=== PATIENT | male | born 1950 | race Caucasian/White ===

== ENCOUNTER → 2020-01-02 14:36 | Outpatient (BNVA) | payer MEDICARE, BC, SELFPAY | PROVIDERS: Family Provider Family Medicine; PCP Nurse Practitioner Family; Visit Provider Family Medicine | DX: J02.9 Acute pharyngitis, unspecified (principal); R11.14 Bilious vomiting; J44.9 Chronic obstructive pulmonary disease, unspecified | CPT/HCPCS: 71046; 85025; 87071; 87400; 87880 ==

== ENCOUNTER → 2020-04-22 11:02 | Outpatient (BNVA) | payer MEDICARE, SELFPAY | PROVIDERS: Family Provider Family Medicine; PCP Nurse Practitioner Family; Referring Provider Nurse Practitioner Family; Visit Provider Dermatology | DX: R21 Rash and other nonspecific skin eruption (principal); F17.210 Nicotine dependence, cigarettes, uncomplicated | CPT/HCPCS: 99203 ==

== ENCOUNTER → 2020-06-03 07:35 | Outpatient (BNVA) | payer MEDICARE, SELFPAY | PROVIDERS: Family Provider Family Medicine; PCP Nurse Practitioner Family; Visit Provider Nurse Practitioner Family | DX: E78.5 Hyperlipidemia, unspecified (principal) | CPT/HCPCS: 80053; 80061; 84439; 84443 ==

== ENCOUNTER 2020-08-25 09:42 | Inpatient (IN) | payer MEDICARE, SELFPAY ==
[2020-08-25] VITALS (24 sets, daily range): BP systolic 122–165; BP diastolic 76–110; PULSE 100–118; RESP 18–24; O2SAT 87–100; BMI 18.8
--- NOTE | 2020-08-25 09:58 | XR_ITS ---
WS: [id number] Exam: XR chest 1V portable [id number] Date/Time of Exam: 08/25/2020 9:58 AM Reason For Exam: Shortness of breath Comparison 01/02/2020. Interstitial infiltrates noted throughout both lungs more prevalent on the right than the left. There are superimposed chronic interstitial changes. The lungs are hyperinflated. No pneumothorax. Enlarge d right pulmonary hilum noted. Small right basal pleural effusion with fluid level seen. There may be trace left pleural effusion. The mediastinum is not widened. Heart size is within normal limits. Bon y structures are intact. XR/XR chest 1V portable [id number] IMPRESSION: 1. Interstitial infiltrates throughout both lungs more prevalent on the right t orourke the left. This would suggest pneumonia. 2. Pulmonary hyperinflation with chronic interstitial changes and probable COPD . 3. Prominent right pulmonary hilum. Lymphadenopathy or a mass not excluded. Rad iographic follow-up recommended to confirm complete resolution. 4. Small right pleural effusion noted. Global trace left pleural effusion.
--- NOTE | 2020-08-25 10:01 | ED_ITS ---
HPI - SOB/Dyspnea General: Chief Complaint: Shortness of Breath/Dyspnea Stated Complaint: sob Time Seen by Provider: 08/25/20 09:45 History of Present Illness: HPI Narrative: 70-year-old male presents emergency room complaining of shortness of breath. He is evidently brought over from the cardiac care clinic. He usually is on 3 L by nasal cannula and when he arrived here he was satting in the low 80 percentile on that amount. He was recently hospitalized at [facility] sounds like he eventually just left AMA approximately a week ago. Since then he has been on oxygen at home is been progressively worsening with increasing shortness of breath and productive cough. He is not had any vomiting or diarrhea. He denies any history of known coronary artery disease he does have known peripheral vascular disease with a previous aortofemoral bypass MD elicited complaint: shortness of breath and cough Pertinent past history: COPD Context: recent illness Timing: constant Severity: severe Exacerbating factors: exertion and coughing Relieving factors: oxygen and rest Known history of: COPD Associated symptoms: Reports chest congestion and sense of impending doom; Deny abdominal pain, chest pain, cough, diaphoresis, dizziness, extremity pain, fever(s), hemoptysis, lightheadedness, myalgias, nausea, orthopnea, palpitations, paresthesias, polydipsia, polyuria, rash, syncope or vomiting Treatment prior to arrival: oxygen Review of Systems Const: Denies: fever(s) or diaphoresis Card: Denies: chest pain, palpitations, lightheadedness, syncope or orthopnea Resp: Reports: chest congestion; Denies: hemoptysis GI: Denies: abdominal pain, nausea or vomiting Musc: Denies: extremity pain Neuro: Denies: dizziness Endo: Denies: polyuria or polydipsia PENDING SALE TO [facility] ED PFSH: Medical History (Updated 08/25/20 @ 21:13 by Cat Austin MD) Acute on chronic respiratory failure with hypoxemia COPD, moderate GERD (gastroesophageal reflux disease) Moderate episode of recurrent major depressive disorder Surgical History History of coronary angioplasty COMMON ILIAC AND EXTERNAL ILIAC LEFT History of endarterectomy Social History Smoking and tobacco status: former smoker Quit status (tobacco): has quit using tobacco Year quit tobacco: 06/2020 [id number] Second hand smoke exposure: Yes Smoking risk assessment/counseling performed?: Yes Alcohol intake: former Caregiver/support person: Yes Lives independently: Yes Household members: spouse Housing: House Marital status: service: Yes branch: [employer] Current occupational status: retired Pets and animals: Yes History of recent travel: No Current gender identity: Male Physical Exam Const: COMMON NORMALS: no acute distress GENERAL APPEARANCE: cooperative and comfortable ORIENTATION/CONSCIOUSNESS: Yes awake, Yes oriented to person, Yes oriented to place and Yes oriented to time HENMT: COMMON NORMALS: normocephalic, atraumatic and hearing grossly normal bilaterally HEAD & SCALP: normocephalic and atraumatic Neck/C-Spine: COMMON NORMALS: no JVD Resp: EFFORT & INSPECTION: Yes tachypneic, Yes labored and Yes uses accessory muscles AUSCULTATION: rhonchi and wheezes Cardio: COMMON NORMALS: no JVD, regular rate, regular rhythm and No murmurs present (Cardio) RATE: regular rate RHYTHM: regular rhythm GI: COMMON NORMALS: Soft to palpation and No hepatosplenomegaly present AUSCULTATION: Yes normoactive bowel sounds PALPATION: Yes Soft to palpation, No Tenderness to palpation present (GI), No Guarding due to palpation present (GI) and Yes No hepatosplenomegaly present Extremity: COMMON NORMALS: normal to inspection, capillary refill normal, no clubbing, cyanosis or edema, no calf tenderness and no pedal edema Neuro: SENSORIUM/ORIENTATION: Yes oriented to person, Yes oriented to place and Yes oriented to time Skin: COMMON NORMALS: no rashes or lesions noted GENERAL SKIN EXAM: no rashes or lesions noted Course Vital Signs: Vital signs: Vital Signs Pulse Rate 106 H 08/26/20 10:00 Respiratory Rate 28 H 08/26/20 10:00 Blood Pressure 162/94 08/26/20 10:00 Pulse Oximetry 92 08/26/20 10:00 MDM - SOB/Dyspnea MDM Narrative: Medical decision making narrative: Patient appears to have postobstructive pneumonia. We will go ahead and admit started on IV antibiotics consult pulmonology have discussed with hospitalist as well as Dr. Jameson Ledbetter. Lab Data: Labs: Lab Results 1208/25/20 08/25/20 Range/Units 10:48 10:58 10:58 WBC 12.2 H (4.0-10.0) 10^3/ uL RBC 5.02 (4.1-5.3) 10^6/u L Hgb 10.5 L (11.7-16.6) g/dL Hct 34.9 L (42.0-52.0) % MCV 69.5 L (80-94) fL MCH 20.9 L (28.0-34.0) pg MCHC 30.1 (30.0-36.0) g/dL RDW 18.6 H (12.1-15.1) % Plt Count 401 H (130-400) 10^3/c mm MPV 10.2 (7.4-10.4) fL Neut % (Auto) 80.5 % Lymph % (Auto) 13.3 % [place] % (Auto) 4.9 % Eos % (Auto) 0.2 % Baso % (Auto) 0.4 % Neut # (Auto) 9.79 H (1.8-7.7) 10^3/u L Lymph # (Auto) 1.6 (0.8-4.8) 10^3/u L [place] # (Auto) 0.6 (0.2-0.9) 10^3/u L Eos # (Auto) 0.0 (0.0-0.8) 10^3/u L Baso # (Auto) 0.1 (0.0-0.1) 10^3/u L Nucleated RBC % (a uto) 0 % Nucleated RBCs # 0.0 /100WBC D-Dimer 3.83 H (0-0.59) ug/mIFE U Specimen Type Sample Site ABG pH (7.35-7.45) ABG pCO2 (35-45) mmHg ABG pO2 (80.0-100.0) mmH g ABG HCO3 (22-26) mmol/L ABG O2 Saturation ABG Base Excess (-2.0-2.0) mmol/ L Mohamud Test A-a O2 Gradient (5-10) mmHg Hematocrit (42-52) % Hgb O2 Saturation (95-100) % Carboxyhemoglobin (0.4-20.1) %THgb Methemoglobin (0.4-1.5) % Total Hemoglobin (14-18) g/dL Ionized Calcium (1.1-1.4) mmol/L O2 Delivery Device O2 Liters/Min % FiO2 % School Vocational Educator ID Sodium (136-145) mmol/L Potassium (3.5-5.1) mmol/L Chloride (98-107) mmol/L Carbon Dioxide (22-29) mmol/L Anion Gap (5-19) BUN (8-23) mg/dL Creatinine (0.7-1.2) mg/dL GFR Calculation Glucose (65-115) mg/dL Calculated Osmolal ity (285-295) mOsm/k g Lactic Acid (0.5-2.2) mmol/L Calcium (8.5-10.5) mg/dL Total Bilirubin (0.15-1.2) mg/dL AST (0-40) U/L ALT (0-41) U/L Alkaline Phosphata se (40-130) IU/L Creatine Kinase (39-308) U/L Troponin T Baselin e (0-15) ng/L Troponin T 120 Min native (0-15) ng/L Delta Troponin T (0-10) ABS# C-Reactive Protein (0.0-4.9) mg/L Total Protein (6.6-8.7) g/dL Albumin (3.5-5.2) g/dL Globulin (1.3-4.6) g/dL SARS-CoV-2 Ag (Rap id) Negative (Negative) 08/25/20 08/25/20 08/25/20 Range/Units 10:58 10:58 10:58 WBC (4.0-10.0) 10^3/ uL RBC (4.1-5.3) 10^6/u L Hgb (11.7-16.6) g/dL Hct (42.0-52.0) % MCV (80-94) fL MCH (28.0-34.0) pg MCHC (30.0-36.0) g/dL RDW (12.1-15.1) % Plt Count (130-400) 10^3/c mm MPV (7.4-10.4) fL Neut % (Auto) % Lymph % (Auto) % [place] % (Auto) % Eos % (Auto) % Baso % (Auto) % Neut # (Auto) (1.8-7.7) 10^3/u L Lymph # (Auto) (0.8-4.8) 10^3/u L [place] # (Auto) (0.2-0.9) 10^3/u L Eos # (Auto) (0.0-0.8) 10^3/u L Baso # (Auto) (0.0-0.1) 10^3/u L Nucleated RBC % (a uto) % Nucleated RBCs # /100WBC D-Dimer (0-0.59) ug/mIFE U Specimen Type Sample Site ABG pH (7.35-7.45) ABG pCO2 (35-45) mmHg ABG pO2 (80.0-100.0) mmH g ABG HCO3 (22-26) mmol/L ABG O2 Saturation ABG Base Excess (-2.0-2.0) mmol/ L Mohamud Test A-a O2 Gradient (5-10) mmHg Hematocrit (42-52) % Hgb O2 Saturation (95-100) % Carboxyhemoglobin (0.4-20.1) %THgb Methemoglobin (0.4-1.5) % Total Hemoglobin (14-18) g/dL Ionized Calcium (1.1-1.4) mmol/L O2 Delivery Device O2 Liters/Min % FiO2 % School Vocational Educator ID Sodium 137 (136-145) mmol/L Potassium 3.8 (3.5-5.1) mmol/L Chloride 101 (98-107) mmol/L Carbon Dioxide 20 L (22-29) mmol/L Anion Gap 19.8 H (5-19) BUN 19 (8-23) mg/dL Creatinine 0.8 (0.7-1.2) mg/dL GFR Calculation Not Reportable Glucose 109 (65-115) mg/dL Calculated Osmolal ity 287 (285-295) mOsm/k g Lactic Acid 2.7 H (0.5-2.2) mmol/L Calcium 8.9 (8.5-10.5) mg/dL Total Bilirubin 0.2 (0.15-1.2) mg/dL AST 29 (0-40) U/L ALT 30 (0-41) U/L Alkaline Phosphata se 104 (40-130) IU/L Creatine Kinase 53 (39-308) U/L Troponin T Baselin e 32 H (0-15) ng/L Troponin T 120 Min native (0-15) ng/L Delta Troponin T (0-10) ABS# C-Reactive Protein 34.8 H (0.0-4.9) mg/L Total Protein 7.2 (6.6-8.7) g/dL Albumin 3.2 L (3.5-5.2) g/dL Globulin 4.0 (1.3-4.6) g/dL SARS-CoV-2 Ag (Rap id) (Negative) 08/25/20 08/25/20 Range/Units 12:58 13:19 WBC (4.0-10.0) 10^3/ uL RBC (4.1-5.3) 10^6/u L Hgb (11.7-16.6) g/dL Hct (42.0-52.0) % MCV (80-94) fL MCH (28.0-34.0) pg MCHC (30.0-36.0) g/dL RDW (12.1-15.1) % Plt Count (130-400) 10^3/c mm MPV (7.4-10.4) fL Neut % (Auto) % Lymph % (Auto) % [place] % (Auto) % Eos % (Auto) % Baso % (Auto) % Neut # (Auto) (1.8-7.7) 10^3/u L Lymph # (Auto) (0.8-4.8) 10^3/u L [place] # (Auto) (0.2-0.9) 10^3/u L Eos # (Auto) (0.0-0.8) 10^3/u L Baso # (Auto) (0.0-0.1) 10^3/u L Nucleated RBC % (a uto) % Nucleated RBCs # /100WBC D-Dimer (0-0.59) ug/mIFE U Specimen Type Arterial Sample Site Radial, right ABG pH 7.42 (7.35-7.45) ABG pCO2 35.2 (35-45) mmHg ABG pO2 77.5 L (80.0-100.0) mmH g ABG HCO3 22.5 (22-26) mmol/L ABG O2 Saturation 96.5 ABG Base Excess -1.7 (-2.0-2.0) mmol/ L Mohamud Test Pos A-a O2 Gradient 77.8 H (5-10) mmHg Hematocrit 31.8 L (42-52) % Hgb O2 Saturation 94.4 L (95-100) % Carboxyhemoglobin 1.5 (0.4-20.1) %THgb Methemoglobin 0.7 (0.4-1.5) % Total Hemoglobin 10.4 L (14-18) g/dL Ionized Calcium 1.2 (1.1-1.4) mmol/L O2 Delivery Device Nrb O2 Liters/Min 15.0 % FiO2 100.0 % School Vocational Educator ID jmn Sodium 136.0 (136-145) mmol/L Potassium 3.7 (3.5-5.1) mmol/L Chloride (98-107) mmol/L Carbon Dioxide (22-29) mmol/L Anion Gap (5-19) BUN (8-23) mg/dL Creatinine (0.7-1.2) mg/dL GFR Calculation Glucose 120.0 H (65-115) mg/dL Calculated Osmolal ity (285-295) mOsm/k g Lactic Acid (0.5-2.2) mmol/L Calcium (8.5-10.5) mg/dL Total Bilirubin (0.15-1.2) mg/dL AST (0-40) U/L ALT (0-41) U/L Alkaline Phosphata se (40-130) IU/L Creatine Kinase (39-308) U/L Troponin T Baselin e (0-15) ng/L Troponin T 120 Min native 31.32 H (0-15) ng/L Delta Troponin T -0.68 L (0-10) ABS# C-Reactive Protein (0.0-4.9) mg/L Total Protein (6.6-8.7) g/dL Albumin (3.5-5.2) g/dL Globulin (1.3-4.6) g/dL SARS-CoV-2 Ag (Rap id) (Negative) Discharge Plan Discharge Patient Disposition: Admitted As Inpatient Admit Provider: Cat Austin Clinical Impression: Pneumonia, Lesion of lung, COPD, moderate Condition: Stable Coding Level of Care Code ED Readiness Paraprofessional for Eric Donohue
--- NOTE | 2020-08-25 11:01 | PC.NURSE ---
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
[2020-08-25 11:23] LABS: Basophils # 0.1 10^3/uL (0.0-0.1); Basophils % 0.4 %; Eosinophils % 0.2 %; Hematocrit 34.9 % (42.0-52.0); Hemoglobin 10.5 g/dL (11.7-16.6); Lymphocytes # 1.6 10^3/uL (0.8-4.8); Lymphocytes % 13.3 %; Mean Corpuscular HGB Conc 30.1 g/dL (30.0-36.0); Mean Corpuscular Hemoglobin 20.9 pg (28.0-34.0); Mean Corpuscular Volume 69.5 fL (80-94); Mean Platelet Volume 10.2 fL (7.4-10.4); Monocytes # 0.6 10^3/uL (0.2-0.9); Monocytes % 4.9 %; Neutrophils # 9.79 10^3/uL (1.8-7.7); Neutrophils % 80.5 %; Nucleated Red Blood Cells % 0 %; Platelet Count 401 10^3/cmm (130-400); Red Blood Count 5.02 10^6/uL (4.1-5.3); Red Cell Distribution Width 18.6 % (12.1-15.1); White Blood Count 12.2 10^3/uL (4.0-10.0)
[2020-08-25 11:29] LABS: SARS Covid-2 Antigen Negative (Negative)
[2020-08-25 11:40] LABS: D Dimer 3.83 ug/mIFEU (0-0.59)
[2020-08-25 11:42] LABS: Alanine Aminotransferase 30 U/L (0-41); Albumin Level 3.2 g/dL (3.5-5.2); Alkaline Phosphatase 104 IU/L (40-130); Anion Gap 19.8 (5-19); Aspartate Amino Transferase 29 U/L (0-40); Blood Urea Nitrogen 19 mg/dL (8-23); C Reactive Protein 34.8 mg/L (0.0-4.9); Calcium 8.9 mg/dL (8.5-10.5); Carbon Dioxide 20 mmol/L (22-29); Chloride 101 mmol/L (98-107); Creatine Phosphokinase 53 U/L (39-308); Glucose 109 mg/dL (65-115); Osmolality Calculated 287 mOsm/kg (285-295); Potassium 3.8 mmol/L (3.5-5.1); Sodium 137 mmol/L (136-145); Total Bilirubin 0.2 mg/dL (0.15-1.2); Total Protein 7.2 g/dL (6.6-8.7); Troponin(5th) Baseline 32 ng/L (0-15)
[2020-08-25] MEDS: dexamethasone 4 mg/mL INJ 6 MG IVP (11:43)
[2020-08-25] MEDS: levofloxacin-dextrose 5 % 750 MG/150 ML PREMIX 100 MG IV (11:43)
--- NOTE | 2020-08-25 11:59 | ECG_ITS ---
[facility] Test Date: 2020-08-25 Pat Name: Alexei Day Department: Room: Gender: Male Pediatric Oncology Nurse: : 1950 Requested By: Cameron Perez Order Number: [id number] Miri MD: Gab Castellanos M.D. Measurements Intervals [place] Rate: 106 P: 51 SD: 148 QRS: 80 QRSD: 113 T: 24 QT: 352 QTc: 469 Interpretive Statements SINUS TACHYCARDIA WITH VENTRICULAR PREMATURE COMPLEXES Compared to ECG 02/20/2018 05:55:48 NO SIGNIFICANT CHANGES ARE NOTED Electronically Signed On 08-25-2020 16:59:54 ASSISTANT HOUSEKEEPING MANAGER by Gab Castellanos M.D. [id number] f
--- NOTE | 2020-08-25 12:12 | CT_ITS ---
WS: [id number] CT CHEST ANGIOGRAPHY WITH REFORMATS HISTORY: dyspnea TECHNIQUE: Contiguous axial images are obtained through the chest during arterial injection of intrav enous contrast. Images are reconstructed to evaluate the pulmonary arteries. MIP imaging also reviewe d. All CT scans at [facility] use at least one of these dose optimization techniques: aut omated exposure control; mA and/or kV adjustment per patient size (includes targeted exams where dose is matched to clinical indication); or iterative reconstruction. CONTRAST: Omnipaque 350; 95 mL IV. DLP: 498.81 mGy.cm COMPARISON: 02/20/2018 Excellent opacification of the pulmonary arteries. No pulmonary embolism is identified. Pulmonary art jessica size is equal to the aorta. Atherosclerotic changes within the aorta with no aneurysm. Cardiac ch ambers are slightly enlarged. Small amount of pericardial effusion versus pericardial thickening. Severe changes of pulmonary emphysema. Area of dense consolidation in the posterior medial RIGHT uppe r lobe. There is mild tethering and slight spiculation involving a solid component in the RIGHT upper lobe. There is additional dense consolidation with changes of atelectasis and collapsed and hilar ad enopathy centered over the RIGHT hilum extending into the RIGHT lower lobe. Spiculated nodule measuri ng 1.5 x 1.8 cm along the fissure of the LEFT upper lobe. Additional areas of interstitial thickening with consolidation and areas of atelectasis and nodularity at the lung bases. Bronchiectasis in the lower lung srivastava. Small RIGHT pleural effusion. There is extensive mediastinal and hilar adenopathy. Mediastinal and hilar lymph nodes measuring up t o 2.0 cm. There is extensive consolidation at the RIGHT hilum and to a lesser extent LEFT hilum most significant adenopathy. Bronchial thickening and adenopathy extends along the bronchovascular bundles of the RIGHT lower lobe and to a lesser extent LEFT lower lobe. Tricuspid regurgitation into hepatic veins. Very minimal thickening of the LEFT adrenal gland. Osteopenia. L1 compression fracture by 30% is new since 02/20/2018. Additional mild T6 anterior compre ssion fracture. Age indeterminate but not healed fracture involving what is probably the RIGHT latera l fourth rib. CT/CT angio chest PE protcl [id number] IMPRESSION: 1. No pulmonary embolism. 2. Severe emphysema with marked pulmonary fibrosis, bronchiectasis and interst itial thickening. 3. Additional areas of increasing consolidation greatest in the RIGHT upper lo be and LEFT upper lobe suspicious for neoplastic involvement. 4. Subcarinal and bilateral hilar lymphadenopathy with the largest lymph nodes measuring 2.0 cm. Neoplastic until proven otherwise. 5. Small RIGHT pleural effusion. 6. Age-indeterminate but nonhealed RIGHT fourth lateral rib fracture. 7. Age indeterminate but new since 02/20/2018 L1 30% compression fracture. Unch anged T6 compression fracture.
[2020-08-25 12:23] LABS: Lactic Sepsis W/Reflex 2.7 mmol/L (0.5-2.2)
[2020-08-25] MEDS: vancomycin 1,000 MG in sodium chloride 0.9% 250 ML 250 MG IV (13:00)
[2020-08-25 13:08] LABS: Reflex Lactate Order REFLEX LACTIC ORDERD
[2020-08-25] MEDS: iohexol 350 mg/mL 100 mL Btl IV (13:26)
[2020-08-25 13:29] LABS: ABG PCO2 35.2 mmHg (35-45); ABG PH Result 7.42 (7.35-7.45); Arterial Blood Gas Hematocrit 31.8 % (42-52); Base Excess ABG -1.7 mmol/L (-2.0-2.0); Blood Gas Allen Test Pos; Blood Gas Sample Type Arterial; Carboxyhemoglobin 1.5 %THgb (0.4-20.1); HCO3 ABG 22.5 mmol/L (22-26); HGB O2 Sat 94.4 % (95-100); Ionized Calcium Level - ABG 1.2 mmol/L (1.1-1.4); Methemoglobin 0.7 % (0.4-1.5); Oxygen Saturation ABG 96.5; PO2 ABG 77.5 mmHg (80.0-100.0); Potassium Level - ABG 3.7 mmol/L (3.5-5.0); Total Hemoglobin 10.4 g/dL (14-18)
[2020-08-25 13:30] LABS: Alveolar-Arterial Oxygen Gradi 77.8 mmHg (5-10); Blood Gas Sample Site Radial, right; Oxygen Device NRB
[2020-08-25] MEDS: piperacillin-tazobactam 3.375 GM in sodium chloride 0.9% (plus) 50 ML IV (13:30)
[2020-08-25 13:38] LABS: Troponin 5 2HR 31.32 ng/L (0-15)
[2020-08-25 13:40] LABS: Troponin 5 2HR Delta -0.68 ABS# (0-10)
[2020-08-25 14:58] LABS: Lactic Acid level (Lactate) 1.4 mmol/L (0.5-2.2)
--- NOTE | 2020-08-25 15:59 | ECG_ITS ---
[facility] Test Date: 2020-08-25 Pat Name: Alexei Day Department: Room: Gender: Male Body Sander: : 1950 Requested By: Cameron Perez Order Number: [id number] Miri MD: Gab Castellanos M.D. Measurements Intervals [place] Rate: 111 P: 58 WI: 144 QRS: 68 QRSD: 114 T: -2 QT: 351 QTc: 478 Interpretive Statements SINUS TACHYCARDIA WITH OCCASIONAL VENTRICULAR PREMATURE COMPLEXES MODERATE INTRAVENTRICULAR CONDUCTION DELAY [110+ ms QRS DURATION] MODERATE ST DEPRESSION [0.05+ mV ST DEPRESSION] ABNORMAL QRS-T ANGLE [QRS-T AXIS DIFFERENCE > 60] Compared to ECG 08/25/2020 12:16:21 Ventricular premature complex(es) now present Intraventricular conduction delay now present ST (T wave) deviation now present Ventricular-paced complex(es) or rhythm no longer present Electronically Signed On 08-25-2020 16:56:34 REVIEW NURSE by Gab Castellanos M.D. [id number] f
[2020-08-25 18:17] LABS: Troponin 5 6HR 26.62 ng/L (0-15)
[2020-08-25 18:24] LABS: Troponin 5 6HR Delta -5.38 ng/L (0-12)
[2020-08-25] MEDS: heparin 5,000 unit/mL INJ 1 mL 5000 UNIT SUBCUT (20:30)
[2020-08-25] MEDS: sodium chloride 0.9% 1,000 ML 75 ML IV (20:30)
--- NOTE | 2020-08-25 20:55 | PM.HP ---
Providers/Chief Complaint Admitting Physician: Cat Austin Primary Care Provider: Rome Murillo DO Chief Complaint: sob History of Present Illness 70-year-old male with past medical history significant for anxiety, depression, peripheral arterial disease, gastroesophageal reflux disease, longstanding tobacco abuse, O2 dependent chronic obstructive pulmonary disease on 2 L by nasal cannula who presented to hospital from pulmonary clinic for evaluvation of progressivly worsening dyspnea. Patient was recently admitted multiple times to [facility] initially on 06/2020 where he was noted to a new EMELY speculated mass measuring 1.5 cm in addition to dense mass like consolidation in right lung as well. Pated underwent bronchoscopy shortly after discharge on 08/01 with biopsy the results of which he is not aware of other than cultures which appearantly had grown MRSA. He was treated with vancomycin and discharged. Today was noted to have profound hypoxia on 6l via [facility] after which he was sent to ER for work up. initial laboratory workup today showed a WBC of 12.2, hemoglobin of 10.5, hematocrit 34.9 and platelet count of 401. Sodium 137, potassium 3.8, chloride 101, bicarb 20, BUN 19 and creatinine is 0.8. Chest x-ray was performed which showed interstitial infiltrates throughout both lungs more prevalent on the right than left and prominent right pulmonary hilum. A CT chest PE protocol was done performed which showed severe emphysema with marked pulmonary fibrosis, bronchiectasis and interstitial thickening and additional areas of increasing consolidation greatest in the RIGHT upper lobe and LEFT upper lobe suspicious for neoplastic involvement. patient was started on 0250 and non-rebreather at 10 L. emergency room he was given vancomycin, Zosyn and Levaquin. Review of Systems General: Reports: 10 or more systems reviewed and unremarkable except in HPI and below Medications/Allergies Home Medications Medication Instructions Recorded Confirmed Last Taken Type fluticasone 250 mcg-salmeterol 50 See Rx Instructions .ROUTE 06/03/20 08/25/20 08/24/20 Rx mcg/dose blistr powdr for .COMPLEX #60 unspecified inhalation albuterol sulfate 2.5 mg INHALATION QID PRN #180 ml 06/17/20 08/25/20 08/25/20 Rx albuterol sulfate 90 mcg/actuation See Rx Instructions .ROUTE 08/05/20 08/25/20 Unknown Rx aerosol inhaler .COMPLEX #18 g metoprolol tartrate 25 mg tablet 25 mg PO BID@0900,2100 08/12/20 08/25/20 08/24/20 History Flonase Allergy Relief 1 spray INTRANASAL DAILY@0900 08/25/20 08/25/20 08/24/20 History Zyrtec 10 mg PO DAILY PRN 08/25/20 08/25/20 Unknown History aspirin [Aspir-81] 81 mg PO DAILY@0900 08/25/20 08/25/20 08/24/20 History atorvastatin 20 mg PO DAILY@0900 08/25/20 08/25/20 08/24/20 History omeprazole 40 mg PO DAILY@0900 08/25/20 08/25/20 08/24/20 History sertraline 100 mg PO BID@0900,209908/25/20 08/25/20 08/24/20 History Allergies Allergy/AdvReac Type Severity Reaction Status Date / Time No Known Allergies Allergy Verified 08/25/20 09:51 PFSH Acute PFSH: Medical History (Updated 08/25/20 @ 21:13 by Cat Austin MD) Acute on chronic respiratory failure with hypoxemia COPD, moderate GERD (gastroesophageal reflux disease) Moderate episode of recurrent major depressive disorder Surgical History History of coronary angioplasty COMMON ILIAC AND EXTERNAL ILIAC LEFT History of endarterectomy Social History Smoking and tobacco status: former smoker Quit status (tobacco): has quit using tobacco Year quit tobacco: 06/2020 [id number] Second hand smoke exposure: Yes Smoking risk assessment/counseling performed?: Yes Alcohol intake: former Caregiver/support person: Yes Lives independently: Yes Household members: spouse Housing: House Marital status: service: Yes branch: [employer] Current occupational status: retired Pets and animals: Yes History of recent travel: No Current gender identity: Male Vitals/I&O/Wt Last Vital Signs Pulse 111 H 08/25/20 19:36 Resp 20 H 08/25/20 19:36 BP 145/88 08/25/20 19:36 Pulse Ox 97 08/25/20 19:36 08/25/20 08/25/20 08/25/20 06:59 14:59 22:59 Intake Total 450 / 450 Balance 450 / 450 Weight last 48 hrs Weight 53.07 kg Physical Exam Narrative: EXAM NARRATIVE: General- alert awake and oriented in mild respiratory distress HEENT-grossly unremarkable Chest- decreased breath sounds bilaterally Abdomen-soft nondistended extremities-no edema Data : 08/25/20 10:58 08/25/20 10:58 Micro: Microbiology 08/25/20 10:58 Blood Culture - Preliminary Blood SPECIMEN COLLECTED 08/25/20 10:58 Blood Culture - Preliminary Blood SPECIMEN COLLECTED A&P Assessment and plan (1) Acute on chronic respiratory failure with hypoxemia: Status: Inactive (2) COPD exacerbation: Status: Acute (3) HCAP (healthcare-associated pneumonia): Status: Acute Patient will be admitted to the hospital and continued on broad-spectrum antibiotics to include MRSA and Pseudomonas. Vancomycin pharmacy to dose in addition to cefepime 1 g IV Q 12 hour. Blood cultures and sputum cultures were obtained in emergency room. Continue DuoNeb treatment q.6 hours scheduled and Q 4 p.r.n.. Supplemental oxygen as needed to maintain O2 sats above 92%. Repeat chest x-ray in a.m.Will consider adding steroids however given recent MRSA bacteremia will hold off for now. Pulmonary medicine was consulted. Resume remainder of home medications. Clear liquid diet well in respiratory distress however can advance as tolerated showed respiratory status improved. Repeat CBC and BMP in a.m.. Attestations Medical Necessity Statement*: Anticipate over 2 midnights stay in hospital for evaluation and treatment of healthcare associated pneumonia with acute on chronic hypoxemic respiratory failure requiring IV antibiotics and pulmonary consult Time Spent in Patient Care: Greater than 35 minutes (>than 50% of time spent in counselling and/or direct pt care on unit). Coding Level of Care Code Acute National Expansion Recruiter for Eric Donohue Diagnoses Acute on chronic respiratory failure with hypoxemia J96.21 COPD exacerbation J44.1 HCAP (healthcare-associated pneumonia) J18.9
--- NOTE | 2020-08-25 21:19 | PC.NURSE ---
arrived from ED via stretcher, transferred self to bed, 15L NRB, sat 98-100 %, placed on 8L Oxy mask per RT sat 95% currently, AO x4,follows commands answers questions appropriately
[2020-08-25] MEDS: sertraline 100 mg Tablet PO (21:58)
[2020-08-25] MEDS: metoprolol tartrate 25 mg Tablet PO (21:58)
[2020-08-25] MEDS: cefepime 1,000 MG in sodium chloride 0.9% (plus) 50 ML 100 MG IV (21:58)
--- NOTE | 2020-08-25 23:20 | PC.PHAR ---
Pharmacokinetic dosing service Date: 08/25/20 Time: 2199 Objective: Patient: Alexei Day Floor: ICU-2 Age: 70 yo Serum creatinine: 0.8 mg/dL Height: 66.0 Inches Weight (kg): 53.07 Diagnosis: Relevant medical/social history: Cultures and sensitivities: Other labs: Assessment: IBW (kg): 63.80 Dosing wt(kg): 53.07 Estimated Creatinine clearance (ml/min): 63.6 CRCL method: Cockcroft and Gault using ibw(default). Drug selected: Vancomycin Loading dose (mg): 0 Vd (liters): 47.8 (factor used: 0.9 L/kg) Brnet (hr-1): 0.057 Half life (hrs): 12.16 Recommended dose: 1000 mg Interval: 18 hrs Infusion time (hrs): 1.5 Predicted peak (mcg/mL): 31.3 Predicted trough (mcg/mL): 12.22 Total body weight is being used for vancomycin dosing. Renal function is stable [ ] /unstable [ ] Recommendations: Give Vancomycin 1000 mg q 18 hrs with an expected Cpeak of 31.3 mcg/ml and an expected Ctrough of 12.22 mcg/ml Renal dosing of other antibiotics (review renal dosing of other medications and list guidelines here): Thank you for the consult, will continue to follow. Signature: Ana Galindo [facility]
[2020-08-26] VITALS (37 sets, daily range): BP systolic 140–184; BP diastolic 90–130; PULSE 97–140; RESP 17–36; TEMP 36.4–36.7; O2SAT 89–100
[2020-08-26] MEDS: ipratropium-albuterol 3 mL Neb INHALATION ×2 (02:37→19:46)
[2020-08-26] MEDS: heparin 5,000 unit/mL INJ 1 mL 5000 UNIT SUBCUT ×3 (03:35→20:06)
[2020-08-26 04:50] LABS: ABG PCO2 35.6 mmHg (35-45); ABG PH Result 7.43 (7.35-7.45); Arterial Blood Gas Hematocrit 30.6 % (42-52); Base Excess ABG -0.4 mmol/L (-2.0-2.0); Blood Gas Sample Site Brachial, right; Blood Gas Sample Type Arterial; HCO3 ABG 23.6 mmol/L (22-26); Oxygen Device OXY MASK; PO2 ABG 68.4 mmHg (80.0-100.0)
[2020-08-26 05:55] LABS: Basophils % 0.3 %; Eosinophils # 0.1 10^3/uL (0.0-0.8); Eosinophils % 0.7 %; Hematocrit 31.1 % (42.0-52.0); Hemoglobin 9.8 g/dL (11.7-16.6); Lymphocytes # 2.3 10^3/uL (0.8-4.8); Lymphocytes % 19.3 %; Mean Corpuscular HGB Conc 31.5 g/dL (30.0-36.0); Mean Corpuscular Hemoglobin 21.2 pg (28.0-34.0); Mean Corpuscular Volume 67.2 fL (80-94); Mean Platelet Volume 10.2 fL (7.4-10.4); Monocytes # 1.1 10^3/uL (0.2-0.9); Monocytes % 9.5 %; Neutrophils # 8.39 10^3/uL (1.8-7.7); Neutrophils % 69.9 %; Nucleated Red Blood Cells % 0 %; Platelet Count 353 10^3/cmm (130-400); Red Blood Count 4.63 10^6/uL (4.1-5.3); Red Cell Distribution Width 17.7 % (12.1-15.1)
[2020-08-26] MEDS: vancomycin 1,000 MG in sodium chloride 0.9% 250 ML 250 MG IV (06:01)
[2020-08-26 06:19] LABS: Anion Gap 14.6 (5-19); Blood Urea Nitrogen 17 mg/dL (8-23); Calcium 8.8 mg/dL (8.5-10.5); Carbon Dioxide 22 mmol/L (22-29); Chloride 106 mmol/L (98-107); Glucose 114 mg/dL (65-115); Osmolality Calculated 290 mOsm/kg (285-295); Potassium 3.6 mmol/L (3.5-5.1); Sodium 139 mmol/L (136-145)
[2020-08-26] MEDS: sodium chloride 0.9% 1,000 ML 100 ML IV (07:36)
[2020-08-26] MEDS: cefepime 1,000 MG in sodium chloride 0.9% (plus) 50 ML 100 MG IV ×2 (10:03→21:14)
[2020-08-26] MEDS: atorvastatin 40 mg Tablet 20 MG PO (10:04)
[2020-08-26] MEDS: sertraline 100 mg Tablet PO ×2 (10:04→20:07)
[2020-08-26] MEDS: metoprolol tartrate 25 mg Tablet PO ×2 (10:04→20:06)
[2020-08-26] MEDS: pantoprazole DR 40 mg Tablet PO (10:04)
[2020-08-26] MEDS: albuterol 8 gm MDI 2 PUFF INHALATION ×2 (11:44→16:09)
--- NOTE | 2020-08-26 13:38 | PM.PN ---
Subjective Subjective: Interval history: 70-year-old male with past medical history significant for anxiety, depression, peripheral arterial disease, gastroesophageal reflux disease, longstanding tobacco abuse, O2 dependent chronic obstructive pulmonary disease on 2 L by nasal cannula who presented to hospital from pulmonary clinic for evaluvation of progressivly worsening dyspnea. Patient was recently admitted multiple times to [facility] initially on 06/2020 where he was noted to a new EMELY speculated mass measuring 1.5 cm in addition to dense mass like consolidation in right lung as well. Terri underwent bronchoscopy shortly after discharge on 08/01 with biopsy the results of which he is not aware of other than cultures which appearantly had grown MRSA. He was treated with vancomycin and discharged. Today was noted to have profound hypoxia on 6l [facility] after which he was sent to ER for work up. initial laboratory workup today showed a WBC of 12.2, hemoglobin of 10.5, hematocrit 34.9 and platelet count of 401. Sodium 137, potassium 3.8, chloride 101, bicarb 20, BUN 19 and creatinine is 0.8. Chest x-ray was performed which showed interstitial infiltrates throughout both lungs more prevalent on the right than left and prominent right pulmonary hilum. A CT chest PE protocol was done performed which showed severe emphysema with marked pulmonary fibrosis, bronchiectasis and interstitial thickening and additional areas of increasing consolidation greatest in the RIGHT upper lobe and LEFT upper lobe suspicious for neoplastic involvement. patient was started on 0250 and non-rebreather at 10 L. emergency room he was given vancomycin, Zosyn and Levaquin. 08/26/2020 Patient's O2 requirements increased up to 15 L on non-rebreather. Patient was then transitioned to high-flow nasal cannula. continue have shortness of breath with exertion. Otherwise did not have any fever, chills, nausea vomiting. Medications: Reviewed: Yes Vitals/I&O/Wt Last Vital Signs Pulse 105 H 08/26/20 12:02 Resp 25 H 08/26/20 13:00 BP 158/109 08/26/20 13:00 Pulse Ox 93 08/26/20 13:00 08/25/20 08/26/20 08/26/20 22:59 06:59 14:59 Intake Total 50 / 500 240 / 240 Output Total 0 / 0 300 / 300 200 / 200 Balance 50 / 500 -300 / 200 40 / 40 Weight last 48 hrs Weight 53.07 kg Physical Exam Narrative: EXAM NARRATIVE: General- alert awake and oriented in mild respiratory distress HEENT-grossly unremarkable Chest- decreased breath sounds bilaterally Abdomen-soft nondistended extremities-no edema Data : 08/26/20 04:26 08/26/20 04:26 Micro: Microbiology 08/25/20 10:58 Blood Culture - Preliminary Blood NEGATIVE TO DATE 08/25/20 10:58 Blood Culture - Preliminary Blood NEGATIVE TO DATE A&P Assessment and plan (1) Acute on chronic respiratory failure with hypoxemia: Status: Inactive (2) COPD exacerbation: Status: Acute (3) HCAP (healthcare-associated pneumonia): Status: Acute Follow up on AM ABGs Transitioned this am to HFNC Continue broad spectrum abx Blood culture x 2 - NGTD Rapid ag COVID-19 negative Follow up on CoV19 PCR send out Bronchdilators to continue Advair 1 puff BID May consider adding IV steroids Pulmonary medicine on consult Repeat Chest x-ray in AM Repeat ABG in am .. Attestations Medical Necessity Statement*: Continue hospitalization for management of acute on chronic hypoxemic respiratory failure requiring supplemental oxygen via high-flow in addition to suspected postobstructive healthcare associated pneumonia requiring IV antibiotics. Coding Level of Care Code Acute Education Intern for [facility] Fwd Diagnoses Acute on chronic respiratory failure with hypoxemia J96.21 COPD exacerbation J44.1 HCAP (healthcare-associated pneumonia) J18.9
[2020-08-26 14:14] LABS: Alanine Aminotransferase 32 U/L (0-41); Albumin Level 2.8 g/dL (3.5-5.2); Alkaline Phosphatase 97 IU/L (40-130); Anion Gap 17.6 (5-19); Aspartate Amino Transferase 39 U/L (0-40); Blood Urea Nitrogen 18 mg/dL (8-23); Calcium 8.9 mg/dL (8.5-10.5); Carbon Dioxide 21 mmol/L (22-29); Chloride 106 mmol/L (98-107); Globulin 3.8 g/dL (1.3-4.6); Glucose 118 mg/dL (65-115); Osmolality Calculated 295 mOsm/kg (285-295); Potassium 3.6 mmol/L (3.5-5.1); Sodium 141 mmol/L (136-145); Total Bilirubin 0.2 mg/dL (0.15-1.2); Total Protein 6.6 g/dL (6.6-8.7)
--- NOTE | 2020-08-26 16:55 | PC.PT ---
Pt chart reviewed and after consulting with RN, pt had difficulty maintaining SpO2 with movement and required 1x NC (15L) & 1x OxyMask (15L) to return to baseline. RN advised PT to defer Eval to tomorrow (08/27).
[2020-08-26] MEDS: hyDRALAzine 10 mg Tablet PO (16:56)
--- NOTE | 2020-08-26 17:12 | PC.NURSE ---
Oxygen requirements increasing. Attempted 15l HFNC but patient did not tolerate well. Placed back on 15l oxymask. Patient desat into 70s with any exertion. Declined bath and PT today. Physician and capital project engineer aware of requirements.
[2020-08-26 17:53] LABS: Coronavirus Test Green County Not Detected
--- NOTE | 2020-08-26 20:27 | PC.NURSE ---
Labored respirations with RR 26 noted, reported from previous shift, 15L Oxy mask O2 sat 93, reported SOB but feeling okay other than that, AO x4 follows commands answers questions appropriately, supine 45 degrees call light within reach
--- NOTE | 2020-08-26 21:43 | PM.CONSULT ---
Providers/Reason For Consult Consulting Physican/Specialty*: Greg Durant MD/ Pulmonary Reason for Consult*: Acute hypoxic respiratory failure likely secondary to pneumonia/lung cancer Requesting Physcian: Dr. Fisher Attending Physician: Cat Austin Primary Care Provider: Rome Murillo, History of Present Illness History of Present Illness Mr. Alexei Day, 70-year-old gentleman with past medical history of COPD, peripheral arterial disease, hernia, ? Bilateral aortofemoral bypass, 75-year pack history quit #2019, seen in my pulmonary clinic on 08/25/2020 for follow-up after hospital discharge from [facility] on 08/03/2020. in clinic 08/25/2020: Patient was brought in wheelchair with his , saturating low 80s on 6 L nasal cannula. He reported not feeling well since his discharge and stated that his saturations drop more often on 5 L and she has to increase his oxygen. Also reported cough with sputum. Patient reported smoking 1.5 PPD for 50 years and quit June 2020. Patient is using Advair and albuterol as needed for his COPD. Patient was requiring up to 8 L oxygen in clinic and barely saturating 89% and so was referred to emergency room for further evaluation. In the ED, A CT chest PE protocol was done performed which showed severe emphysema with marked pulmonary fibrosis, bronchiectasis and interstitial thickening and additional areas of increasing consolidation greatest in the RIGHT upper lobe and LEFT upper lobe suspicious for neoplastic involvement. patient was started on 0250 and non-rebreather at 10 L. emergency room he was given vancomycin, Zosyn and Levaquin and admitted to ICU for close monitoring. Pulmonary consult called to follow-up on the patient. Patient seen at bedside today. He is in contact and airborne isolation for COVID-19 pneumonia rapid antigen negative but Covid PCR still pending. Saturating 97% on 15 L oxygen. Still in mild respiratory distress but says his breathing is slightly better than it was in the clinic. Attempted to keep him on high flow nasal cannula but he did not tolerate. As per the paperwork obtained from [facility]: Patient was admitted to [facility] on 07/22/2020 for increasing shortness of breath, fever, weakness of her 2 weeks. Associated with intermittent fever and chills for 1 week. In ER patient had a fever 104 on presentation and intermittent right-sided chest pain with increasing productive cough of purulent sputum and diarrhea. Usually wears 2 L of oxygen at home but in the ED was requiring 5 L to maintain saturation 93%. CT chest showed masslike consolidation in the right upper lobe and left upper lobe, elevated CRP and elevated procalcitonin, and patient was admitted for treatment of bacterial pneumonia. Sputum cultures grew MRSA and patient was treated with vancomycin for MRSA pneumonia. 1 out of 3 blood cultures also showed gram-positive cocci. CT 07/23/2020: Impression Left upper lobe mass with spiculation measures up to 1.5 cm worrisome in appearance. Dense masslike consolidation in the right upper lobe and right lower lobe with some nodular dense fullness in the right pulmonary hilum. Adjacent to these areas there is some areas of additional peripheral consolidation which may reflect some postobstructive pneumonia. Fracture of L1 vertebral bodies of indeterminate age but it could be acute. Fracture of T6 superior endplate appears like old. CT 07/30/2020: Heart abnormalities of right lung that have improved very minimally. There is soft tissue fullness involving the right hilar region and surrounding the vessels with compression of bronchi. There is very pronounced inflammatory process throughout the interstitial disease in the right lung base and there is a right basilar effusion. Left lung reveals honeycombing and a spiculated irregular mass measuring 1.9 cm in diameter that is very worrisome for tumor involvement. 08/01/2020: underwent bronchoscopy. Procedure note described that the inspection of entire tracheobronchial tree revealed copious amount of thick tenacious yellow secretions suctioned from the right lower lobe. BAL from right middle lobe was performed followed by transbronchial lung forceps biopsies and brushing of right lower lobe under fluoroscopic guidance. Also collection of bronchial washing was obtained. 08/04/2020: Pathology reported BAL from bronchoscopy showed some atypical cells suspicious for non-small cell lung cancer. Transbronchial biopsy revealed bronchial epithelial cells with lung inflammation. Review of Systems General: Reports: 10 or more systems reviewed and unremarkable except in HPI and below Meds/Allergies Home Medications and Allergies Home Medications Medication Instructions Recorded Confirmed Last Taken Type fluticasone 250 mcg-salmeterol 50 See Rx Instructions .ROUTE 06/03/20 08/25/20 08/24/20 Rx mcg/dose blistr powdr for .COMPLEX #60 unspecified inhalation albuterol sulfate 2.5 mg INHALATION QID PRN #180 ml 06/17/20 08/25/20 08/25/20 Rx albuterol sulfate 90 mcg/actuation See Rx Instructions .ROUTE 08/05/20 08/25/20 Unknown Rx aerosol inhaler .COMPLEX #18 g metoprolol tartrate 25 mg tablet 25 mg PO BID@0900,2100 08/12/20 08/25/20 08/24/20 History Flonase Allergy Relief 1 spray INTRANASAL DAILY@0900 08/25/20 08/25/20 08/24/20 History Zyrtec 10 mg PO DAILY PRN 08/25/20 08/25/20 Unknown History aspirin [Aspir-81] 81 mg PO DAILY@0900 08/25/20 08/25/20 08/24/20 History atorvastatin 20 mg PO DAILY@0900 08/25/20 08/25/20 08/24/20 History omeprazole 40 mg PO DAILY@0900 08/25/20 08/25/20 08/24/20 History sertraline 100 mg PO BID@0900,2100 08/25/20 08/25/20 08/24/20 History Allergies Allergy/AdvReac Type Severity Reaction Status Date / Time No Known Allergies Allergy Verified 08/25/20 09:51 Current Medications Current Medications Generic Name Dose Route Start Last Admin Trade Name Freq PRN Reason Stop Dose Admin Albuterol Sulfate 2.5 mg 08/25/20 22:09 08/25/20 22:21 Albuterol 2.5 Mg/0.5 Ml Neb INHALATION 2.5 mg QID PRN Administration shortness of breath or wheezing Albuterol Sulfate 2 puff 08/26/20 12:00 08/26/20 16:09 Albuterol 8 Gm Mdi INHALATION 2 puff Q4H.RESPIRATORY KEZIA Administration Albuterol/Ipratropium 3 ml 08/26/20 09:40 08/26/20 19:46 Ipratropium-Albuterol 3 Ml Neb INHALATION 3 ml Q6H.RESPIRATORY PRN Administration SHORTNESS OF BREATH Atorvastatin Calcium 20 mg 08/26/20 09:00 08/26/20 10:04 Atorvastatin 40 Mg Tablet PO 20 mg DAILY@0900 KEZIA Administration Heparin Sodium (Beef Lung) 5,000 unit 08/25/20 19:45 12/29/20 20:06 Heparin 5,000 Unit/Ml Inj 1 Ml SUBCUT 5,000 unit Q8H KEZIA Administration Sodium Chloride 1,000 mls @ 75 mls/hr 08/25/20 19:45 08/26/20 09:59 Sodium Chloride 0.9% IV Not Given .[id number] KEZIA Cefepime HCl 1,000 mg/ Sodium 50 mls @ 100 mls/hr 08/25/20 21:30 08/26/20 21:14 Chloride IV 100 mls/hr Q12H KEZIA Administration Protocol Vancomycin HCl 1,000 mg/ 250 mls @ 250 mls/hr 08/26/20 07:00 08/26/20 15:45 Sodium Chloride IV Infused Q18H KEZIA Infusion Metoprolol Tartrate 25 mg 08/25/20 21:16 08/26/20 20:06 Metoprolol Tartrate 25 Mg Tablet PO 25 mg BID@0900,2100 KEZIA Administration Pantoprazole Sodium 40 mg 08/26/20 09:00 08/26/20 10:[address] 40 Mg Tablet PO 40 mg DAILY KEZIA Administration Fluticasone/Salmeterol 1 puff 08/25/20 21:16 08/26/20 08:53 Fluticasone-Salmeterol 250-50 Diskus INHALATION 1 puff .COMPLEX KEZIA Administration Sertraline HCl 100 mg 08/25/20 21:16 08/26/20 20:07 Sertraline 100 Mg Tablet PO 100 mg BID@0900,2100 KEZIA Administration PFSH Acute PFSH: Medical History Acute on chronic respiratory failure with hypoxemia COPD, moderate GERD (gastroesophageal reflux disease) Moderate episode of recurrent major depressive disorder Surgical History History of coronary angioplasty COMMON ILIAC AND EXTERNAL ILIAC LEFT History of endarterectomy Social History Smoking and tobacco status: former smoker Quit status (tobacco): has quit using tobacco Year quit tobacco: 06/2020 [id number] Second hand smoke exposure: Yes Smoking risk assessment/counseling performed?: Yes Alcohol intake: former Caregiver/support person: Yes Lives independently: Yes Household members: spouse Housing: House Marital status: service: Yes branch: [employer] Current occupational status: retired Pets and animals: Yes History of recent travel: No Current gender identity: Male Vitals/I&O/Wt Last Vital Signs Temp 97.6 F 08/26/20 19:00 Pulse 112 H 08/26/20 20:00 Resp 25 H 08/26/20 20:00 BP 147/95 08/26/20 20:00 Pulse Ox 94 08/26/20 20:00 08/26/20 08/26/20 08/26/20 06:59 14:59 22:59 Intake Total 480 / 480 300 / 780 Output Total 300 / 300 400 / 400 Balance -300 / 200 80 / 80 300 / 380 Weight last 48 hrs Weight 117 lb Physical Exam Narrative: EXAM NARRATIVE: General: alert, appears cachectic, sitting in bed in mild respiratory distress HEENT: conj clear, EOMI, PERRL, mmm, Neck: supple, no meningismus Heme: no cervical LAP Pulmonary: Bilateral air entry with diffuse expiratory rhonchi Cardiovascular: rrr, nl s1s2, no mrg Abdomen: soft, nt, nd, no r/g, bs+ Extremities: pulses +, no edema, no c/c : no CVA tenderness Skin: intact, no rash MSK: no back or neck pain Neurologic: grossly intact Data Micro: Micro: Microbiology 08/26/20 11:56 Gram Stain - Final Sputum - Expector ated Sputum 08/25/20 10:58 Blood Culture - Pr eliminary Blood NEGATIVE TO LAUREN E 08/25/20 10:58 Blood Culture - Pr eliminary Blood NEGATIVE TO LAUREN E Other Data: Other data: CTA 08/25/2020: 1. No pulmonary embolism. 2. Severe emphysema with marked pulmonary fibrosis, bronchiectasis and interstitial thickening. 3. Additional areas of increasing consolidation greatest in the RIGHT upper lobe and LEFT upper lobe suspicious for neoplastic involvement. 4. Subcarinal and bilateral hilar lymphadenopathy with the largest lymph nodes measuring 2.0 cm. Neoplastic until proven otherwise. 5. Small RIGHT pleural effusion. 6. Age-indeterminate but nonhealed RIGHT fourth lateral rib fracture. 7. Age indeterminate but new since 02/20/2018 L1 30% compression fracture. Unchanged T6 compression fracture. As per records from [facility]: 08/01/2020: underwent bronchoscopy. Procedure note described that the inspection of entire tracheobronchial tree revealed copious amount of thick tenacious yellow secretions suctioned from the right lower lobe. BAL from right middle lobe was performed followed by transbronchial lung forceps biopsies and brushing of right lower lobe under fluoroscopic guidance. Also collection of bronchial washing was obtained. CT 07/23/2020: Impression Left upper lobe mass with spiculation measures up to 1.5 cm worrisome in appearance. Dense masslike consolidation in the right upper lobe and right lower lobe with some nodular dense fullness in the right pulmonary hilum. Adjacent to these areas there is some areas of additional peripheral consolidation which may reflect some postobstructive pneumonia. Fracture of L1 vertebral bodies of indeterminate age but it could be acute. Fracture of T6 superior endplate appears like old. CT 07/30/2020: Heart abnormalities of right lung that have improved very minimally. There is soft tissue fullness involving the right hilar region and surrounding the vessels with compression of bronchi. There is very pronounced inflammatory process throughout the interstitial disease in the right lung base and there is a right basilar effusion. Left lung reveals honeycombing and a spiculated irregular mass measuring 1.9 cm in diameter that is very worrisome for tumor involvement. A&P Assessment and plan (1) HCAP (healthcare-associated pneumonia): Status: Acute (2) COPD exacerbation: Status: Acute (3) Ex-smoker for less than 1 year: Status: Acute (4) COPD, moderate: Status: Acute (5) MRSA (methicillin resistant staphylococcus aureus) pneumonia: Status: Acute Qualifiers: Laterality: right Lung location: lower lobe of lung Qualified Code(s): J15.212 - Pneumonia due to Methicillin resistant Staphylococcus aureus (6) Acute and chronic respiratory failure with hypoxia: Status: Acute #Acute hypoxic respiratory failure requiring high flow oxygen in patient with healthcare associated pneumonia #Recent hospital discharge follow-up in 07/22/2020- 08/03/2020 at [facility] for MRSA pneumonia discharged home with 5 L nasal cannula # Left upper lobe spiculated 1.[address] mass on CT chest 07/23/2020 suspicious for malignancy in chronic smoker # RUL and RLL dense masslike consolidation with fullness in the right pulmonary hilum on CT 07/23/2020 #COPD exacerbation #Chronic smoker -Smokes 1.5 PPD X 50 = 75 pack history; -Quit June 2020 since his last admission at [place] #BAL cytology 08/01/2020 from [facility] showed atypical cells suspicious for non-small cell lung cancer -Currently requiring 15 L nasal cannula -is not tolerating high flow nasal cannula -CTA on admission no evidence of PE; areas of increasing consolidation greatest in the RIGHT upper lobe and LEFT upper lobe suspicious for neoplastic involvement. -Airborne and contact isolation COVID-19 antigen negative and PCR pending; on Advair inhaler & Albuterol inhaler -Once Covid ruled out please start on DuoNeb nebulization every 6 hours scheduled -Afebrile and WBC 12 K; cultures negative so far -final blood cultures pending -Please send procalcitonin and MRSA nares -Currently covered with vancomycin and cefepime -Counseled to maintain abstinence -On Advair and albuterol as needed for COPD -PFTs not available -we will schedule for PFTs/6-minute walk test once clinically improved and discharged CT 07/23/2020: Impression Left upper lobe mass with spiculation measures up to 1.5 cm worrisome in appearance. Dense masslike consolidation in the right upper lobe and right lower lobe with some nodular dense fullness in the right pulmonary hilum. Adjacent to these areas there is some areas of additional peripheral consolidation which may reflect some postobstructive pneumonia. Fracture of L1 vertebral bodies of indeterminate age but it could be acute. Fracture of T6 superior endplate appears like old. CT 07/30/2020: Heart abnormalities of right lung that have improved very minimally. There is soft tissue fullness involving the right hilar region and surrounding the vessels with compression of bronchi. There is very pronounced inflammatory process throughout the interstitial disease in the right lung base and there is a right basilar effusion. Left lung reveals honeycombing and a spiculated irregular mass measuring 1.9 cm in diameter that is very worrisome for tumor involvement. 08/01/2020: underwent bronchoscopy with transbronchial biopsy at [facility]. Procedure note described that the inspection of entire tracheobronchial tree revealed copious amount of thick tenacious yellow secretions suctioned from the right lower lobe. BAL from right middle lobe was performed followed by transbronchial lung forceps biopsies and brushing of right lower lobe under fluoroscopic guidance. Also collection of bronchial washing was obtained. -We will obtain results of BAL, bronchial wash, TBB, brushing BAL cytology revealed atypical cells suspicious for non-small cell lung cancer. We will call [facility] for IHC staining and tumor marker results if they are sent. If not sent then I will treat recent episode of pneumonia and schedule patient for EBUS guided FNA C of mediastinal and hilar lymph nodes to obtain tissue for IHC and tumor markers. I will perform bedside ultrasound tomorrow and if fluid positive will do thoracentesis and send for cytology. Medical condition, labs, investigations, medications, counseling regarding medication compliance, side effects, importance of follow-up appointments, smoking-its adverse effects and importance of cessation and maintaining abstinence and plan of care-everything explained in detail to the patient. Patient verbalized understanding and agreed with the plan of care. Recommendations conveyed to the hospitalist taking care of the patient Consult Attestations Medical Necessity Statement: Acute hypoxic respiratory failure secondary to pneumonia in patient with suspected underlying lung cancer and advanced COPD requiring 15 L of oxygen Time Spent in Patient Care: Greater than 35 minutes (>than 50% of time spent in counselling and/or direct pt care on unit). Critical Care Time: Critical Care Time (min): 45 Coding Level of Care Code New Pt Acute Showroom Manager for [facility] Fwd Patient Type New History Comprehensive Exam Comprehensive Medical Decision Making High Complexity Diagnoses HCAP (healthcare-associated pneumonia) J18.9 COPD exacerbation J44.1 Ex-smoker for less than 1 year Z78.9 COPD, moderate J44.9 MRSA (methicillin resistant staphylococcus aureus) pneumonia J15.212 Laterality: right Lung location: lower lobe of lung Acute and chronic respiratory failure with hypoxia J96.21 Time Spent (min) 45
[2020-08-26 23:09] LABS: Glucose Point of Care 150 mg/dL (70-110)
--- NOTE | 2020-08-26 23:14 | PC.NURSE ---
O2 sat 85% 10L Oxy mask, diaphoretic, labored breathing, placed on 15L NRB, O2 89-90, placed on Bipap 80% Fio2 per RT, supine 45 degrees, RR improved, not diaphoretic at this time
[2020-08-27] VITALS (29 sets, daily range): BP systolic 122–173; BP diastolic 81–108; PULSE 98–116; RESP 15–44; TEMP 36.1; O2SAT 86–100
[2020-08-27] MEDS: ipratropium-albuterol 3 mL Neb INHALATION ×3 (00:13→23:46)
[2020-08-27 00:49] LABS: Vancomycin Trough 7.8 ug/mL (10-15)
--- NOTE | 2020-08-27 00:58 | PC.NURSE ---
Vanc trough 7.8 reported to pharmacy, this nurse advised to hang current dose
[2020-08-27] MEDS: vancomycin 1,000 MG in sodium chloride 0.9% 250 ML 250 MG IV ×2 (01:40→18:26)
[2020-08-27] MEDS: heparin 5,000 unit/mL INJ 1 mL 5000 UNIT SUBCUT ×3 (02:50→20:53)
[2020-08-27 04:17] LABS: Basophils % 0.3 %; Eosinophils % 0.2 %; Hematocrit 33.9 % (42.0-52.0); Hemoglobin 10.3 g/dL (11.7-16.6); Lymphocytes # 1.6 10^3/uL (0.8-4.8); Lymphocytes % 13.5 %; Mean Corpuscular HGB Conc 30.4 g/dL (30.0-36.0); Mean Corpuscular Hemoglobin 21.1 pg (28.0-34.0); Mean Corpuscular Volume 69.3 fL (80-94); Mean Platelet Volume 10.5 fL (7.4-10.4); Monocytes # 0.2 10^3/uL (0.2-0.9); Monocytes % 1.7 %; Neutrophils # 9.75 10^3/uL (1.8-7.7); Neutrophils % 83.4 %; Nucleated Red Blood Cells % 0 %; Platelet Count 377 10^3/cmm (130-400); Red Blood Count 4.89 10^6/uL (4.1-5.3); Red Cell Distribution Width 18.2 % (12.1-15.1); White Blood Count 11.7 10^3/uL (4.0-10.0)
[2020-08-27 04:34] LABS: ABG PCO2 37.2 mmHg (35-45); ABG PH Result 7.38 (7.35-7.45); Arterial Blood Gas Hematocrit 30.1 % (42-52); Base Excess ABG -2.7 mmol/L (-2.0-2.0); Blood Gas Allen Test Pos; Blood Gas Operator Identificat JB; Blood Gas Sample Site Radial, right; Blood Gas Sample Type Arterial; HCO3 ABG 22.1 mmol/L (22-26); Oxygen Device BIPAP
[2020-08-27 04:47] LABS: Alanine Aminotransferase 69 U/L (0-41); Albumin Level 2.9 g/dL (3.5-5.2); Alkaline Phosphatase 123 IU/L (40-130); Anion Gap 17.2 (5-19); Aspartate Amino Transferase 60 U/L (0-40); Blood Urea Nitrogen 23 mg/dL (8-23); Carbon Dioxide 20 mmol/L (22-29); Chloride 107 mmol/L (98-107); Globulin 4.4 g/dL (1.3-4.6); Glucose 139 mg/dL (65-115); Osmolality Calculated 296 mOsm/kg (285-295); Potassium 4.2 mmol/L (3.5-5.1); Sodium 140 mmol/L (136-145); Total Bilirubin 0.2 mg/dL (0.15-1.2); Total Protein 7.3 g/dL (6.6-8.7)
[2020-08-27 05:01] LABS: Procalcitonin 0.08 ng/mL (0-0.5)
[2020-08-27] MEDS: sodium chloride 0.9% 1,000 ML 75 ML IV ×2 (07:01→23:53)
--- NOTE | 2020-08-27 07:14 | PC.NURSE ---
Tolerating Bipap 65% Fio2, AOx4, follows commands, denies SOB, supine 45 degrees call light within reach
[2020-08-27] MEDS: albuterol 8 gm MDI 2 PUFF INHALATION ×2 (08:34→19:38)
[2020-08-27 09:46] LABS: Basophils % 0.3 %; Hematocrit 37.1 % (42.0-52.0); Hemoglobin 10.5 g/dL (11.7-16.6); Lymphocytes # 1.3 10^3/uL (0.8-4.8); Lymphocytes % 14.6 %; Mean Corpuscular HGB Conc 28.3 g/dL (30.0-36.0); Mean Corpuscular Hemoglobin 21.2 pg (28.0-34.0); Mean Corpuscular Volume 74.8 fL (80-94); Mean Platelet Volume 10.7 fL (7.4-10.4); Monocytes # 0.1 10^3/uL (0.2-0.9); Monocytes % 1.5 %; Neutrophils # 7.42 10^3/uL (1.8-7.7); Neutrophils % 83.2 %; Nucleated Red Blood Cells % 0 %; Platelet Count 383 10^3/cmm (130-400); Red Blood Count 4.96 10^6/uL (4.1-5.3); Red Cell Distribution Width 20.1 % (12.1-15.1); White Blood Count 8.9 10^3/uL (4.0-10.0)
[2020-08-27] MEDS: atorvastatin 40 mg Tablet 20 MG PO (11:20)
[2020-08-27] MEDS: metoprolol tartrate 25 mg Tablet PO ×2 (11:22→20:53)
[2020-08-27] MEDS: sertraline 100 mg Tablet PO ×2 (11:23→20:53)
[2020-08-27] MEDS: cefepime 1,000 MG in sodium chloride 0.9% (plus) 50 ML 100 MG IV ×2 (11:23→20:54)
[2020-08-27] MEDS: pantoprazole DR 40 mg Tablet PO (11:23)
[2020-08-27] MEDS: HYDROcodone-acetaminophen 5-325 mg Tablet 1 TAB PO (11:26)
--- NOTE | 2020-08-27 15:47 | PC.RESP ---
Patient tolerated bipap most of the day, however is now refusing bipap or even nasal cannula to be placed on. Refusing all efforts. Patient in moderate distress, keeps stating in a loud voice Leave me Alone. Go away .
--- NOTE | 2020-08-27 15:54 | PM.PN ---
Subjective Subjective: Interval history: Patient seen today morning at bedside on BiPAP 08/03 FiO2 40% respiratory rate 20 tolerating well and saturating 97%. Looked in mild respiratory distress. Yesterday obtained bronchoscope via and related procedure results from [facility] and BAL cytology showed atypical cells suspicious for non-small cell lung cancer. I called Dr. Anthony desizing machine operator at [facility] and he said that they do not have enough tissue for further subspeciation with IHC and tumor markers as transbronchial biopsies were negative. Requested to come and visit the patient and gave the news of BAL cytology being positive for cancer cells to the patient and his at bedside. Also reported the need for further tissue collection for advanced staining and tumor marker identification and PET scan as outpatient. reported that they lost their daughter last year after 3-year kaur with cancer. Checked with ultrasound and noted large right pleural effusion. Initially patient agreed for thoracentesis but later he changed his mind and started refusing further treatments citing to leave him alone. I tried to career technical counselor the patient and offered to answer if he has any concerns or questions but he requested to leave him alone. Recommended cardiology consultation and if patient agrees CT-guided biopsy for more tissue and IR guided thoracentesis as I will be unavailable over the next few days. 08/27 Overnight required bipap however this was weaned. Feeling anxious. No fever, or chills. No nausea or vomiting. Medications: Reviewed: Yes Vitals/I&O/Wt Last Vital Signs Temp 97.0 F L 08/27/20 19:00 Pulse 107 H 08/27/20 20:00 Resp 27 H 08/27/20 20:00 BP 138/96 08/27/20 20:00 Pulse Ox 96 08/27/20 20:00 08/27/20 08/27/20 08/27/20 06:59 14:59 22:59 Intake Total 250 / 2080 290 / 290 300 / 590 Output Total 500 / 500 125 / 625 Balance 250 / 1680 -210 / -210 175 / -35 Weight last 48 hrs Weight 53.751 kg Physical Exam Narrative: EXAM NARRATIVE: General- alert awake and oriented in mild respiratory distress HEENT-grossly unremarkable Chest- decreased breath sounds bilaterally Abdomen-soft nondistended extremities-no edema Data : 08/27/20 09:37 08/27/20 03:26 Micro: Microbiology 08/26/20 11:56 Gram Stain - Final Sputum - Expectorated Sputum Sputum Culture - Preliminary A&P Assessment and plan (1) Acute on chronic respiratory failure with hypoxemia: Status: Inactive (2) COPD exacerbation: Status: Acute (3) HCAP (healthcare-associated pneumonia): Status: Acute Recent Bronchoscopy report - > rare atypical cells suspected non-small cell carcinoma Oncology consulted Intermittent use of bipap Continue o2 via NRB Started on on solu-medrol IV Chest x-ray in am High risk for intubation Continue broad spectrum abx Blood culture x 2 - NGTD Rapid ag COVID-19 negative COVID-19 negative Bronchdilators to continue Advair 1 puff BID Refused thoracentesis Possible CT guided biopsy AM labs PT/OT consult .. Attestations Medical Necessity Statement*: Continue hospitalization for management of respiratory failure requiring supplemental oxygen. Time Spent in Patient Care: Greater than 35 minutes (>than 50% of time spent in counselling and/or direct pt care on unit). Coding Level of Care Code Acute Equipment Processer Storage for Eric Donohue Diagnoses Acute on chronic respiratory failure with hypoxemia J96.21 COPD exacerbation J44.1 HCAP (healthcare-associated pneumonia) J18.9
--- NOTE | 2020-08-27 15:57 | PC.RESP ---
Pulmonary Rehab information sent to patient.
--- NOTE | 2020-08-27 18:15 | P.PN_ITS ---
Subjective Subjective: Interval history: Patient seen today morning at bedside on BiPAP 08/03 FiO2 40% respiratory rate 20 tolerating well and saturating 97%. Looked in mild respiratory distress. Yesterday obtained bronchoscope via and related procedure results from [facility] and BAL cytology showed atypical cells suspicious for non-small cell lung cancer. I called Dr. Anthony pulandres nologist at [facility] and he said that they do not have enough tissue for further subspeciation with IHC and tumor markers as transbronchial biopsies were negative. Requested to come and visit the patient and gave the news of BAL cytology being positive for cancer cells to the patient and his at bedside. Also reported the need for further tissue collection for advanced staining and tumor marker identification and PET scan as outpatient. reported that they lost their daughter last year after 3-year kaur with cancer. Checked with ultrasound and noted large right pleural effusion. Initially patient agreed for thoracentesis but later he changed his mind and started refusing further treatments citing to leave him alone. I tried to senior genetic counselor the patient and offere d to answer if he has any concerns or questions but he requested to leave him alone. Recommended cardiology consultation and if patient agrees CT-guided biopsy for more tissue and IR guided thoracentesis as I will be unavailable over the next few days. Medications: Reviewed: Yes Vitals/I&O/Wt Last Vital Signs Temp 97.6 F 08/26/20 19:00 Pulse 102 H 08/27/20 10:49 Resp 24 H 08/27/20 08:25 BP 152/96 08/27/20 06:00 Pulse Ox 96 08/27/20 10:49 08/27/20 08/27/20 08/27/20 06:59 14:59 22:59 Intake Total 50 / 50 Balance 50 / 50 Weight last 48 hrs Weight 118 lb 8 oz Physical Exam Narrative: EXAM NARRATIVE: General: alert, appears cachectic, sitting in bed in mild respiratory distress HEENT: conj clear, EOMI, PERRL, mmm, Neck: supple, no meningismus Heme: no cervical LAP Pulmonary: Bilateral air entry with diffuse expiratory rhonchi and reduced breath sounds on right lower lung Cardiovascular: rrr, nl s1s2, no mrg Abdomen: soft, nt, nd, no r/g, bs+ Extremities: pulses +, no edema, no c/c : no CVA tenderness Skin: intact, no rash MSK: no back or neck pain Neurologic: grossly intact Data : 08/27/20 09:37 08/27/20 03:26 Micro: Microbiology 08/26/20 11:56 Gram Stain - Final Sputum - Expectorated Sputum Sputum Culture - Preliminary Other data: Reviewed labs, investigations, imaging A&P Assessment and plan (1) HCAP (healthcare-associated pneumonia): Status: Acute (2) COPD exacerbation: Status: Acute (3) Ex-smoker for less than 1 year: Status: Acute (4) COPD, moderate: Status: Acute (5) MRSA (methicillin resistant staphylococcus aureus) pneumonia: Status: Acute Qualifiers: Laterality: right Lung location: lower lobe of lung Qualified Code(s): J15.212 - Pneumonia due to Methicillin resistant Staphylococcus aureus (6) Acute and chronic respiratory failure with hypoxia: Status: Acute (7) Pleural effusion on right: Status: Acute #Acute hypoxic respiratory failure requiring high flow oxygen in patient with recently diagnosed NSCLC and moderate to large right pleural effusion #Recent hospital discharge follow-up in 07/22/2020- 08/03/2020 at [facility] for MRSA pneumonia discharged home with 5 L nasal cannula # Left upper lobe spiculated 1.[address] chest 07/23/2020 shafer spicious for malignancy in chronic smoker # RUL and RLL dense masslike consolidation with fullness in the right pulmonary hilum on CT 07/23/2020 #COPD exacerbation #Chronic smoker -Smokes 1.5 PPD X 50 = 75 pack history; -Quit June 2020 since his last admission at [place] [facility] #BAL cytology 08/01/2020 from [facility] showed atypical cells suspicious for non-small cell lung cancer -Currently requiring 15 L nasal cannula -alternating with BiPAP 08/03 and 40% FiO2 saturating 97% -CTA on admission no evidence of PE; areas of increasing consolidation greatest in the RIGHT upper lobe and LEFT upper lobe suspicious for neoplastic involvement. -DC Airborne and contact isolation COVID-19 antigen and PCR negative and PCR pending; -please start on DuoNeb nebulization every 6 hours scheduled -Afebrile and WBC 12 K > 8.9K; cultures negative so far -final blood cultures pending -Procalcitonin 0.08; can discontinue antibiotics -Counseled to maintain abstinence from smoking -PFTs not available -we will schedule for PFTs/6-minute walk test once clinically improved and discharged CT 07/23/2020: Impression Left upper lobe mass with spiculation measures up to 1.5 cm worrisome in appearance. Dense masslike consolidation in the right upper lobe and right lower lobe with some nodular dense fullness in the right pulmonary hilum. Ad jacent to these areas there is some areas of additional peripheral consolidation which may reflect some postobstructive pneumonia. Fracture of L1 vertebral bodies of indeterminate age but it could be acute. Fracture of T6 superior endplate appears like old. CT 07/30/2020: Heart abnormalities of right lung that have improved very minimally. There is soft tissue fullness involving the right hilar region and surrounding the vessels with compression of bronchi. There is very pronounced inflammatory process throughout the interstitial disease in the right lung base and there is a right basilar effusion. Left lung reveals honeycombing and a spiculated irregular mass measuring 1.9 cm in diameter that is very worrisome for tumor involvement. 08/01/2020: underwent bronchoscopy with transbronchial biopsy at [facility]. Procedure note described that the inspection of entire tracheobronchial tree revealed copious amount of thick tenacious yellow secretions suctioned from the right lower lobe. BAL from right middle lobe was performed followed by transbronchial lung forceps biopsies and brushing of right lower lobe under fluoroscopic guidance. Also collection of bronchial washing was obtained. Procedure results from [facility] and BAL cytology showed atypical cells suspicious for non-small cell lung cancer. I called Dr. Anthony equipment worker at [facility] and he said that they do not have enough tissue for further subspeciation with IHC and tumor markers as transbronchial biopsies were negative. Requested to come and visit the patient and gave the news of BAL cytology being positive for cancer cells to the patient and his at bedside. Also reported the need for further tissue collection for advanced staining and tumor marker identification and PET scan as outpatient. reported that they lost their daughter last year after 3-year kaur with cancer. Checked with ultrasound and noted large right pleural effusion. Initially patient stated he wants full code and agreed for thoracentesis but later he changed his mind and started refusing further treatments citing to leave him alone. I tried to cou nsel the patient and offered to answer if he has any concerns or questions but he requested to leave him alone. Recommended oncology consultation and if patient agrees, KEVIN consult for CT-guided biopsy for more tissue and IR guided thoracentesis as I will be unavailable over the next few days. Medical condition, labs, investigations, medications, counseling regarding medi cation compliance, side effects, importance of follow-up appointments, smoking- its adverse effects and importance of cessation and maintaining abstinence and plan of care-everything explained in detail to the patient. Patient verbalized understanding. Recommendations conveyed to the taking care of the patient Attestations Medical Necessity Statement*: Acute hypoxic respiratory failure secondary to COPD exacerbation, non-small cell lung cancer and right pleural effusion. Requiring 15 L O2 Coding Level of Care Code Established Pt Acute Academic Dean for Chg Fwd Patient Type Established History Comprehensive Exam Comprehensive Medical Decision Making High Complexity Diagnoses HCAP (healthcare-associated pneumonia) J18.9 COPD exacerbation J44.1 Ex-smoker for less than 1 year Z78.9 COPD, moderate J44.9 MRSA (methicillin resistant staphylococcus aureus) pneumonia J15.212 Laterality: right Lung location: lower lobe of lung Acute and chronic respiratory failure with hypoxia J96.21 Pleural effusion on right J90 Time Spent (min) 45 Comment Including discussion about preliminary cancer diagnosis and further management with a
--- NOTE | 2020-08-27 19:10 | PM.MISC ---
Miscellaneous Note Purpose of Documentation: Performed bedside ultrasound and patient initially agreed for right-sided thoracentesis. Later changed his mind and refused thoracentesis.
[2020-08-27] MEDS: hyDROXYzine 25 mg Capsule PO (20:53)
[2020-08-27] MEDS: haloperidol inj 5 mg/mL INJ 1 mL IM (22:23)
[2020-08-27] MEDS: dexmedetomidine 400 MCG in sodium chloride 0.9% (100 ml) 100 ML IV (23:45)
[2020-08-28] VITALS (40 sets, daily range): BP systolic 107–179; BP diastolic 65–125; PULSE 79–103; RESP 17–34; TEMP 36.1–36.9; O2SAT 87–100
[2020-08-28] MEDS: vancomycin 1,000 MG in sodium chloride 0.9% 250 ML 250 MG IV (00:16)
--- NOTE | 2020-08-28 00:49 | PC.NURSE ---
ASSUMING CARE Patient on nonrebreather at 15L. Patient alert and oriented to self, situation, and time, but did think he was in [place] where he lives he stated. Oxygen in the mid 90s and patient denies any pain. Patient appears restless and is consistently messing with EKG electrodes and taking nonrebreather off face. With oxygen off face, patient desats to high 70s to low 80s.
--- NOTE | 2020-08-28 01:02 | PC.NURSE ---
RESTLESS Patient continued to take EKG leads, nonrebreather and SpO2 sensor off. Patients oxygen was in the low 80s and patient visibly short of breath with abdominal muscle use. Nonrebreather put back on patient and patients oxygen increased back to low 90s. Dr. Perkins notified and gave one time order for 5 mg IM Haldol.
--- NOTE | 2020-08-28 01:30 | PC.NURSE ---
BIPAP Patient was found attempting to get out of bed and patients nonrebreather was off his face. Patients was yelling stating that he had to pee. Patient was instructed to sit back down so nurse could place oxygen back on face and assist him in using the urinal. Patient continued to yell, but sat back down. Patient reconnected to monitor and oxygen was in the low 70s. Patient was visibly diaphoretic with ashen skin color and lethargic. Patient put on BIPAP and currently remains on BIPAP at 60% and oxygen saturation at 97%. Patient has had BIPAP on since approximately 2329. Dr. Perkins notified and gave order to start precedex drip. Precedex drip started at 0.1 mcg/kg/min and patient has calmed down and resting quietly in bed with BIPAP on.
[2020-08-28 05:27] LABS: Anion Gap 16.4 (5-19); Blood Urea Nitrogen 35 mg/dL (8-23); Calcium 8.6 mg/dL (8.5-10.5); Carbon Dioxide 20 mmol/L (22-29); Chloride 109 mmol/L (98-107); Glucose 151 mg/dL (65-115); Osmolality Calculated 303 mOsm/kg (285-295); Potassium 4.4 mmol/L (3.5-5.1); Sodium 141 mmol/L (136-145)
[2020-08-28] MEDS: heparin 5,000 unit/mL INJ 1 mL 5000 UNIT SUBCUT ×2 (05:32→12:16)
--- NOTE | 2020-08-28 06:29 | PC.NURSE ---
SHIFT SUMMARY Patient has been on BIPAP since 2329 at 60% FiO2. Precedex drip currently at 0.3 mcg/kg/min. NS at 75 mL/hour. Patient has left BIPAP on since precedex gtt initiated but continues to get out of bed without using call light and pulling at lines, so 1:1 sitter also initiated. Patient has had 300 mL measured urine output and 1 moderate incontinent void in the floor. Patient has been afebrile, and is intermittently alert and oriented.
[2020-08-28 06:36] LABS: Basophils % 0.2 %; Hemoglobin 9.4 g/dL (11.7-16.6); Lymphocytes # 1.1 10^3/uL (0.8-4.8); Lymphocytes % 9.8 %; Mean Corpuscular HGB Conc 31.3 g/dL (30.0-36.0); Mean Corpuscular Hemoglobin 21.3 pg (28.0-34.0); Mean Corpuscular Volume 67.9 fL (80-94); Mean Platelet Volume 10.6 fL (7.4-10.4); Monocytes # 0.4 10^3/uL (0.2-0.9); Neutrophils # 10.05 10^3/uL (1.8-7.7); Neutrophils % 86.1 %; Nucleated Red Blood Cells % 0 %; Platelet Count 331 10^3/cmm (130-400); Red Blood Count 4.42 10^6/uL (4.1-5.3); Red Cell Distribution Width 18.3 % (12.1-15.1); White Blood Count 11.7 10^3/uL (4.0-10.0)
[2020-08-28] MEDS: ipratropium-albuterol 3 mL Neb INHALATION ×3 (08:35→20:51)
[2020-08-28] MEDS: cefepime 1,000 MG in sodium chloride 0.9% (plus) 50 ML 100 MG IV (09:34)
[2020-08-28] MEDS: metoprolol tartrate 25 mg Tablet PO (09:38)
[2020-08-28] MEDS: pantoprazole DR 40 mg Tablet PO (09:38)
[2020-08-28] MEDS: atorvastatin 40 mg Tablet 20 MG PO (09:38)
[2020-08-28] MEDS: sertraline 100 mg Tablet PO (09:46)
--- NOTE | 2020-08-28 10:26 | PC.SOCIAL ---
IMM Update Pg. 2 of IMM updated with patient's over the phone, who verbalized understanding. Informed her that a copy was left at bedside as well.
--- NOTE | 2020-08-28 10:58 | PC.OT ---
OT TREATMENT ATTEMPTED. PATIENT CURRENTLY ON BIPAP AND WILL BE SWITCHED VERY SOON TO HIGH FLOW HEATED O2. PATIENT IS VERY TIRED AND REQUESTS TO HOLD TREATMENT TODAY.
--- NOTE | 2020-08-28 13:38 | US_ITS ---
WS: [id number] ULTRASOUND-GUIDED THORACENTESIS CLINICAL INFORMATION: right side pleural effusion COMPARISON: None. PROCEDURE: Informed consent: The risks, benefits, and alternatives of the procedure were discussed with the josue ent. Verbal and written consent was obtained. Timeout: A timeout was performed to confirm the correct patient, procedure, and site. Site: Right chest Preparation: A suitable skin site was identified. The patient was prepped and draped in usual sterile fashion. Lidocaine 1% was used for local anesthesia. Catheter: 4 [place] One-Step catheter. Fluid Volume: 1100 mls Color: blood tinged 50 cc sent to the laboratory for further analysis Complications: None. / thoracentesis [id number] IMPRESSION: 1. Uncomplicated ultrasound-guided thoracentesis with removal of 1100 cc blood -tinged clear fluid. 2. Postthoracentesis radiograph demonstrates no evidence of pneumothorax. Impr roni pleural effusion.
--- NOTE | 2020-08-28 13:43 | PM.PN ---
Subjective Subjective: Interval history: 70-year-old male with past medical history significant for anxiety, depression, peripheral arterial disease, gastroesophageal reflux disease, longstanding tobacco abuse, O2 dependent chronic obstructive pulmonary disease on 2 L by nasal cannula who presented to hospital from pulmonary clinic for evaluvation of progressivly worsening dyspnea. Patient was recently admitted multiple times to [facility] initially on 06/2020 where he was noted to a new EMELY speculated mass measuring 1.5 cm in addition to dense mass like consolidation in right lung as well. Terri underwent bronchoscopy shortly after discharge on 08/01 with biopsy the results of which he is not aware of other than cultures which appearantly had grown MRSA. He was treated with vancomycin and discharged. Today was noted to have profound [facility] on 6l [facility] after which he was sent to ER for work up. initial laboratory workup today showed a WBC of 12.2, hemoglobin of 10.5, hematocrit 34.9 and platelet count of 401. Sodium 137, potassium 3.8, chloride 101, bicarb 20, BUN 19 and creatinine is 0.8. Chest x-ray was performed which showed interstitial infiltrates throughout both lungs more prevalent on the right than left and prominent right pulmonary hilum. A CT chest PE protocol was done performed which showed severe emphysema with marked pulmonary fibrosis, bronchiectasis and interstitial thickening and additional areas of increasing consolidation greatest in the RIGHT upper lobe and LEFT upper lobe suspicious for neoplastic involvement. patient was started on 0250 and non-rebreather at 10 L. emergency room he was given vancomycin, Zosyn and Levaquin. Upon admission patient was continued on broadspecturm antibiotics until 08/28. Procalcitonin was negative. Did not have any fevers and thus low suspecion of superimposed bacterial pneumonia contributing to patients respiratory distress. He was seen by pulmonary medicine. Started on solu-medrol, duoneb treatements and intermittently required bipap/HFNC. Was noted to have right sided pleural effusion on beside US by pulmonary medicine. On 08/28 successful US guided thoracentesis was performed during which time over 1L of fluid was drained. This was sent for analysis including cytology. In addition case was discussed with oncology due to patients prior pathology showed aytpical cells suspecious for non-small cell lung cancer. Oncology recommended repeat biopsy for addtional tissue sampling to confirm diagnosis. This was ordered and pending for 08/29/2019. 08/27 Overnight required bipap however this was weaned. Feeling anxious. No fever, or chills. No nausea or vomiting. 08/28 Placed on bipap overnight. awaiting thoracentesis in am, no fever or chills overnight. Medications: Reviewed: Yes Vitals/I&O/Wt Last Vital Signs Temp 98.5 F 08/28/20 07:00 Pulse 97 08/28/20 13:14 Resp 20 H 08/28/20 13:14 BP 132/88 08/28/20 10:00 Pulse Ox 95 08/28/20 13:14 08/27/20 08/28/20 08/28/20 22:59 06:59 14:59 Intake Total 1600 / 1890 254.924 / 2144.924 89.883 / 89.883 Output Total 125 / 625 200 / 825 300 / 300 Balance 1475 / 1265 54.924 / 1319.924 -210.117 / -210.117 Weight last 48 hrs Weight 52.798 kg Weight 53.751 kg Physical Exam Narrative: EXAM NARRATIVE: General- alert awake and oriented in mild respiratory distress on bipap HEENT-grossly unremarkable Chest- decreased breath sounds bilaterally Abdomen-soft nondistended extremities-no edema Data : 08/28/20 03:54 08/28/20 03:54 Micro: Microbiology 08/26/20 11:56 Gram Stain - Final Sputum - Expectorated Sputum Sputum Culture - Final A&P Assessment and plan (1) Acute on chronic respiratory failure with hypoxemia: Status: Inactive (2) COPD exacerbation: Status: Acute (3) HCAP (healthcare-associated pneumonia): Status: Acute Acute on chronic hypoxemic respiratory failure - Due to lung mass with copd exacerbation vs right sided pleural effusion - Continue duoneb q6hr scheduled - Solu-medrol as ordered - Bipap changed to HFNC - Supplemental o2 as needed - Repeat chest xray in am Large right sided pleural effusion - S/p thoracentesis today - Fluid analysis pending - Cytology sent - Repeat chest x-ray in am Lung mass suspected non-small cell carcinoma - Insufficient tissue sampling at [place] - Repeat CT guided lung biopsy ordered for am - D/w Oncology - will consult once tissue diagnosis obtained - NPO at midnight - Hold heparin as per radiology request - Plan for CT guided biopsy in am Additional medical problems Peripheral arterial disease Gastroesophageal reflux disease Anxiety Depression hx of Tobacco abuse DVT ppx - holding heparin for biopsy in am .. Attestations Medical Necessity Statement*: Continue hospitalization for mangement of respiratory failure Time Spent in Patient Care: Greater than 35 minutes (>than 50% of time spent in counselling and/or direct pt care on unit). Coding Level of Care Code Acute Spinning Bath Person for Eric Donohue Diagnoses Acute on chronic respiratory failure with hypoxemia J96.21 COPD exacerbation J44.1 HCAP (healthcare-associated pneumonia) J18.9
[2020-08-28 13:51] LABS: Vancomycin Trough 17.2 ug/mL (10-15)
[2020-08-28] MEDS: dexmedetomidine 400 MCG in sodium chloride 0.9% (100 ml) 100 ML 8.4 MCG IV (15:50)
--- NOTE | 2020-08-28 16:06 | XR_ITS ---
WS: [id number] Exam: XR chest 1V [id number] Date/Time of Exam: 08/28/2020 4:06 PM Reason For Exam: Post thoracentesis Comparison 08/25/2020. Bilateral infiltrates demonstrate improvement since the last exam. The lungs are fully expanded. No p leural effusions. Heart size is within normal limits. Mediastinal contours are normal. Regional bony elements are intact. Apical pleural thickening and scarring. Monitoring leads superimpose the chest. XR/XR chest 1V [id number] IMPRESSION: 1. Improved bilateral pulmonary infiltrates since previous exam.
[2020-08-28 16:59] LABS: Body Fluid Polynuclear #Cells 0.035; Body Fluid WBC 1220 /uL; Monocytes # Body Fluid 1.185
[2020-08-28 17:14] LABS: Albumin Body Fluid 1.2 g/dL; Apprearance, Body Fluid CLOUDY; Color, Body Fluid SLIGHT PINK; Creatinine Body Fluid 0.81 (0.7-1.2); LDH Pleural Fluid 129 U/L; Total Protein Pleural Fluid 2.6 g/dL; Triglycerides, Pleural Fluid 16 mg/dL
[2020-08-28 17:35] LABS: Hematocrit 0.1 % (42.0-52.0)
[2020-08-28] MEDS: morphine 4 mg/mL SDV 1 mL 2 MG IVP (20:00)
[2020-08-29] VITALS (39 sets, daily range): BP systolic 122–160; BP diastolic 69–97; PULSE 79–100; RESP 14–28; TEMP 36.9; O2SAT 89–100
[2020-08-29] MEDS: morphine 4 mg/mL SDV 1 mL 2 MG IVP ×3 (00:19→10:30)
[2020-08-29] MEDS: ipratropium-albuterol 3 mL Neb INHALATION ×4 (02:35→20:14)
[2020-08-29 03:38] LABS: Basophils % 0.1 %; Hematocrit 30.5 % (42.0-52.0); Hemoglobin 9.5 g/dL (11.7-16.6); Lymphocytes # 1.2 10^3/uL (0.8-4.8); Lymphocytes % 9.5 %; Mean Corpuscular HGB Conc 31.1 g/dL (30.0-36.0); Mean Corpuscular Volume 67.5 fL (80-94); Mean Platelet Volume 11.2 fL (7.4-10.4); Monocytes # 0.5 10^3/uL (0.2-0.9); Monocytes % 4.3 %; Neutrophils # 10.39 10^3/uL (1.8-7.7); Neutrophils % 85.4 %; Nucleated Red Blood Cells % 0 %; Platelet Count 347 10^3/cmm (130-400); Red Blood Count 4.52 10^6/uL (4.1-5.3); Red Cell Distribution Width 18.5 % (12.1-15.1); White Blood Count 12.2 10^3/uL (4.0-10.0)
[2020-08-29 04:15] LABS: Alanine Aminotransferase 125 U/L (0-41); Albumin Level 2.7 g/dL (3.5-5.2); Alkaline Phosphatase 118 IU/L (40-130); Anion Gap 15.3 (5-19); Aspartate Amino Transferase 59 U/L (0-40); Blood Urea Nitrogen 39 mg/dL (8-23); Calcium 8.6 mg/dL (8.5-10.5); Carbon Dioxide 20 mmol/L (22-29); Chloride 112 mmol/L (98-107); Globulin 3.5 g/dL (1.3-4.6); Glucose 138 mg/dL (65-115); Osmolality Calculated 308 mOsm/kg (285-295); Potassium 4.3 mmol/L (3.5-5.1); Sodium 143 mmol/L (136-145); Total Bilirubin 0.2 mg/dL (0.15-1.2); Total Protein 6.2 g/dL (6.6-8.7)
[2020-08-29 04:18] LABS: ABG PCO2 34.1 mmHg (35-45); ABG PH Result 7.39 (7.35-7.45); Arterial Blood Gas Hematocrit 31.4 % (42-52); Base Excess ABG -3.8 mmol/L (-2.0-2.0); Blood Gas Operator Identificat HARKR; Blood Gas Sample Site Brachial, left; Blood Gas Sample Type Arterial; HCO3 ABG 20.6 mmol/L (22-26); Oxygen Device BIPAP; PO2 ABG 61.3 mmHg (80.0-100.0)
[2020-08-29] MEDS: dexmedetomidine 400 MCG in sodium chloride 0.9% (100 ml) 100 ML 7 MCG IV ×2 (05:49→21:41)
--- NOTE | 2020-08-29 07:00 | XR_ITS ---
WS: [id number] Exam: XR chest 1V portable [id number] Date/Time of Exam: 08/29/2020 7:00 AM Reason For Exam: respiratory failure Comparison 08/28/2020. Bilateral pulmonary infiltrates are noted. Infiltrates on the right have increased slightly. Cardiome diastinal structures are unremarkable. Trace right pleural effusion. The lungs are fully inflated. Mo nitoring leads superimpose the chest. XR/XR chest 1V portable [id number] IMPRESSION: 1. Bilateral pulmonary infiltrates. Infiltrates on the right have increased sli ghtly since the prior study. No other change.
--- NOTE | 2020-08-29 09:21 | PC.CHAP ---
Pastoral Care Encounter/Spiritual Assessment Type of Contact [] Declined health informatics advisor visit [] Patient/Family/Request visit [] Outpatient visit [] Follow-up visit [] Physician referral [] Code/Alert [] Routine visit [] Staff referral [] Actively dying [] Patient sleeping [] Family support [] [] Out of room [] Palliative care [] [] Receiving care in room [] Pre-surgical visit [] Trauma [] Long length of stay [x] ICU visit [] Other: Relational/Emotional Strength [] Patient feels connected with others/family/visitors/staff [] Distress [] Loneliness/isolation [] Abandonment Spirituality of Patient [] Person of [place] [] Attends Church of their [place] [] Believes in Prayer [] Reads Bible or Christianity materials [] There are Spiritual issues to be addressed Marriage And Family Teacher Interventions [x] Prayer [] Active listening [] Non-anxious presence [] Spiritual/emotional support [] Crisis/trauma care [] Spiritual counseling [] Bereavement support [] Provided bereavement packet [] Provided Bible/devotional materials [] Provided toy/stuffed animal, coloring book to patient or family member [] Provided Communion [] Anointing/[place] [] Salvation [x] Completed spiritual assessment [] Other: Impact on Illness or Injury [] Angry [] Fearful [] Anxious [] Often cries [] Exhaustion [] Unable to work [] Unable to attend roman catholic [] Unable to walk/stand [] Unable to read [] Unable to drive [] Unable to eat/drink [] Unable to sleep [] Unable to be with family [] Patient intubated [] Other: Summary Time spent with patient
[2020-08-29] MEDS: lanolin oint 7 gm 1 APPLIC TOPICAL (10:08)
--- NOTE | 2020-08-29 10:40 | PC.NURSE ---
Pt sitting on saturated turn sheet. Bathed him. Tolerated poorly. HR increased to 160's. O2 sats decreased to 80's on bipap. Morphine administered per order for air hunger. Pt recovered well and quicker than expected. Asked if pt was opposed to sanchez. Pt agreed. Dr Austin notified of events. Sridevi order received. Morning meds held until pt recovers.
--- NOTE | 2020-08-29 12:00 | PC.NURSE ---
Gave pt small sip of water to swallow morning meds, pt began coughing and did not tolerate well. Pt O2 sats dropped to 80's. Physician notified.
[2020-08-29 13:09] LABS: Add Urine Culture? No; Bacteria Urine TRACE /hpf; Bilirubin Urine Neg (Negative); Blood Urine Neg (Negative); Glucose Urine UA Norm (Normal); Ketones Urine 1+ (Negative); Leukocyte Esterase Urine Negative (Negative); Mucus Urine 1+ /hpf; Nitrate Urine Negative (Negative); Protein Urine Neg (Negative); RBC Urine 0-4 /hpf (0-2); Squamous Epithelial Cell Urine 0-4 /hpf (0-5); Urine Appearance Clear (CLEAR); Urine Color Yellow (Yellow); Urobilinogen Urine Norm (Negative)
--- NOTE | 2020-08-29 14:33 | PC.OT ---
treatment held per nursing
[2020-08-29] MEDS: sodium chloride 0.9% 1,000 ML 75 ML IV (16:47)
[2020-08-29] MEDS: sertraline 100 mg Tablet PO (20:16)
[2020-08-29] MEDS: hyDROXYzine 25 mg Capsule PO (20:16)
[2020-08-29] MEDS: metoprolol tartrate 25 mg Tablet PO (20:16)
--- NOTE | 2020-08-29 20:27 | PC.NURSE ---
Received report from off going nurse. Pt's plan of care reviewed. Pt resting in bed. Respirations are even and unlabored. Pt is currently on bi-pap at 35% sating 100%. No s/sx of distress noted. Pt is alert and oriented and able to follow directions. Pt was able to take a sip of water with meds without any complications. Pt is compliant with care. Pt denies any pain at this time. Pt currently has a 1:1 sitter. Bed in lowest and locked position, call light and water within reach, x's 2 rails up. Bed alarm on. Will continue to monitor pt.
--- NOTE | 2020-08-29 21:45 | PC.NURSE ---
Pt was taken off bi-pap and placed on high-flow NC at 40% FI02. Pt is sating 98%. No distress/complications noted.
--- NOTE | 2020-08-29 22:29 | PM.PN ---
Subjective Subjective: Interval history: 70-year-old male with past medical history significant for anxiety, depression, peripheral arterial disease, gastroesophageal reflux disease, longstanding tobacco abuse, O2 dependent chronic obstructive pulmonary disease on 2 L by nasal cannula who presented to hospital from pulmonary clinic for evaluvation of progressivly worsening dyspnea. Patient was recently admitted multiple times to [facility] initially on 06/2020 where he was noted to a new EMELY speculated mass measuring 1.5 cm in addition to dense mass like consolidation in right lung as well. Terri underwent bronchoscopy shortly after discharge on 08/01 with biopsy the results of which he is not aware of other than cultures which appearantly had grown MRSA. He was treated with vancomycin and discharged. Today was noted to have [facility] after which he was sent to ER for work up. initial laboratory workup today showed a WBC of 12.2, hemoglobin of 10.5, hematocrit 34.9 and platelet count of 401. Sodium 137, potassium 3.8, chloride 101, bicarb 20, BUN 19 and creatinine is 0.8. Chest x-ray was performed which showed interstitial infiltrates throughout both lungs more prevalent on the right than left and prominent right pulmonary hilum. A CT chest PE protocol was done performed which showed severe emphysema with marked pulmonary fibrosis, bronchiectasis and interstitial thickening and additional areas of increasing consolidation greatest in the RIGHT upper lobe and LEFT upper lobe suspicious for neoplastic involvement. patient was started on 0250 and non-rebreather at 10 L. emergency room he was given vancomycin, Zosyn and Levaquin. Upon admission patient was continued on broadspecturm antibiotics until 08/28. Procalcitonin was negative. Did not have any fevers and thus low suspecion of superimposed bacterial pneumonia contributing to patients respiratory distress. He was seen by pulmonary medicine. Started on solu-medrol, duoneb treatements and intermittently required bipap/HFNC. Was noted to have right sided pleural effusion on beside US by pulmonary medicine. On 08/28 successful US guided thoracentesis was performed during which time over 1L of fluid was drained. This was sent for analysis including cytology. In addition case was discussed with oncology due to patients prior pathology showed aytpical cells suspecious for non-small cell lung cancer. Oncology recommended repeat biopsy for addtional tissue sampling to confirm diagnosis. This was ordered and pending for 08/29/2019. 08/27 Overnight required bipap however this was weaned. Feeling anxious. No fever, or chills. No nausea or vomiting. 08/28 Placed on bipap overnight. awaiting thoracentesis in am, no fever or chills overnight. 08/29 Patient remained on bipap overnight. no fever, nausea, vomiting overnight. Laureano was placed. Medications: Reviewed: Yes Vitals/I&O/Wt Last Vital Signs Temp 98.4 F 08/29/20 20:00 Pulse 83 08/29/20 22:17 Resp 18 08/29/20 22:06 BP 143/85 08/29/20 22:00 Pulse Ox 99 08/29/20 22:06 08/29/20 08/29/20 08/29/20 06:59 14:59 22:59 Intake Total 94.383 / 2332.866 8.283 / 8.283 95.717 / 104.000 Output Total 450 / 750 575 / 575 Balance -355.617 / 1582.866 8.283 / 8.283 -479.283 / -471.000 Weight last 48 hrs Weight 52.798 kg Physical Exam Narrative: EXAM NARRATIVE: General- alert awake and oriented in mild respiratory distress on bipap HEENT-grossly unremarkable Chest- decreased breath sounds bilaterally Abdomen-soft nondistended extremities-no edema Urinary Catheter Management^: Laureano: Cath Placed During This Visit: yes Urinary Catheter Date of Insertion: 08/29/20 Urinary Catheter Time of Insertion: 12:30 Data : 08/29/20 02:43 08/29/20 02:43 Micro: Microbiology 08/28/20 Unknown Gram Stain - Final Pleural Fluid A&P Assessment and plan (1) Acute on chronic respiratory failure with hypoxemia: Status: Inactive (2) COPD exacerbation: Status: Acute (3) HCAP (healthcare-associated pneumonia): Status: Acute Acute on chronic hypoxemic respiratory failure - Due to lung mass with copd exacerbation vs right sided pleural effusion - Continue duoneb q6hr scheduled - Solu-medrol as ordered - Bipap PRN - Pending biopsy - Repeat chest xray in am Large right sided pleural effusion - S/p thoracentesis today - Fluid analysis pending - Cytology sent - Pending - Repeat chest x-ray in am Lung mass suspected non-small cell carcinoma - Insufficient tissue sampling at [place] - Repeat CT guided lung biopsy ordered for am - D/w Oncology - will consult once tissue diagnosis obtained - NPO at midnight - Hold heparin as per radiology request - Plan for CT guided biopsy in am Additional medical problems Peripheral arterial disease Gastroesophageal reflux disease Anxiety Depression hx of Tobacco abuse DVT ppx - holding heparin for biopsy in am .. Attestations Medical Necessity Statement*: Will require further hospitalization for management of respiratory failure Time Spent in Patient Care: Greater than 35 minutes (>than 50% of time spent in counselling and/or direct pt care on unit). Coding Level of Care Code Acute Actuary Clerk for Eric Fwd Diagnoses Acute on chronic respiratory failure with hypoxemia J96.21 COPD exacerbation J44.1 HCAP (healthcare-associated pneumonia) J18.9
[2020-08-30] VITALS (39 sets, daily range): BP systolic 97–161; BP diastolic 57–92; PULSE 71–113; RESP 10–30; TEMP 36.4–36.9; O2SAT 88–100; BMI 18.5
[2020-08-30] MEDS: ipratropium-albuterol 3 mL Neb INHALATION ×4 (02:53→20:06)
[2020-08-30] MEDS: sodium chloride 0.9% 1,000 ML 75 ML IV ×2 (05:58→20:13)
[2020-08-30] MEDS: sertraline 100 mg Tablet PO ×2 (09:32→20:13)
[2020-08-30] MEDS: metoprolol tartrate 25 mg Tablet PO ×2 (09:33→20:13)
[2020-08-30] MEDS: pantoprazole DR 40 mg Tablet PO (09:33)
[2020-08-30] MEDS: atorvastatin 40 mg Tablet 20 MG PO (09:33)
--- NOTE | 2020-08-30 11:12 | PC.SOCIAL ---
IMM Updated Updated pt on Pg 2 IMM. No questions voiced. Provided pt a copy. Signed, dated, & timed copy in chart.
[2020-08-30] MEDS: hyDROXYzine 25 mg Capsule PO (20:13)
--- NOTE | 2020-08-30 21:41 | P.PN_ITS ---
Subjective Subjective: Interval history: 70-year-old male with past medical history significant for anxiety, depression, peripheral arterial disease, gastroesophageal reflux disease, longstanding tobacco abuse, O2 dependent chronic obstructive pulmonary disease on 2 L by nasal cannula who presented to hospital from pulmonary clinic for evaluvation of progressivly worsening dyspnea. Patient was recently admitted multiple times to [facility] initially on 06/2020 where he was noted to a new EMELY speculated mass measuring 1.5 cm in addition to dense mass like consolidation in right lung as well. Terri underwent bronchoscopy shortly after discharge on 08/01 with biopsy the results of which he is not aware of other than cultures which appearantly had grown MRSA. He was treated with vancomycin and discharged. Today [facility] to [facility] was [facility] to ER for work up. initial laboratory workup today showed a WBC of 12.2, hemoglobin of 10.5, hematocrit 34.9 and platelet count of 401. Sodium 137, potassium 3.8, chloride 101, bicarb 20, BUN 19 and creatinine is 0.8. Chest x-ray was performed which showed interstitial infiltrates throughout both lungs more prevalent on the right than left and prominent right pulmonary hilum. A CT chest PE protocol was done performed which showed severe emphysema with marked pulmonary fibrosis, bronchiectasis and interstitial thickening and additional areas of increasing consolidation greatest in the RIGHT upper lobe and LEFT upper lobe suspicious for neoplastic involvement. patient was started on 0250 and non-rebreather at 10 L. emergency room he was given vancomycin, Zosyn and L evaquin. Upon admission patient was continued on broadspecturm antibiotics until 08/28. Procalcitonin was negative. Did not have any fevers and thus low suspecion of superimposed bacterial pneumonia contributing to patients respiratory distress. He was seen by pulmonary medicine. Started on solu-medrol, duoneb treatements and intermittently required bipap/HFNC. Was noted to have right sided pleural effusion on beside US by pulmonary medicine. On 08/28 successful US guided thoracentesis was performed during which time over 1L of fluid was drained. This was sent for analysis including cytology. In addition case was discussed with oncology due to patients prior pathology showed aytpical cells suspecious for non-small cell lung cancer. Oncology recommended repeat biopsy for addtional tissue sampling to confirm diagnosis. This was ordered and pending for 08/29/2019. 08/27 Overnight required bipap however this was weaned. Feeling anxious. No fever, or chills. No nausea or vomiting. 08/28 Placed on bipap overnight. awaiting thoracentesis in am, no fever or chills overnight. 08/29 Patient remained on bipap overnight. no fever, nausea, vomiting overnight. Laureano was placed. 08/30 No new clinical events overnight. No fevers overnight. On bipap. Medications: Reviewed: Yes Vitals/I&O/Wt Last Vital Signs Temp 97.7 F 08/30/20 20:00 Pulse 105 H 08/30/20 20:07 Resp 18 08/30/20 20:07 BP 124/62 08/30/20 20:00 Pulse Ox 92 08/30/20 20:07 08/30/20 08/30/20 08/30/20 06:59 14:59 22:59 Intake Total 1468.75 / 6974.939 4240 / 1000 1454 / 2454 Output Total 750 / 1325 Balance 718.75 / 586.718 8406 / 1000 1454 / 2454 Weight last 48 hrs Weight 53.609 kg Physical Exam Narrative: EXAM NARRATIVE: General- alert awake and oriented in mild respiratory distress on bipap HEENT-grossly unremarkable Chest- decreased breath sounds bilaterally Abdomen-soft nondistended extremities-no edema Urinary Catheter Management^: Laureano: Cath Placed During This Visit: yes Reason for Continuing Indwelling Catheter: Accurate Measurement of Urinary Output in Critically Ill Patients Urinary Catheter Date of Insertion: 08/29/20 Urinary Catheter Time of Insertion: 12:30 Data : 08/29/20 02:43 08/29/20 02:43 Micro: Microbiology 08/25/20 10:58 Blood Culture - Final Blood NO GROWTH AFTER 5 DAYS 08/25/20 10:58 Blood Culture - Final Blood NO GROWTH AFTER 5 DAYS 08/28/20 Unknown Gram Stain - Final Pleural Fluid Body Fluid Culture - Preliminary A&P Assessment and plan (1) Acute on chronic respiratory failure with hypoxemia: Status: Inactive (2) COPD exacerbation: Status: Acute (3) HCAP (healthcare-associated pneumonia): Status: Acute Acute on chronic hypoxemic respiratory failure - Due to lung mass with copd exacerbation vs right sided pleural effusion - Continue duoneb q6hr scheduled - Solu-medrol as ordered - Bipap PRN - Pending biopsy - IR service not available - Repeat chest xray in am Large right sided pleural effusion - S/p thoracentesis today - Fluid analysis pending - Cytology sent - Pending - Repeat chest x-ray in am Lung mass suspected non-small cell carcinoma - Insufficient tissue sampling at [place] - Repeat CT guided lung biopsy ordered - pending - D/w Oncology - will consult once tissue diagnosis obtained - Resume diet - Heparin resumed. Additional medical problems Peripheral arterial disease Gastroesophageal reflux disease Anxiety Depression hx of Tobacco abuse DVT ppx - holding heparin for biopsy in am .. Attestations Medical Necessity Statement*: Continue hospitalization for management of respiratory failure Time Spent in Patient Care: Greater than 35 minutes (>than 50% of time spent in counselling and/or direct pt care on unit) . Coding Level of Care Code Acute Photograph Retoucher for Chg Fwd Diagnoses Acute on chronic respiratory failure with hypoxemia J96.21 COPD exacerbation J44.1 HCAP (healthcare-associated pneumonia) J18.9
[2020-08-31] VITALS (32 sets, daily range): BP systolic 106–162; BP diastolic 53–114; PULSE 78–106; RESP 16–34; TEMP 36.4–36.7; O2SAT 40–100; BMI 19.1
[2020-08-31] MEDS: ipratropium-albuterol 3 mL Neb INHALATION ×3 (02:54→14:54)
[2020-08-31 03:33] LABS: ABG PCO2 35.4 mmHg (35-45); ABG PH Result 7.45 (7.35-7.45); Arterial Blood Gas Hematocrit 33.1 % (42-52); Base Excess ABG 0.7 mmol/L (-2.0-2.0); Blood Gas Allen Test Pos; Blood Gas Sample Site Radial, right; Blood Gas Sample Type Arterial; HCO3 ABG 24.5 mmol/L (22-26); PO2 ABG 66.7 mmHg (80.0-100.0)
[2020-08-31 05:07] LABS: Basophils % 0.1 %; Eosinophils % 0.1 %; Hematocrit 30.6 % (42.0-52.0); Hemoglobin 9.4 g/dL (11.7-16.6); Lymphocytes # 1.8 10^3/uL (0.8-4.8); Mean Corpuscular HGB Conc 30.7 g/dL (30.0-36.0); Mean Corpuscular Hemoglobin 21.1 pg (28.0-34.0); Mean Corpuscular Volume 68.8 fL (80-94); Monocytes # 0.9 10^3/uL (0.2-0.9); Monocytes % 7.4 %; Neutrophils # 8.59 10^3/uL (1.8-7.7); Neutrophils % 75.3 %; Nucleated Red Blood Cells % 0.2 %; Platelet Count 302 10^3/cmm (130-400); Red Blood Count 4.45 10^6/uL (4.1-5.3); Red Cell Distribution Width 18.9 % (12.1-15.1); White Blood Count 11.4 10^3/uL (4.0-10.0)
[2020-08-31 05:32] LABS: Lactate (Lactic Acid level) 1.9 mmol/L (0.5-2.2)
[2020-08-31 05:40] LABS: Alanine Aminotransferase 111 U/L (0-41); Albumin Level 2.9 g/dL (3.5-5.2); Alkaline Phosphatase 105 IU/L (40-130); Anion Gap 13.8 (5-19); Aspartate Amino Transferase 39 U/L (0-40); Blood Urea Nitrogen 23 mg/dL (8-23); Calcium 8.4 mg/dL (8.5-10.5); Carbon Dioxide 23 mmol/L (22-29); Chloride 103 mmol/L (98-107); Globulin 3.2 g/dL (1.3-4.6); Glucose 133 mg/dL (65-115); Osmolality Calculated 288 mOsm/kg (285-295); Potassium 3.8 mmol/L (3.5-5.1); Sodium 136 mmol/L (136-145); Total Bilirubin 0.3 mg/dL (0.15-1.2); Total Protein 6.1 g/dL (6.6-8.7)
--- NOTE | 2020-08-31 07:00 | XRR_ITS ---
PROCEDURE INFORMATION: Exam: XR Chest, 1 View Exam date and time: 08/31/2020 5:20 AM Age: 71 years old Clinical indication: Dyspnea; Additional info: Respiratory failure TECHNIQUE: Imaging protocol: XR of the chest Views: 1 view. COMPARISON: CR XR chest 1V portable [id number] 08/29/2020 5:31 AM FINDINGS: Lungs: Extensive bilateral interstitial pulmonary infiltrates are present which are similar to previous examination. There is however worsening atelectasis and consolidation with pleural effusion in the right base. Pleural space: . No pneumothorax. Heart/Mediastinum: Unremarkable. No cardiomegaly. Bones/joints: Unremarkable. XR/XR chest 1V portable [id number] IMPRESSION: When compared to the previous study there is worsening atelectasis consolidation and pleural effusion in the right base.
[2020-08-31] MEDS: sertraline 100 mg Tablet PO ×2 (09:08→20:38)
[2020-08-31] MEDS: metoprolol tartrate 25 mg Tablet PO ×2 (09:08→20:38)
[2020-08-31] MEDS: atorvastatin 40 mg Tablet 20 MG PO (09:08)
[2020-08-31] MEDS: pantoprazole DR 40 mg Tablet PO (09:08)
--- NOTE | 2020-08-31 09:09 | P.PN_ITS ---
Subjective Subjective: Interval history: 70-year-old male with past medical history significant for anxiety, depression, peripheral arterial disease, gastroesophageal reflux disease, longstanding tobacco abuse, O2 dependent chronic obstructive pulmonary disease on 2 L by nasal cannula who presented to hospital from pulmonary clinic for evaluvation of progressivly worsening dyspnea. Patient was recently admitted multiple times to [facility] initially on 06/2020 where he was noted to a new EMELY speculated mass measuring 1.5 cm in addition to dense mass like consolidation in right lung as well. Terri underwent bronchoscopy shortly after discharge on 08/01 with biopsy the results of which he is not aware of other than cultures which appearantly had grown MRSA. He was treated with vancomycin and discharged. Today was [facility] to [facility] which he was sent to ER for work up. initial laboratory workup today showed a WBC of 12.2, hemoglobin of 10.5, hematocrit 34.9 and platelet count of 401. Sodium 137, potassium 3.8, chloride 101, bicarb 20, BUN 19 and creatinine is 0.8. Chest x-ray was performed which showed interstitial infiltrates throughout both lungs more prevalent on the right than left and prominent right pulmonary hilum. A CT chest PE protocol was done performed which showed severe emphysema with marked pulmonary fibrosis, bronchiectasis and interstitial thickening and additional areas of increasing consolidation greatest in the RIGHT upper lobe and LEFT upper lobe suspicious for neoplastic involvement. patient was started on 0250 and non-rebreather at 10 L. emergency room he was given vancomycin, Zosyn and L evaquin. Upon admission patient was continued on broadspecturm antibiotics until 08/28. Procalcitonin was negative. Did not have any fevers and thus low suspecion of superimposed bacterial pneumonia contributing to patients respiratory distress. He was seen by pulmonary medicine. Started on solu-medrol, duoneb treatements and intermittently required bipap/HFNC. Was noted to have right sided pleural effusion on beside US by pulmonary medicine. On 08/28 successful US guided thoracentesis was performed during which time over 1L of fluid was drained. This was sent for analysis including cytology. In addition case was discussed with oncology due to patients prior pathology showed aytpical cells suspecious for non-small cell lung cancer. Oncology recommended repeat biopsy for addtional tissue sampling to confirm diagnosis. This was ordered and pending for 08/29/2019. 08/27 Overnight required bipap however this was weaned. Feeling anxious. No fever, or chills. No nausea or vomiting. 08/28 Placed on bipap overnight. awaiting thoracentesis in am, no fever or chills overnight. 08/29 Patient remained on bipap overnight. no fever, nausea, vomiting overnight. Laureano was placed. 08/30 No new clinical events overnight. No fevers overnight. On bipap. 08/31 Awaiting biopsy in am Medications: Reviewed: Yes Vitals/I&O/Wt Last Vital Signs Temp 98.2 F 09/01/20 08:00 Pulse 92 09/01/20 08:00 Resp 20 H 09/01/20 08:00 BP 158/109 09/01/20 08:00 Pulse Ox 98 09/01/20 08:00 08/31/20 09/01/20 09/01/20 22:59 06:59 14:59 Intake Total 360 / 1840 Output Total 1999 / 1999 250 / 2250 400 / 400 Balance -1640 / -160 -250 / -410 -400 / -400 Weight last 48 hrs Weight 55.338 kg Weight 55.338 kg Physical Exam Narrative: EXAM NARRATIVE: General- alert awake and oriented in mild respiratory distress on bipap HEENT-grossly unremarkable Chest- decreased breath sounds bilaterally Abdomen-soft nondistended extremities-no edema Urinary Catheter Management^: Laureano: Cath Placed During This Visit: yes, but has since been removed by the nurse Reason for Continuing Indwelling Catheter: Accurate Measurement of Urinary Output in Critically Ill Patients Urinary Catheter Date of Insertion: 08/29/20 Urinary Catheter Time of Insertion: 12:30 Date Urinary Catheter Removed: 09/01/20 Data : 08/31/20 04:44 08/31/20 04:44 Micro: Microbiology 08/28/20 Unknown Mycobacterial Smear - Preliminary Body Fluids - Pleura 08/28/20 Unknown Gram Stain - Final Pleural Fluid Body Fluid Culture - Preliminary A&P Assessment and plan (1) Acute on chronic respiratory failure with hypoxemia: Status: Inactive (2) COPD exacerbation: Status: Acute (3) HCAP (healthcare-associated pneumonia): Status: Acute Acute on chronic hypoxemic respiratory failure - Due to lung mass with copd exacerbation vs right sided pleural effusion - Continue duoneb q6hr scheduled - Solu-medrol as ordered - Bipap PRN - Non-compliant with oxygen Large right sided pleural effusion - S/p thoracentesis today - Fluid analysis pending - Cytology sent - Pending - Repeat chest x-ray in am Lung mass suspected non-small cell carcinoma - Insufficient tissue sampling at [place] - Repeat CT guided lung biopsy ordered - pending - D/w Oncology - will consult once tissue diagnosis obtained - Hold heparin in pm - [place]ll[place] for biopsy in am Additional medical problems Peripheral arterial disease Gastroesophageal reflux disease Anxiety Depression hx of Tobacco abuse DVT ppx - holding heparin for biopsy in am .. Attestations Medical Necessity Statement*: continue managment for respiratory failure Coding Level of Care Code Acute Machine Cloth Trimmer for Chg Fwd Diagnoses Acute on chronic respiratory failure with hypoxemia J96.21 COPD exacerbation J44.1 HCAP (healthcare-associated pneumonia) J18.9
[2020-08-31 09:47] LABS: Oxygen Device HHF
[2020-09-01] VITALS (31 sets, daily range): BP systolic 107–166; BP diastolic 68–119; PULSE 87–104; RESP 15–28; TEMP 36.1–37; O2SAT 91–99; BMI 19.1
--- NOTE | 2020-09-01 00:22 | PC.NURSE ---
pt removed his sanchez catheter. Notified hospitalist. Will bladder scan in 4 hours to determine if a catheter is needed.
[2020-09-01] MEDS: ipratropium-albuterol 3 mL Neb INHALATION ×4 (02:01→20:29)
--- NOTE | 2020-09-01 04:32 | PC.NURSE ---
bladder scan read 128 ml pre void post void 35ml. pt is not having trouble urinating.
[2020-09-01 05:41] LABS: Glucose Point of Care 145 mg/dL (70-110)
[2020-09-01] MEDS: sertraline 100 mg Tablet PO ×2 (08:26→21:21)
[2020-09-01] MEDS: sodium chloride 0.9% 1,000 ML 75 ML IV (08:26)
[2020-09-01] MEDS: pantoprazole DR 40 mg Tablet PO (08:26)
[2020-09-01] MEDS: metoprolol tartrate 25 mg Tablet PO ×2 (08:26→21:22)
[2020-09-01] MEDS: atorvastatin 40 mg Tablet 20 MG PO (08:26)
--- NOTE | 2020-09-01 09:24 | PC.CHAP ---
Pastoral Care Encounter/Spiritual Assessment Type of Contact [] Declined napkin machine operator visit [] Patient/Family/Request visit [] Outpatient visit [] Follow-up visit [] Physician referral [] Code/Alert [] Routine visit [] Staff referral [] Actively dying [] Patient sleeping [] Family support [] [] Out of room [] Palliative care [] [] Receiving care in room [] Pre-surgical visit [] Trauma [] Long length of stay [x] ICU visit [] Other: Relational/Emotional Strength [] Patient feels connected with others/family/visitors/staff [] Distress [] Loneliness/isolation [] Abandonment Spirituality of Patient [] Person of [place]ivid[place] [] Attends Jewish of their [place] [] Believes in Prayer [] Reads Bible or Adventism materials [] There are Spiritual issues to be addressed Thermit Welding Machine Operator Interventions [x] Prayer [] Active listening [] Non-anxious presence [] Spiritual/emotional support [] Crisis/trauma care [] Spiritual counseling [] Bereavement support [] Provided bereavement packet [] Provided Bible/devotional materials [] Provided toy/stuffed animal, coloring book to patient or family member [] Provided Communion [] Anointing/[place] [] Salvation [x] Completed spiritual assessment [] Other: Impact on Illness or Injury [] Angry [] Fearful [] Anxious [] Often cries [] Exhaustion [] Unable to work [] Unable to attend methodist [] Unable to walk/stand [] Unable to read [] Unable to drive [] Unable to eat/drink [] Unable to sleep [] Unable to be with family [] Patient intubated [] Other: Summary Time spent with patient
--- NOTE | 2020-09-01 11:17 | XRR_ITS ---
PROCEDURE INFORMATION: Exam: XR Chest, 1 View Exam date and time: 09/01/2020 11:18 AM Age: 71 years old Clinical indication: Shortness of breath; Additional info: Increased oxygen demand TECHNIQUE: Imaging protocol: XR of the chest Views: 1 view. COMPARISON: CR (CHEST, ) 08/31/2020 5:08 AM FINDINGS: Lungs: Severe emphysema. Coarse interstitial pattern much of which is likely fibrotic. Moderate subpulmonic effusion on the right with adjacent atelectasis. Mild apical pleural thickening Pleural space: See Lungs finding. Heart/Mediastinum: Unremarkable. No cardiomegaly. Bones/joints: Unremarkable. XR/XR chest 1V portable [id number] IMPRESSION: Severe emphysema. Coarse interstitial pattern much of which is likely fibrotic. Moderate subpulmonic effusion on the right with adjacent atelectasis. Minimal change overall
[2020-09-01] MEDS: hyDROXYzine 25 mg Capsule PO (11:59)
--- NOTE | 2020-09-01 13:19 | PC.SOCIAL ---
IMM Update Pg. 2 of IMM updated with patient's at bedside. Copy provided.
--- NOTE | 2020-09-01 21:00 | PM.PN ---
Subjective Subjective: Interval history: 70-year-old male with past medical history significant for anxiety, depression, peripheral arterial disease, gastroesophageal reflux disease, longstanding tobacco abuse, O2 dependent chronic obstructive pulmonary disease on 2 L by nasal cannula who presented to hospital from pulmonary clinic for evaluvation of progressivly worsening dyspnea. Patient was recently admitted multiple times to [facility] initially on 06/2020 where he was noted to a new EMELY speculated mass measuring 1.5 cm in addition to dense mass like consolidation in right lung as well. Terri underwent bronchoscopy shortly after discharge on 08/01 with biopsy the results of which he is not aware of other than cultures which appearantly had grown MRSA. He was treated with vancomycin and discharged. Today was noted to have profound hypoxia on 6l via [facility] after which he was sent to ER for work up. initial laboratory workup today showed a WBC of 12.2, hemoglobin of 10.5, hematocrit 34.9 and platelet count of 401. Sodium 137, potassium 3.8, chloride 101, bicarb 20, BUN 19 and creatinine is 0.8. Chest x-ray was performed which showed interstitial infiltrates throughout both lungs more prevalent on the right than left and prominent right pulmonary hilum. A CT chest PE protocol was done performed which showed severe emphysema with marked pulmonary fibrosis, bronchiectasis and interstitial thickening and additional areas of increasing consolidation greatest in the RIGHT upper lobe and LEFT upper lobe suspicious for neoplastic involvement. patient was started on 0250 and non-rebreather at 10 L. emergency room he was given vancomycin, Zosyn and Levaquin. Upon admission patient was continued on broadspecturm antibiotics until 08/28. Procalcitonin was negative. Did not have any fevers and thus low suspecion of superimposed bacterial pneumonia contributing to patients respiratory distress. He was seen by pulmonary medicine. Started on solu-medrol, duoneb treatements and intermittently required bipap/HFNC. Was noted to have right sided pleural effusion on beside US by pulmonary medicine. On 08/28 successful US guided thoracentesis was performed during which time over 1L of fluid was drained. This was sent for analysis including cytology. In addition case was discussed with oncology due to patients prior pathology showed aytpical cells suspecious for non-small cell lung cancer. Oncology recommended repeat biopsy for addtional tissue sampling to confirm diagnosis. This was ordered and pending for 08/29/2019. 08/27 Overnight required bipap however this was weaned. Feeling anxious. No fever, or chills. No nausea or vomiting. 08/28 Placed on bipap overnight. awaiting thoracentesis in am, no fever or chills overnight. 08/29 Patient remained on bipap overnight. no fever, nausea, vomiting overnight. Laureano was placed. 08/30 No new clinical events overnight. No fevers overnight. On bipap. 08/31 Awaiting biopsy in am 09/01 Biopsy on hold. Medications: Reviewed: Yes Vitals/I&O/Wt Last Vital Signs Temp 98.3 F 09/02/20 12:00 Pulse 94 09/02/20 20:16 Resp 20 H 09/02/20 20:16 BP 134/75 09/02/20 20:00 Pulse Ox 100 09/02/20 20:16 09/02/20 09/02/20 09/02/20 06:59 14:59 22:59 Intake Total 15 / 15 3.92 / 18.92 Output Total 250 / 1650 275 / 275 300 / 575 Balance -250 / 50 -260 / -260 -296.08 / -556.08 Weight last 48 hrs Weight 55.338 kg Weight 55.338 kg Physical Exam Narrative: EXAM NARRATIVE: General- alert awake and oriented in mild respiratory distress on HFNC HEENT-grossly unremarkable Chest- decreased breath sounds bilaterally Abdomen-soft nondistended extremities-no edema Urinary Catheter Management^: Laureano: Cath Placed During This Visit: yes, but has since been removed by the nurse Reason for Continuing Indwelling Catheter: Accurate Measurement of Urinary Output in Critically Ill Patients Urinary Catheter Date of Insertion: 08/29/20 Urinary Catheter Time of Insertion: 12:30 Date Urinary Catheter Removed: 09/01/20 Data : 08/31/20 04:44 08/31/20 04:44 Micro: Microbiology 09/02/20 13:39 Gram Stain - Final Pleural Fluid A&P Assessment and plan (1) Acute on chronic respiratory failure with hypoxemia: Status: Inactive (2) COPD exacerbation: Status: Acute (3) HCAP (healthcare-associated pneumonia): Status: Acute Acute on chronic hypoxemic respiratory failure - Due to lung mass with copd exacerbation vs right sided pleural effusion - Continue duoneb q6hr scheduled - Solu-medrol as ordered - Bipap PRN - Non-compliant with oxygen - Chest x-ray in am - Awaiting further plan from pulmonary Large right sided pleural effusion - S/p thoracentesis - Fluid analysis - transudative - Cytology sent -negative for malignancy - Repeat chest x-ray in am Lung mass suspected non-small cell carcinoma - Insufficient tissue sampling at [place] - Repeat CT guided lung biopsy ordered - pending - D/w Oncology - will consult once tissue diagnosis obtained - Hold heparin in pm - Pllan for biopsy in am Additional medical problems Peripheral arterial disease Gastroesophageal reflux disease Anxiety Depression hx of Tobacco abuse DVT ppx - Will resume heparin .. Attestations Medical Necessity Statement*: Continue current hospitalization for management of respiratory failure Time Spent in Patient Care: Greater than 35 minutes (>than 50% of time spent in counselling and/or direct pt care on unit). Coding Level of Care Code Acute Bereavement Program Coordinator for Eric Villard Diagnoses Acute on chronic respiratory failure with hypoxemia J96.21 COPD exacerbation J44.1 HCAP (healthcare-associated pneumonia) J18.9
--- NOTE | 2020-09-01 22:34 | PM.PN ---
Subjective Subjective: Interval history: no acute events overnight on 7l Nc repeat bedside usg showed recurrent right pleural effusion recent thoracentesis 08/28 - was transudative and cytology negative for malignancy Medications: Reviewed: Yes Vitals/I&O/Wt Last Vital Signs Temp 97.7 F 09/01/20 20:00 Pulse 91 09/01/20 20:30 Resp 17 09/01/20 20:30 BP 146/102 09/01/20 20:00 Pulse Ox 98 09/01/20 20:30 09/01/20 09/01/20 09/01/20 06:59 14:59 22:59 Intake Total 300 / 300 200 / 500 Output Total 250 / 2250 600 / 600 500 / 1100 Balance -250 / -410 -300 / -300 -300 / -600 Weight last 48 hrs Weight 122 lb Weight 122 lb Physical Exam Narrative: EXAM NARRATIVE: General: alert, appears cachectic, sitting in bed in mild respiratory distress HEENT: conj clear, EOMI, PERRL, mmm, Neck: supple, no meningismus Heme: no cervical LAP Pulmonary: Bilateral air entry with mild diffuse expiratory rhonchi and reduced breath sounds on right lower lung Cardiovascular: rrr, nl s1s2, no mrg Abdomen: soft, nt, nd, no r/g, bs+ Extremities: pulses +, no edema, no c/c : no CVA tenderness Skin: intact, no rash MSK: no back or neck pain Neurologic: grossly intact Urinary Catheter Management^: Laureano: Cath Placed During This Visit: yes, but has since been removed by the nurse Reason for Continuing Indwelling Catheter: Accurate Measurement of Urinary Output in Critically Ill Patients Urinary Catheter Date of Insertion: 08/29/20 Urinary Catheter Time of Insertion: 12:30 Date Urinary Catheter Removed: 09/01/20 Data : 08/31/20 04:44 08/31/20 04:44 Micro: Microbiology 08/28/20 Unknown Gram Stain - Final Pleural Fluid Body Fluid Culture - Final A&P Assessment and plan (1) HCAP (healthcare-associated pneumonia): Status: Acute (2) COPD exacerbation: Status: Acute (3) Ex-smoker for less than 1 year: Status: Acute (4) COPD, moderate: Status: Acute (5) MRSA (methicillin resistant staphylococcus aureus) pneumonia: Status: Acute Qualifiers: Laterality: right Lung location: lower lobe of lung Qualified Code(s): J15.212 - Pneumonia due to Methicillin resistant Staphylococcus aureus (6) Acute and chronic respiratory failure with hypoxia: Status: Acute (7) Pleural effusion on right: Status: Acute #Acute hypoxic respiratory failure requiring high flow oxygen in patient with recently diagnosed NSCLC and moderate to large right pleural effusion #Recent hospital discharge follow-up in 07/22/2020- 08/03/2020 at [facility] for MRSA pneumonia discharged home with 5 L nasal cannula # Left upper lobe spiculated 1.[address] chest 07/23/2020 suspicious for malignancy in chronic smoker # RUL and RLL dense masslike consolidation with fullness in the right pulmonary hilum on CT 07/23/2020 #COPD exacerbation #Chronic smoker -Smokes 1.5 PPD X 50 = 75 pack history; -Quit June 2020 since his last admission at [facility] #BAL cytology 08/01/2020 from [facility] showed atypical cells suspicious for non-small cell lung cancer -Currently requiring 7 L nasal cannula -alternating with BiPAP 08/03 and 40% FiO2 saturating 97% -CTA on admission no evidence of PE; areas of increasing consolidation greatest in the RIGHT upper lobe and LEFT upper lobe suspicious for neoplastic involvement. -DC Airborne and contact isolation COVID-19 antigen and PCR negative -DuoNeb nebulization every 6 hours scheduled -Afebrile and WBC 12 K > 8.9K; cultures negative so far -final blood cultures pending -Procalcitonin 0.08; Dced antibiotics -Counseled to maintain abstinence from smoking -PFTs not available -we will schedule for PFTs/6-minute walk test once clinically improved and discharged CT 07/23/2020: Impression Left upper lobe mass with spiculation measures up to 1.5 cm worrisome in appearance. Dense masslike consolidation in the right upper lobe and right lower lobe with some nodular dense fullness in the right pulmonary hilum. Adjacent to these areas there is some areas of additional peripheral consolidation which may reflect some postobstructive pneumonia. Fracture of L1 vertebral bodies of indeterminate age but it could be acute. Fracture of T6 superior endplate appears like old. CT 07/30/2020: Heart abnormalities of right lung that have improved very minimally. There is soft tissue fullness involving the right hilar region and surrounding the vessels with compression of bronchi. There is very pronounced inflammatory process throughout the interstitial disease in the right lung base and there is a right basilar effusion. Left lung reveals honeycombing and a spiculated irregular mass measuring 1.9 cm in diameter that is very worrisome for tumor involvement. 08/01/2020: underwent bronchoscopy with transbronchial biopsy at [facility]. Procedure note described that the inspection of entire tracheobronchial tree revealed copious amount of thick tenacious yellow secretions suctioned from the right lower lobe. BAL from right middle lobe was performed followed by transbronchial lung forceps biopsies and brushing of right lower lobe under fluoroscopic guidance. Also collection of bronchial washing was obtained. Procedure results from [facility] and BAL cytology showed atypical cells suspicious for non-small cell lung cancer. I called Dr. Anthony clinical exercise physiologist at [facility] and he said that they do not have enough tissue for further subspeciation with IHC and tumor markers as transbronchial biopsies were negative. Requested to come and visit the patient and gave the news of BAL cytology being positive for cancer cells to the patient and his at bedside. Also reported the need for further tissue collection for advanced staining and tumor marker identification and PET scan as outpatient. reported that they lost their daughter last year after 3-year kaur with cancer. s/p thoracentesis for right pleural effusion 1100cc hemorrahgic fluid drained 08/28 - transudative and cytology negative for malignancy. - recommended to do ECHO to rule out CHF 09/01/2019: today again large right pleural effusion seen on bedside ultrasound - I will drain this effusion and repeat cytology; Will repeat CT and if lesions and lympadenopahty still persist then we will plan ebus and susan bronch to confirm diagnosis and obtain tissue for Next generation sequencing. Medical condition, labs, investigations, medications, counseling regarding medication compliance, side effects, importance of follow-up appointments, smoking-its adverse effects and importance of cessation and maintaining abstinence and plan of care-everything explained in detail to the patient. Patient verbalized understanding. Recommendations conveyed to the taking care of the patient Attestations Medical Necessity Statement*: Hypoxic respiratory failure due to underlying pneumonia /effusion and possible cancer. Time Spent in Patient Care: Greater than 35 minutes (>than 50% of time spent in counselling and/or direct pt care on unit). Coding Level of Care Code Acute Economic Forecaster for Chg Fwd Diagnoses HCAP (healthcare-associated pneumonia) J18.9 COPD exacerbation J44.1 Ex-smoker for less than 1 year Z78.9 COPD, moderate J44.9 MRSA (methicillin resistant staphylococcus aureus) pneumonia J15.212 Laterality: right Lung location: lower lobe of lung Acute and chronic respiratory failure with hypoxia J96.21 Pleural effusion on right J90
[2020-09-02] VITALS (35 sets, daily range): BP systolic 107–169; BP diastolic 57–109; PULSE 85–108; RESP 16–41; TEMP 35.5–36.8; O2SAT 77–100; BMI 19.1
[2020-09-02] MEDS: ipratropium-albuterol 3 mL Neb INHALATION ×4 (02:55→20:14)
[2020-09-02] MEDS: pantoprazole DR 40 mg Tablet PO (08:43)
[2020-09-02] MEDS: hyDROXYzine 25 mg Capsule PO (08:43)
[2020-09-02] MEDS: atorvastatin 40 mg Tablet 20 MG PO (08:43)
[2020-09-02] MEDS: sertraline 100 mg Tablet PO ×2 (08:43→21:35)
[2020-09-02] MEDS: metoprolol tartrate 25 mg Tablet PO ×2 (08:43→21:34)
--- NOTE | 2020-09-02 09:19 | PC.CHAP ---
Pastoral Care Encounter/Spiritual Assessment Type of Contact [] Declined store stock associate visit [] Patient/Family/Request visit [] Outpatient visit [] Follow-up visit [] Physician referral [] Code/Alert [] Routine visit [] Staff referral [] Actively dying [] Patient sleeping [] Family support [] [] Out of room [] Palliative care [] [] Receiving care in room [] Pre-surgical visit [] Trauma [] Long length of stay [x] ICU visit [] Other: Relational/Emotional Strength [] Patient feels connected with others/family/visitors/staff [] Distress [] Loneliness/isolation [] Abandonment Spirituality of Patient [] Person of [place] [] Attends Muslim of their [place] [] Believes in Prayer [] Reads Bible or Taoist materials [] There are Spiritual issues to be addressed Knife Setter Grinder Machine Interventions [x] Prayer [] Active listening [] Non-anxious presence [] Spiritual/emotional support [] Crisis/trauma care [] Spiritual counseling [] Bereavement support [] Provided bereavement packet [] Provided Bible/devotional materials [] Provided toy/stuffed animal, coloring book to patient or family member [] Provided Communion [] Anointing/[place] [] Salvation [x] Completed spiritual assessment [] Other: Impact on Illness or Injury [] Angry [] Fearful [] Anxious [] Often cries [] Exhaustion [] Unable to work [] Unable to attend judaism [] Unable to walk/stand [] Unable to read [] Unable to drive [] Unable to eat/drink [] Unable to sleep [] Unable to be with family [] Patient intubated [] Other: Summary Time spent with patient
--- NOTE | 2020-09-02 10:23 | PC.NURSE ---
rounding Patient is intermittenly confused. Stating that his should be here. Take me to my room patient will also be alert stating that recently been at [facility]. i need my biposy. why am i not getting better? patient very agitated, attempting to climb out of bed, pulling oxygen off, pulling leads/pulse ox off. nurse has reapplied pulse ox X2. patient desating on any exertion to exit bed. nurse informed patient of needing to stay in bed, bed alarm turned on. aware of patient mental status.
--- NOTE | 2020-09-02 13:53 | XR_ITS ---
WS: [id number] PORTABLE CHEST HISTORY: post thoracentesis COMPARISON: 09/01/2020 Severe chronic emphysema. Coarsened interstitial pattern over both lungs. Small RIGHT pleural effusio n. No pneumothorax. Cardiac size: Normal. Mediastinum/Aorta: Mild atherosclerosis aorta. No osseous abnormality seen. XR/XR chest 1V portable [id number] IMPRESSION: 1. Severe emphysema. 2. Small RIGHT pleural effusion. 3. No pneumothorax.
--- NOTE | 2020-09-02 13:58 | P.PCN_ITS ---
Procedure/Consent Procedure Narrative: Pulmonary & Critical Care Medicine Procedure - Thoracentesis Procedure: Thoracentesis Indication: Right pleural effusion Dining Room Host/Hostess(s): Greg Durant MD Consent: Signed and placed in chart Anesthesia: 10 cc 1% lidocaine without epinephrine Description: Right pleural effusion was localized using ultrasound guidance and the site was marked accordingly. After chlorhexidine skin prep, area was draped in a sterile manner. 1% lidocaine was used for local anesthesia. Thoracentesis catheter was then inserted into the pleural space with aspiration of 900 cc of pleural fluid. Appearance was straw-colored. Ultrasound guidance used: Yes. Image saved to ultrasound machine EBL: 5 cc Complications:No
--- NOTE | 2020-09-02 14:00 | P.PN_ITS ---
Subjective Subjective: Interval history: no acute events overnight on 7l Nc repeat bedside usg showed recurrent right pleural effusion recent thoracentesis 08/28 - was transudative and cytology negative for malignancy We will repeat right thoracentesis and see if patient improves symptomatically Medications: Reviewed: Yes Vitals/I&O/Wt Last Vital Signs Temp 98.3 F 09/02/20 12:00 Pulse 92 09/02/20 12:00 Resp 20 H 09/02/20 12:00 BP 156/91 09/02/20 12:00 Pulse Ox 89 L 09/02/20 12:00 09/01/20 09/02/20 09/02/20 22:59 06:59 14:59 Intake Total 400 / 700 Output Total 800 / 1400 250 / 1650 275 / 275 Balance -400 / -700 -250 / -950 -260 / -260 Weight last 48 hrs Weight 122 lb Weight 122 lb Physical Exam Narrative: EXAM NARRATIVE: General: alert, appears cachectic, sitting in bed in mild respiratory distress HEENT: conj clear, EOMI, PERRL, mmm, Neck: supple, no meningismus Heme: no cervical LAP Pulmonary: Bilateral air entry with mild diffuse expiratory rhonchi and reduced breath sounds on right lower lung Cardiovascular: rrr, nl s1s2, no mrg Abdomen: soft, nt, nd, no r/g, bs+ Extremities: pulses +, no edema, no c/c : no CVA tenderness Skin: intact, no rash MSK: no back or neck pain Neurologic: grossly intact Urinary Catheter Management^: Laureano: Cath Placed During This Visit: yes, but has since been removed by the nurse Reason for Continuing Indwelling Catheter: Accurate Measurement of Urinary Output in Critically Ill Patients Urinary Catheter Date of Insertion: 08/29/20 Urinary Catheter Time of Insertion: 12:30 Date Urinary Catheter Removed: 09/01/20 Data : 08/31/20 04:44 08/31/20 04:44 Micro: Microbiology 08/28/20 Unknown Gram Stain - Final Pleural Fluid Body Fluid Culture - Final A&P Assessment and plan (1) HCAP (healthcare-associated pneumonia): Status: Acute (2) COPD exacerbation: Status: Acute (3) Ex-smoker for less than 1 year: Status: Acute (4) COPD, moderate: Status: Acute (5) MRSA (methicillin resistant staphylococcus aureus) pneumonia: Status: Acute Qualifiers: Laterality: right Lung location: lower lobe of lung Qualified Code(s): J15.212 - Pneumonia due to Methicillin resistant Staphylococcus aureus (6) Acute and chronic respiratory failure with hypoxia: Status: Acute (7) Pleural effusion on right: Status: Acute #Acute hypoxic respiratory failure requiring high flow oxygen in patient with recently diagnosed NSCLC and moderate to large right pleural effusion #Recent hospital discharge follow-up in 07/22/2020- 08/03/2020 at [facility] for MRSA pneumonia discharged home with 5 L nasal cannula # Left upper lobe spiculated 1.[address] chest 07/23/2020 suspicious for malignancy in chronic smoker # RUL and RLL dense masslike consolidation with fullness in the right pulmonary hilum on CT 07/23/2020 #COPD exacerbation #Chronic smoker -Smokes 1.5 PPD X 50 = 75 pack history; -Quit June 2020 since his last admission at [facility] #BAL cytology 08/01/2020 from [facility] showed atypical cells suspicious for non-small cell lung cancer -Currently requiring 7 L nasal cannula -alternating with BiPAP 08/03 and 40% FiO2 saturating 97% -CTA on admission no evidence of PE; areas of increasing consolidation greatest in the RIGHT upper lobe and LEFT upper lobe suspicious for neoplastic involvement. -off Airborne and contact isolation COVID-19 antigen and PCR negative -DuoNeb nebulization every 6 hours scheduled -Taper steroids based on clinical response -Afebrile and WBC 12 K > 8.9K; cultures negative so far -final blood cultures pending -Procalcitonin 0.08; Dced antibiotics -Counseled to maintain abstinence from smoking -PFTs not available -we will schedule for PFTs/6-minute walk test once clinically improved and discharged CT 07/23/2020: Impression Left upper lobe mass with spiculation measures up to 1.5 cm worrisome in appearance. Dense masslike consolidation in the right upper lobe and right lower lobe with some nodular dense fullness in the right pulmonary hilum. Adjacent to these areas there is some areas of additional peripheral consolidation which may reflect some postobstructive pneumonia. Fracture of L1 vertebral bodies of indeterminate age but it could be acute. Fracture of T6 superior endplate appears like old. CT 07/30/2020: Heart abnormalities of right lung that have improved very minimally. There is soft tissue fullness involving the right hilar region and surrounding the vessels with compression of bronchi. There is very pronounced inflammatory process throughout the interstitial disease in the right lung base and there is a right basilar effusion. Left lung reveals honeycombing and a spiculated irregular mass measuring 1.9 cm in diameter that is very worrisome for tumor involvement. 08/01/2020: underwent bronchoscopy with transbronchial biopsy at [facility]. Procedure note described that the inspection of entire tracheobronchial tree revealed copious amount of thick tenacious yellow secretions suctioned from the right lower lobe. BAL from right middle lobe was performed followed by t ransbronchial lung forceps biopsies and brushing of right lower lobe under fluoroscopic guidance. Also collection of bronchial washing was obtained. Procedure results from [facility] and BAL cytology showed atypical cells suspicious for non-small cell lung cancer. I called Dr. Anthony software applications architect at [facility] and he said that they do not have enough tissue for IHC and tumor markers as transbronchial biopsies were negative. Requested to come and visit the patient and gave the news of BAL cytology being positive for cancer cells to the patient and his at bedside. Also reported the need for further tissue collection for advanced staining and tumor marker identification and PET scan as outpatient. reported that they lost their daughter last year after 3-year kaur with cancer. s/p thoracentesis for right pleural effusion 1100cc hemorrahgic fluid drained 08/28 - transudative and cytology negative for malignancy. - recommended to do ECHO to rule out CHF 09/01/2019: again large right pleural effusion seen on bedside ultrasound - I will drain this effusion and repeat cytology; Will repeat CT and if lesions and lympadenopahty still persist then we will plan ebus and susan bronch to confirm diagnosis and obtain tissue for Next generation sequencing. Medical condition, labs, investigations, medications, counseling regarding medication compliance, side effects, importance of follow-up appointments, smoking-its adverse effects and importance of cessation and maintaining abstinence and plan of care-everything explained in detail to the patient. Patient verbalized understanding. Recommendations conveyed to the taking care of the patient Attestations Medical Necessity Statement*: Acute hypoxic respiratory failure secondary to right pleural effusion in patient with severe COPD and? Underlying malignancy. Coding Level of Care Code Established Pt Acute Extrusion Utility Worker for Chg Fwd Patient Type Established History Comprehensive Exam Comprehensive Medical Decision Making High Complexity Diagnoses HCAP (healthcare-associated pneumonia) J18.9 COPD exacerbation J44.1 Ex-smoker for less than 1 year Z78.9 COPD, moderate J44.9 MRSA (methicillin resistant staphylococcus aureus) pneumonia J15.212 Laterality: right Lung location: lower lobe of lung Acute and chronic respiratory failure with hypoxia J96.21 Pleural effusion on right J90 Time Spent (min) 45
[2020-09-02 14:29] LABS: Appearance, Pleural Fluid CLOUDY (CLEAR); Color, Pleural Fluid Pale Yellow (Pale Yellow)
[2020-09-02 14:31] LABS: Mononuclear %, Pleural Fluid 92 %; Mononuclear, Pleural Fluid # 1.248 10^3/uL; Polynuclear Cells, Pleural # 0.107 10^3/uL; Polynuclear Cells, Pleural % 8 %
--- NOTE | 2020-09-02 14:53 | PC.NURSE ---
Thoracentesis Time out preformed by nurse. ultrasound guided thoracentesis done by . vital signs remained WNL during procedure. patient tolerated well. 900ml of straw colored fluid removed from right side. specimens for lab collected. post procedure patient oxygen saturation dropping to mid 80s patient high flow NC increased to 10L and then to 15L by RT.
--- NOTE | 2020-09-02 14:57 | PC.NURSE ---
Agitation Patient oxygen saturation continuing to decrease into the low 80s. nurse called RT and informed of oxygen saturation. RT at bedside attempting to place Bipap on patient. patient refusing bipap at this time. RT attempted to place HHF on instead, patient pulled HFNC off and stated I don't need to be here. my oxygen has been 80 before and I haven't . Don't force me to fucking do anything. Patient oxygen saturation dropped into the 70s. Nurse and RT redirected patient and patient accepted to place HHF on. Patient pulled HHF off and dropped back into the 80s. nurse informed patient of keeping oxygen on. patient pleasantly put on HHF. call to to inform of patient.
[2020-09-02 15:06] LABS: Fluid Alkaline Phos. 17 IU/L; Pleural Fluid Albumin 0.9 g/dL; Uric Acid Body Fluid 4 mg/dL
[2020-09-02 15:07] LABS: LDH Pleural Fluid 177 U/L; Pleural Fluid Cholesterol 20 mg/dL; Pleural Fluid Triglycerides 19 mg/dL; Right Pleural Fluid Right Lung; Total Protein Pleural Fluid 1.6 g/dL
[2020-09-02] MEDS: sodium chloride 0.9% 1,000 ML 75 ML IV (15:20)
--- NOTE | 2020-09-02 15:30 | PC.OT ---
OT tx attempted at 1330. Pt had returned from having thoracentesis performed and just now starting his lunch. He is sitting up in bed feeding himself. Therapist returned at 1530 and pt is sitting up in bed with at bedside. Pt is on heated high flow O2 and is agitated,wanting to remove it. Without O2 pt desats rapidly. Therapist spoke with pt's nurse and it was decided to hold OT services at this time. Will try to resume OT services again tomorrow.
--- NOTE | 2020-09-02 15:45 | ECG_ITS ---
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: : 1949-05-02 Requested By: Greg Katz Order Number: [id number] Reading MD: ANDREAS GUSMAN Measurements Intervals [place] Rate: 96 P: 50 OH: 147 QRS: 67 QRSD: 116 T: -16 QT: 358 QTc: 455 Interpretive Statements SINUS RHYTHM POSSIBLE LEFT ATRIAL ENLARGEMENT [-0.1mV P WAVE IN V1/V2] MODERATE INTRAVENTRICULAR CONDUCTION DELAY [110+ ms QRS DURATION] NONSPECIFIC ST & T-WAVE ABNORMALITY Compared to ECG 08/25/2020 15:44:33 T-wave abnormality now present Sinus tachycardia no longer present Ventricular premature complex(es) no longer present ST (T wave) deviation no longer present Electronically Signed On 09-02-2020 19:56:54 PRECISION LENS CENTERER AND EDGER by ANDREAS GUSMAN [id number]
[2020-09-02 15:49] LABS: ABG PH Result 7.48 (7.35-7.45); Alveolar-Arterial Oxygen Gradi 39.8 mmHg (5-10); Arterial Blood Gas Hematocrit 33.9 % (42-52); Base Excess ABG 2.2 mmol/L (-2.0-2.0); Blood Gas Operator Identificat GD; Blood Gas Sample Site Brachial, right; Blood Gas Sample Type Arterial; Carboxyhemoglobin 1.7 %THgb (0.4-20.1); HCO3 ABG 25.5 mmol/L (22-26); HGB O2 Sat 94.3 % (95-100); Ionized Calcium Level - ABG 1.1 mmol/L (1.1-1.4); Methemoglobin 0.9 % (0.4-1.5); Oxygen Saturation ABG 96.8; PO2 ABG 79.5 mmHg (80.0-100.0); Total Hemoglobin 11.1 g/dL (14-18)
[2020-09-02] MEDS: dexmedetomidine 400 MCG in sodium chloride 0.9% (100 ml) 100 ML IV (16:12)
[2020-09-02 17:14] LABS: Troponin T (5th) Once 59 ng/L (0-15)
--- NOTE | 2020-09-02 21:03 | P.PN_ITS ---
Subjective Subjective: Interval history: 70-year-old male with past medical history significant for anxiety, depression, peripheral arterial disease, gastroesophageal reflux disease, longstanding tobacco abuse, O2 dependent chronic obstructive pulmonary disease on 2 L by nasal cannula who presented to hospital from pulmonary clinic for evaluvation of progressivly worsening dyspnea. Patient was recently admitted multiple times to [facility] initially on 06/2020 where he was noted to a new EMELY speculated mass measuring 1.5 cm in addition to dense mass like consolidation in right lung as well. Terri underwent bronchoscopy shortly after discharge on 08/01 with biopsy the results of which he is not aware of other than cultures which appearantly had grown MRSA. He was treated with vancomycin and discharged. Today was noted to have profound hypoxia on 6l via [facility] after which he was sent to ER for work up. initial laboratory workup today showed a WBC of 12.2, hemoglobin of 10.5, hematocrit 34.9 and platelet count of 401. Sodium 137, potassium 3.8, chloride 101, bicarb 20, BUN 19 and creatinine is 0.8. Chest x-ray was performed which showed interstitial infiltrates throughout both lungs more prevalent on the right than left and prominent right pulmonary hilum. A CT chest PE protocol was done performed which showed severe emphysema with marked pulmonary fibrosis, bronchiectasis and interstitial thickening and additional areas of increasing consolidation greatest in the RIGHT upper lobe and LEFT upper lobe suspicious for neoplastic involvement. patient was started on 0250 and non-rebreather at 10 L. emergency room he was given vancomycin, Zosyn and L evaquin. Upon admission patient was continued on broadspecturm antibiotics until 08/28. Procalcitonin was negative. Did not have any fevers and thus low suspecion of superimposed bacterial pneumonia contributing to patients respiratory distress. He was seen by pulmonary medicine. Started on solu-medrol, duoneb treatements and intermittently required bipap/HFNC. Was noted to have right sided pleural effusion on beside US by pulmonary medicine. On 08/28 successful US guided thoracentesis was performed during which time over 1L of fluid was drained. This was sent for analysis including cytology. In addition case was discussed with oncology due to patients prior pathology showed aytpical cells suspecious for non-small cell lung cancer. Oncology recommended repeat biopsy for addtional tissue sampling to confirm diagnosis. This was ordered and pending for 08/29/2019. 08/27 Overnight required bipap however this was weaned. Feeling anxious. No fever, or chills. No nausea or vomiting. 08/28 Placed on bipap overnight. awaiting thoracentesis in am, no fever or chills overnight. 08/29 Patient remained on bipap overnight. no fever, nausea, vomiting overnight. Laureano was placed. 08/30 No new clinical events overnight. No fevers overnight. On bipap. 08/31 Awaiting biopsy in am 09/01 Biopsy on hold. 09/02 Patient was noted to be confused, Repeat thoracentesis performed today. no fever, or chills, no nausea or vomiting. Medications: Reviewed: Yes Vitals/I&O/Wt Last Vital Signs Temp 98.3 F 09/02/20 12:00 Pulse 94 09/02/20 20:16 Resp 20 H 09/02/20 20:16 BP 134/75 09/02/20 20:00 Pulse Ox 100 09/02/20 20:16 09/02/20 09/02/20 09/02/20 06:59 14:59 22:59 Intake Total 15 / 15 3.92 / 18.92 Output Total 250 / 1650 275 / 275 300 / 575 Balance -250 / 50 -260 / -260 -296.08 / -556.08 Weight last 48 hrs Weight 55.338 kg Weight 55.338 kg Physical Exam Narrative: EXAM NARRATIVE: General- alert awake and oriented in mild respiratory distress on HFNC HEENT-grossly unremarkable Chest- decreased breath sounds bilaterally Abdomen-soft nondistended extremities-no edema Urinary Catheter Management^: Lauraeno: Cath Placed During This Visit: yes, but has since been removed by the nurse Reason for Continuing Indwelling Catheter: Accurate Measurement of Urinary Outp ut in Critically Ill Patients Urinary Catheter Date of Insertion: 08/29/20 Urinary Catheter Time of Insertion: 12:30 Date Urinary Catheter Removed: 09/01/20 Data : 08/31/20 04:44 08/31/20 04:44 Micro: Microbiology 09/02/20 13:39 Gram Stain - Final Pleural Fluid A&P Assessment and plan (1) Acute on chronic respiratory failure with hypoxemia: Status: Inactive (2) COPD exacerbation: Status: Acute (3) HCAP (healthcare-associated pneumonia): Status: Acute Acute on chronic hypoxemic respiratory failure - Due to lung mass with copd exacerbation vs newly dx systolic heart failure exacerbation - Continue duoneb q6hr scheduled - Solu-medrol as ordered - Bipap PRN - Non-compliant with oxygen - Chest x-ray in am - Awaiting further plan from pulmonary Large right sided pleural effusion - S/p thoracentesis x 2 - again performed today - Fluid analysis - transudative - Cytology sent -negative for malignancy - Repeat chest x-ray in am Newly diagnosed systolic heart failure exacerbation - On diuretics - Possibly need of ischemic work up - Consult with cardiology - Monitor daily weight - Strict input and output recording Lung mass suspected non-small cell carcinoma - Insufficient tissue sampling at [place] - Repeat CT guided lung biopsy ordered - pending - D/w Oncology - will consult once tissue diagnosis obtained - outpatient work up Additional medical problems Peripheral arterial disease Gastroesophageal reflux disease Anxiety Depression hx of Tobacco abuse DVT ppx - heparin .. Attestations Medical Necessity Statement*: Will need further hospitalization for management of acute respiratory failure Time Spent in Patient Care: Greater than 35 minutes (>than 50% of time spent in counselling and/or direct pt care on unit) . Coding Level of Care Code Acute Component Inspector for Arlethg Fwd Diagnoses Acute on chronic respiratory failure with hypoxemia J96.21 COPD exacerbation J44.1 HCAP (healthcare-associated pneumonia) J18.9
[2020-09-02] MEDS: FUROsemide 10 mg/mL SDV 2mL 20 MG IVP (21:35)
[2020-09-02] MEDS: heparin 5,000 unit/mL INJ 1 mL 5000 UNIT SUBCUT (21:38)
--- NOTE | 2020-09-02 22:54 | USCV_ITS ---
Alexei Day Age: 71 Gender: M : 05/02/1949 Exam Date: 09/02/2020 06:04 Ordering Phys: Greg Durant MD Technologist: Lucio Painter Exam Location: [facility] [place] Indication: BP: 144 / 94 HR: 94 Rhythm: Sinus Technical Quality: Good MEASUREMENTS (Male / Female) Normal Values 2D ECHO LV Diastolic Diameter PLAX 4.2 cm 4.2 - 5.9 / 3.9 - 5.3 cm LV Systolic Diameter PLAX 3.8 cm LV Chamber Size 3.4 cm IVS Diastolic Thickness 1.4 cm 0.6 - 1.0 / 0.6 - 0.9 cm IVS Systolic Thickness 1.7 cm LVPW Diastolic Thickness 1.4 cm 0.6 - 1.0 / 0.6 - 0.9 cm LVPW Systolic Thickness 1.4 cm RV Chamber Size 2.8 cm LVOT Diameter 2.0 cm LV Ejection Fraction 2D Teich 19.2 % LV Ejection Fraction MOD 2C 11.7 % LV Ejection Fraction 2C AL 18.0 % LA Diameter 3.9 cm LA Width 3.7 cm LA Height 5.5 cm RA Width 3.8 cm RA Height 4.5 cm Aorta at Sinotubular Diameter 2.9 cm M-MODE LV Diastolic Diameter MM 5.7 cm 4.2 - 5.9 / 3.9 - 5.3 cm LV Systolic Diameter MM 4.5 cm LV Ejection Fraction MM Teich 40.9 % IVS Diastolic Thickness MM 1.5 cm 0.6 - 1.0 / 0.6 - 0.9 cm IVS Systolic Thickness MM 1.6 cm LVPW Diastolic Thickness MM 1.2 cm 0.6 - 1.0 / 0.6 - 0.9 cm LVPW Systolic Thickness MM 2.0 cm Aortic Annulus Diameter 3.7 cm LA Ao Ratio MM 1.1 MV E Point Septal Separation 1.3 cm DOPPLER AV Peak Velocity 137.0 cm/s LVOT Peak Velocity 72.0 cm/s AV Area Cont Eq vti 1.6 cm squared AV Area Cont Eq pk 1.7 cm squared MV Area PHT 5.0 cm squared Mitral E to A Ratio 1.6 MV E' Velocity 81.5 cm/s Mitral E to MV E' Ratio 19.5 Mitral E to LV E' Lateral Ratio 17.1 Mitral E to LV E' Septal Ratio 22.6 TR Peak Velocity 280.5 cm/s TR Peak Gradient 31.5 mmHg FINDINGS Left Ventricle Diffuse hypokinesis of the left ventricle with ejection fraction of around 25 to 30%. Normal LV size Right Ventricle Normal RV size with slightly diminished ejection fraction Right Atrium Mildly increased right atrial size. Left Atrium Mildly increased left atrial size. Mitral Valve Thickened mitral valve. Moderately severe eccentric mitral valve regurgitation. Aortic Valve Thickened aortic valve. Peau-mn-rwmucjda aortic valve regurgitation. Tricuspid Valve Wcfr-oz-yowbegmv tricuspid valve regurgitation. Pulmonic Valve Mild pulmonary valve regurgitation. Pericardium Trivial pericardial effusion. Aorta Normal aortic annulus size. CONCLUSIONS Diffuse hypokinesis of the left ventricle with ejection fraction of around 25 to 30%. Normal LV size. Mild biatrial enlargement Moderately severe eccentric mitral valve regurgitation. Vpgo-bx-nqxdnjgl aortic and tricuspid valve regurgitation. Thickened aortic and mitral valves. Trivial pericardial effusion. There are no intracardiac masses. Compared to the study from 02/20/2018, there is significant drop in the LV ejection fraction. No previous Doppler studies are available for comparison Dr Yomaira Gale MD [facility] (Electronically Signed) Final Date: 02 September 2020 14:09 S
[2020-09-03] VITALS (35 sets, daily range): BP systolic 86–139; BP diastolic 37–76; PULSE 68–93; RESP 16–25; TEMP 36.7–36.9; O2SAT 85–100
[2020-09-03] MEDS: ipratropium-albuterol 3 mL Neb INHALATION ×4 (02:16→20:10)
--- NOTE | 2020-09-03 02:47 | PC.NURSE ---
ASSUMING CARE Patient resting in bed on heated high flow nasal cannula at 40L and 60%. Patients bed alarm set. Patient states that he is at [facility] and the year is 2020. Patient knows his name and birthday, but appears to easily forget over a short period of time where he is. Patients oxygen in the mid 90s and follows commands well.
--- NOTE | 2020-09-03 03:14 | PC.NURSE ---
OXYGEN Patient began to exhibit increased shortness of breath and patient was found with heated high flow out of nose. Patient was instructed on importance of keeping oxygen in nose and returned back into 90s from low 80s after approximately 3 minutes.
--- NOTE | 2020-09-03 03:27 | PC.NURSE ---
DESAT Patient began to desat at rest, oxygen tubing assessed to ensure no kinks and that it was in patients nose correctly. Respiratory notified and increased patients FiO2 to 75%.
[2020-09-03 04:03] LABS: Arterial Blood Gas Hematocrit 32.5 % (42-52); Base Excess ABG 4.6 mmol/L (-2.0-2.0); Blood Gas Allen Test Pos; Blood Gas Operator Identificat JB; Blood Gas Sample Site Radial, right; Blood Gas Sample Type Arterial; HCO3 ABG 27.9 mmol/L (22-26); PO2 ABG 76.5 mmHg (80.0-100.0)
[2020-09-03 04:04] LABS: Oxygen Device HAG
[2020-09-03 04:28] LABS: Basophils % 0.1 %; Hematocrit 33.4 % (42.0-52.0); Hemoglobin 10.2 g/dL (11.7-16.6); Lymphocytes # 1.3 10^3/uL (0.8-4.8); Mean Corpuscular HGB Conc 30.5 g/dL (30.0-36.0); Mean Corpuscular Hemoglobin 21.2 pg (28.0-34.0); Mean Corpuscular Volume 69.4 fL (80-94); Mean Platelet Volume 10.6 fL (7.4-10.4); Monocytes # 0.6 10^3/uL (0.2-0.9); Neutrophils # 14.14 10^3/uL (1.8-7.7); Neutrophils % 87.6 %; Nucleated Red Blood Cells % 0.1 %; Platelet Count 264 10^3/cmm (130-400); Red Blood Count 4.81 10^6/uL (4.1-5.3); Red Cell Distribution Width 19.1 % (12.1-15.1); White Blood Count 16.1 10^3/uL (4.0-10.0)
[2020-09-03 04:59] LABS: Alanine Aminotransferase 87 U/L (0-41); Albumin Level 3.1 g/dL (3.5-5.2); Alkaline Phosphatase 118 IU/L (40-130); Anion Gap 14.7 (5-19); Aspartate Amino Transferase 29 U/L (0-40); Blood Urea Nitrogen 25 mg/dL (8-23); Calcium 8.5 mg/dL (8.5-10.5); Carbon Dioxide 26 mmol/L (22-29); Chloride 96 mmol/L (98-107); Glucose 132 mg/dL (65-115); Osmolality Calculated 282 mOsm/kg (285-295); Potassium 3.7 mmol/L (3.5-5.1); Sodium 133 mmol/L (136-145); Total Bilirubin 0.6 mg/dL (0.15-1.2); Total Protein 6.1 g/dL (6.6-8.7)
[2020-09-03] MEDS: heparin 5,000 unit/mL INJ 1 mL 5000 UNIT SUBCUT ×3 (05:35→20:54)
[2020-09-03] MEDS: dexmedetomidine 400 MCG in sodium chloride 0.9% (100 ml) 100 ML 7 MCG IV (05:38)
[2020-09-03 05:48] LABS: Procalcitonin 0.12 ng/mL (0-0.5)
--- NOTE | 2020-09-03 06:38 | PC.NURSE ---
FI02 Resiratory notified of nurse of decrease in FiO2 back to 60%. Patients current oxygen saturation 100% and resting in bed quietly. Precedex gtt at 0.4 mcg/kg/hour. Patient has been pleasant this shift and follows commands well, and uses call light also.
--- NOTE | 2020-09-03 09:56 | PC.SOCIAL ---
IMM Update Pg.2 of IMM updated. Initialed, dated, and timed. Copy provided to patient.
--- NOTE | 2020-09-03 10:03 | PC.OT ---
OT note: Pt requested hold at this time as he did not feel well. Will attempt again later as able.
[2020-09-03] MEDS: sertraline 100 mg Tablet PO ×2 (10:47→20:54)
[2020-09-03] MEDS: atorvastatin 40 mg Tablet 20 MG PO (10:47)
[2020-09-03] MEDS: FUROsemide 10 mg/mL SDV 2mL 20 MG IVP (10:47)
[2020-09-03] MEDS: pantoprazole DR 40 mg Tablet PO (10:48)
[2020-09-03] MEDS: metoprolol tartrate 25 mg Tablet PO ×2 (10:50→20:54)
--- NOTE | 2020-09-03 12:21 | PM.CONSULT ---
Providers/Reason For Consult Consulting Physican/Specialty*: Dr. Blanco, cardiology Reason for Consult*: Congestive heart failure newly diagnosed Attending Physician: Cat Austin Primary Care Provider: Rome Murillo DO History of Present Illness History of Present Illness Alexei Day is a 71 year old male with past medical history of peripheral arterial disease s/p postaorto left SFA bypass in September, utilizing a 10 mm dacron graft, COPD, significant history of tobacco abuse [id number] and quit about 1 to 2 months back. ?He also has had prior interventions including left common and external iliac artery stent in August 2012 as well as left femoral endarterectomy and core matrix patch reconstruction embolectomy performed during the same admission. He used to follow up with Dr. Cristina but has not been seen since 2016. He was admitted at [facility] on 22 July for worsening shortness of breath fever weakness for 1-[address]. [address] chest and was found to have left upper lobe spiculated mass measuring 1.5 cm on 23 July and underwent bronchoscopy on 01 August 2020 that revealed atypical cells suspicious for non-small cell lung cancer. He was admitted on 25 August with worsening shortness of breath and increased oxygen requirement. He was started on broad-spectrum antibiotics and admitted to ICU. He underwent right thoracentesis on 28 August with drainage of transudative 1 L of fluid followed by on 02 September with drainage of 900 cc of straw-colored pleural fluid. Patient has been intermittently on BiPAP and high flow nasal cannula. It also seems that patient has had intermittent episodes of confusion but at the time of evaluation he was answering question appropriately. Patient's was available at bedside. Review of Systems General: Reports: 10 or more systems reviewed and unremarkable except in HPI and below Const: Denies: fever(s) or chills Card: Reports: dyspnea on exertion and leg pain with exertion; Denies: chest pain, palpitations or acrocyanosis Resp: Reports: dyspnea GI: Denies: hematochezia : Denies: hematuria Skin/Breast: Denies: rash Psych: Denies: anxiety or depression Endo: Denies: tired all the time Maxx/Lymph: Denies: petechiae or purpura Meds/Allergies Home Medications and Allergies Home Medications Medication Instructions Recorded Confirmed Last Taken Type fluticasone 250 mcg-salmeterol 50 See Rx Instructions .ROUTE 06/03/20 08/25/20 08/24/20 Rx mcg/dose blistr powdr for .COMPLEX #60 unspecified inhalation albuterol sulfate 2.5 mg INHALATION QID PRN #180 ml 06/17/20 08/25/20 08/25/20 Rx albuterol sulfate 90 mcg/actuation See Rx Instructions .ROUTE 08/05/20 08/25/20 Unknown Rx aerosol inhaler .COMPLEX #18 g metoprolol tartrate 25 mg tablet 25 mg PO BID@0900,2100 08/12/20 08/25/20 08/24/20 History Flonase Allergy Relief 1 spray INTRANASAL DAILY@0900 08/25/20 08/25/20 08/24/20 History Zyrtec 10 mg PO DAILY PRN 08/25/20 08/25/20 Unknown History aspirin [Aspir-81] 81 mg PO DAILY@0900 08/25/20 08/25/20 08/24/20 History atorvastatin 20 mg PO DAILY@0900 08/25/20 08/25/20 08/24/20 History omeprazole 40 mg PO DAILY@0900 08/25/20 08/25/20 08/24/20 History sertraline 100 mg PO BID@0900,2100 08/25/20 08/25/20 08/24/20 History Allergies Allergy/AdvReac Type Severity Reaction Status Date / Time No Known Allergies Allergy Verified 08/25/20 09:51 Current Medications Current Medications Generic Name Dose Route Start Last Admin Trade Name Freq PRN Reason Stop Dose Admin Albuterol Sulfate 2.5 mg 08/25/20 22:09 08/25/20 22:21 Albuterol 2.5 Mg/0.5 Ml Neb INHALATION 2.5 mg QID PRN Administration shortness of breath or wheezing Albuterol/Ipratropium 3 ml 08/28/20 15:00 09/03/20 08:05 Ipratropium-Albuterol 3 Ml Neb INHALATION 3 ml Q6H.RESPIRATORY KEZIA Administration Atorvastatin Calcium 20 mg 08/26/20 09:00 09/03/20 10:47 Atorvastatin 40 Mg Tablet PO 20 mg DAILY@0900 KEZIA Administration Furosemide 20 mg 09/03/20 09:00 09/03/20 10:47 Furosemide 10 Mg/Ml Sdv 2ml IVP 20 mg Q24H KEZIA Administration Heparin Sodium (Beef Lung) 5,000 unit 09/02/20 21:15 09/03/20 05:35 Heparin 5,000 Unit/Ml Inj 1 Ml SUBCUT 5,000 unit Q8H KEZIA Administration Hydroxyzine Pamoate 25 mg 08/27/20 19:35 09/02/20 08:43 Hydroxyzine 25 Mg Capsule PO 25 mg Q8H PRN Administration ANXIETY Dexmedetomidine HCl 400 mcg/ 104 mls @ 0 mls/hr 08/27/20 23:30 09/03/20 05:38 Sodium Chloride IV 0.5 mcg/kg/hr .Q0M KEZIA 7 mls/hr Administration Protocol Per Protocol Lanolin 1 applic 08/29/20 09:54 08/29/20 10:08 Lanolin Oint 7 Gm TOPICAL 1 applic PRN PRN Administration DRYNESS Methylprednisolone Sodium Succinate 40 mg 09/02/20 21:00 09/03/20 10:47 Methylprednisolone Sod Succ 40 Mg/Ml Inj IVP 40 mg Q12H KEZIA Administration Metoprolol Tartrate 25 mg 08/25/20 21:16 09/03/20 10:50 Metoprolol Tartrate 25 Mg Tablet PO 25 mg BID@0900,2100 KEZIA Administration Pantoprazole Sodium 40 mg 08/26/20 09:00 09/03/20 10:[address] 40 Mg Tablet PO 40 mg DAILY KEZIA Administration Fluticasone/Salmeterol 1 puff 09/02/20 20:00 09/03/20 02:15 Fluticasone-Salmeterol 250-50 Diskus INHALATION Not Given BID.RESPIRATORY KEZIA Sertraline HCl 100 mg 08/25/20 21:16 09/03/20 10:47 Sertraline 100 Mg Tablet PO 100 mg BID@0900,2100 KEZIA Administration PFSH Acute PFSH: Medical History Acute on chronic respiratory failure with hypoxemia COPD, moderate GERD (gastroesophageal reflux disease) Moderate episode of recurrent major depressive disorder Surgical History History of coronary angioplasty COMMON ILIAC AND EXTERNAL ILIAC LEFT History of endarterectomy Social History Smoking and tobacco status: former smoker Quit status (tobacco): has quit using tobacco Year quit tobacco: 06/2020 [id number] Second hand smoke exposure: Yes Smoking risk assessment/counseling performed?: Yes Alcohol intake: former Caregiver/support person: Yes Lives independently: Yes Household members: spouse Housing: House Marital status: service: Yes branch: [employer] Current occupational status: retired Pets and animals: Yes History of recent travel: No Current gender identity: Male Vitals/I&O/Wt Last Vital Signs Temp 98.3 F 09/03/20 05:44 Pulse 83 09/03/20 10:00 Resp 16 09/03/20 10:00 BP 125/69 09/03/20 10:00 Pulse Ox 94 09/03/20 10:00 09/02/20 09/03/20 09/03/20 22:59 06:59 14:59 Intake Total 22.75 / 37.75 56.35 / 94.10 120 / 120 Output Total 1675 / 1950 350 / 2300 200 / 200 Balance -1652.25 / -1912.25 -293.65 / -2205.90 -80 / -80 Weight last 48 hrs Weight 112 lb 9.6 oz Weight 122 lb Physical Exam Narrative: EXAM NARRATIVE: GENERAL: Frail-appearing man sitting in bed. He is currently on high flow nasal cannula and saturating more than 95%. HEENT: Pupils equal round reactive to light. +pallor and no icterus. NECK: central trachea, [] JVD, [] abdominojugular reflex. No carotid bruit. CARDIOVASCULAR SYSTEM: S1-S2 regular. No S3 or S4 present. [No murmur rubs or gallops.] RESPIRATORY SYSTEM: Chest clear to auscultation. No wheezes rhonchi or rubs heard. [] No use of accessory muscles. ABDOMEN: Soft, nontender and nondistended. Normal bowel sounds present. No hepatosplenomegaly appreciated. [] EXTREMITIES: No cyanosis or clubbing. [No edema]. No signs of chronic venous insufficiency. B AND B GANG WORKER: Patient is alert oriented ?3. No focal neurological deficits. Cranial nerves intact. [] SKIN: Normal turgor and temperature. No breakdown, rash or nail changes noted. [] PSYCH: Normal insight and judgment. No suicidal or homicidal ideations. Urinary Catheter Management^: Laureano: Cath Placed During This Visit: yes, but has since been removed by the nurse Reason for Continuing Indwelling Catheter: Accurate Measurement of Urinary Output in Critically Ill Patients Urinary Catheter Date of Insertion: 08/29/20 Urinary Catheter Time of Insertion: 12:30 Date Urinary Catheter Removed: 09/01/20 Data Labs: Other Labs: ABG this morning pH 7.5, PCO2, 36, PO2 77 and FiO2Of 60%. ALT of 87. Micro: Micro: Microbiology 09/02/20 13:39 Gram Stain - Final Pleural Fluid Body Fluid Culture - Preliminary Imaging^: Echo: I personally reviewed and interpreted this imaging study as follows: My impression: CONCLUSIONS Diffuse hypokinesis of the left ventricle with ejection fraction of around 25 to 30%. Normal LV size. Mild biatrial enlargement Moderately severe eccentric mitral valve regurgitation. [id number] aortic and tricuspid valve regurgitation. Thickened aortic and mitral valves. Trivial pericardial effusion. There are no intracardiac masses. Compared to the study from 02/20/2018, there is significant drop in the LV ejection fraction. No previous Doppler studies are available for comparison CXR: I personally reviewed and interpreted this imaging study as follows: My impression: IMPRESSION: 1. Severe emphysema. 2. Small RIGHT pleural effusion. 3. No pneumothorax. EKG^: EKG 2: I personally reviewed and interpreted this EKG as follows: My Interpretation: EKG with sinus rhythm, normal axis. Possible left atrial enlargement. Interventricular conduction delay and nonspecific T wave inversion in lead III, aVF and V2. Nonspecific ST depression. Other Data: Other data: CTA 08/25/2020: 1. No pulmonary embolism. 2. Severe emphysema with marked pulmonary fibrosis, bronchiectasis and interstitial thickening. 3. Additional areas of increasing consolidation greatest in the RIGHT upper lobe and LEFT upper lobe suspicious for neoplastic involvement. 4. Subcarinal and bilateral hilar lymphadenopathy with the largest lymph nodes measuring 2.0 cm. Neoplastic until proven otherwise. 5. Small RIGHT pleural effusion. 6. Age-indeterminate but nonhealed RIGHT fourth lateral rib fracture. 7. Age indeterminate but new since 02/20/2018 L1 30% compression fracture. Unchanged T6 compression fracture. As per records from [facility]: 08/01/2020: underwent bronchoscopy. Procedure note described that the inspection of entire tracheobronchial tree revealed copious amount of thick tenacious yellow secretions suctioned from the right lower lobe. BAL from right middle lobe was performed followed by transbronchial lung forceps biopsies and brushing of right lower lobe under fluoroscopic guidance. Also collection of bronchial washing was obtained. CT 07/23/2020: Impression Left upper lobe mass with spiculation measures up to 1.5 cm worrisome in appearance. Dense masslike consolidation in the right upper lobe and right lower lobe with some nodular dense fullness in the right pulmonary hilum. Adjacent to these areas there is some areas of additional peripheral consolidation which may reflect some postobstructive pneumonia. Fracture of L1 vertebral bodies of indeterminate age but it could be acute. Fracture of T6 superior endplate appears like old. CT 07/30/2020: Heart abnormalities of right lung that have improved very minimally. There is soft tissue fullness involving the right hilar region and surrounding the vessels with compression of bronchi. There is very pronounced inflammatory process throughout the interstitial disease in the right lung base and there is a right basilar effusion. Left lung reveals honeycombing and a spiculated irregular mass measuring 1.9 cm in diameter that is very worrisome for tumor involvement. Peripheral angiogram 27 September 2016 Conclusions Patient presents with recurrent claudication. He has had a previous stent of his left iliac vessels via the right brachial artery and a subsequent endarterectomy and patch angioplasty of the left common femoral artery. He is Fentress grade I, category 3; Anoop stage II. The procedure was done from the right common femoral artery. Procedure Summary Lower abdominal aorta reveals mild diffuse disease. There is some minimal aneurysmal dilatation distally. The left common iliac is occluded at its origin. The occlusion extends all the way down to the origin of the superficial femoral artery on the left. Collateral flow from the distal aorta reconstitutes the superficial femoral artery at its origin. This vessel contains mild diffuse disease but is modestly calcified. On the right there is mild diffuse disease from the iliacs down to the trifurcation below the knee. This vessel is also calcified. The anterior tibial artery is occluded. The other 2 vessels are patent with mild diffuse disease. There is a 70% stenosis at the ostium of the right posterior tibial artery. Recommendations Consideration of aorto left femoral bypass Angiographic Findings Peripheral angiogram from 09/27/2016 show a totally occluded left common iliac artery at its origin which extends all the way down to the origin of the SFA on the left with collateral flow from the distal aorta which reconstitutes the SFA at its origin. On the right there is mild diffuse disease from the iliacs down to the trifurcation below the knee the anterior tibial artery is occluded there is a 70% stenosis at the ostium of the right PHARMACY AFFAIRS ASSISTANT A&P Assessment and plan (1) Acute and chronic respiratory failure with hypoxia: Status: Acute (2) CHF (NYHA class III, ACC/AHA stage C): Newly diagnosed cardiomyopathy with drop in congestive heart failure as compared to prior echo in 2018. -Patient would eventually need ischemic work-up. However presently with pending diagnosis of lung cancer and respiratory failure with high oxygen requirement, I will continue to manage medically. -Currently on Lasix 20 mg IV daily and low-dose metoprolol tartrate. Urine output 1900 mL with -1.5 L. -Blood pressure has been soft. Possibly transition to metoprolol succinate once patient is more stable. Status: Acute (3) Pleural effusion on right: S/p right thoracentesis x2 Status: Acute Additional A&P Information Moderately severe eccentric persistently directed mitral valve regurgitation Mild to moderate aortic and tricuspid valve regurgitation lung mass suspicious of non-small cell cancer ; repeat CT-guided lung biopsy pending COPD Peripheral arterial disease microcytic anemia Leukocytosis Hyponatremia Elevated ALT History esophageal reflux disease Anxiety/depression Thank you for allowing me to participate in patient's care. Please feel free to call with questions or concerns. Consult Attestations Medical Necessity Statement: As per primary team Time Spent in Patient Care: Greater than 35 minutes (>than 50% of time spent in counselling and/or direct pt care on unit). Coding Level of Care Code New Pt Acute Materials Development Engineer for Eric Donohue Patient Type New History Comprehensive Exam Comprehensive Medical Decision Making High Complexity Diagnoses Acute and chronic respiratory failure with hypoxia J96.21 CHF (NYHA class III, ACC/AHA stage C) I50.9 Pleural effusion on right J90 Time Spent (min) 40
--- NOTE | 2020-09-03 19:19 | P.PN_ITS ---
Subjective Subjective: Interval history: 70-year-old male with past medical history significant for anxiety, depression, peripheral arterial disease, gastroesophageal reflux disease, longstanding tobacco abuse, O2 dependent chronic obstructive pulmonary disease on 2 L by nasal cannula who presented to hospital from pulmonary clinic for evaluvation of progressivly worsening dyspnea. Patient was recently admitted multiple times to [facility] initially on 06/2020 where he was noted to a new EMELY speculated mass measuring 1.5 cm in addition to dense mass like consolidation in right lung as well. Terri underwent bronchoscopy shortly after discharge on 08/01 with biopsy the results of which he is not aware of other than cultures which appearantly had grown MRSA. He was treated with vancomycin and discharged. Today was [facility] to [facility] after which he was sent to ER for work up. initial laboratory workup today showed a WBC of 12.2, hemoglobin of 10.5, hematocrit 34.9 and platelet count of 401. Sodium 137, potassium 3.8, chloride 101, bicarb 20, BUN 19 and creatinine is 0.8. Chest x-ray was performed which showed interstitial infiltrates throughout both lungs more prevalent on the right than left and prominent right pulmonary hilum. A CT chest PE protocol was done performed which showed severe emphysema with marked pulmonary fibrosis, bronchiectasis and interstitial thickening and additional areas of increasing consolidation greatest in the RIGHT upper lobe and LEFT upper lobe suspicious for neoplastic involvement. patient was started on 0250 and non-rebreather at 10 L. emergency room he was given vancomycin, Zosyn and L evaquin. Upon admission patient was continued on broadspecturm antibiotics until 08/28. Procalcitonin was negative. Did not have any fevers and thus low suspecion of superimposed bacterial pneumonia contributing to patients respiratory distress. He was seen by pulmonary medicine. Started on solu-medrol, duoneb treatements and intermittently required bipap/HFNC. Was noted to have right sided pleural effusion on beside US by pulmonary medicine. On 08/28 successful US guided thoracentesis was performed during which time over 1L of fluid was drained. This was sent for analysis including cytology. In addition case was discussed with oncology due to patients prior pathology showed aytpical cells suspecious for non-small cell lung cancer. Oncology recommended repeat biopsy for addtional tissue sampling to confirm diagnosis. This was ordered and pending for 08/29/2019. 08/27 Overnight required bipap however this was weaned. Feeling anxious. No fever, or chills. No nausea or vomiting. 08/28 Placed on bipap overnight. awaiting thoracentesis in am, no fever or chills overnight. 08/29 Patient remained on bipap overnight. no fever, nausea, vomiting overnight. Laureano was placed. 08/30 No new clinical events overnight. No fevers overnight. On bipap. 08/31 Awaiting biopsy in am 09/01 Biopsy on hold. 09/02 Patient was noted to be confused, Repeat thoracentesis performed today. no fever, or chills, no nausea or vomiting. 09/03 Patient on HFNC, No new clinical events overnight. Started on lasix. no fever or chills. Medications: Reviewed: Yes Vitals/I&O/Wt Last Vital Signs Temp 98.5 F 09/03/20 15:00 Pulse 86 09/03/20 19:00 Resp 21 H 09/03/20 19:00 BP 112/64 09/03/20 19:00 Pulse Ox 87 L 09/03/20 19:00 09/03/20 09/03/20 09/03/20 06:59 14:59 22:59 Intake Total 56.35 / 94.10 340 / 340 320 / 660 Output Total 350 / 2300 200 / 200 600 / 800 Balance -293.65 / -2205.90 140 / 140 -280 / -140 Weight last 48 hrs Weight 51.075 kg Weight 55.338 kg Physical Exam Narrative: EXAM NARRATIVE: General- alert awake and oriented in mild respiratory distress on HFNC HEENT-grossly unremarkable Chest- decreased breath sounds bilaterally Abdomen-soft nondistended extremities-no edema Urinary Catheter Management^: Laureano: Cath Placed During This Visit: yes, but has since been removed by the nurse Reason for Continuing Indwelling Catheter: Accurate Measurement of Urinary Output in Critically Ill Patients Urinary Catheter Date of Insertion: 08/29/20 Urinary Catheter Time of Insertion: 12:30 Date Urinary Catheter Removed: 09/01/20 Data : 09/03/20 03:38 09/03/20 03:38 Micro: Microbiology 09/02/20 13:39 Gram Stain - Final Pleural Fluid Anaerobic Culture - Preliminary Body Fluid Culture - Preliminary A&P Assessment and plan (1) Acute on chronic respiratory failure with hypoxemia: Status: Inactive (2) COPD exacerbation: Status: Acute (3) HCAP (healthcare-associated pneumonia): Status: Acute Acute on chronic hypoxemic respiratory failure - Due to lung mass with copd exacerbation vs newly dx systolic heart failure exacerbation - Continue duoneb q6hr scheduled - Solu-medrol as ordered - Bipap PRN - Non-compliant with oxygen - Chest x-ray in am - Awaiting further plan from pulmonary Large right sided pleural effusion - S/p thoracentesis x 2 - again performed today - Fluid analysis - transudative - Cytology sent -negative for malignancy - Repeat chest x-ray in am Newly diagnosed systolic heart failure exacerbation - On diuretics - Lasix 40 mg IV BID - Possibly need of ischemic work up - Consult with cardiology - Monitor daily weight - Strict input and output recording Lung mass suspected non-small cell carcinoma - Insufficient tissue sampling at [place] - Repeat CT guided lung biopsy ordered - pending - D/w Oncology - will consult once tissue diagnosis obtained - outpatient work up Additional medical problems Peripheral arterial disease Gastroesophageal reflux disease Anxiety Depression hx of Tobacco abuse DVT ppx - heparin Attestations Medical Necessity Statement*: Patient will require further hospitalization for management of respiratory failiure Time Spent in Patient Care: Greater than 35 minutes (>than 50% of time spent in counselling and/or direct pt care on unit) . Coding Level of Care Code Acute Middle School Sports Coach for Eric Donohue Diagnoses Acute on chronic respiratory failure with hypoxemia J96.21 COPD exacerbation J44.1 HCAP (healthcare-associated pneumonia) J18.9
--- NOTE | 2020-09-03 23:36 | PC.NURSE ---
ASSUMING CARE Patient resting in bed on heated high flow nasal cannula at 30L and 40%. Patient alert and oriented, states he is at [facility] and asks if facility recently changed its name. Patient states it is 2020 and that he got to see his . Patient states that he is comfortable in bed and not in pain. NS at 30mL/hour and precedex gtt at 0.3 mcg/kg/hour.
[2020-09-04] VITALS (32 sets, daily range): BP systolic 106–146; BP diastolic 50–91; PULSE 78–102; RESP 17–24; TEMP 36.7–37.2; O2SAT 77–100
[2020-09-04] MEDS: ipratropium-albuterol 3 mL Neb INHALATION ×3 (03:32→20:20)
[2020-09-04 05:07] LABS: Anion Gap 13.5 (5-19); Blood Urea Nitrogen 24 mg/dL (8-23); Calcium 8.2 mg/dL (8.5-10.5); Carbon Dioxide 25 mmol/L (22-29); Chloride 99 mmol/L (98-107); Glucose 173 mg/dL (65-115); Osmolality Calculated 286 mOsm/kg (285-295); Potassium 3.5 mmol/L (3.5-5.1); Sodium 134 mmol/L (136-145)
[2020-09-04] MEDS: heparin 5,000 unit/mL INJ 1 mL 5000 UNIT SUBCUT ×3 (06:09→21:52)
--- NOTE | 2020-09-04 06:15 | PC.NURSE ---
FIO2 Patient had a sustained run of oxygen saturation in the high 80s. Respiratory notified and patient increased to 40L and 50% on HHFNC.
--- NOTE | 2020-09-04 06:37 | PC.NURSE ---
SHIFT SUMMARY Patient on HHFNC at 40L and 50%. Patient has been pleasant this shift and had one episode of oxygen desaturation. Patient in bed watching tv, urine output of 600 mL in the urinal.
[2020-09-04] MEDS: atorvastatin 40 mg Tablet 20 MG PO (09:47)
[2020-09-04] MEDS: sertraline 100 mg Tablet PO ×2 (09:47→21:53)
[2020-09-04] MEDS: FUROsemide 10 mg/mL SDV 2mL 20 MG IVP ×2 (09:48→17:34)
[2020-09-04] MEDS: pantoprazole DR 40 mg Tablet PO (09:48)
[2020-09-04] MEDS: metoprolol tartrate 25 mg Tablet PO ×2 (09:49→21:53)
--- NOTE | 2020-09-04 14:19 | P.PN_ITS ---
Subjective Subjective: Interval history: Oxygen requirement had increased last night. UO 1400 ml and -680 ml. 1000 ml since morning Medications: Reviewed: Yes Medication Review Details: Current Medications Acetaminophen (Acetaminophen 325 Mg Tablet) 650 mg PO Q6H PRN PRN Reason: MILD PAIN Albuterol Sulfate (Albuterol 2.5 Mg/0.5 Ml Neb) 2.5 mg INHALATION QID PRN PRN Reason: shortness of breath or wheezing Last Admin: 08/25/20 22:21 Dose: 2.5 mg Documented by: Albuterol/Ipratropium (Ipratropium-Albuterol 3 Ml Neb) 3 ml INHALATION Q6H.RESPIRATORY [facility] Last Admin: 09/04/20 08:01 Dose: 3 ml Documented by: Atorvastatin Calcium (Atorvastatin 40 Mg Tablet) 20 mg PO DAILY@0900 [facility] Last Admin: 09/04/20 09:47 Dose: 20 mg Documented by: Furosemide (Furosemide 10 Mg/Ml Sdv 2ml) 20 mg IVP Q24H [facility] Last Admin: 09/04/20 09:48 Dose: 20 mg Documented by: Heparin Sodium (Beef Lung) (Heparin 5,000 Unit/Ml Inj 1 Ml) 5,000 unit SUBCUT Q8H [facility] Last Admin: 09/04/20 06:09 Dose: 5,000 unit Documented by: Hydroxyzine Pamoate (Hydroxyzine 25 Mg Capsule) 25 mg PO Q8H PRN PRN Reason: ANXIETY Last Admin: 09/02/20 08:43 Dose: 25 mg Documented by: Dexmedetomidine HCl 400 mcg/ (Sodium Chloride) 104 mls @ 0 mls/hr IV .Q0M [facility]; Protocol Last Admin: 09/03/20 05:38 Dose: 0.5 mcg/kg/hr, 7 mls/hr Documented by: Lanolin (Lanolin Oint 7 Gm) 1 applic TOPICAL PRN PRN PRN Reason: DRYNESS Last Admin: 08/29/20 10:08 Dose: 1 applic Documented by: Methylprednisolone Sodium Succinate (Methylprednisolone Sod Succ 40 Mg/Ml Inj) 40 mg IVP Q12H [facility] Last Admin: 09/04/20 09:48 Dose: 40 mg Documented by: Metoprolol Tartrate (Metoprolol Tartrate 25 Mg Tablet) 25 mg PO BID@0900,2100 [facility] Last Admin: 09/04/20 09:49 Dose: 25 mg Documented by: Ondansetron HCl (Ondansetron 2 Mg/Ml Sdv 2 Ml) 4 mg IVP Q6H PRN PRN Reason: NAUSEA AND VOMITING Ondansetron HCl (Ondansetron 2 Mg/Ml Sdv 2 Ml) 4 mg IVP Q6H PRN PRN Reason: NAUSEA AND VOMITING Pantoprazole Sodium (Pantoprazole Dr 40 Mg Tablet) 40 mg PO DAILY [facility] Last Admin: 09/04/20 09:48 Dose: 40 mg Documented by: Fluticasone/Salmeterol (Fluticasone-Salmeterol 250-50 Diskus) 1 puff INHALATION BID.RESPIRATORY [facility] Last Admin: 09/04/20 08:01 Dose: 1 puff Documented by: Sertraline HCl (Sertraline 100 Mg Tablet) 100 mg PO BID@0900,2100 [facility] Last Admin: 09/04/20 09:47 Dose: 100 mg Documented by: Sodium Chloride (Saline Nasal [place] 44ml Btl) 1 spray NASAL PRN PRN PRN Reason: DRYNESS Vitals/I&O/Wt Last Vital Signs Temp 98.9 F 09/04/20 06:00 Pulse 84 09/04/20 14:00 Resp 22 H 09/04/20 14:00 BP 130/75 09/04/20 14:00 Pulse Ox 94 09/04/20 14:00 09/03/20 09/04/20 09/04/20 22:59 06:59 14:59 Intake Total 380 / 720 540 / 540 Output Total 600 / 800 600 / 1400 1060 / 1060 Balance -220 / -80 -600 / -680 -520 / -520 Weight last 48 hrs Weight 108 lb 3.2 oz Weight 112 lb 9.6 oz Physical Exam Narrative: EXAM NARRATIVE: GENERAL: Frail-appearing man sitting in bed. He is currently on high flow nasal cannula and saturating more than 95%. HEENT: Pupils equal round reactive to light. +pallor and no icterus. NECK: JVD, No carotid bruit. CARDIOVASCULAR SYSTEM: S1-S2 regular. No S3 or S4 present. No murmur rubs or gallops appreciated RESPIRATORY SYSTEM: coarse breath sounds with diffuse rhonchi, No wheezing heard. ABDOMEN: Soft, nontender and nondistended. Normal bowel sounds present. EXTREMITIES: No cyanosis or clubbing. No edema. warm to touch [employer] SHARPENER: Patient is alert oriented ?3. No focal neurological deficits. SKIN: Normal turgor and temperature. No breakdown, rash or nail changes PSYCH: Normal insight and judgment. Urinary Catheter Management^: Laureano: Cath Placed During This Visit: yes, but has since been removed by the nurse Reason for Continuing Indwelling Catheter: Accurate Measurement of Urinary Output in Critically Ill Patients Urinary Catheter Date of Insertion: 08/29/20 Urinary Catheter Time of Insertion: 12:30 Date Urinary Catheter Removed: 09/01/20 Data : 09/03/20 03:38 09/04/20 03:40 Micro: Microbiology 09/02/20 13:39 Gram Stain - Final Pleural Fluid Anaerobic Culture - Preliminary Body Fluid Culture - Preliminary A&P Assessment and plan (1) Acute and chronic respiratory failure with hypoxia: On BiPaP and HFNC. Status: Acute (2) CHF (NYHA class III, ACC/AHA stage C): Newly diagnosed cardiomyopathy with drop in congestive heart failure as compared to prior echo in 2018. -Patient would eventually need ischemic work-up. However presently with pending diagnosis of lung cancer and respiratory failure with high oxygen requirement, I will continue to manage medically. -Currently on Lasix 20 mg IV daily, increase to lasix 20 mg IV BID and continue low-dose metoprolol tartrate. Urine output 1400 mL with -700 ml -Blood pressure has been soft. Possibly transition to metoprolol succinate tomorrow. Status: Acute (3) Pleural effusion on right: S/p right thoracentesis x2 Status: Acute Additional A&P Information Moderately severe eccentric persistently directed mitral valve regurgitation Mild to moderate aortic and tricuspid valve regurgitation lung mass suspicious of non-small cell cancer ; repeat CT-guided lung biopsy pending COPD Peripheral arterial disease microcytic anemia Leukocytosis Hyponatremia Elevated ALT History esophageal reflux disease Anxiety/depression Thank you for allowing me to participate in patient's care. Please feel free to call with questions or concerns. Attestations Medical Necessity Statement*: Needs hospital stay for respiratory failure and CHF Time Spent in Patient Care: 16 - 35 minutes (>than 50% of time spent in c ounselling and/or direct pt care on unit) . Coding Level of Care Code Established Pt Acute Tug Hand for Eric Donohue Patient Type Established History Detailed Exam Detailed Medical Decision Making Moderate Complexity Diagnoses Acute and chronic respiratory failure with hypoxia J96.21 CHF (NYHA class III, ACC/AHA stage C) I50.9 Pleural effusion on right J90
--- NOTE | 2020-09-04 14:35 | PM.PN ---
Subjective Subjective: Interval history: Currently still on high flow 30 L and 40% and had to increase to 50% today morning. Patient desaturates easily even on slight ambulation. No fever spikes; good urine output -680 mL last 24 hours. Medications: Reviewed: Yes Medication Review Details: Current Medications Acetaminophen (Acetaminophen 325 Mg Tablet) 650 mg PO Q6H PRN PRN Reason: MILD PAIN Albuterol Sulfate (Albuterol 2.5 Mg/0.5 Ml Neb) 2.5 mg INHALATION QID PRN PRN Reason: shortness of breath or wheezing Last Admin: 08/25/20 22:21 Dose: 2.5 mg Documented by: Albuterol/Ipratropium (Ipratropium-Albuterol 3 Ml Neb) 3 ml INHALATION Q6H.RESPIRATORY [facility] Last Admin: 09/04/20 08:01 Dose: 3 ml Documented by: Atorvastatin Calcium (Atorvastatin 40 Mg Tablet) 20 mg PO DAILY@0900 [facility] Last Admin: 09/04/20 09:47 Dose: 20 mg Documented by: Furosemide (Furosemide 10 Mg/Ml Sdv 2ml) 20 mg IVP Q24H [facility] Last Admin: 09/04/20 09:48 Dose: 20 mg Documented by: Heparin Sodium (Beef Lung) (Heparin 5,000 Unit/Ml Inj 1 Ml) 5,000 unit SUBCUT Q8H [facility] Last Admin: 09/04/20 06:09 Dose: 5,000 unit Documented by: Hydroxyzine Pamoate (Hydroxyzine 25 Mg Capsule) 25 mg PO Q8H PRN PRN Reason: ANXIETY Last Admin: 09/02/20 08:43 Dose: 25 mg Documented by: Dexmedetomidine HCl 400 mcg/ (Sodium Chloride) 104 mls @ 0 mls/hr IV .Q0M [facility]; Protocol Last Admin: 09/03/20 05:38 Dose: 0.5 mcg/kg/hr, 7 mls/hr Documented by: Lanolin (Lanolin Oint 7 Gm) 1 applic TOPICAL PRN PRN PRN Reason: DRYNESS Last Admin: 08/29/20 10:08 Dose: 1 applic Documented by: Methylprednisolone Sodium Succinate (Methylprednisolone Sod Succ 40 Mg/Ml Inj) 40 mg IVP Q12H [facility] Last Admin: 09/04/20 09:48 Dose: 40 mg Documented by: Metoprolol Tartrate (Metoprolol Tartrate 25 Mg Tablet) 25 mg PO BID@0900,2100 [facility] Last Admin: 09/04/20 09:49 Dose: 25 mg Documented by: Ondansetron HCl (Ondansetron 2 Mg/Ml Sdv 2 Ml) 4 mg IVP Q6H PRN PRN Reason: NAUSEA AND VOMITING Ondansetron HCl (Ondansetron 2 Mg/Ml Sdv 2 Ml) 4 mg IVP Q6H PRN PRN Reason: NAUSEA AND VOMITING Pantoprazole Sodium (Pantoprazole Dr 40 Mg Tablet) 40 mg PO DAILY [facility] Last Admin: 09/04/20 09:48 Dose: 40 mg Documented by: Fluticasone/Salmeterol (Fluticasone-Salmeterol 250-50 Diskus) 1 puff INHALATION BID.RESPIRATORY [facility] Last Admin: 09/04/20 08:01 Dose: 1 puff Documented by: Sertraline HCl (Sertraline 100 Mg Tablet) 100 mg PO BID@0900,2100 [facility] Last Admin: 09/04/20 09:47 Dose: 100 mg Documented by: Sodium Chloride (Saline Nasal [place] 44ml Btl) 1 spray NASAL PRN PRN PRN Reason: DRYNESS Vitals/I&O/Wt Last Vital Signs Temp 98.9 F 09/04/20 06:00 Pulse 84 09/04/20 14:00 Resp 22 H 09/04/20 14:00 BP 130/75 09/04/20 14:00 Pulse Ox 94 09/04/20 14:00 09/03/20 09/04/20 09/04/20 22:59 06:59 14:59 Intake Total 380 / 720 540 / 540 Output Total 600 / 800 600 / 1400 1060 / 1060 Balance -220 / -80 -600 / -680 -520 / -520 Weight last 48 hrs Weight 108 lb 3.2 oz Weight 112 lb 9.6 oz Physical Exam Narrative: EXAM NARRATIVE: General: alert, appears cachectic, sitting in bed in mild respiratory distress HEENT: conj clear, EOMI, PERRL, mmm, Neck: supple, no meningismus Heme: no cervical LAP Pulmonary: Bilateral air entry with diffuse rhonchi and crackles Cardiovascular: rrr, nl s1s2, no mrg Abdomen: soft, nt, nd, no r/g, bs+ Extremities: pulses +, no edema, no c/c : no CVA tenderness Skin: intact, no rash MSK: no back or neck pain Neurologic: grossly intact Urinary Catheter Management^: Laureano: Cath Placed During This Visit: yes, but has since been removed by the nurse Reason for Continuing Indwelling Catheter: Accurate Measurement of Urinary Output in Critically Ill Patients Urinary Catheter Date of Insertion: 08/29/20 Urinary Catheter Time of Insertion: 12:30 Date Urinary Catheter Removed: 09/01/20 Data : 09/03/20 03:38 09/04/20 03:40 Micro: Microbiology 09/02/20 13:39 Gram Stain - Final Pleural Fluid Anaerobic Culture - Preliminary Body Fluid Culture - Preliminary A&P Assessment and plan (1) Acute and chronic respiratory failure with hypoxia: Status: Acute (2) CHF (NYHA class III, ACC/AHA stage C): Status: Acute (3) COPD exacerbation: Status: Acute (4) Ex-smoker for less than 1 year: Status: Acute (5) Pleural effusion on right: Status: Acute #Acute hypoxic respiratory failure requiring high flow oxygen in patient with newly diagnosed systolic heart failure and recently diagnosed NSCLC with moderate to large right pleural effusion #Recent hospital discharge follow-up in 07/22/2020- 08/03/2020 at [facility] for MRSA pneumonia discharged home with 5 L nasal cannula # Left upper lobe spiculated 1.[address] chest 07/23/2020 suspicious for malignancy in chronic smoker # RUL and RLL dense masslike consolidation with fullness in the right pulmonary hilum on CT 07/23/2020 #COPD exacerbation #Chronic smoker -Smokes 1.5 PPD X 50 = 75 pack history; -Quit June 2020 since his last admission at [place] #BAL cytology 08/01/2020 from [facility] showed atypical cells suspicious for non-small cell lung cancer -Currently requiring high flow 30 L and 50% -CTA on admission no evidence of PE; areas of increasing consolidation greatest in the RIGHT upper lobe and LEFT upper lobe suspicious for neoplastic involvement. -off Airborne and contact isolation COVID-19 antigen and PCR negative -DuoNeb nebulization every 6 hours scheduled -Methylprednisone 40 mg IV daily -can DC after 2 days -Afebrile and WBC 16K; cultures negative so far -final blood cultures pending -Procalcitonin 0.08; Dced antibiotics -Counseled to maintain abstinence from smoking -PFTs not available -we will schedule for PFTs/6-minute walk test once clinically improved and discharged CT 07/23/2020: Impression Left upper lobe mass with spiculation measures up to 1.5 cm worrisome in appearance. Dense masslike consolidation in the right upper lobe and right lower lobe with some nodular dense fullness in the right pulmonary hilum. Adjacent to these areas there is some areas of additional peripheral consolidation which may reflect some postobstructive pneumonia. Fracture of L1 vertebral bodies of indeterminate age but it could be acute. Fracture of T6 superior endplate appears like old. CT 07/30/2020: Heart abnormalities of right lung that have improved very minimally. There is soft tissue fullness involving the right hilar region and surrounding the vessels with compression of bronchi. There is very pronounced inflammatory process throughout the interstitial disease in the right lung base and there is a right basilar effusion. Left lung reveals honeycombing and a spiculated irregular mass measuring 1.9 cm in diameter that is very worrisome for tumor involvement. 08/01/2020: underwent bronchoscopy with transbronchial biopsy at [facility]. Procedure note described that the inspection of entire tracheobronchial tree revealed copious amount of thick tenacious yellow secretions suctioned from the right lower lobe. BAL from right middle lobe was performed followed by transbronchial lung forceps biopsies and brushing of right lower lobe under fluoroscopic guidance. Also collection of bronchial washing was obtained. Procedure results from [facility] and BAL cytology showed atypical cells suspicious for non-small cell lung cancer but transbronchial biopsies were negative. I called Dr. Anthony equity manager at [facility] and he said that they do not have enough tissue for IHC and tumor markers as transbronchial biopsies were negative. Requested to come and visit the patient and gave the news of BAL cytology being positive for cancer cells to the patient and his at bedside. Also reported the need for further tissue collection for advanced staining and tumor marker identification and PET scan as outpatient. reported that they lost their daughter last year after 3-year kaur with cancer. -Once patient is stabilized respiratory shah while treating underlying CHF-I would like to repeat and if lesions and lympadenopahty still persist then we will plan ebus and susan bronch to confirm diagnosis and obtain tissue for Next generation sequencing. #Transudative recurrent right pleural effusion-secondary to systolic heart failure - s/p thoracentesis for right pleural effusion 1100cc hemorrahgic fluid drained on 08/28 -and again drained 900 cc pleural fluid on 09/01/2019. Cytology during both fluid analysis is negative for malignancy. - Echo during that time showed new onset heart failure 20 to 25% ejection fraction -Patient currently on metoprolol 25 mg p.o. twice daily, aspirin 81 mg p.o. daily, statin 20 mg p.o. daily and Lasix 20 mg IV daily -Cardiology on the case to optimize CHF management and possible cardiac cath to rule out ischemic causes Medical condition, labs, investigations, medications, counseling regarding medication compliance, side effects, importance of follow-up appointments, smoking-its adverse effects and importance of cessation and maintaining abstinence and plan of care-everything explained in detail to the patient. Patient verbalized understanding. Recommendations conveyed to the taking care of the patient Attestations Medical Necessity Statement*: Acute respiratory failure secondary to CHF exacerbation requiring high flow oxygen Time Spent in Patient Care: Greater than 35 minutes (>than 50% of time spent in counselling and/or direct pt care on unit). Critical Care Time: Critical Care Time (min): 45 Coding Level of Care Code Established Pt Acute Recreational Programs Director for Chg Fwd Patient Type Established History Comprehensive Medical Decision Making Moderate Complexity Diagnoses Acute and chronic respiratory failure with hypoxia J96.21 CHF (NYHA class III, ACC/AHA stage C) I50.9 COPD exacerbation J44.1 Ex-smoker for less than 1 year Z78.9 Pleural effusion on right J90 Time Spent (min) 45
--- NOTE | 2020-09-04 17:08 | P.PN_ITS ---
Subjective Subjective: Interval history: 70-year-old male with past medical history significant for anxiety, depression, peripheral arterial disease, gastroesophageal reflux disease, longstanding tobacco abuse, O2 dependent chronic obstructive pulmonary disease on 2 L by nasal cannula who presented to hospital from pulmonary clinic for evaluvation of progressivly worsening dyspnea. Patient was recently admitted multiple times to [facility] initially on 06/2020 where he was noted to a new EMELY speculated mass measuring 1.5 cm in addition to dense mass like consolidation in right lung as well. Terri underwent bronchoscopy shortly after discharge on 08/01 with biopsy the results of which he is not aware of other than cultures which appearantly had grown MRSA. He was treated with vancomycin and discharged. Today was noted to have profound [facility] 6l [facility] after which he was sent to ER for work up. initial laboratory workup today showed a WBC of 12.2, hemoglobin of 10.5, hematocrit 34.9 and platelet count of 401. Sodium 137, potassium 3.8, chloride 101, bicarb 20, BUN 19 and creatinine is 0.8. Chest x-ray was performed which showed interstitial infiltrates throughout both lungs more prevalent on the right than left and prominent right pulmonary hilum. A CT chest PE protocol was done performed which showed severe emphysema with marked pulmonary fibrosis, bronchiectasis and interstitial thickening and additional areas of increasing consolidation greatest in the RIGHT upper lobe and LEFT upper lobe suspicious for neoplastic involvement. patient was started on 0250 and non-rebreather at 10 L. emergency room he was given vancomycin, Zosyn and L evaquin. Upon admission patient was continued on broadspecturm antibiotics until 08/28. Procalcitonin was negative. Did not have any fevers and thus low suspecion of superimposed bacterial pneumonia contributing to patients respiratory distress. He was seen by pulmonary medicine. Started on solu-medrol, duoneb treatements and intermittently required bipap/HFNC. Was noted to have right sided pleural effusion on beside US by pulmonary medicine. On 08/28 successful US guided thoracentesis was performed during which time over 1L of fluid was drained. This was sent for analysis including cytology. In addition case was discussed with oncology due to patients prior pathology showed aytpical cells suspecious for non-small cell lung cancer. Oncology recommended repeat biopsy for addtional tissue sampling to confirm diagnosis. This was ordered and pending for 08/29/2019. 08/27 Overnight required bipap however this was weaned. Feeling anxious. No fever, or chills. No nausea or vomiting. 08/28 Placed on bipap overnight. awaiting thoracentesis in am, no fever or chills overnight. 08/29 Patient remained on bipap overnight. no fever, nausea, vomiting overnight. Laureano was placed. 08/30 No new clinical events overnight. No fevers overnight. On bipap. 08/31 Awaiting biopsy in am 09/01 Biopsy on hold. 09/02 Patient was noted to be confused, Repeat thoracentesis performed today. no fever, or chills, no nausea or vomiting. 09/03 Patient on HFNC, No new clinical events overnight. Started on lasix. no fever or chills. 09/04 Patient was more calm today. Was on O2 via nasal cannula. Respiration to did not seem is labored. No fever or chills. No nausea vomiting. Medications: Reviewed: Yes Vitals/I&O/Wt Last Vital Signs Temp 98.9 F 09/04/20 06:00 Pulse 90 09/04/20 18:00 Resp 20 H 09/04/20 18:00 BP 146/76 09/04/20 18:00 Pulse Ox 97 09/04/20 18:00 09/04/20 09/04/20 09/04/20 06:59 14:59 22:59 Intake Total 540 / 540 420.433 / 960.433 Output Total 600 / 1400 1060 / 1060 450 / 1510 Balance -600 / -656.433 -520 / -520 -29.567 / -549.567 Weight last 48 hrs Weight 49.079 kg Weight 51.075 kg Physical Exam Narrative: EXAM NARRATIVE: General- alert awake and oriented in mild respiratory distress on 6 l HEENT-grossly unremarkable Chest- decreased breath sounds bilaterally Abdomen-soft nondistended extremities-no edema Urinary Catheter Management^: Laureano: Cath Placed During This Visit: yes, but has since been removed by the nurse Reason for Continuing Indwelling Catheter: Accurate Measurement of Urinary Output in Critically Ill Patients Urinary Catheter Date of Insertion: 08/29/20 Urinary Catheter Time of Insertion: 12:30 Date Urinary Catheter Removed: 09/01/20 Data : 09/03/20 03:38 09/04/20 03:40 Micro: Microbiology 09/02/20 13:39 Gram Stain - Final Pleural Fluid Anaerobic Culture - Preliminary Body Fluid Culture - Preliminary A&P Assessment and plan (1) COPD exacerbation: Status: Acute (2) HCAP (healthcare-associated pneumonia): Status: Acute Acute on chronic hypoxemic respiratory failure - Due to lung mass with copd exacerbation vs newly dx systolic heart failure exacerbation - Continue duoneb q6hr scheduled - Solu-medrol as ordered - Bipap PRN - Non-compliant with oxygen - Chest x-ray in am - Awaiting further plan from pulmonary Large right sided pleural effusion - S/p thoracentesis x 2 - again performed today - Fluid analysis - transudative - Cytology sent -negative for malignancy - Repeat chest x-ray in am Newly diagnosed systolic heart failure exacerbation - On diuretics - Lasix 40 mg IV BID - Possibly need of ischemic work up - Consult with cardiology - Monitor daily weight - Strict input and output recording Lung mass suspected non-small cell carcinoma - Insufficient tissue sampling at [place] - Repeat CT guided lung biopsy ordered - pending - D/w Oncology - will consult once tissue diagnosis obtained - outpatient work up Additional medical problems Peripheral arterial disease Gastroesophageal reflux disease Anxiety Depression hx of Tobacco abuse DVT ppx - heparin Attestations Medical Necessity Statement*: Will require additional hospitalization over > 2 midnight Time Spent in Patient Care: Greater than 35 minutes (>than 50% of time spent in counselling and/or direct pt care on unit) . Coding Level of Care Code Acute Cook [employer] Style Food for Arlethg Fwd Diagnoses COPD exacerbation J44.1 HCAP (healthcare-associated pneumonia) J18.9
--- NOTE | 2020-09-04 22:36 | PC.NURSE ---
TRANSFER Report called to CSU. Patient transported by RN on 8L HFNC and transport monitor. Patient assisted to bed with receiving RNAlex, in room and patient connected to monitor. No needs at this time.
[2020-09-05] VITALS (16 sets, daily range): BP systolic 119–138; BP diastolic 59–96; PULSE 82–102; RESP 14–25; TEMP 36.7–36.8; O2SAT 87–97
[2020-09-05 03:40] LABS: Anion Gap 13.9 (5-19); Blood Urea Nitrogen 20 mg/dL (8-23); Calcium 8.4 mg/dL (8.5-10.5); Carbon Dioxide 27 mmol/L (22-29); Chloride 98 mmol/L (98-107); Glucose 109 mg/dL (65-115); Osmolality Calculated 285 mOsm/kg (285-295); Sodium 136 mmol/L (136-145)
[2020-09-05 03:57] LABS: Potassium 2.9 mmol/L (3.5-5.1)
[2020-09-05] MEDS: ipratropium-albuterol 3 mL Neb INHALATION ×3 (04:00→21:21)
[2020-09-05] MEDS: heparin 5,000 unit/mL INJ 1 mL 5000 UNIT SUBCUT ×3 (04:54→21:17)
--- NOTE | 2020-09-05 06:18 | PM.PN ---
Subjective Subjective: Interval history: He was moved to [facility], UO 3L, -2.2L; remains LOC net +ve. He is currently on 5 to 6 L of oxygen via nasal cannula. No events on telemetry Medications: Reviewed: Yes Medication Review Details: Current Medications Acetaminophen (Acetaminophen 325 Mg Tablet) 650 mg PO Q6H PRN PRN Reason: MILD PAIN Albuterol Sulfate (Albuterol 2.5 Mg/0.5 Ml Neb) 2.5 mg INHALATION QID PRN PRN Reason: shortness of breath or wheezing Last Admin: 08/25/20 22:21 Dose: 2.5 mg Documented by: Albuterol/Ipratropium (Ipratropium-Albuterol 3 Ml Neb) 3 ml INHALATION Q6H.RESPIRATORY [facility] Last Admin: 09/05/20 04:00 Dose: 3 ml Documented by: Atorvastatin Calcium (Atorvastatin 40 Mg Tablet) 20 mg PO DAILY@0900 [facility] Last Admin: 09/04/20 09:47 Dose: 20 mg Documented by: Furosemide (Furosemide 10 Mg/Ml Sdv 2ml) 20 mg IVP BID [facility] Last Admin: 09/04/20 17:34 Dose: 20 mg Documented by: Heparin Sodium (Beef Lung) (Heparin 5,000 Unit/Ml Inj 1 Ml) 5,000 unit SUBCUT Q8H [facility] Last Admin: 09/05/20 04:54 Dose: 5,000 unit Documented by: Hydroxyzine Pamoate (Hydroxyzine 25 Mg Capsule) 25 mg PO Q8H PRN PRN Reason: ANXIETY Last Admin: 09/02/20 08:43 Dose: 25 mg Documented by: Dexmedetomidine HCl 400 mcg/ (Sodium Chloride) 104 mls @ 0 mls/hr IV .Q0M [facility]; Protocol Last Titration: 09/04/20 18:20 Dose: Infused Documented by: Lanolin (Lanolin Oint 7 Gm) 1 applic TOPICAL PRN PRN PRN Reason: DRYNESS Last Admin: 08/29/20 10:08 Dose: 1 applic Documented by: Methylprednisolone Sodium Succinate (Methylprednisolone Sod Succ 40 Mg/Ml Inj) 40 mg IVP DAILY [facility] Metoprolol Tartrate (Metoprolol Tartrate 25 Mg Tablet) 25 mg PO BID@0900,2100 [facility] Last Admin: 09/04/20 21:53 Dose: 25 mg Documented by: Ondansetron HCl (Ondansetron 2 Mg/Ml Sdv 2 Ml) 4 mg IVP Q6H PRN PRN Reason: NAUSEA AND VOMITING Ondansetron HCl (Ondansetron 2 Mg/Ml Sdv 2 Ml) 4 mg IVP Q6H PRN PRN Reason: NAUSEA AND VOMITING Pantoprazole Sodium (Pantoprazole Dr 40 Mg Tablet) 40 mg PO DAILY [facility] Last Admin: 09/04/20 09:48 Dose: 40 mg Documented by: Fluticasone/Salmeterol (Fluticasone-Salmeterol 250-50 Diskus) 1 puff INHALATION BID.RESPIRATORY [facility] Last Admin: 09/04/20 20:20 Dose: 1 puff Documented by: Sertraline HCl (Sertraline 100 Mg Tablet) 100 mg PO BID@0900,2100 [facility] Last Admin: 09/04/20 21:53 Dose: 100 mg Documented by: Sodium Chloride (Saline Nasal [place] 44ml Btl) 1 spray NASAL PRN PRN PRN Reason: DRYNESS Vitals/I&O/Wt Last Vital Signs Temp 98.0 F 09/05/20 04:00 Pulse 84 09/05/20 04:10 Resp 17 09/05/20 04:00 BP 129/59 09/05/20 04:00 Pulse Ox 97 09/05/20 04:00 09/04/20 09/04/20 09/05/20 14:59 22:59 06:59 Intake Total 540 / 540 540.433 / 1080.433 Output Total 1060 / 1060 1525 / 2585 500 / 3085 Balance -520 / -520 -984.567 / -1504.567 -500 / -2004.567 Weight last 48 hrs Weight 107 lb 8 oz Weight 108 lb 3.2 oz Physical Exam Narrative: EXAM NARRATIVE: GENERAL: Frail-appearing man sitting in bed. He is currently on O2 by nasal cannula HEENT: Pupils equal round reactive to light. +pallor and no icterus. NECK: JVD, No carotid bruit. CARDIOVASCULAR SYSTEM: S1-S2 regular. No S3 or S4 present. No murmur rubs or gallops appreciated RESPIRATORY SYSTEM: coarse breath sounds with diffuse rhonchi, No wheezing heard. ABDOMEN: Soft, nontender and nondistended. Normal bowel sounds present. EXTREMITIES: No cyanosis or clubbing. No edema. warm to touch VICE PRESIDENT TALENT MANAGEMENT: Patient is alert oriented ?3. No focal neurological deficits. SKIN: Normal turgor and temperature. No breakdown, rash or nail changes PSYCH: Normal insight and judgment. Urinary Catheter Management^: Laureano: Cath Placed During This Visit: yes, but has since been removed by the nurse Reason for Continuing Indwelling Catheter: Accurate Measurement of Urinary Output in Critically Ill Patients Urinary Catheter Date of Insertion: 08/29/20 Urinary Catheter Time of Insertion: 12:30 Date Urinary Catheter Removed: 09/01/20 Data : 09/03/20 03:38 09/05/20 02:48 Micro: Microbiology 09/02/20 13:39 Gram Stain - Final Pleural Fluid Anaerobic Culture - Preliminary Body Fluid Culture - Preliminary A&P Assessment and plan (1) Acute and chronic respiratory failure with hypoxia: Status: Acute (2) CHF (NYHA class III, ACC/AHA stage C): Newly diagnosed cardiomyopathy with drop in congestive heart failure as compared to prior echo in 2018. -Patient would eventually need ischemic work-up. However presently with pending diagnosis of lung cancer and respiratory failure with high oxygen requirement, I will continue to manage medically for now. Decision for further testing based on clinical progression. -Currently on lasix 20 mg IV BID and start on aldactone, add lisinopril tomorrow. -add ARB tomorrow. continue metoprolol succinate. Status: Acute (3) Pleural effusion on right: S/p right thoracentesis x2 Status: Acute Additional A&P Information Moderately severe eccentric persistently directed mitral valve regurgitation Mild to moderate aortic and tricuspid valve regurgitation lung mass suspicious of non-small cell cancer ; repeat CT-guided lung biopsy pending COPD Peripheral arterial disease microcytic anemia Leukocytosis Hyponatremia: Resolved Hypokalemia: Replaced Elevated ALT History esophageal reflux disease Anxiety/depression Thank you for allowing me to participate in patient's care. Please feel free to call with questions or concerns. Attestations Medical Necessity Statement*: Needs hospital stay for respiratory failure and CHF Time Spent in Patient Care: 16 - 35 minutes (>than 50% of time spent in counselling and/or direct pt care on unit). Coding Level of Care Code Acute X Ray Tech for Eric Donohue Diagnoses Acute and chronic respiratory failure with hypoxia J96.21 CHF (NYHA class III, ACC/AHA stage C) I50.9 Pleural effusion on right J90
[2020-09-05] MEDS: lidocaine 1% 5 ML in potassium chloride premix 100 ML 25 ML IV (07:36)
[2020-09-05] MEDS: sertraline 100 mg Tablet PO ×2 (09:22→21:17)
[2020-09-05] MEDS: potassium chloride ER 20 mEq Tablet 40 MEQ PO (09:22)
[2020-09-05] MEDS: metoprolol succinate ER (24 HR) 25 mg Tablet PO ×2 (09:22→21:17)
[2020-09-05] MEDS: atorvastatin 40 mg Tablet 20 MG PO (09:23)
[2020-09-05] MEDS: pantoprazole DR 40 mg Tablet PO (09:23)
[2020-09-05] MEDS: FUROsemide 10 mg/mL SDV 2mL 20 MG IVP ×2 (09:26→17:05)
--- NOTE | 2020-09-05 09:28 | DCPLANNER ---
IMM completed 09/05/20 @ 0908. Copy of rights given to pt
[2020-09-05] MEDS: spironolactone 25 mg Tablet 12.5 MG PO (10:42)
--- NOTE | 2020-09-05 15:10 | PM.PN ---
Subjective Subjective: Interval history: Patient was doing well today. O2 requirements decreased. At the time of my evaluation is on 6 L via nasal cannula. Medications: Reviewed: Yes Medication Review Details: Current Medications Acetaminophen (Acetaminophen 325 Mg Tablet) 650 mg PO Q6H PRN PRN Reason: MILD PAIN Albuterol Sulfate (Albuterol 2.5 Mg/0.5 Ml Neb) 2.5 mg INHALATION QID PRN PRN Reason: shortness of breath or wheezing Last Admin: 08/25/20 22:21 Dose: 2.5 mg Documented by: Albuterol/Ipratropium (Ipratropium-Albuterol 3 Ml Neb) 3 ml INHALATION Q6H.RESPIRATORY [facility] Last Admin: 09/05/20 04:00 Dose: 3 ml Documented by: Atorvastatin Calcium (Atorvastatin 40 Mg Tablet) 20 mg PO DAILY@0900 [facility] Last Admin: 09/04/20 09:47 Dose: 20 mg Documented by: Furosemide (Furosemide 10 Mg/Ml Sdv 2ml) 20 mg IVP BID [facility] Last Admin: 09/04/20 17:34 Dose: 20 mg Documented by: Heparin Sodium (Beef Lung) (Heparin 5,000 Unit/Ml Inj 1 Ml) 5,000 unit SUBCUT Q8H [facility] Last Admin: 09/05/20 04:54 Dose: 5,000 unit Documented by: Hydroxyzine Pamoate (Hydroxyzine 25 Mg Capsule) 25 mg PO Q8H PRN PRN Reason: ANXIETY Last Admin: 09/02/20 08:43 Dose: 25 mg Documented by: Dexmedetomidine HCl 400 mcg/ (Sodium Chloride) 104 mls @ 0 mls/hr IV .Q0M [facility]; Protocol Last Titration: 09/04/20 18:20 Dose: Infused Documented by: Lanolin (Lanolin Oint 7 Gm) 1 applic TOPICAL PRN PRN PRN Reason: DRYNESS Last Admin: 08/29/20 10:08 Dose: 1 applic Documented by: Methylprednisolone Sodium Succinate (Methylprednisolone Sod Succ 40 Mg/Ml Inj) 40 mg IVP DAILY [facility] Metoprolol Tartrate (Metoprolol Tartrate 25 Mg Tablet) 25 mg PO BID@0900,2100 [facility] Last Admin: 09/04/20 21:53 Dose: 25 mg Documented by: Ondansetron HCl (Ondansetron 2 Mg/Ml Sdv 2 Ml) 4 mg IVP Q6H PRN PRN Reason: NAUSEA AND VOMITING Ondansetron HCl (Ondansetron 2 Mg/Ml Sdv 2 Ml) 4 mg IVP Q6H PRN PRN Reason: NAUSEA AND VOMITING Pantoprazole Sodium (Pantoprazole Dr 40 Mg Tablet) 40 mg PO DAILY [facility] Last Admin: 09/04/20 09:48 Dose: 40 mg Documented by: Fluticasone/Salmeterol (Fluticasone-Salmeterol 250-50 Diskus) 1 puff INHALATION BID.RESPIRATORY [facility] Last Admin: 09/04/20 20:20 Dose: 1 puff Documented by: Sertraline HCl (Sertraline 100 Mg Tablet) 100 mg PO BID@0900,2100 [facility] Last Admin: 09/04/20 21:53 Dose: 100 mg Documented by: Sodium Chloride (Saline Nasal [place] 44ml Btl) 1 spray NASAL PRN PRN PRN Reason: DRYNESS Vitals/I&O/Wt Last Vital Signs Temp 98.2 F 09/05/20 12:00 Pulse 90 09/05/20 12:00 Resp 14 09/05/20 12:00 BP 136/70 09/05/20 12:00 Pulse Ox 96 09/05/20 12:00 09/05/20 09/05/20 09/05/20 06:59 14:59 22:59 Intake Total 645 / 645 Output Total 500 / 3085 1400 / 1400 Balance -500 / -2004.567 -755 / -755 Weight last 48 hrs Weight 48.761 kg Weight 49.079 kg Physical Exam Narrative: EXAM NARRATIVE: General- alert awake and oriented in mild respiratory distress on 6 l HEENT-grossly unremarkable Chest- decreased breath sounds bilaterally Abdomen-soft nondistended extremities-no edema Urinary Catheter Management^: Laureano: Cath Placed During This Visit: yes, but has since been removed by the nurse Reason for Continuing Indwelling Catheter: Accurate Measurement of Urinary Output in Critically Ill Patients Urinary Catheter Date of Insertion: 08/29/20 Urinary Catheter Time of Insertion: 12:30 Date Urinary Catheter Removed: 09/01/20 Data : 09/03/20 03:38 09/05/20 02:48 Micro: Microbiology 09/02/20 13:39 Gram Stain - Final Pleural Fluid Anaerobic Culture - Preliminary Body Fluid Culture - Final A&P Assessment and plan (1) COPD exacerbation: Status: Acute (2) HCAP (healthcare-associated pneumonia): Status: Acute Acute on chronic hypoxemic respiratory failure - Due to lung mass with copd exacerbation vs newly dx systolic heart failure exacerbation - Continue duoneb q6hr scheduled - Solu-medrol - transition to Prednisone - Wean o2 as tolearted - Home o2 eval at discharge. - Will need outpatient follow up with pulmonary Large right sided pleural effusion - S/p thoracentesis x 2 - Fluid analysis - transudative - Cytology sent -negative for malignancy Newly diagnosed systolic heart failure exacerbation - On diuretics - Lasix 20 mg IV BID - Aldactone /Metoprolol xl added - Potassium replaced - Possibly need of ischemic work up outpatient - Cardiology on board - Monitor daily weight - Strict input and output recording Lung mass suspected non-small cell carcinoma - Insufficient tissue sampling at [place] - Repeat CT guided lung biopsy ordered - pending - D/w Oncology - will consult once tissue diagnosis obtained - outpatient work up Additional medical problems Peripheral arterial disease Gastroesophageal reflux disease Anxiety Depression hx of Tobacco abuse DVT ppx - heparin Attestations Medical Necessity Statement*: Will require further hospitalization for management of respiratory failure. Discussed with case management working on possible placement versus home with home care. Time Spent in Patient Care: Greater than 35 minutes (>than 50% of time spent in counselling and/or direct pt care on unit). Coding Level of Care Code Acute Fundraising Director for Eric Donohue Diagnoses COPD exacerbation J44.1 HCAP (healthcare-associated pneumonia) J18.9
[2020-09-05] MEDS: polyethylene glycol 3350 Pkt 17 gm PO (18:11)
--- NOTE | 2020-09-05 22:57 | PM.PN ---
Subjective Subjective: Interval history: Patient continues to improve after diuresis and currently down to 5 L nasal cannula Medications: Reviewed: Yes Medication Review Details: Current Medications Acetaminophen (Acetaminophen 325 Mg Tablet) 650 mg PO Q6H PRN PRN Reason: MILD PAIN Albuterol Sulfate (Albuterol 2.5 Mg/0.5 Ml Neb) 2.5 mg INHALATION QID PRN PRN Reason: shortness of breath or wheezing Last Admin: 08/25/20 22:21 Dose: 2.5 mg Documented by: Albuterol/Ipratropium (Ipratropium-Albuterol 3 Ml Neb) 3 ml INHALATION Q6H.RESPIRATORY [facility] Last Admin: 09/05/20 04:00 Dose: 3 ml Documented by: Atorvastatin Calcium (Atorvastatin 40 Mg Tablet) 20 mg PO DAILY@0900 [facility] Last Admin: 09/04/20 09:47 Dose: 20 mg Documented by: Furosemide (Furosemide 10 Mg/Ml Sdv 2ml) 20 mg IVP BID [facility] Last Admin: 09/04/20 17:34 Dose: 20 mg Documented by: Heparin Sodium (Beef Lung) (Heparin 5,000 Unit/Ml Inj 1 Ml) 5,000 unit SUBCUT Q8H [facility] Last Admin: 09/05/20 04:54 Dose: 5,000 unit Documented by: Hydroxyzine Pamoate (Hydroxyzine 25 Mg Capsule) 25 mg PO Q8H PRN PRN Reason: ANXIETY Last Admin: 09/02/20 08:43 Dose: 25 mg Documented by: Dexmedetomidine HCl 400 mcg/ (Sodium Chloride) 104 mls @ 0 mls/hr IV .Q0M [facility]; Protocol Last Titration: 09/04/20 18:20 Dose: Infused Documented by: Lanolin (Lanolin Oint 7 Gm) 1 applic TOPICAL PRN PRN PRN Reason: DRYNESS Last Admin: 08/29/20 10:08 Dose: 1 applic Documented by: Methylprednisolone Sodium Succinate (Methylprednisolone Sod Succ 40 Mg/Ml Inj) 40 mg IVP DAILY [facility] Metoprolol Tartrate (Metoprolol Tartrate 25 Mg Tablet) 25 mg PO BID@0900,2100 [facility] Last Admin: 09/04/20 21:53 Dose: 25 mg Documented by: Ondansetron HCl (Ondansetron 2 Mg/Ml Sdv 2 Ml) 4 mg IVP Q6H PRN PRN Reason: NAUSEA AND VOMITING Ondansetron HCl (Ondansetron 2 Mg/Ml Sdv 2 Ml) 4 mg IVP Q6H PRN PRN Reason: NAUSEA AND VOMITING Pantoprazole Sodium (Pantoprazole Dr 40 Mg Tablet) 40 mg PO DAILY [facility] Last Admin: 09/04/20 09:48 Dose: 40 mg Documented by: Fluticasone/Salmeterol (Fluticasone-Salmeterol 250-50 Diskus) 1 puff INHALATION BID.RESPIRATORY [facility] Last Admin: 09/04/20 20:20 Dose: 1 puff Documented by: Sertraline HCl (Sertraline 100 Mg Tablet) 100 mg PO BID@0900,2100 [facility] Last Admin: 09/04/20 21:53 Dose: 100 mg Documented by: Sodium Chloride (Saline Nasal [place] 44ml Btl) 1 spray NASAL PRN PRN PRN Reason: DRYNESS Vitals/I&O/Wt Last Vital Signs Temp 98.1 F 09/05/20 15:44 Pulse 93 09/05/20 21:28 Resp 17 09/05/20 21:21 BP 138/80 09/05/20 15:44 Pulse Ox 88 L 09/05/20 21:21 09/05/20 09/05/20 09/05/20 06:59 14:59 22:59 Intake Total 645 / 645 240 / 885 Output Total 500 / 3085 1400 / 1400 Balance -500 / -2004.567 -755 / -755 240 / -515 Weight last 48 hrs Weight 107 lb 8 oz Weight 108 lb 3.2 oz Physical Exam Narrative: EXAM NARRATIVE: General: alert, appears cachectic, sitting in bed in place respiratory distress HEENT: conj clear, EOMI, PERRL, mmm, Neck: supple, no meningismus Heme: no cervical LAP Pulmonary: Reduced bilateral air entry with diffuse rhonchi and crackles Cardiovascular: rrr, nl s1s2, no mrg Abdomen: soft, nt, nd, no r/g, bs+ Extremities: pulses +, no edema, no c/c : no CVA tenderness Skin: intact, no rash MSK: no back or neck pain Neurologic: grossly intact Urinary Catheter Management^: Laureano: Cath Placed During This Visit: yes, but has since been removed by the nurse Reason for Continuing Indwelling Catheter: Accurate Measurement of Urinary Output in Critically Ill Patients Urinary Catheter Date of Insertion: 08/29/20 Urinary Catheter Time of Insertion: 12:30 Date Urinary Catheter Removed: 09/01/20 Data : 09/03/20 03:38 09/05/20 02:48 Micro: Microbiology 09/02/20 13:39 Gram Stain - Final Pleural Fluid Anaerobic Culture - Preliminary Body Fluid Culture - Final A&P Assessment and plan (1) Acute and chronic respiratory failure with hypoxia: Status: Acute (2) CHF (NYHA class III, ACC/AHA stage C): Status: Acute (3) COPD exacerbation: Status: Acute (4) Ex-smoker for less than 1 year: Status: Acute (5) Pleural effusion on right: Status: Acute #Acute hypoxic respiratory failure requiring high flow oxygen in patient with newly diagnosed systolic heart failure and recently diagnosed NSCLC with moderate to large right pleural effusion #Recent hospital discharge follow-up in 07/22/2020- 08/03/2020 at [facility] for MRSA pneumonia discharged home with 5 L nasal cannula #COPD exacerbation -Currently down to 6 L nasal cannula -On Lasix 20 twice daily -Cardiology added Aldactone and patient is also on metoprolol -CTA on admission no evidence of PE; areas of increasing consolidation greatest in the RIGHT upper lobe and LEFT upper lobe suspicious for neoplastic involvement. -off Airborne and contact isolation COVID-19 antigen and PCR negative -DuoNeb nebulization every 6 hours as needed -Methylprednisone 40 mg IV daily -can DC after 2 days -Afebrile and WBC 16K; cultures negative so far -Procalcitonin 0.08; Dced antibiotics -Counseled to maintain abstinence from smoking -Discharge with Anoro 1 puff daily -PFTs not available -we will schedule for PFTs/6-minute walk test once clinically improved and discharged # Left upper lobe spiculated 1.[address] chest 07/23/2020 suspicious for malignancy in chronic smoker # RUL and RLL dense masslike consolidation with fullness in the right pulmonary hilum on CT 07/23/2020 #Chronic smoker -Smokes 1.5 PPD X 50 = 75 pack history; -Quit June 2020 since his last admission at [place] #BAL cytology 08/01/2020 from [facility] showed atypical cells suspicious for non-small cell lung cancer CT 07/23/2020: Impression Left upper lobe mass with spiculation measures up to 1.5 cm worrisome in appearance. Dense masslike consolidation in the right upper lobe and right lower lobe with some nodular dense fullness in the right pulmonary hilum. Adjacent to these areas there is some areas of additional peripheral consolidation which may reflect some postobstructive pneumonia. Fracture of L1 vertebral bodies of indeterminate age but it could be acute. Fracture of T6 superior endplate appears like old. CT 07/30/2020: Heart abnormalities of right lung that have improved very minimally. There is soft tissue fullness involving the right hilar region and surrounding the vessels with compression of bronchi. There is very pronounced inflammatory process throughout the interstitial disease in the right lung base and there is a right basilar effusion. Left lung reveals honeycombing and a spiculated irregular mass measuring 1.9 cm in diameter that is very worrisome for tumor involvement. 08/01/2020: underwent bronchoscopy with transbronchial biopsy at [facility]. Procedure note described that the inspection of entire tracheobronchial tree revealed copious amount of thick tenacious yellow secretions suctioned from the right lower lobe. BAL from right middle lobe was performed followed by transbronchial lung forceps biopsies and brushing of right lower lobe under fluoroscopic guidance. Also collection of bronchial washing was obtained. Procedure results from [facility] and BAL cytology showed atypical cells suspicious for non-small cell lung cancer but transbronchial biopsies were negative. I called Dr. Anthony escort vehicle driver at [facility] and he said that they do not have enough tissue for IHC and tumor markers as transbronchial biopsies were negative. Requested to come and visit the patient and gave the news of BAL cytology being positive for cancer cells to the patient and his at bedside. Also reported the need for further tissue collection for advanced staining and tumor marker identification and PET scan as outpatient. reported that they lost their daughter last year after 3-year kaur with cancer. -Once patient is stabilized respiratory shah while treating underlying CHF-I would like to repeat and if lesions and lympadenopahty still persist then we will plan ebus and susan bronch to confirm diagnosis and obtain tissue for Next generation sequencing. #Transudative recurrent right pleural effusion-secondary to systolic heart failure - s/p thoracentesis for right pleural effusion 1100cc hemorrahgic fluid drained on 08/28 -and again drained 900 cc pleural fluid on 09/01/2019. Cytology during both fluid analysis is negative for malignancy. - Echo during that time showed new onset heart failure 20 to 25% ejection fraction -Patient currently on metoprolol 25 mg p.o. twice daily, aspirin 81 mg p.o. daily, statin 20 mg p.o. daily and Lasix 20 mg IV daily -Cardiology on the case to optimize CHF management and possible cardiac cath to rule out ischemic causes Medical condition, labs, investigations, medications, counseling regarding medication compliance, side effects, importance of follow-up appointments, smoking-its adverse effects and importance of cessation and maintaining abstinence and plan of care-everything explained in detail to the patient. Patient verbalized understanding. Recommendations conveyed to the taking care of the patient I will sign of the case as patient is improving clinically and will see as outpatient in pulmonary clinic for further evaluation of right lung mass /Cancer Attestations Medical Necessity Statement*: Acute hypoxic/hypercapnic respiratory failure secondary to CHF exacerbation in a patient with suspected underlying lung cancer Time Spent in Patient Care: Greater than 35 minutes (>than 50% of time spent in counselling and/or direct pt care on unit). Critical Care Time: Critical Care Time (min): 45 Coding Level of Care Code Acute Temperature Inspector for Arlethg Fwd Diagnoses Acute and chronic respiratory failure with hypoxia J96.21 CHF (NYHA class III, ACC/AHA stage C) I50.9 COPD exacerbation J44.1 Ex-smoker for less than 1 year Z78.9 Pleural effusion on right J90
[2020-09-06] VITALS (16 sets, daily range): BP systolic 130–149; BP diastolic 67–90; PULSE 80–101; RESP 16–101; TEMP 36.4–37.1; O2SAT 91–98; BMI 16.6
[2020-09-06] MEDS: ipratropium-albuterol 3 mL Neb INHALATION ×4 (03:19→21:04)
[2020-09-06] MEDS: heparin 5,000 unit/mL INJ 1 mL 5000 UNIT SUBCUT ×3 (05:04→21:44)
[2020-09-06 05:58] LABS: Basophils % 0.1 %; Eosinophils # 0.3 10^3/uL (0.0-0.8); Eosinophils % 2.1 %; Hematocrit 39.9 % (42.0-52.0); Hemoglobin 12.3 g/dL (11.7-16.6); Lymphocytes # 2.6 10^3/uL (0.8-4.8); Lymphocytes % 16.6 %; Mean Corpuscular HGB Conc 30.8 g/dL (30.0-36.0); Mean Corpuscular Hemoglobin 21.1 pg (28.0-34.0); Mean Corpuscular Volume 68.6 fL (80-94); Mean Platelet Volume 10.3 fL (7.4-10.4); Monocytes % 6.3 %; Neutrophils # 11.46 10^3/uL (1.8-7.7); Neutrophils % 74.3 %; Nucleated Red Blood Cells % 0 %; Platelet Count 328 10^3/cmm (130-400); Red Blood Count 5.82 10^6/uL (4.1-5.3); White Blood Count 15.5 10^3/uL (4.0-10.0)
[2020-09-06 07:23] LABS: Alanine Aminotransferase 67 U/L (0-41); Albumin Level 3.3 g/dL (3.5-5.2); Alkaline Phosphatase 118 IU/L (40-130); Anion Gap 16.6 (5-19); Aspartate Amino Transferase 22 U/L (0-40); Blood Urea Nitrogen 28 mg/dL (8-23); Calcium 8.8 mg/dL (8.5-10.5); Carbon Dioxide 26 mmol/L (22-29); Chloride 98 mmol/L (98-107); Globulin 3.5 g/dL (1.3-4.6); Glucose 94 mg/dL (65-115); Osmolality Calculated 289 mOsm/kg (285-295); Potassium 3.6 mmol/L (3.5-5.1); Sodium 137 mmol/L (136-145); Total Bilirubin 0.5 mg/dL (0.15-1.2); Total Protein 6.8 g/dL (6.6-8.7)
[2020-09-06] MEDS: sertraline 100 mg Tablet PO ×2 (08:24→21:44)
[2020-09-06] MEDS: pantoprazole DR 40 mg Tablet PO (08:25)
[2020-09-06] MEDS: metoprolol succinate ER (24 HR) 25 mg Tablet PO ×2 (08:25→21:44)
[2020-09-06] MEDS: FUROsemide 10 mg/mL SDV 2mL 20 MG IVP ×2 (08:25→17:52)
[2020-09-06] MEDS: atorvastatin 40 mg Tablet 20 MG PO (08:25)
[2020-09-06] MEDS: potassium chloride ER 20 mEq Tablet 40 MEQ PO (08:25)
[2020-09-06] MEDS: spironolactone 25 mg Tablet 12.5 MG PO ×2 (08:25→15:57)
--- NOTE | 2020-09-06 09:13 | PM.PN ---
Subjective Subjective: Interval history: Urine output 1750 mL yesterday with negative 865. Urine output charting questionable; remains length of stay +1.7 L. No events on telemetry. Intermittent PVCs noted. Medications: Reviewed: Yes Medication Review Details: Current Medications Acetaminophen (Acetaminophen 325 Mg Tablet) 650 mg PO Q6H PRN PRN Reason: MILD PAIN Albuterol Sulfate (Albuterol 2.5 Mg/0.5 Ml Neb) 2.5 mg INHALATION QID PRN PRN Reason: shortness of breath or wheezing Last Admin: 08/25/20 22:21 Dose: 2.5 mg Documented by: Albuterol/Ipratropium (Ipratropium-Albuterol 3 Ml Neb) 3 ml INHALATION Q6H.RESPIRATORY [facility] Last Admin: 09/06/20 03:19 Dose: 3 ml Documented by: Atorvastatin Calcium (Atorvastatin 40 Mg Tablet) 20 mg PO DAILY@0900 [facility] Last Admin: 09/06/20 08:25 Dose: 20 mg Documented by: Furosemide (Furosemide 10 Mg/Ml Sdv 2ml) 20 mg IVP BID [facility] Last Admin: 09/06/20 08:25 Dose: 20 mg Documented by: Heparin Sodium (Beef Lung) (Heparin 5,000 Unit/Ml Inj 1 Ml) 5,000 unit SUBCUT Q8H [facility] Last Admin: 09/06/20 05:04 Dose: 5,000 unit Documented by: Hydroxyzine Pamoate (Hydroxyzine 25 Mg Capsule) 25 mg PO Q8H PRN PRN Reason: ANXIETY Last Admin: 09/02/20 08:43 Dose: 25 mg Documented by: Dexmedetomidine HCl 400 mcg/ (Sodium Chloride) 104 mls @ 0 mls/hr IV .Q0M [facility]; Protocol Last Titration: 09/04/20 18:20 Dose: Infused Documented by: Lanolin (Lanolin Oint 7 Gm) 1 applic TOPICAL PRN PRN PRN Reason: DRYNESS Last Admin: 08/29/20 10:08 Dose: 1 applic Documented by: Methylprednisolone Sodium Succinate (Methylprednisolone Sod Succ 40 Mg/Ml Inj) 40 mg IVP DAILY [facility] Last Admin: 09/06/20 08:25 Dose: 40 mg Documented by: Metoprolol Succinate (Metoprolol Succinate Er (24 Hr) 25 Mg Tablet) 25 mg PO Q12H [facility] Last Admin: 09/06/20 08:25 Dose: 25 mg Documented by: Ondansetron HCl (Ondansetron 2 Mg/Ml Sdv 2 Ml) 4 mg IVP Q6H PRN PRN Reason: NAUSEA AND VOMITING Ondansetron HCl (Ondansetron 2 Mg/Ml Sdv 2 Ml) 4 mg IVP Q6H PRN PRN Reason: NAUSEA AND VOMITING Pantoprazole Sodium (Pantoprazole Dr 40 Mg Tablet) 40 mg PO DAILY [facility] Last Admin: 09/06/20 08:25 Dose: 40 mg Documented by: Potassium Chloride (Potassium Chloride Er 20 Meq Tablet) 40 meq PO DAILY [facility] Last Admin: 09/06/20 08:25 Dose: 40 meq Documented by: Fluticasone/Salmeterol (Fluticasone-Salmeterol 250-50 Diskus) 1 puff INHALATION BID.RESPIRATORY [facility] Last Admin: 09/05/20 21:20 Dose: 1 puff Documented by: Sertraline HCl (Sertraline 100 Mg Tablet) 100 mg PO BID@0900,2100 [facility] Last Admin: 09/06/20 08:24 Dose: 100 mg Documented by: Sodium Chloride (Saline Nasal [place] 44ml Btl) 1 spray NASAL PRN PRN PRN Reason: DRYNESS Spironolactone (Spironolactone 25 Mg Tablet) 12.5 mg PO DAILY [facility] Last Admin: 09/06/20 08:25 Dose: 12.5 mg Documented by: Vitals/I&O/Wt Last Vital Signs Temp 98.7 F 09/06/20 07:14 Pulse 82 09/06/20 07:14 Resp 22 H 09/06/20 07:14 BP 148/82 09/06/20 07:14 Pulse Ox 98 09/06/20 07:14 09/05/20 09/06/20 09/06/20 22:59 06:59 14:59 Intake Total 240 / 885 360 / 360 Output Total 125 / 1525 225 / 1750 Balance 115 / -640 -225 / -865 360 / 360 Weight last 48 hrs Weight 106 lb 2 oz Weight 107 lb 8 oz Physical Exam Narrative: EXAM NARRATIVE: GENERAL: Frail-almost cachectic appearing man sitting in bed. He is currently on O2 by nasal cannula HEENT: Pupils equal round reactive to light. No pallor and no icterus. NECK: JVD, No carotid bruit. CARDIOVASCULAR SYSTEM: S1-S2 regular. No S3 or S4 present. Grade 3/6 systolic murmur left lower sternal border and apex. No Rubs or gallops appreciated RESPIRATORY SYSTEM: coarse breath sounds with diffuse rhonchi, No wheezing heard. ABDOMEN: Soft, nontender and nondistended. Normal bowel sounds present. EXTREMITIES: No cyanosis or clubbing. No edema. warm to touch COSMETIC SALES CONSULTANT: Patient is alert oriented ?3. No focal neurological deficits. SKIN: Normal turgor and temperature. No breakdown, rash or nail changes PSYCH: Normal insight and judgment. Urinary Catheter Management^: Laureano: Cath Placed During This Visit: yes, but has since been removed by the nurse Reason for Continuing Indwelling Catheter: Accurate Measurement of Urinary Output in Critically Ill Patients Urinary Catheter Date of Insertion: 08/29/20 Urinary Catheter Time of Insertion: 12:30 Date Urinary Catheter Removed: 09/01/20 Data : 09/06/20 04:39 09/06/20 04:39 Micro: Microbiology 09/02/20 13:39 Gram Stain - Final Pleural Fluid Anaerobic Culture - Preliminary Body Fluid Culture - Final A&P Assessment and plan (1) Acute and chronic respiratory failure with hypoxia: Status: Acute (2) CHF (NYHA class III, ACC/AHA stage C): Newly diagnosed cardiomyopathy with drop in congestive heart failure as compared to prior echo in 2018. -Patient would eventually need ischemic work-up. However presently with pending diagnosis of lung cancer and respiratory failure with high oxygen requirement, I will continue to manage medically for now. Decision for further testing based on clinical progression. -Patient also has pending CT-guided biopsy versus EBUS and biopsy; I do not think doing a coronary angiogram at this point is prudent. -I think best way to go at this point would be doing a stress test and proceed for coronary angiogram only if there is significant ischemia. -I had a long discussion with the patient regarding timing of the stress test and he would like to defer it as an outpatient. He remains chest pain-free. -Currently on lasix 20 mg IV BID and increase Aldactone to 25 mg daily, add losartan tomorrow. -continue metoprolol succinate. -I also had a long discussion with the patient regarding LifeVest the pros and cons as well as need for compliance if he agrees to it. Patient seems to be positively inclined towards it but will probably make the decision tomorrow. Status: Acute (3) Pleural effusion on right: S/p right thoracentesis x2 Status: Acute Additional A&P Information Moderately severe eccentric persistently directed mitral valve regurgitation Mild to moderate aortic and tricuspid valve regurgitation lung mass suspicious of non-small cell cancer ; repeat CT-guided lung biopsy pending COPD Peripheral arterial disease microcytic anemia Leukocytosis Hyponatremia: Resolved Hypokalemia: Replaced Elevated ALT History esophageal reflux disease Anxiety/depression Thank you for allowing me to participate in patient's care. Please feel free to call with questions or concerns. Attestations Medical Necessity Statement*: Needs hospital stay for respiratory failure and CHF Time Spent in Patient Care: 16 - 35 minutes (>than 50% of time spent in counselling and/or direct pt care on unit). Coding Level of Care Code Acute Drafting Teacher for Eric Donohue Diagnoses Acute and chronic respiratory failure with hypoxia J96.21 CHF (NYHA class III, ACC/AHA stage C) I50.9 Pleural effusion on right J90
--- NOTE | 2020-09-06 10:52 | PC.CHAP ---
Pastoral Care Encounter/Spiritual Assessment Type of Contact [] Declined careers counsellor visit [] Patient/Family/Request visit [] Outpatient visit [XX] Follow-up visit [] Physician referral [] Code/Alert [] Routine visit [] Staff referral [] Actively dying [] Patient sleeping [] Family support [] [] Out of room [] Palliative care [] [] Receiving care in room [] Pre-surgical visit [] Trauma [XX] Long length of stay [] ICU visit [] Other: Relational/Emotional Strength [XX] Patient feels connected with others/family/visitors/staff [] Distress [] Loneliness/isolation [] Abandonment Spirituality of Patient [] Person of Natividad [] Attends Latter Day of their Nativid[place] [] Believes in Prayer [] Reads Bible or Judaism materials [] There are Spiritual issues to be addressed Transcribing Machine Mechanic Interventions [] Prayer [XX] Active listening [XX] Non-anxious presence [] Spiritual/emotional support [] Crisis/trauma care [] Spiritual counseling [] Bereavement support [] Provided bereavement packet [] Provided Bible/devotional materials [] Provided toy/stuffed animal, coloring book to patient or family member [] Provided Communion [] Anointing/[place] [] Salvation [XX] Completed spiritual assessment [] Other: Impact on Illness or Injury [] Angry [] Fearful [] Anxious [] Often cries [] Exhaustion [] Unable to work [] Unable to attend adventist [] Unable to walk/stand [] Unable to read [] Unable to drive [] Unable to eat/drink [] Unable to sleep [] Unable to be with family [] Patient intubated [] Other: Summary: Pt in good spirits. He has been hospitalized with various respiratory issues for three weeks (per pt). He is grateful to be better and there is talk of discharge soon (not necessarily today). He has rec'd visits from his . Pt reports no additional emotional or spiritual needs, including prayer. Time spent with patient: 5-7 mins
--- NOTE | 2020-09-06 16:10 | P.PN_ITS ---
Subjective Subjective: Interval history: Patient was examined this morning, he tells me he wants to go home to his , he does not want to go to custodial, tells me that his breathing has improved, no fevers, chills, nausea, vomiting Medications: Reviewed: Yes Medication Review Details: Current Medications Acetaminophen (Acetaminophen 325 Mg Tablet) 650 mg PO Q6H PRN PRN Reason: MILD PAIN Albuterol Sulfate (Albuterol 2.5 Mg/0.5 Ml Neb) 2.5 mg INHALATION QID PRN PRN Reason: shortness of breath or wheezing Last Admin: 08/25/20 22:21 Dose: 2.5 mg Documented by: Albuterol/Ipratropium (Ipratropium-Albuterol 3 Ml Neb) 3 ml INHALATION Q6H.RESPIRATORY [facility] Last Admin: 09/06/20 03:19 Dose: 3 ml Documented by: Atorvastatin Calcium (Atorvastatin 40 Mg Tablet) 20 mg PO DAILY@0900 [facility] Last Admin: 09/06/20 08:25 Dose: 20 mg Documented by: Furosemide (Furosemide 10 Mg/Ml Sdv 2ml) 20 mg IVP BID [facility] Last Admin: 09/06/20 08:25 Dose: 20 mg Documented by: Heparin Sodium (Beef Lung) (Heparin 5,000 Unit/Ml Inj 1 Ml) 5,000 unit SUBCUT Q8H [facility] Last Admin: 09/06/20 05:04 Dose: 5,000 unit Documented by: Hydroxyzine Pamoate (Hydroxyzine 25 Mg Capsule) 25 mg PO Q8H PRN PRN Reason: ANXIETY Last Admin: 09/02/20 08:43 Dose: 25 mg Documented by: Dexmedetomidine HCl 400 mcg/ (Sodium Chloride) 104 mls @ 0 mls/hr IV .Q0M [facility]; Protocol Last Titration: 09/04/20 18:20 Dose: Infused Documented by: Lanolin (Lanolin Oint 7 Gm) 1 applic TOPICAL PRN PRN PRN Reason: DRYNESS Last Admin: 08/29/20 10:08 Dose: 1 applic Documented by: Methylprednisolone Sodium Succinate (Methylprednisolone Sod Succ 40 Mg/Ml Inj) 40 mg IVP DAILY [facility] [place] Last Admin: 09/06/20 08:25 Dose: 40 mg Documented by: Metoprolol Succinate (Metoprolol Succinate Er (24 Hr) 25 Mg Tablet) 25 mg PO Q12H [facility] [place] Last Admin: 09/06/20 08:25 Dose: 25 mg Documented by: Ondansetron HCl (Ondansetron 2 Mg/Ml Sdv 2 Ml) 4 mg IVP Q6H PRN PRN Reason: NAUSEA AND VOMITING Ondansetron HCl (Ondansetron 2 Mg/Ml Sdv 2 Ml) 4 mg IVP Q6H PRN PRN Reason: NAUSEA AND VOMITING Pantoprazole Sodium (Pantoprazole Dr 40 Mg Tablet) 40 mg PO DAILY [facility] [place] Last Admin: 09/06/20 08:25 Dose: 40 mg Documented by: Potassium Chloride (Potassium Chloride Er 20 Meq Tablet) 40 meq PO DAILY [facility] [place] Last Admin: 09/06/20 08:25 Dose: 40 meq Documented by: Fluticasone/Salmeterol (Fluticasone-Salmeterol 250-50 Diskus) 1 puff INHALATION BID.RESPIRATORY [facility] [place] Last Admin: 09/05/20 21:20 Dose: 1 puff Documented by: Sertraline HCl (Sertraline 100 Mg Tablet) 100 mg PO BID@0900,2100 [facility] [place] Last Admin: 09/06/20 08:24 Dose: 100 mg Documented by: Sodium Chloride (Saline Nasal [place] 44ml Btl) 1 spray NASAL PRN PRN PRN Reason: DRYNESS Spironolactone (Spironolactone 25 Mg Tablet) 12.5 mg PO DAILY [facility] Last Admin: 09/06/20 08:25 Dose: 12.5 mg Documented by: Vitals/I&O/Wt Last Vital Signs Temp 97.6 F 09/06/20 10:36 Pulse 101 H 09/06/20 14:57 Resp 18 09/06/20 14:53 BP 130/71 09/06/20 14:52 Pulse Ox 95 09/06/20 14:53 09/06/20 09/06/20 09/06/20 06:59 14:59 22:59 Intake Total 720 / 720 Output Total 225 / 1750 250 / 250 Balance -225 / -865 470 / 470 Weight last 48 hrs Weight 48.137 kg Weight 48.761 kg Physical Exam Const: COMMON NORMALS: no acute distress and patient oriented x3 HENMT: COMMON NORMALS: normocephalic HEAD & SCALP: normocephalic Neck/C-Spine: COMMON NORMALS: no JVD Resp: COMMON NORMALS: normal respiratory effort, No retractions and No use of accessory muscles AUSCULTATION: wheezes Cardio: COMMON NORMALS: no JVD, regular rate, regular rhythm, S1 normal heart sound present and S2 normal heart sound present RATE: regular rate RHYTHM: regular rhythm HEART SOUNDS: S1 normal heart sound present and S2 normal heart sound present GI: COMMON NORMALS: Normal to inspection, nondistended, normoactive bowel sounds present, Soft to palpation, non-tender, No hepatosplenomegaly present, no masses and no bruits PALPATION: Yes Soft to palpation and Yes No hepatosplenomegaly present Extremity: COMMON NORMALS: capillary refill normal, no clubbing, cyanosis or edema, no calf tenderness and no pedal edema Neuro: COMMON NORMALS: patient oriented x3 Psych: COMMON NORMALS: mental status grossly normal Urinary Catheter Management^: Laureano: Cath Placed During This Visit: yes, but has since been removed by the nurse Reason for Continuing Indwelling Catheter: Accurate Measurement of Urinary Output in Critically Ill Patients Urinary Catheter Date of Insertion: 08/29/20 Urinary Catheter Time of Insertion: 12:30 Date Urinary Catheter Removed: 09/01/20 Data : 09/06/20 04:39 09/06/20 04:39 Micro: Microbiology 09/02/20 13:39 Gram Stain - Final Pleural Fluid Anaerobic Culture - Preliminary Body Fluid Culture - Final A&P Assessment and plan (1) COPD exacerbation: Status: Acute (2) HCAP (healthcare-associated pneumonia): Status: Acute Acute on chronic hypoxemic respiratory failure - Due to lung mass with copd exacerbation vs newly dx systolic heart failure exacerbation - Continue duoneb q6hr scheduled - Solu-medrol for 48 hours, transition to prednisone - Wean o2 as tolearted - Home o2 eval at discharge. - Will need outpatient follow up with pulmonary Large right sided pleural effusion - S/p thoracentesis x 2 - Fluid analysis - transudative - Cytology sent -negative for malignancy Newly diagnosed systolic heart failure exacerbation - On diuretics - Lasix 20 mg IV BID - Aldactone /Metoprolol xl added, possible - Potassium replaced - Possibly need of ischemic work up outpatient - Cardiology on board - Monitor daily weight - Strict input and output recording Lung mass suspected non-small cell carcinoma - Insufficient tissue sampling at [facility] - Repeat CT guided lung biopsy ordered - pending - D/w Oncology - will consult once tissue diagnosis obtained - outpatient work up Additional medical problems Peripheral arterial disease Gastroesophageal reflux disease Anxiety Depression hx of Tobacco abuse DVT ppx - heparin Additional A&P Information For today continue Lasix, follow cardiology recommendations, pulmonary recommendation, likely discharge on Tuesday to home health care versus custodial Attestations Medical Necessity Statement*: Patient requires hospitalization for CHF exacerbation, COPD, lung mass, Coding Level of Care Code Acute Home Energy Rater for [facility] Fwd Diagnoses COPD exacerbation J44.1 HCAP (healthcare-associated pneumonia) J18.9
[2020-09-07] VITALS (16 sets, daily range): BP systolic 92–140; BP diastolic 58–85; PULSE 87–108; RESP 12–23; TEMP 36.1–36.7; O2SAT 92–97
[2020-09-07] MEDS: ipratropium-albuterol 3 mL Neb INHALATION ×4 (02:08→19:47)
[2020-09-07 05:11] LABS: Basophils % 0.2 %; Eosinophils # 0.4 10^3/uL (0.0-0.8); Eosinophils % 2.8 %; Hematocrit 40.8 % (42.0-52.0); Hemoglobin 12.5 g/dL (11.7-16.6); Lymphocytes # 2.6 10^3/uL (0.8-4.8); Lymphocytes % 16.5 %; Mean Corpuscular HGB Conc 30.6 g/dL (30.0-36.0); Mean Corpuscular Volume 68.6 fL (80-94); Mean Platelet Volume 10.1 fL (7.4-10.4); Monocytes % 6.5 %; Neutrophils # 11.36 10^3/uL (1.8-7.7); Neutrophils % 73.4 %; Nucleated Red Blood Cells % 0 %; Platelet Count 329 10^3/cmm (130-400); Red Blood Count 5.95 10^6/uL (4.1-5.3); White Blood Count 15.5 10^3/uL (4.0-10.0)
[2020-09-07 05:28] LABS: Alanine Aminotransferase 58 U/L (0-41); Albumin Level 3.2 g/dL (3.5-5.2); Alkaline Phosphatase 105 IU/L (40-130); Anion Gap 14.7 (5-19); Aspartate Amino Transferase 21 U/L (0-40); Blood Urea Nitrogen 32 mg/dL (8-23); Calcium 9.2 mg/dL (8.5-10.5); Carbon Dioxide 27 mmol/L (22-29); Chloride 101 mmol/L (98-107); Globulin 3.7 g/dL (1.3-4.6); Glucose 109 mg/dL (65-115); Magnesium 1.7 mg/dL (1.7-2.3); Osmolality Calculated 295 mOsm/kg (285-295); Phosphorus 4.4 mg/dL (2.5-4.5); Potassium 3.7 mmol/L (3.5-5.1); Sodium 139 mmol/L (136-145); Total Bilirubin 0.4 mg/dL (0.15-1.2); Total Protein 6.9 g/dL (6.6-8.7)
[2020-09-07] MEDS: hyDROXYzine 25 mg Capsule PO (05:35)
[2020-09-07] MEDS: heparin 5,000 unit/mL INJ 1 mL 5000 UNIT SUBCUT ×3 (05:35→21:22)
[2020-09-07] MEDS: FUROsemide 10 mg/mL SDV 2mL 20 MG IVP ×2 (08:06→17:18)
[2020-09-07] MEDS: atorvastatin 40 mg Tablet 20 MG PO (08:08)
[2020-09-07] MEDS: metoprolol succinate ER (24 HR) 25 mg Tablet PO ×2 (08:09→21:22)
[2020-09-07] MEDS: pantoprazole DR 40 mg Tablet PO (08:09)
[2020-09-07] MEDS: losartan 50 mg Tablet 25 MG PO (08:09)
--- NOTE | 2020-09-07 08:09 | P.PN_ITS ---
Subjective Subjective: Interval history: UO 800 ml, denies any complaints. He is currently on oxygen 5 L via nasal cannula Medications: Reviewed: Yes Medication Review Details: Current Medications Acetaminophen (Acetaminophen 325 Mg Tablet) 650 mg PO Q6H PRN PRN Reason: MILD PAIN Albuterol Sulfate (Albuterol 2.5 Mg/0.5 Ml Neb) 2.5 mg INHALATION QID PRN PRN Reason: shortness of breath or wheezing Last Admin: 08/25/20 22:21 Dose: 2.5 mg Documented by: Albuterol/Ipratropium (Ipratropium-Albuterol 3 Ml Neb) 3 ml INHALATION Q6H.RESPIRATORY [facility] Last Admin: 09/07/20 02:08 Dose: 3 ml Documented by: Atorvastatin Calcium (Atorvastatin 40 Mg Tablet) 20 mg PO DAILY@0900 [facility] Last Admin: 09/06/20 08:25 Dose: 20 mg Documented by: Furosemide (Furosemide 10 Mg/Ml Sdv 2ml) 20 mg IVP BID [facility] Last Admin: 09/06/20 17:52 Dose: 20 mg Documented by: Heparin Sodium (Beef Lung) (Heparin 5,000 Unit/Ml Inj 1 Ml) 5,000 unit SUBCUT Q8H [facility] Last Admin: 09/07/20 05:35 Dose: 5,000 unit Documented by: Hydroxyzine Pamoate (Hydroxyzine 25 Mg Capsule) 25 mg PO Q8H PRN PRN Reason: ANXIETY Last Admin: 09/07/20 05:35 Dose: 25 mg Documented by: Lanolin (Lanolin Oint 7 Gm) 1 applic TOPICAL PRN PRN PRN Reason: DRYNESS Last Admin: 08/29/20 10:08 Dose: 1 applic Documented by: Losartan Potassium (Losartan 50 Mg Tablet) 25 mg PO DAILY [facility] Methylprednisolone Sodium Succinate (Methylprednisolone Sod Succ 40 Mg/Ml Inj) 40 mg IVP DAILY [facility] Last Admin: 09/06/20 08:25 Dose: 40 mg Documented by: Metoprolol Succinate (Metoprolol Succinate Er (24 Hr) 25 Mg Tablet) 25 mg PO Q12H [facility] Last Admin: 09/06/20 21:44 Dose: 25 mg Documented by: Ondansetron HCl (Ondansetron 2 Mg/Ml Sdv 2 Ml) 4 mg IVP Q6H PRN PRN Reason: NAUSEA AND VOMITING Ondansetron HCl (Ondansetron 2 Mg/Ml Sdv 2 Ml) 4 mg IVP Q6H PRN PRN Reason: NAUSEA AND VOMITING Pantoprazole Sodium (Pantoprazole Dr 40 Mg Tablet) 40 mg PO DAILY [facility] Last Admin: 09/06/20 08:25 Dose: 40 mg Documented by: Potassium Chloride (Potassium Chloride Er 20 Meq Tablet) 20 meq PO DAILY [facility] Fluticasone/Salmeterol (Fluticasone-Salmeterol 250-50 Diskus) 1 puff INHALATION BID.RESPIRATORY [facility] Last Admin: 09/07/20 02:08 Dose: Not Given Documented by: Sertraline HCl (Sertraline 100 Mg Tablet) 100 mg PO BID@0900,2100 [facility] Last Admin: 09/06/20 21:44 Dose: 100 mg Documented by: Sodium Chloride (Saline Nasal [place] 44ml Btl) 1 spray NASAL PRN PRN PRN Reason: DRYNESS Spironolactone (Spironolactone 25 Mg Tablet) 25 mg PO DAILY [facility] Vitals/I&O/Wt Last Vital Signs Temp 98.1 F 09/06/20 19:17 Pulse 97 09/07/20 06:00 Resp 12 09/07/20 04:00 BP 132/84 09/07/20 04:00 Pulse Ox 94 09/07/20 04:00 09/06/20 09/07/20 09/07/20 22:59 06:59 14:59 Intake Total 240 / 960 500 / 1460 Output Total 400 / 650 150 / 800 Balance -160 / 310 350 / 660 Weight last 48 hrs Weight 106 lb 4.8 oz Weight 106 lb 2 oz Physical Exam 2 Narrative: EXAM NARRATIVE: GENERAL: Frail-almost cachectic appearing man sitting in bed. He is currently on O2 by nasal cannula HEENT: Pupils equal round reactive to light. No pallor and no icterus. NECK: JVD, No carotid bruit. CARDIOVASCULAR SYSTEM: S1-S2 regular. No S3 or S4 present. Grade 3/6 systolic murmur left lower sternal border and apex. No Rubs or gallops appreciated RESPIRATORY SYSTEM: coarse breath sounds with diffuse rhonchi, No wheezing heard. ABDOMEN: Soft, nontender and nondistended. Normal bowel sounds present. EXTREMITIES: No cyanosis or clubbing. No edema. warm to touch OPERATING ROOM SURGICAL TECHNOLOGIST: Patient is alert oriented ?3. No focal neurological deficits. SKIN: Normal turgor and temperature. No breakdown, rash or nail changes PSYCH: Normal insight and judgment. Urinary Catheter Management^: Laureano: Cath Placed During This Visit: yes, but has since been removed by the nurse Reason for Continuing Indwelling Catheter: Accurate Measurement of Urinary Output in Critically Ill Patients Urinary Catheter Date of Insertion: 08/29/20 Urinary Catheter Time of Insertion: 12:30 Date Urinary Catheter Removed: 09/01/20 Data : 09/07/20 04:25 09/07/20 04:25 Micro: Microbiology 09/02/20 13:39 Gram Stain - Final Pleural Fluid Anaerobic Culture - Preliminary Body Fluid Culture - Final A&P Assessment and plan (1) Acute and chronic respiratory failure with hypoxia: Currently on 5 L of oxygen via nasal cannula. Status: Acute (2) CHF (NYHA class III, ACC/AHA stage C): Newly diagnosed cardiomyopathy with drop in congestive heart failure as compared to prior echo in 2018. -Patient would eventually need ischemic work-up. However presently with pending diagnosis of lung cancer and respiratory failure with high oxygen requirement, I will continue to manage medically for now. Decision for further testing based on clinical progression. -Patient also has pending CT-guided biopsy versus EBUS and biopsy; I do not think doing a coronary angiogram at this point is prudent. -I think best way to go at this point would be doing a stress test and proceed for coronary angiogram only if there is significant ischemia. -I had a long discussion with the patient regarding timing of the stress test and he would like to defer it as an outpatient. He remains chest pain-free. -Currently on lasix 20 mg IV BID and increase Aldactone to 25 mg daily, continue losartan. Possibly transition to p.o. Lasix tomorrow. -continue metoprolol succinate. -I also had a long discussion with the patient regarding LifeVest the pros and cons as well as need for compliance if he agrees to it. Patient seems to be positively inclined towards it but will probably make the decision tomorrow. Patient expresses his desire to be on life vest but would like to defer further ischemic testing as an outpatient. I will try to convince him to get his stress testing before he leaves in a day or 2. Status: Acute (3) Pleural effusion on right: S/p right thoracentesis x2 Status: Acute Additional A&P Information Moderately severe eccentric persistently directed mitral valve regurgitation Mild to moderate aortic and tricuspid valve regurgitation lung mass suspicious of non-small cell cancer ; repeat CT-guided lung biopsy pending COPD Peripheral arterial disease microcytic anemia Leukocytosis Hyponatremia: Resolved Hypokalemia: Replaced Elevated ALT History esophageal reflux disease Anxiety/depression Thank you for allowing me to participate in patient's care. Please feel free to call with questions or concerns. Attestations Medical Necessity Statement*: Needs hospital stay for respiratory failure and CHF Time Spent in Patient Care: 16 - 35 minutes (>than 50% of time spent in counselling and/or direct pt care on unit) . Coding Level of Care Code Acute Machine Pecan Picker for Eric Donohue Diagnoses Acute and chronic respiratory failure with hypoxia J96.21 CHF (NYHA class III, ACC/AHA stage C) I50.9 Pleural effusion on right J90
[2020-09-07] MEDS: potassium chloride ER 20 mEq Tablet PO (08:10)
[2020-09-07] MEDS: spironolactone 25 mg Tablet PO (08:10)
[2020-09-07] MEDS: sertraline 100 mg Tablet PO ×2 (08:12→21:22)
--- NOTE | 2020-09-07 12:36 | P.PN_ITS ---
Subjective Subjective: Interval history: Patient was examined this morning, he reports poor appetite, feels weak, still a bit short of breath with exertion, is on 5 L, he is adamant about going home with home health care, does not want to go to a assisted, Medications: Reviewed: Yes Medication Review Details: Current Medications Acetaminophen (Acetaminophen 325 Mg Tablet) 650 mg PO Q6H PRN PRN Reason: MILD PAIN Albuterol Sulfate (Albuterol 2.5 Mg/0.5 Ml Neb) 2.5 mg INHALATION QID PRN PRN Reason: shortness of breath or wheezing Last Admin: 08/25/20 22:21 Dose: 2.5 mg Documented by: Albuterol/Ipratropium (Ipratropium-Albuterol 3 Ml Neb) 3 ml INHALATION Q6H.RESPIRATORY [facility] Last Admin: 09/07/20 02:08 Dose: 3 ml Documented by: Atorvastatin Calcium (Atorvastatin 40 Mg Tablet) 20 mg PO DAILY@0900 [facility] Last Admin: 09/06/20 08:25 Dose: 20 mg Documented by: Furosemide (Furosemide 10 Mg/Ml Sdv 2ml) 20 mg IVP BID [facility] Last Admin: 09/06/20 17:52 Dose: 20 mg Documented by: Heparin Sodium (Beef Lung) (Heparin 5,000 Unit/Ml Inj 1 Ml) 5,000 unit SUBCUT Q8H [facility] Last Admin: 09/07/20 05:35 Dose: 5,000 unit Documented by: Hydroxyzine Pamoate (Hydroxyzine 25 Mg Capsule) 25 mg PO Q8H PRN PRN Reason: ANXIETY Last Admin: 09/07/20 05:35 Dose: 25 mg Documented by: Lanolin (Lanolin Oint 7 Gm) 1 applic TOPICAL PRN PRN PRN Reason: DRYNESS Last Admin: 08/29/20 10:08 Dose: 1 applic Documented by: Losartan Potassium (Losartan 50 Mg Tablet) 25 mg PO DAILY [facility] Methylprednisolone Sodium Succinate (Methylprednisolone Sod Succ 40 Mg/Ml Inj) 40 mg IVP DAILY [facility] Last Admin: 09/06/20 08:25 Dose: 40 mg Documented by: Metoprolol Succinate (Metoprolol Succinate Er (24 Hr) 25 Mg Tablet) 25 mg PO Q12H [facility] Last Admin: 09/06/20 21:44 Dose: 25 mg Documented by: Ondansetron HCl (Ondansetron 2 Mg/Ml Sdv 2 Ml) 4 mg IVP Q6H PRN PRN Reason: NAUSEA AND VOMITING Ondansetron HCl (Ondansetron 2 Mg/Ml Sdv 2 Ml) 4 mg IVP Q6H PRN PRN Reason: NAUSEA AND VOMITING Pantoprazole Sodium (Pantoprazole Dr 40 Mg Tablet) 40 mg PO DAILY [facility] Last Admin: 09/06/20 08:25 Dose: 40 mg Documented by: Potassium Chloride (Potassium Chloride Er 20 Meq Tablet) 20 meq PO DAILY [facility] Fluticasone/Salmeterol (Fluticasone-Salmeterol 250-50 Diskus) 1 puff INHALATION BID.RESPIRATORY [facility] Last Admin: 09/07/20 02:08 Dose: Not Given Documented by: Sertraline HCl (Sertraline 100 Mg Tablet) 100 mg PO BID@0900,2100 [facility] Last Admin: 09/06/20 21:44 Dose: 100 mg Documented by: Sodium Chloride (Saline Nasal [place] 44ml Btl) 1 spray NASAL PRN PRN PRN Reason: DRYNESS Spironolactone (Spironolactone 25 Mg Tablet) 25 mg PO DAILY [facility] Vitals/I&O/Wt Last Vital Signs Temp 98.0 F 09/07/20 08:00 Pulse 91 09/07/20 09:32 Resp 20 H 09/07/20 09:22 BP 131/85 09/07/20 08:09 Pulse Ox 95 09/07/20 09:22 09/06/20 09/07/20 09/07/20 22:59 06:59 14:59 Intake Total 240 / 960 500 / 1460 360 / 360 Output Total 400 / 650 150 / 800 Balance -160 / 310 350 / 660 360 / 360 Weight last 48 hrs Weight 48.217 kg Weight 48.137 kg Physical Exam Const: COMMON NORMALS: patient oriented x3 GENERAL APPEARANCE: frail appearing NUTRITIONAL APPEARANCE: cachectic HENMT: COMMON NORMALS: normocephalic HEAD & SCALP: normocephalic Neck/C-Spine: COMMON NORMALS: no JVD Resp: COMMON NORMALS: normal respiratory effort, No retractions and No use of accessory muscles AUSCULTATION: crackles and wheezes Cardio: COMMON NORMALS: no JVD, regular rate, regular rhythm, S1 normal heart sound present and S2 normal heart sound present RATE: regular rate RHYTHM: regular rhythm HEART SOUNDS: S1 normal heart sound present and S2 normal heart sound present GI: COMMON NORMALS: Normal to inspection, nondistended, normoactive bowel sounds present, Soft to palpation, non-tender, No hepatosplenomegaly present, no masses and no bruits PALPATION: Yes Soft to palpation and Yes No hepatosplenomegaly present Extremity: COMMON NORMALS: capillary refill normal, no clubbing, cyanosis or edema, no calf tenderness and no pedal edema Neuro: COMMON NORMALS: patient oriented x3 Psych: COMMON NORMALS: mental status grossly normal Urinary Catheter Management^: Laureano: Cath Placed During This Visit: yes, but has since been removed by the nurse Reason for Continuing Indwelling Catheter: Accurate Measurement of Urinary Output in Critically Ill Patients Urinary Catheter Date of Insertion: 08/29/20 Urinary Catheter Time of Insertion: 12:30 Date Urinary Catheter Removed: 09/01/20 Data : 09/07/20 04:25 09/07/20 04:25 Micro: Microbiology 09/02/20 13:39 Gram Stain - Final Pleural Fluid Anaerobic Culture - Preliminary Body Fluid Culture - Final A&P Assessment and plan (1) COPD exacerbation: Status: Acute (2) HCAP (healthcare-associated pneumonia): Status: Acute Acute on chronic hypoxemic respiratory failure - Due to lung mass with copd exacerbation vs newly dx systolic heart failure exacerbation - Continue duoneb q6hr scheduled - Solu-medrol for 48 hours, transition to prednisone upon discharge, will need Spiriva, Advair on discharge - Wean o2 as tolearted - Home o2 eval at discharge. - Will need outpatient follow up with pulmonary Large right sided pleural effusion - S/p thoracentesis x 2 - Fluid analysis - transudative - Cytology sent -negative for malignancy Newly diagnosed systolic heart failure exacerbation - On diuretics - Lasix 20 mg IV BID - Aldactone /Metoprolol xl added - Potassium replaced - Possibly need of ischemic work up outpatient - Cardiology on board - Monitor daily weight - Strict input and output recording Lung mass suspected non-small cell carcinoma - Insufficient tissue sampling at [place] - Repeat CT guided lung biopsy ordered - pending - D/w Oncology - will consult once tissue diagnosis obtained - outpatient work up Additional medical problems Peripheral arterial disease Gastroesophageal reflux disease Anxiety Depression hx of Tobacco abuse DVT ppx - heparin Additional A&P Information Continue get up out of bed, add Ensure drinks, follow cardiology's recommendations, likely discharge on Navjot with home health care Attestations Medical Necessity Statement*: Patient requires hospitalization for COPD, CHF, lung mass, deconditioning Coding Level of Care Code Acute Central Supply Aide for [facility] Fwd Diagnoses COPD exacerbation J44.1 HCAP (healthcare-associated pneumonia) J18.9
[2020-09-07 14:24] LABS: Oxygen Device HHF
[2020-09-08] VITALS (15 sets, daily range): BP systolic 104–145; BP diastolic 57–83; PULSE 49–110; RESP 12–24; TEMP 35.9–36.6; O2SAT 80–100
[2020-09-08] MEDS: ipratropium-albuterol 3 mL Neb INHALATION ×3 (02:02→14:48)
--- NOTE | 2020-09-08 03:09 | PC.NURSE ---
NURSE NOTE: PT ALERT AND ORIENTED X4. MOVES ALL EXTREMITIES AND FOLLOWS COMMANDS. DENIES PAIN THIS SHIFT. CURRENTLY RESTING WITH EYES CLOSED; RESP EVEN AND NON LABORED. ALL VS AND ASSESSMENTS CHARTED. NO DISTRESS NOTED AT THIS TIME. WILL CONTINUE TO MONITOR.
[2020-09-08] MEDS: heparin 5,000 unit/mL INJ 1 mL 5000 UNIT SUBCUT ×3 (05:16→20:59)
[2020-09-08 05:22] LABS: Basophils % 0.1 %; Eosinophils # 0.4 10^3/uL (0.0-0.8); Eosinophils % 2.8 %; Hematocrit 40.5 % (42.0-52.0); Hemoglobin 12.4 g/dL (11.7-16.6); Lymphocytes # 2.6 10^3/uL (0.8-4.8); Lymphocytes % 18.7 %; Mean Corpuscular HGB Conc 30.6 g/dL (30.0-36.0); Mean Corpuscular Hemoglobin 20.8 pg (28.0-34.0); Mean Corpuscular Volume 68.1 fL (80-94); Mean Platelet Volume 9.9 fL (7.4-10.4); Monocytes # 0.9 10^3/uL (0.2-0.9); Monocytes % 6.8 %; Neutrophils # 9.72 10^3/uL (1.8-7.7); Neutrophils % 71.1 %; Nucleated Red Blood Cells % 0 %; Platelet Count 299 10^3/cmm (130-400); Red Blood Count 5.95 10^6/uL (4.1-5.3); Red Cell Distribution Width 19.8 % (12.1-15.1); White Blood Count 13.7 10^3/uL (4.0-10.0)
[2020-09-08 05:45] LABS: Alanine Aminotransferase 54 U/L (0-41); Albumin Level 3.2 g/dL (3.5-5.2); Alkaline Phosphatase 93 IU/L (40-130); Anion Gap 14.7 (5-19); Aspartate Amino Transferase 30 U/L (0-40); Blood Urea Nitrogen 39 mg/dL (8-23); Calcium 9.3 mg/dL (8.5-10.5); Carbon Dioxide 27 mmol/L (22-29); Chloride 101 mmol/L (98-107); Globulin 3.4 g/dL (1.3-4.6); Glucose 116 mg/dL (65-115); Magnesium 1.8 mg/dL (1.7-2.3); Osmolality Calculated 298 mOsm/kg (285-295); Phosphorus 4.5 mg/dL (2.5-4.5); Potassium 3.7 mmol/L (3.5-5.1); Sodium 139 mmol/L (136-145); Total Bilirubin 0.5 mg/dL (0.15-1.2); Total Protein 6.6 g/dL (6.6-8.7)
--- NOTE | 2020-09-08 06:00 | XRR_ITS ---
PROCEDURE INFORMATION: Exam: XR Chest, 1 View Exam date and time: 09/08/2020 4:41 AM Age: 71 years old Clinical indication: Condition or disease; Lung condition and disease; Pleural effusion; Other: Not specified; Additional info: Pleural effusion, SOB TECHNIQUE: Imaging protocol: XR of the chest Views: 1 view. COMPARISON: CR XR chest 1V portable [id number] 09/02/2020 2:04 PM FINDINGS: Lungs: There is bilateral pulmonary emphysema with extensive bilateral interstitial pulmonary fibrosis. No new areas of airspace consolidation are seen. Pleural space: Unremarkable. No pleural effusion. No pneumothorax. Heart/Mediastinum: Unremarkable. No cardiomegaly. Bones/joints: Unremarkable. XR/XR chest 1V portable [id number] IMPRESSION: 1. Pulmonary emphysema and pulmonary fibrosis. 2. Decreasing small right subpulmonic effusion. 3. No new pulmonary infiltrates are seen.
--- NOTE | 2020-09-08 07:28 | PM.PN ---
Subjective Subjective: Interval history: He denies any complaints. UO 850 ml. Sinus tachycardia on tele. Medications: Reviewed: Yes Medication Review Details: Current Medications Acetaminophen (Acetaminophen 325 Mg Tablet) 650 mg PO Q6H PRN PRN Reason: MILD PAIN Albuterol Sulfate (Albuterol 2.5 Mg/0.5 Ml Neb) 2.5 mg INHALATION QID PRN PRN Reason: shortness of breath or wheezing Last Admin: 08/25/20 22:21 Dose: 2.5 mg Documented by: Albuterol/Ipratropium (Ipratropium-Albuterol 3 Ml Neb) 3 ml INHALATION Q6H.RESPIRATORY [facility] Last Admin: 09/08/20 02:02 Dose: 3 ml Documented by: Atorvastatin Calcium (Atorvastatin 40 Mg Tablet) 20 mg PO DAILY@0900 [facility] Last Admin: 09/07/20 08:08 Dose: 20 mg Documented by: Furosemide (Furosemide 10 Mg/Ml Sdv 2ml) 20 mg IVP BID [facility] Last Admin: 09/07/20 17:18 Dose: 20 mg Documented by: Heparin Sodium (Beef Lung) (Heparin 5,000 Unit/Ml Inj 1 Ml) 5,000 unit SUBCUT Q8H [facility] Last Admin: 09/08/20 05:16 Dose: 5,000 unit Documented by: Hydroxyzine Pamoate (Hydroxyzine 25 Mg Capsule) 25 mg PO Q8H PRN PRN Reason: ANXIETY Last Admin: 09/07/20 05:35 Dose: 25 mg Documented by: Lanolin (Lanolin Oint 7 Gm) 1 applic TOPICAL PRN PRN PRN Reason: DRYNESS Last Admin: 08/29/20 10:08 Dose: 1 applic Documented by: Losartan Potassium (Losartan 50 Mg Tablet) 25 mg PO DAILY [facility] Last Admin: 09/07/20 08:09 Dose: 25 mg Documented by: Methylprednisolone Sodium Succinate (Methylprednisolone Sod Succ 40 Mg/Ml Inj) 40 mg IVP DAILY [facility] Last Admin: 09/07/20 08:12 Dose: 40 mg Documented by: Metoprolol Succinate (Metoprolol Succinate Er (24 Hr) 25 Mg Tablet) 25 mg PO Q12H [facility] Last Admin: 09/07/20 21:22 Dose: 25 mg Documented by: Ondansetron HCl (Ondansetron 2 Mg/Ml Sdv 2 Ml) 4 mg IVP Q6H PRN PRN Reason: NAUSEA AND VOMITING Ondansetron HCl (Ondansetron 2 Mg/Ml Sdv 2 Ml) 4 mg IVP Q6H PRN PRN Reason: NAUSEA AND VOMITING Pantoprazole Sodium (Pantoprazole Dr 40 Mg Tablet) 40 mg PO DAILY [facility] Last Admin: 09/07/20 08:09 Dose: 40 mg Documented by: Potassium Chloride (Potassium Chloride Er 20 Meq Tablet) 20 meq PO DAILY [facility] Last Admin: 09/07/20 08:10 Dose: 20 meq Documented by: Fluticasone/Salmeterol (Fluticasone-Salmeterol 250-50 Diskus) 1 puff INHALATION BID.RESPIRATORY [facility] Last Admin: 09/07/20 19:47 Dose: 1 puff Documented by: Sertraline HCl (Sertraline 100 Mg Tablet) 100 mg PO BID@0900,2100 [facility] Last Admin: 09/07/20 21:22 Dose: 100 mg Documented by: Sodium Chloride (Saline Nasal [place] 44ml Btl) 1 spray NASAL PRN PRN PRN Reason: DRYNESS Spironolactone (Spironolactone 25 Mg Tablet) 25 mg PO DAILY [facility] Last Admin: 09/07/20 08:10 Dose: 25 mg Documented by: Vitals/I&O/Wt Last Vital Signs Temp 98 F 09/08/20 00:00 Pulse 49 L 09/08/20 06:00 Resp 23 H 09/08/20 04:42 BP 143/77 09/08/20 04:42 Pulse Ox 94 09/08/20 04:42 09/07/20 09/08/20 09/08/20 22:59 06:59 14:59 Intake Total 360 / 960 Output Total 500 / 500 350 / 850 Balance -140 / 460 -350 / 110 Weight last 48 hrs Weight 100 lb 1 oz Weight 106 lb 4.8 oz Physical Exam Narrative: EXAM NARRATIVE: GENERAL: Frail-almost cachectic appearing man sitting in bed. He is currently on O2 by nasal cannula HEENT: Pupils equal round reactive to light. No pallor and no icterus. NECK: JVD, No carotid bruit. CARDIOVASCULAR SYSTEM: S1-S2 regular. No S3 or S4 present. Grade 3/6 systolic murmur left lower sternal border and apex. No Rubs or gallops appreciated RESPIRATORY SYSTEM: coarse breath sounds with diffuse rhonchi, No wheezing heard. ABDOMEN: Soft, nontender and nondistended. Normal bowel sounds present. EXTREMITIES: No cyanosis or clubbing. No edema. 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 No focal neurological deficits. SKIN: Normal turgor and temperature. No breakdown, rash or nail changes PSYCH: Normal insight and judgment. Urinary Catheter Management^: Laureano: Cath Placed During This Visit: yes, but has since been removed by the nurse Reason for Continuing Indwelling Catheter: Accurate Measurement of Urinary Output in Critically Ill Patients Urinary Catheter Date of Insertion: 08/29/20 Urinary Catheter Time of Insertion: 12:30 Date Urinary Catheter Removed: 09/01/20 Data : 09/08/20 04:55 09/08/20 04:55 Micro: Microbiology 09/02/20 13:39 Gram Stain - Final Pleural Fluid Anaerobic Culture - Preliminary Body Fluid Culture - Final A&P Assessment and plan (1) Acute and chronic respiratory failure with hypoxia: Currently on 5 L of oxygen via nasal cannula. Status: Acute (2) CHF (NYHA class III, ACC/AHA stage C): Newly diagnosed cardiomyopathy with drop in congestive heart failure as compared to prior echo in 2018. -Patient would eventually need ischemic work-up. However presently with pending diagnosis of lung cancer and respiratory failure with high oxygen requirement, I will continue to manage medically for now. Decision for further testing based on clinical progression. -Patient also has pending CT-guided biopsy versus EBUS and biopsy; I do not think doing a coronary angiogram at this point is prudent. -I think best way to go at this point would be doing a stress test and proceed for coronary angiogram only if there is significant ischemia. -I had a long discussion with the patient regarding timing of the stress test and he would like to defer it as an outpatient. He remains chest pain-free. -Currently on lasix 20 mg IV BID and Aldactone to 25 mg daily, continue losartan. Transition 60 mg p.o. Lasix. -continue metoprolol succinate. Plan to increase the dose later in the day. Patient expresses his desire to be on life vest. Plan for stress testing tomorrow. Status: Acute (3) Pleural effusion on right: S/p right thoracentesis x2 Status: Acute Additional A&P Information Moderately severe eccentric persistently directed mitral valve regurgitation Mild to moderate aortic and tricuspid valve regurgitation lung mass suspicious of non-small cell cancer ; repeat CT-guided lung biopsy pending COPD Peripheral arterial disease microcytic anemia Leukocytosis Hyponatremia: Resolved Hypokalemia: Replaced Elevated ALT History esophageal reflux disease Anxiety/depression Thank you for allowing me to participate in patient's care. Please feel free to call with questions or concerns. Attestations Medical Necessity Statement*: Needs hospital stay for respiratory failure and CHF Time Spent in Patient Care: 16 - 35 minutes (>than 50% of time spent in counselling and/or direct pt care on unit). Coding Level of Care Code Acute Die Sinker for Eric Donohue Diagnoses Acute and chronic respiratory failure with hypoxia J96.21 CHF (NYHA class III, ACC/AHA stage C) I50.9 Pleural effusion on right J90
[2020-09-08] MEDS: FUROsemide 40 mg Tablet 60 MG PO (09:36)
[2020-09-08] MEDS: sertraline 100 mg Tablet PO ×2 (09:36→20:58)
[2020-09-08] MEDS: atorvastatin 40 mg Tablet 20 MG PO (09:37)
[2020-09-08] MEDS: metoprolol succinate ER (24 HR) 25 mg Tablet PO ×3 (09:37→20:58)
[2020-09-08] MEDS: spironolactone 25 mg Tablet PO (09:37)
[2020-09-08] MEDS: pantoprazole DR 40 mg Tablet PO (09:37)
[2020-09-08] MEDS: potassium chloride ER 20 mEq Tablet PO (09:38)
[2020-09-08] MEDS: losartan 50 mg Tablet 25 MG PO (09:38)
--- NOTE | 2020-09-08 10:13 | ECG_ITS ---
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 Interpretive Statements NAME OF STUDY: LEXISCAN SESTAMIBI STRESS TEST INDICATION: Congestive heart failure, newly diagnosed PROCEDURE: At the baseline, the blood pressure was 92/53 mmHg with a heart rate of 93 bpm. The electrocardiogram showed normal sinus rhythm with frequent PVCs, normal axis. Possible left atrial enlargement. Intraventricular conduction delay. The Lexiscan was infused over a period of 20 seconds. A total of 0.4 milligrams of Lexiscan was infused. The stress phase was continued for a total of 5 minutes. Heart rate at the end of the stress phase was 98 bpm with a blood pressure of 84/56 mmHg. The EKG at the peak infusion revealed no significant ST depression or T wave changes. Sestamibi was injected 20 seconds after the Lexiscan infusion. Blood pressure at the end of the recovery phase was 95/59 mmHg with a heart rate of 95 beats per minute. CONCLUSION: 1. No significant EKG changes with the LexiScan infusion. 2. No LexiScan induced chest pain or cardiac arrhythmia. 3. Normal blood pressure and heart rate response. 4. Sestamibi/sestamibi perfusion scan pending; see separate report. Electronically Signed On 09-09-2020 19:31:04 LOAN REPRESENTATIVE by Nora Blanco M.D. [email or web address]
--- NOTE | 2020-09-08 12:53 | P.PN_ITS ---
Subjective Medications: Reviewed: Yes Medication Review Details: Current Medications Acetaminophen (Acetaminophen 325 Mg Tablet) 650 mg PO Q6H PRN PRN Reason: MILD PAIN Albuterol Sulfate (Albuterol 2.5 Mg/0.5 Ml Neb) 2.5 mg INHALATION QID PRN PRN Reason: shortness of breath or wheezing Last Admin: 08/25/20 22:21 Dose: 2.5 mg Documented by: Albuterol/Ipratropium (Ipratropium-Albuterol 3 Ml Neb) 3 ml INHALATION Q6H.RESPIRATORY [facility] Last Admin: 09/08/20 02:02 Dose: 3 ml Documented by: Atorvastatin Calcium (Atorvastatin 40 Mg Tablet) 20 mg PO DAILY@0900 [facility] Last Admin: 09/07/20 08:08 Dose: 20 mg Documented by: Furosemide (Furosemide 10 Mg/Ml Sdv 2ml) 20 mg IVP BID [facility] Last Admin: 09/07/20 17:18 Dose: 20 mg Documented by: Heparin Sodium (Beef Lung) (Heparin 5,000 Unit/Ml Inj 1 Ml) 5,000 unit SUBCUT Q8H [facility] Last Admin: 09/08/20 05:16 Dose: 5,000 unit Documented by: Hydroxyzine Pamoate (Hydroxyzine 25 Mg Capsule) 25 mg PO Q8H PRN PRN Reason: ANXIETY Last Admin: 09/07/20 05:35 Dose: 25 mg Documented by: Lanolin (Lanolin Oint 7 Gm) 1 applic TOPICAL PRN PRN PRN Reason: DRYNESS Last Admin: 08/29/20 10:08 Dose: 1 applic Documented by: Losartan Potassium (Losartan 50 Mg Tablet) 25 mg PO DAILY [facility] Last Admin: 09/07/20 08:09 Dose: 25 mg Documented by: Methylprednisolone Sodium Succinate (Methylprednisolone Sod Succ 40 Mg/Ml Inj) 40 mg IVP DAILY [facility] Last Admin: 09/07/20 08:12 Dose: 40 mg Documented by: Metoprolol Succinate (Metoprolol Succinate Er (24 Hr) 25 Mg Tablet) 25 mg PO Q12H [facility] Last Admin: 09/07/20 21:22 Dose: 25 mg Documented by: Ondansetron HCl (Ondansetron 2 Mg/Ml Sdv 2 Ml) 4 mg IVP Q6H PRN PRN Reason: NAUSEA AND VOMITING Ondansetron HCl (Ondansetron 2 Mg/Ml Sdv 2 Ml) 4 mg IVP Q6H PRN PRN Reason: NAUSEA AND VOMITING Pantoprazole Sodium (Pantoprazole Dr 40 Mg Tablet) 40 mg PO DAILY [facility] Last Admin: 09/07/20 08:09 Dose: 40 mg Documented by: Potassium Chloride (Potassium Chloride Er 20 Meq Tablet) 20 meq PO DAILY [facility] Last Admin: 09/07/20 08:10 Dose: 20 meq Documented by: Fluticasone/Salmeterol (Fluticasone-Salmeterol 250-50 Diskus) 1 puff INHALATION BID.RESPIRATORY [facility] Last Admin: 09/07/20 19:47 Dose: 1 puff Documented by: Sertraline HCl (Sertraline 100 Mg Tablet) 100 mg PO BID@0900,2100 [facility] Last Admin: 09/07/20 21:22 Dose: 100 mg Documented by: Sodium Chloride (Saline Nasal [place] 44ml Btl) 1 spray NASAL PRN PRN PRN Reason: DRYNESS Spironolactone (Spironolactone 25 Mg Tablet) 25 mg PO DAILY [facility] Last Admin: 09/07/20 08:10 Dose: 25 mg Documented by: Vitals/I&O/Wt Last Vital Signs Temp 96.6 F L 09/08/20 11:49 Pulse 103 H 09/08/20 11:49 Resp 24 H 09/08/20 11:49 BP 119/70 09/08/20 11:49 Pulse Ox 100 09/08/20 11:49 09/07/20 09/08/20 09/08/20 22:59 06:59 14:59 Intake Total 360 / 960 360 / 360 Output Total 500 / 500 350 / 850 Balance -140 / 460 -350 / 110 360 / 360 Weight last 48 hrs Weight 45.388 kg Weight 48.217 kg Physical Exam Const: COMMON NORMALS: no acute distress and patient oriented x3 GENERAL APPEARANCE: frail appearing NUTRITIONAL APPEARANCE: cachectic and thin HENMT: COMMON NORMALS: normocephalic HEAD & SCALP: normocephalic Neck/C-Spine: COMMON NORMALS: no JVD Resp: COMMON NORMALS: normal respiratory effort, No retractions and No use of accessory muscles AUSCULTATION: wheezes Cardio: COMMON NORMALS: no JVD, regular rate, regular rhythm, S1 normal heart sound present and S2 normal heart sound present RATE: regular rate RHYTHM: regular rhythm HEART SOUNDS: S1 normal heart sound present and S2 normal heart sound present GI: COMMON NORMALS: Normal to inspection, nondistended, normoactive bowel sounds present, Soft to palpation, non-tender, No hepatosplenomegaly present, no masses and no bruits PALPATION: Yes Soft to palpation and Yes No hepatosplenomegaly present Extremity: COMMON NORMALS: capillary refill normal, no clubbing, cyanosis or edema, no calf tenderness and no pedal edema Neuro: COMMON NORMALS: patient oriented x3 Psych: COMMON NORMALS: mental status grossly normal Urinary Catheter Management^: Laureano: Cath Placed During This Visit: yes, but has since been removed by the nurse Reason for Continuing Indwelling Catheter: Accurate Measurement of Urinary Output in Critically Ill Patients Urinary Catheter Date of Insertion: 08/29/20 Urinary Catheter Time of Insertion: 12:30 Date Urinary Catheter Removed: 09/01/20 Data : 09/08/20 04:55 09/08/20 04:55 Micro: Microbiology 09/02/20 13:39 Gram Stain - Final Pleural Fluid Anaerobic Culture - Preliminary Body Fluid Culture - Final A&P Assessment and plan (1) COPD exacerbation: Status: Acute (2) HCAP (healthcare-associated pneumonia): Status: Acute Acute on chronic hypoxemic respiratory failure - Due to lung mass with copd exacerbation vs newly dx systolic heart failure exacerbation - Continue duoneb q6hr scheduled - prendisone 40mg daily, transition to prednisone upon discharge, will need Spiriva, Advair on discharge - Wean o2 as tolearted - Home o2 eval at discharge. - Will need outpatient follow up with pulmonary Large right sided pleural effusion - S/p thoracentesis x 2 - Fluid analysis - transudative - Cytology sent -negative for malignancy Newly diagnosed systolic heart failure exacerbation - On diuretics - Lasix 60mg daily - Aldactone /Metoprolol xl added - Potassium replaced - Possibly need of ischemic work up, plannpo midnight, stress test tommorow - Cardiology on board - Monitor daily weight - Strict input and output recording Lung mass suspected non-small cell carcinoma - Insufficient tissue sampling at [place] - Repeat CT guided lung biopsy ordered - pending - D/w Oncology - will consult once tissue diagnosis obtained - outpatient work up Additional medical problems Peripheral arterial disease Gastroesophageal reflux disease Anxiety Depression hx of Tobacco abuse DVT ppx - heparin Additional A&P Information Continue get up out of bed, add Ensure drinks, follow cardiology's recommendations, likely discharge on Tuesday with home health care Attestations Medical Necessity Statement*: Patient requires hospitalization, for acute respiratory failure secondary to CHF, ischemic cardiomyopathy, requiring stress testing Coding Level of Care Code Acute Pulley Worker for Eric Fwd Diagnoses COPD exacerbation J44.1 HCAP (healthcare-associated pneumonia) J18.9
[2020-09-09] VITALS (17 sets, daily range): BP systolic 94–122; BP diastolic 57–71; PULSE 87–96; RESP 15–24; TEMP 36.2–36.6; O2SAT 90–98
[2020-09-09] MEDS: FUROsemide 10 mg/mL SDV 10mL 40 MG IVP (00:37)
[2020-09-09 04:33] LABS: Basophils % 0.2 %; Eosinophils # 0.4 10^3/uL (0.0-0.8); Eosinophils % 3.2 %; Hematocrit 40.8 % (42.0-52.0); Hemoglobin 12.6 g/dL (11.7-16.6); Lymphocytes # 2.5 10^3/uL (0.8-4.8); Lymphocytes % 18.5 %; Mean Corpuscular HGB Conc 30.9 g/dL (30.0-36.0); Mean Corpuscular Hemoglobin 20.9 pg (28.0-34.0); Mean Corpuscular Volume 67.8 fL (80-94); Mean Platelet Volume 10.5 fL (7.4-10.4); Monocytes % 7.3 %; Neutrophils % 70.2 %; Nucleated Red Blood Cells % 0 %; Platelet Count 315 10^3/cmm (130-400); Red Blood Count 6.02 10^6/uL (4.1-5.3); Red Cell Distribution Width 20.1 % (12.1-15.1); White Blood Count 13.5 10^3/uL (4.0-10.0)
--- NOTE | 2020-09-09 04:45 | PC.NURSE ---
NURSE NOTE: SHIFT SUMMARY: PT ALERT AND ORIENTED WITH PERIODS OF CONFUSION. REDIRECTS EASILY. NPO SINCE MIDNIGHT FOR CARDIAC STRESS IN THE MORNING. ALL VS AND ASSESSMENTS CHARTED. DENIES PAIN. NO DISTRESS AT THIS TIME. WILL CONTINUE TO MONITOR.
[2020-09-09 04:51] LABS: Alanine Aminotransferase 55 U/L (0-41); Albumin Level 3.6 g/dL (3.5-5.2); Alkaline Phosphatase 108 IU/L (40-130); Anion Gap 16.7 (5-19); Aspartate Amino Transferase 27 U/L (0-40); Blood Urea Nitrogen 31 mg/dL (8-23); Calcium 9.5 mg/dL (8.5-10.5); Carbon Dioxide 26 mmol/L (22-29); Chloride 99 mmol/L (98-107); Globulin 3.3 g/dL (1.3-4.6); Glucose 99 mg/dL (65-115); Magnesium 1.8 mg/dL (1.7-2.3); Osmolality Calculated 293 mOsm/kg (285-295); Phosphorus 5.3 mg/dL (2.5-4.5); Potassium 3.7 mmol/L (3.5-5.1); Sodium 138 mmol/L (136-145); Total Bilirubin 0.3 mg/dL (0.15-1.2); Total Protein 6.9 g/dL (6.6-8.7)
[2020-09-09] MEDS: heparin 5,000 unit/mL INJ 1 mL 5000 UNIT SUBCUT ×3 (05:39→20:23)
--- NOTE | 2020-09-09 07:52 | PC.NURSE ---
patient transported to nuclear medication via wheelchair and oxygen
[2020-09-09] MEDS: regadenoson 0.4 Mg/5 ml Syringe IVP (08:17)
[2020-09-09] MEDS: ondansetron 2 mg/ML SDV 2 mL 4 MG IVP (08:29)
--- NOTE | 2020-09-09 09:29 | DCPLANNER ---
IMM completed 09/09/20 @ 0902. Copy of rights given to pt.
--- NOTE | 2020-09-09 09:30 | PC.NURSE ---
patient back from nuclear medication.
[2020-09-09] MEDS: predniSONE 20 mg Tablet 40 MG PO (09:46)
[2020-09-09] MEDS: sertraline 100 mg Tablet PO ×2 (09:46→20:24)
[2020-09-09] MEDS: FUROsemide 10 mg/mL SDV 10mL 60 MG IVP (09:46)
[2020-09-09] MEDS: spironolactone 25 mg Tablet PO (09:46)
[2020-09-09] MEDS: losartan 50 mg Tablet 25 MG PO (09:47)
[2020-09-09] MEDS: pantoprazole DR 40 mg Tablet PO (09:47)
[2020-09-09] MEDS: atorvastatin 40 mg Tablet 20 MG PO (09:47)
[2020-09-09] MEDS: potassium chloride ER 20 mEq Tablet PO (09:47)
[2020-09-09] MEDS: metoprolol succinate ER (24 HR) 25 mg Tablet PO ×2 (09:47→20:23)
--- NOTE | 2020-09-09 10:13 | NMCV_ITS ---
NM kelly perf SPECT r/s* [id number] Alexei Day Age: 71 Gender: M : 05/02/1949 Exam Date: 09/09/2020 07:45 Ordering Phys: Nora Blanco MD ([email or web address]) Technologist: LAMIN Ibarra Exam Location: [facility] Indications: SOB STRESS TEST Please see separate stress test report in [facility] for full findings IMAGE PROTOCOL Rest/Stress 1 Lexiscan Day Radiopharmaceutical Dose (mCi) Administration Site Administered by Rest: Tc-99m 10.8 IV LAMIN Frye Sestamibi Stress:Tc-99m 32.5 IV LAMIN Frye Sestamibi Rest: 09-Sep-2020 60 Discovery 630 Stress: 09-Sep-2020 30 Discovery 630 0.4mg Lexiscan. Supine position only as patient was unable to lay prone. SPECT RESULTS Technical Quality: Excellent Raw Data Analysis: Normal Image Corrections: No attenuation or motion correction applied Summed Stress Score: 1 Summed Rest Score: 1 Summed Difference Score: 0 PERFUSION FINDINGS Small sized perfusion abnormality of moderate severity of mid inferoseptal, apical inferior and apical herbert on rest and stress images. FUNCTIONAL RESULTS (calculated via Gated SPECT) Stress Image LV EF (%): 36 Stress EDV (mL):140 TID: 1.16 Stress ESV (mL):90 FUNCTIONAL FINDINGS: The left ventricle is normal in size. Transient Ischemia Dilatation of 1.16. There is moderately reduced left ventricular global systolic function. The left ventricular ejection fraction is moderate reduced with a value of 36%. There is moderately decreased wall thickening. IMPRESSIONS 1. Small sized predominantly fixed perfusion abnormality of m moderate severity of mid inferoseptal, apical inferior and apical herbert. 2. This may represent old myocardial infarction right coronary artery territory or attenuation artifact. 3. The left ventricular ejection fraction is moderate reduced with a value of 36%. 4. There is moderately decreased wall thickening. 5. Transient ischemic dilation index mildly elevated at 1.16. This may represent subendocardial ischemia or multivessel CAD. Clinical correlation is advised. 6. No coronary ischemia based on the study. Nora Blanco MD (Electronically Signed) Final Date: 09 September 2020 13:11 S
[2020-09-09] MEDS: ipratropium-albuterol 3 mL Neb INHALATION ×2 (10:30→16:25)
--- NOTE | 2020-09-09 14:21 | P.PN_ITS ---
Subjective Subjective: Interval history: Patient was examined this morning, he is receiving a stress test, no complaints of chest pain, still complains of fatigue, weakness Medications: Reviewed: Yes Medication Review Details: Current Medications Acetaminophen (Acetaminophen 325 Mg Tablet) 650 mg PO Q6H PRN PRN Reason: MILD PAIN Albuterol Sulfate (Albuterol 2.5 Mg/0.5 Ml Neb) 2.5 mg INHALATION QID PRN PRN Reason: shortness of breath or wheezing Last Admin: 08/25/20 22:21 Dose: 2.5 mg Documented by: Albuterol/Ipratropium (Ipratropium-Albuterol 3 Ml Neb) 3 ml INHALATION Q6H.RES PIRATORY [facility] Last Admin: 09/08/20 02:02 Dose: 3 ml Documented by: Atorvastatin Calcium (Atorvastatin 40 Mg Tablet) 20 mg PO DAILY@0900 [facility] Last Admin: 09/07/20 08:08 Dose: 20 mg Documented by: Furosemide (Furosemide 10 Mg/Ml Sdv 2ml) 20 mg IVP BID [facility] Last Admin: 09/07/20 17:18 Dose: 20 mg Documented by: Heparin Sodium (Beef Lung) (Heparin 5,000 Unit/Ml Inj 1 Ml) 5,000 unit SUBCUT Q 8H [facility] Last Admin: 09/08/20 05:16 Dose: 5,000 unit Documented by: Hydroxyzine Pamoate (Hydroxyzine 25 Mg Capsule) 25 mg PO Q8H PRN PRN Reason: ANXIETY Last Admin: 09/07/20 05:35 Dose: 25 mg Documented by: Lanolin (Lanolin Oint 7 Gm) 1 applic TOPICAL PRN PRN PRN Reason: DRYNESS Last Admin: 08/29/20 10:08 Dose: 1 applic Documented by: Losartan Potassium (Losartan 50 Mg Tablet) 25 mg PO DAILY [facility] Last Admin: 09/07/20 08:09 Dose: 25 mg Documented by: Methylprednisolone Sodium Succinate (Methylprednisolone Sod Succ 40 Mg/Ml Inj) 40 mg IVP DAILY [facility] Last Admin: 09/07/20 08:12 Dose: 40 mg Documented by: Metoprolol Succinate (Metoprolol Succinate Er (24 Hr) 25 Mg Tablet) 25 mg PO Q12H [facility] Last Admin: 09/07/20 21:22 Dose: 25 mg Documented by: Ondansetron HCl (Ondansetron 2 Mg/Ml Sdv 2 Ml) 4 mg IVP Q6H PRN PRN Reason: NAUSEA AND VOMITING Ondansetron HCl (Ondansetron 2 Mg/Ml Sdv 2 Ml) 4 mg IVP Q6H PRN PRN Reason: NAUSEA AND VOMITING Pantoprazole Sodium (Pantoprazole Dr 40 Mg Tablet) 40 mg PO DAILY [facility] Last Admin: 09/07/20 08:09 Dose: 40 mg Documented by: Potassium Chloride (Potassium Chloride Er 20 Meq Tablet) 20 meq PO DAILY [facility] Last Admin: 09/07/20 08:10 Dose: 20 meq Documented by: Fluticasone/Salmeterol (Fluticasone-Salmeterol 250-50 Diskus) 1 puff INHALATION BID.RESPIRATORY [facility] Last Admin: 09/07/20 19:47 Dose: 1 puff Documented by: Sertraline HCl (Sertraline 100 Mg Tablet) 100 mg PO BID@0900,2100 [facility] Last Admin: 09/07/20 21:22 Dose: 100 mg Documented by: Sodium Chloride (Saline Nasal [place] 44ml Btl) 1 spray NASAL PRN PRN PRN Reason: DRYNESS Spironolactone (Spironolactone 25 Mg Tablet) 25 mg PO DAILY [facility] Last Admin: 09/07/20 08:10 Dose: 25 mg Documented by: Vitals/I&O/Wt Last Vital Signs Temp 97.8 F 09/09/20 12:00 Pulse 91 09/09/20 12:00 Resp 20 H 09/09/20 12:00 BP 94/58 09/09/20 12:00 Pulse Ox 90 09/09/20 12:00 09/08/20 09/09/20 09/09/20 22:59 06:59 14:59 Intake Total 150 / 630 100 / 730 240 / 240 Output Total 200 / 200 650 / 850 300 / 300 Balance -50 / 430 -550 / -120 -60 / -60 Weight last 48 hrs Weight 45.949 kg Weight 45.388 kg Physical Exam Const: COMMON NORMALS: no acute distress and patient oriented x3 GENERAL APPEARANCE: frail appearing NUTRITIONAL APPEARANCE: cachectic HENMT: COMMON NORMALS: normocephalic HEAD & SCALP: normocephalic Neck/C-Spine: COMMON NORMALS: no JVD Resp: COMMON NORMALS: normal respiratory effort, No retractions, No use of accessory muscles and clear to auscultation bilaterally AUSCULTATION: clear to auscultation bilaterally Cardio: COMMON NORMALS: no JVD, regular rate, regular rhythm, S1 normal heart sound present and S2 normal heart sound present RATE: regular rate RHYTHM: regular rhythm HEART SOUNDS: S1 normal heart sound present and S2 normal heart sound present GI: COMMON NORMALS: Normal to inspection, nondistended, normoactive bowel soun ds present, Soft to palpation, non-tender, No hepatosplenomegaly present, no masses and no bruits PALPATION: Yes Soft to palpation and Yes No hepatosplenomegaly present Extremity: COMMON NORMALS: capillary refill normal, no clubbing, cyanosis or edema, no calf tenderness and no pedal edema Neuro: COMMON NORMALS: patient oriented x3 Psych: COMMON NORMALS: mental status grossly normal Urinary Catheter Management^: Laureano: Cath Placed During This Visit: yes, but has since been removed by the nurse Reason for Continuing Indwelling Catheter: Accurate Measurement of Urinary Output in Critically Ill Patients Urinary Catheter Date of Insertion: 08/29/20 Urinary Catheter Time of Insertion: 12:30 Date Urinary Catheter Removed: 09/01/20 Data : 09/09/20 03:05 09/09/20 03:05 Micro: Microbiology 09/02/20 13:39 Gram Stain - Final Pleural Fluid Anaerobic Culture - Final Body Fluid Culture - Final A&P Assessment and plan (1) COPD exacerbation: Status: Acute (2) HCAP (healthcare-associated pneumonia): Status: Acute Acute on chronic hypoxemic respiratory failure - Due to lung mass with copd exacerbation vs newly dx systolic heart failure exacerbation - Continue duoneb q6hr scheduled - prendisone 40mg daily, transition to prednisone upon discharge, will need Spiriva, Advair on discharge - Wean o2 as tolearted - Home o2 eval at discharge. - Will need outpatient follow up with pulmonary Large right sided pleural effusion - S/p thoracentesis x 2 - Fluid analysis - transudative - Cytology sent -negative for malignancy Newly diagnosed systolic heart failure exacerbation -We will have a cardiac stress test today to evaluate for ischemic car diomyopathy - On diuretics - Lasix 60mg daily, will try additional IV diuretics today, to see if his oxygen requirements improve - Aldactone /Metoprolol xl added - Potassium replaced - Cardiology on board - Monitor daily weight - Strict input and output recording, urine output a bit lackluster, still +1.9 L, creatinine 0.8, potassium 3.7, sodium 130 Lung mass suspected non-small cell carcinoma - Insufficient tissue sampling at [place] - Repeat CT guided lung biopsy ordered - pending - D/w Oncology - will consult once tissue diagnosis obtained - outpatient work up Additional medical problems Peripheral arterial disease Gastroesophageal reflux disease Anxiety Depression hx of Tobacco abuse DVT ppx - heparin Additional A&P Information Continue get up out of bed, add Ensure drinks, follow cardiology's recommendations, follow stress test results, will try to diurese today Attestations Medical Necessity Statement*: Requires hospitalization for acute respiratory failure secondary to COPD, CHF, lung mass Coding Level of Care Code Acute Sales Systems Engineer for [facility] Fwd Diagnoses COPD exacerbation J44.1 HCAP (healthcare-associated pneumonia) J18.9
[2020-09-09] MEDS: FUROsemide 10 mg/mL SDV 10mL 80 MG IVP (14:49)
--- NOTE | 2020-09-09 17:17 | P.PN_ITS ---
Subjective Subjective: Interval history: He feels better and is eager to go home. He had stress test today Medications: Reviewed: Yes Medication Review Details: Current Medications Acetaminophen (Acetaminophen 325 Mg Tablet) 650 mg PO Q6H PRN PRN Reason: MILD PAIN Albuterol Sulfate (Albuterol 2.5 Mg/0.5 Ml Neb) 2.5 mg INHALATION QID PRN PRN Reason: shortness of breath or wheezing Last Admin: 08/25/20 22:21 Dose: 2.5 mg Documented by: Albuterol/Ipratropium (Ipratropium-Albuterol 3 Ml Neb) 3 ml INHALATION Q6H.RESPIRATORY PRN PRN Reason: sob Last Admin: 09/09/20 16:25 Dose: 3 ml Documented by: Aminophylline (Aminophylline 25 Mg/Ml Sdv 10 Ml) 25 mg IVP Q2M PRN PRN Reason: see dose instructions Stop: 09/10/20 07:18 Atorvastatin Calcium (Atorvastatin 40 Mg Tablet) 20 mg PO DAILY@0900 [facility] Last Admin: 09/09/20 09:47 Dose: 20 mg Documented by: Heparin Sodium (Beef Lung) (Heparin 5,000 Unit/Ml Inj 1 Ml) 5,000 unit SUBCUT Q8H [facility] Last Admin: 09/09/20 14:49 Dose: 5,000 unit Documented by: Hydroxyzine Pamoate (Hydroxyzine 25 Mg Capsule) 25 mg PO Q8H PRN PRN Reason: ANXIETY Last Admin: 09/07/20 05:35 Dose: 25 mg Documented by: Lanolin (Lanolin Oint 7 Gm) 1 applic TOPICAL PRN PRN PRN Reason: DRYNESS Last Admin: 08/29/20 10:08 Dose: 1 applic Documented by: Losartan Potassium (Losartan 50 Mg Tablet) 25 mg PO DAILY [facility] Last Admin: 09/09/20 09:47 Dose: 25 mg Documented by: Metoprolol Succinate (Metoprolol Succinate Er (24 Hr) 25 Mg Tablet) 25 mg PO NOW [facility] Last Admin: 09/08/20 18:19 Dose: 25 mg Documented by: Metoprolol Succinate (Metoprolol Succinate Er (24 Hr) 25 Mg Tablet) 25 mg PO 0900 [facility] Last Admin: 09/09/20 09:47 Dose: 25 mg Documented by: Metoprolol Succinate (Metoprolol Succinate Er (24 Hr) 50 Mg Tablet) 50 mg PO 2099 [facility] Nitroglycerin (Nitroglycerin 0.4 Mg Sublingual Tablet) 0.4 mg SUBLINGUAL Q5M PRN PRN Reason: CHEST PAIN Stop: 09/10/20 07:18 Ondansetron HCl (Ondansetron 2 Mg/Ml Sdv 2 Ml) 4 mg IVP Q6H PRN PRN Reason: NAUSEA AND VOMITING Ondansetron HCl (Ondansetron 2 Mg/Ml Sdv 2 Ml) 4 mg IVP Q2M PRN PRN Reason: NAUSEA Last Admin: 09/09/20 08:29 Dose: 4 mg Documented by: Pantoprazole Sodium (Pantoprazole Dr 40 Mg Tablet) 40 mg PO DAILY [facility] Last Admin: 09/09/20 09:47 Dose: 40 mg Documented by: Potassium Chloride (Potassium Chloride Er 20 Meq Tablet) 20 meq PO DAILY [facility] Last Admin: 09/09/20 09:47 Dose: 20 meq Documented by: Prednisone (Prednisone 20 Mg Tablet) 40 mg PO DAILY [facility] Last Admin: 09/09/20 09:46 Dose: 40 mg Documented by: Fluticasone/Salmeterol (Fluticasone-Salmeterol 250-50 Diskus) 1 puff INHALATION BID.RESPIRATORY [facility] Last Admin: 09/09/20 10:30 Dose: 1 puff Documented by: Sertraline HCl (Sertraline 100 Mg Tablet) 100 mg PO BID@0900,2100 [facility] Last Admin: 09/09/20 09:46 Dose: 100 mg Documented by: Sodium Chloride (Saline Nasal [place] 44ml Btl) 1 spray NASAL PRN PRN PRN Reason: DRYNESS Spironolactone (Spironolactone 25 Mg Tablet) 25 mg PO DAILY [facility] Last Admin: 09/09/20 09:46 Dose: 25 mg Documented by: Tiotropium [place] (Tiotropium 18 Mcg Mdi) 18 mcg INHALATION DAILY.RESPIRATORY [facility] Last Admin: 09/09/20 10:55 Dose: Not Given Documented by: Vitals/I&O/Wt Last Vital Signs Temp 97.1 F L 09/09/20 16:00 Pulse 94 09/09/20 16:33 Resp 18 09/09/20 16:33 BP 98/58 09/09/20 16:00 Pulse Ox 95 09/09/20 16:33 0109/09/20 09/09/20 06:59 14:59 22:59 Intake Total 100 / 730 240 / 240 Output Total 650 / 850 300 / 300 Balance -550 / -120 -60 / -60 Weight last 48 hrs Weight 101 lb 4.8 oz Weight 100 lb 1 oz Physical Exam Narrative: EXAM NARRATIVE: GENERAL: Frail-almost cachectic appearing man sitting in bed. He is currently on O2 by nasal cannula HEENT: Pupils equal round reactive to light. No pallor and no icterus. NECK: JVD, No carotid bruit. CARDIOVASCULAR SYSTEM: S1-S2 regular. No S3 or S4 present. Grade 3/6 systolic murmur left lower sternal border and apex. No Rubs or gallops appreciated RESPIRATORY SYSTEM: coarse breath sounds with diffuse rhonchi, No wheezing heard. ABDOMEN: Soft, nontender and nondistended. Normal bowel sounds present. EXTREMITIES: No cyanosis or clubbing. No edema. warm to touch MOTOR MECHANIC: Patient is alert oriented ?3. No focal neurological deficits. SKIN: Normal turgor and temperature. No breakdown, rash or nail changes PSYCH: Normal insight and judgment. Urinary Catheter Management^: Laureano: Cath Placed During This Visit: yes, but has since been removed by the nurse Reason for Continuing Indwelling Catheter: Accurate Measurement of Urinary Output in Critically Ill Patients Urinary Catheter Date of Insertion: 08/29/20 Urinary Catheter Time of Insertion: 12:30 Date Urinary Catheter Removed: 09/01/20 Data : 09/09/20 03:05 09/09/20 03:05 Micro: Microbiology 09/02/20 13:39 Gram Stain - Final Pleural Fluid Anaerobic Culture - Final Body Fluid Culture - Final A&P Assessment and plan (1) Acute and chronic respiratory failure with hypoxia: Currently on 5 L of oxygen via nasal cannula. Status: Acute (2) CHF (NYHA class III, ACC/AHA stage C): Newly diagnosed probably nonischemic cardiomyopathy -with drop in congestive heart failure as compared to prior echo in 2018. -Patient would eventually need ischemic work-up. However presently with pending diagnosis of lung cancer and respiratory failure with high oxygen requirement, I will continue to manage medically for now. Decision for further testing based on clinical progression. -Patient also has pending CT-guided biopsy versus EBUS and biopsy; I do not think doing a coronary angiogram at this point is prudent. -I think best way to go at this point would be doing a stress test and proceed for coronary angiogram only if there is significant ischemia. -I had a long discussion with the patient regarding timing of the stress test and he would like to defer it as an outpatient. He remains chest pain-free. -Received Lasix 60 mg IV x1 yesterday and Lasix 140 mg IV today -Continue Aldactone 25 mg daily and losartan. Transition to 80 mg p.o. Lasix tomorrow. -continue metoprolol succinate. Patient expresses his desire to be on life vest. No ischemia stress testing tomorrow. -Stable to be discharged home tomorrow once LifeVest fitting is done. -I spent 30 minutes talking to patient and his about cardiac function test findings, medication and overall CHF management with diet and salt restrictions. Fluid restriction and importance of daily weight was discussed. Advised to keep a log of blood pressure and heart rate until his follow-up visit with me in 1 week. -BMP within a week after discharge. Status: Acute (3) Pleural effusion on right: S/p right thoracentesis x2 Status: Acute Additional A&P Information Moderately severe eccentric persistently directed mitral valve regurgitation Mild to moderate aortic and tricuspid valve regurgitation lung mass suspicious of non-small cell cancer ; repeat CT-guided lung biopsy pending COPD Peripheral arterial disease microcytic anemia Leukocytosis Hyponatremia: Resolved Hypokalemia: Replaced Elevated ALT History esophageal reflux disease Anxiety/depression Thank you for allowing me to participate in patient's care. Please feel free to call with questions or concerns. Attestations Medical Necessity Statement*: Needs hospital stay for respiratory failure and CHF Time Spent in Patient Care: Greater than 35 minutes (>than 50% of time spent in counselling and/or direct pt care on unit) . Coding Level of Care Code Acute Actuarial Consultant for [facility] Diagnoses Acute and chronic respiratory failure with hypoxia J96.21 CHF (NYHA class III, ACC/AHA stage C) I50.9 Pleural effusion on right J90
--- NOTE | 2020-09-09 18:31 | PC.NURSE ---
patient had unevenful shift. patient has own oxygen tank at bedside. patient is awaiting approval of lifevest order. call light within reach.
[2020-09-10] VITALS (13 sets, daily range): BP systolic 108–118; BP diastolic 56–74; PULSE 81–95; RESP 14–22; TEMP 36.6–36.8; O2SAT 91–96
--- NOTE | 2020-09-10 03:04 | PC.NURSE ---
NURSE NOTE: SHIFT SUMMARY ; PT ALERT AND ORIENTED WITH PERIODS OF CONFUSION. DENIES PAIN THIS SHIFT. MOVES ALL EXTREMITIES AND FOLLOWS COMMANDS. ALL VS AND ASSESSMENTS CHARTED. NO DISTRESS NOTED AT THIS TIME. WILL CONTINUE TO MONITOR.
[2020-09-10 04:14] LABS: Basophils % 0.1 %; Eosinophils # 0.3 10^3/uL (0.0-0.8); Eosinophils % 2.2 %; Hematocrit 39.6 % (42.0-52.0); Hemoglobin 12.2 g/dL (11.7-16.6); Lymphocytes # 2.9 10^3/uL (0.8-4.8); Lymphocytes % 21.2 %; Mean Corpuscular HGB Conc 30.8 g/dL (30.0-36.0); Mean Corpuscular Hemoglobin 20.8 pg (28.0-34.0); Mean Corpuscular Volume 67.6 fL (80-94); Mean Platelet Volume 10.3 fL (7.4-10.4); Monocytes % 7.3 %; Neutrophils # 9.24 10^3/uL (1.8-7.7); Neutrophils % 68.7 %; Nucleated Red Blood Cells % 0 %; Platelet Count 290 10^3/cmm (130-400); Red Blood Count 5.86 10^6/uL (4.1-5.3); Red Cell Distribution Width 19.5 % (12.1-15.1); White Blood Count 13.5 10^3/uL (4.0-10.0)
[2020-09-10 05:01] LABS: Alanine Aminotransferase 48 U/L (0-41); Albumin Level 3.4 g/dL (3.5-5.2); Alkaline Phosphatase 97 IU/L (40-130); Anion Gap 16.5 (5-19); Aspartate Amino Transferase 22 U/L (0-40); Blood Urea Nitrogen 36 mg/dL (8-23); Calcium 9.1 mg/dL (8.5-10.5); Carbon Dioxide 25 mmol/L (22-29); Chloride 98 mmol/L (98-107); Globulin 3.7 g/dL (1.3-4.6); Glucose 172 mg/dL (65-115); Magnesium 1.9 mg/dL (1.7-2.3); Osmolality Calculated 294 mOsm/kg (285-295); Phosphorus 4.7 mg/dL (2.5-4.5); Potassium 3.5 mmol/L (3.5-5.1); Sodium 136 mmol/L (136-145); Total Bilirubin 0.3 mg/dL (0.15-1.2); Total Protein 7.1 g/dL (6.6-8.7)
[2020-09-10] MEDS: heparin 5,000 unit/mL INJ 1 mL 5000 UNIT SUBCUT ×2 (05:50→13:52)
--- NOTE | 2020-09-10 06:35 | PM.PN ---
Subjective Subjective: Interval history: No new complaints. Frequent PVC's and PVC couplets noted on telemetry. UO 1500 ml, -780 ml Medications: Reviewed: Yes Medication Review Details: Current Medications Acetaminophen (Acetaminophen 325 Mg Tablet) 650 mg PO Q6H PRN PRN Reason: MILD PAIN Albuterol Sulfate (Albuterol 2.5 Mg/0.5 Ml Neb) 2.5 mg INHALATION QID PRN PRN Reason: shortness of breath or wheezing Last Admin: 08/25/20 22:21 Dose: 2.5 mg Documented by: Albuterol/Ipratropium (Ipratropium-Albuterol 3 Ml Neb) 3 ml INHALATION Q6H.RESPIRATORY PRN PRN Reason: sob Last Admin: 09/09/20 16:25 Dose: 3 ml Documented by: Aminophylline (Aminophylline 25 Mg/Ml Sdv 10 Ml) 25 mg IVP Q2M PRN PRN Reason: see dose instructions Stop: 09/10/20 07:18 Atorvastatin Calcium (Atorvastatin 40 Mg Tablet) 20 mg PO DAILY@0900 [facility] Last Admin: 09/09/20 09:47 Dose: 20 mg Documented by: Heparin Sodium (Beef Lung) (Heparin 5,000 Unit/Ml Inj 1 Ml) 5,000 unit SUBCUT Q8H [facility] Last Admin: 09/10/20 05:50 Dose: 5,000 unit Documented by: Hydroxyzine Pamoate (Hydroxyzine 25 Mg Capsule) 25 mg PO Q8H PRN PRN Reason: ANXIETY Last Admin: 09/07/20 05:35 Dose: 25 mg Documented by: Lanolin (Lanolin Oint 7 Gm) 1 applic TOPICAL PRN PRN PRN Reason: DRYNESS Last Admin: 08/29/20 10:08 Dose: 1 applic Documented by: Losartan Potassium (Losartan 50 Mg Tablet) 25 mg PO DAILY [facility] Last Admin: 09/09/20 09:47 Dose: 25 mg Documented by: Metoprolol Succinate (Metoprolol Succinate Er (24 Hr) 25 Mg Tablet) 25 mg PO 0900,2100 [facility] Last Admin: 09/09/20 20:23 Dose: 25 mg Documented by: Nitroglycerin (Nitroglycerin 0.4 Mg Sublingual Tablet) 0.4 mg SUBLINGUAL Q5M PRN PRN Reason: CHEST PAIN Stop: 09/10/20 07:18 Ondansetron HCl (Ondansetron 2 Mg/Ml Sdv 2 Ml) 4 mg IVP Q6H PRN PRN Reason: NAUSEA AND VOMITING Ondansetron HCl (Ondansetron 2 Mg/Ml Sdv 2 Ml) 4 mg IVP Q2M PRN PRN Reason: NAUSEA Last Admin: 09/09/20 08:29 Dose: 4 mg Documented by: Pantoprazole Sodium (Pantoprazole Dr 40 Mg Tablet) 40 mg PO DAILY [facility] Last Admin: 09/09/20 09:47 Dose: 40 mg Documented by: Potassium Chloride (Potassium Chloride Er 20 Meq Tablet) 20 meq PO DAILY [facility] Last Admin: 09/09/20 09:47 Dose: 20 meq Documented by: Prednisone (Prednisone 20 Mg Tablet) 40 mg PO DAILY [facility] Last Admin: 09/09/20 09:46 Dose: 40 mg Documented by: Fluticasone/Salmeterol (Fluticasone-Salmeterol 250-50 Diskus) 1 puff INHALATION BID.RESPIRATORY [facility] Last Admin: 09/10/20 02:16 Dose: Not Given Documented by: Sertraline HCl (Sertraline 100 Mg Tablet) 100 mg PO BID@0900,2100 [facility] Last Admin: 09/09/20 20:24 Dose: 100 mg Documented by: Sodium Chloride (Saline Nasal Achille 44ml Btl) 1 spray NASAL PRN PRN PRN Reason: DRYNESS Spironolactone (Spironolactone 25 Mg Tablet) 25 mg PO DAILY [facility] Last Admin: 09/09/20 09:46 Dose: 25 mg Documented by: Tiotropium Zirconia (Tiotropium 18 Mcg Mdi) 18 mcg INHALATION DAILY.RESPIRATORY [facility] Last Admin: 09/09/20 10:55 Dose: Not Given Documented by: Vitals/I&O/Wt Last Vital Signs Temp 98 F 09/10/20 05:00 Pulse 87 09/10/20 06:00 Resp 19 H 09/10/20 05:00 BP 118/74 09/10/20 05:00 Pulse Ox 95 09/10/20 05:00 09/09/20 09/09/20 09/10/20 14:59 22:59 06:59 Intake Total 240 / 240 480 / 720 Output Total 300 / 300 950 / 1250 250 / 1500 Balance -60 / -60 -470 / -530 -250 / -780 Weight last 48 hrs Weight 101 lb Weight 101 lb 4.8 oz Physical Exam Narrative: EXAM NARRATIVE: GENERAL: Frail-almost cachectic appearing man sitting in bed. He is currently on O2 by nasal cannula HEENT: Pupils equal round reactive to light. No pallor and no icterus. NECK: JVD, No carotid bruit. CARDIOVASCULAR SYSTEM: S1-S2 regular. No S3 or S4 present. Grade 3/6 systolic murmur left lower sternal border and apex. No Rubs or gallops appreciated RESPIRATORY SYSTEM: coarse breath sounds with fine basal crakles left lung base, No wheezing heard. ABDOMEN: Soft, nontender and nondistended. Normal bowel sounds present. EXTREMITIES: No cyanosis or clubbing. No edema. 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 No focal neurological deficits. SKIN: Normal turgor and temperature. No breakdown, rash or nail changes PSYCH: Normal insight and judgment. Urinary Catheter Management^: Laureano: Cath Placed During This Visit: yes, but has since been removed by the nurse Reason for Continuing Indwelling Catheter: Accurate Measurement of Urinary Output in Critically Ill Patients Urinary Catheter Date of Insertion: 08/29/20 Urinary Catheter Time of Insertion: 12:30 Date Urinary Catheter Removed: 09/01/20 Data : 09/10/20 03:49 09/10/20 03:49 Micro: Microbiology 09/02/20 13:39 Gram Stain - Final Pleural Fluid Anaerobic Culture - Final Body Fluid Culture - Final Attestation for Other Data: I personally reviewed and interpreted the following: Other data: TTE My impression: CONCLUSIONS Diffuse hypokinesis of the left ventricle with ejection fraction of around 25 to 30%. Normal LV size. Mild biatrial enlargement Moderately severe eccentric mitral valve regurgitation. [id number] aortic and tricuspid valve regurgitation. Thickened aortic and mitral valves. Trivial pericardial effusion. There are no intracardiac masses. Compared to the study from 02/20/2018, there is significant drop in the LV ejection fraction. No previous Doppler studies are available for comparison A&P Assessment and plan (1) Acute and chronic respiratory failure with hypoxia: Currently on 5 L of oxygen via nasal cannula. Status: Acute (2) CHF (NYHA class III, ACC/AHA stage C): Newly diagnosed predominantly nonischemic cardiomyopathy -with drop in congestive heart failure as compared to prior echo in 2018. -Even though the LVEF on stress test was calculated at 36%, I still believe his LV funtion is less than 35%. More like 25-30% range. Frequent PVC's in couplets noted on telemetry. -He would definitely benefit from life vest - I will continue to manage medically for now. -Patient also has pending CT-guided biopsy versus EBUS and biopsy; I do not think doing a coronary angiogram at this point is prudent. -I think best way to go at this point would be doing a stress test and proceed for coronary angiogram only if there is significant ischemia. -He remains chest pain-free. -Received Lasix 140 mg IV yesterday -Continue Aldactone 25 mg daily and losartan. Transition to p.o. Lasix 60 mg BID tomorrow. -continue metoprolol succinate No ischemia on stress testing. -Stable to be discharged home tomorrow once LifeVest fitting is done. -I spent 30 minutes talking to patient and his about cardiac function test findings, medication and overall CHF management with diet and salt restrictions. Fluid restriction and importance of daily weight was discussed. -Advised to keep a log of blood pressure and heart rate until his follow-up visit with me in 1 week. -BMP within a week after discharge. Status: Acute (3) Pleural effusion on right: S/p right thoracentesis x2 Status: Acute Additional A&P Information Moderately severe eccentric persistently directed mitral valve regurgitation Mild to moderate aortic and tricuspid valve regurgitation lung mass suspicious of non-small cell cancer ; repeat CT-guided lung biopsy pending COPD Peripheral arterial disease microcytic anemia Leukocytosis Hyponatremia: Resolved Hypokalemia: Replaced Elevated ALT History esophageal reflux disease Anxiety/depression Thank you for allowing me to participate in patient's care. Please feel free to call with questions or concerns. Attestations Medical Necessity Statement*: stable to be discharged home Time Spent in Patient Care: Greater than 35 minutes (>than 50% of time spent in counselling and/or direct pt care on unit). 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
[2020-09-10] MEDS: spironolactone 25 mg Tablet PO (08:52)
[2020-09-10] MEDS: sertraline 100 mg Tablet PO (08:52)
[2020-09-10] MEDS: predniSONE 20 mg Tablet 40 MG PO (08:52)
[2020-09-10] MEDS: FUROsemide 40 mg Tablet 60 MG PO (08:52)
[2020-09-10] MEDS: potassium chloride ER 20 mEq Tablet PO (08:53)
[2020-09-10] MEDS: metoprolol succinate ER (24 HR) 25 mg Tablet PO (08:53)
[2020-09-10] MEDS: pantoprazole DR 40 mg Tablet PO (08:53)
[2020-09-10] MEDS: atorvastatin 40 mg Tablet 20 MG PO (08:53)
[2020-09-10] MEDS: losartan 50 mg Tablet 25 MG PO (08:53)
--- NOTE | 2020-09-10 11:22 | PM.DCS ---
Discharge Providers Date of Admission: 08/25/20 14:02 Date of Discharge: September 10, 2020 Attending Provider at Admission: Cat Austin Attending Provider at Discharge: Martin Freeman MD Primary Care Provider: Rome Murillo DO Diagnoses at Discharge Discharge Diagnosis (1) Acute and chronic respiratory failure with hypoxia: Status: Acute (2) CHF (NYHA class III, ACC/AHA stage C): Status: Acute (3) Pleural effusion on right: Status: Acute Reason for Visit Reason for Visit: sob Hospital Course Hospital Course This is a 70-year-old male with a past medical history of anxiety, depression, peripheral arterial disease, GERD, smoker, oxygen dependent COPD who presents [facility] due to complaints of worsening shortness of breath Patient was admitted to [facility] for acute on chronic hypoxic respiratory failure secondary to healthcare associated pneumonia, right pleural effusion, systolic CHF, COPD, NSCLC lung malignancy. Patient was admitted to [facility], cardiology was consulted, pulmonary was consulted For patient's COPD, he received inhaler therapy, steroid therapy, clinically improved. Discharged on 5 L nasal cannula, with Advair, Spiriva, steroid burst, with close follow with pulmonary as outpatient For healthcare associate pneumonia, patient received broad-spectrum antibiotic therapy, all cultures so far have remained unremarkable, descalated off antibiotics through his hospital admission For patient's NSCLC lung malignancy: -Patient has a left upper lobe spiculated 1.[address] of the chest -Patient has a right upper lobe and right lower lobe masslike consolidation with fullness in the right hilum on CT of the chest -Bronchioloalveolar lavage from [facility] showed atypical cells suspicious for non-small cell lung cancer -Patient is to follow-up with pulmonary as outpatient for consideration of EBUS and navigational bronchoscopy For patient's transudate of right pleural effusion secondary to systolic CHF, status post thoracocentesis, 1.1 L drained For patient's new systolic CHF, class III, stage C: -Ejection fraction is around 25 to 30%, diffuse hypokinesis of the left ventricle, biatrial enlargement -Stress testing showed: 1. Small sized predominantly fixed perfusion abnormality of m moderate severity of mid inferoseptal, apical inferior and apical herbert. 2. This may represent old myocardial infarction right coronary artery territory or attenuation artifact. 3. The left ventricular ejection fraction is moderate reduced with a value of 36%. 4. There is moderately decreased wall thickening. 5. Transient ischemic dilation index mildly elevated at 1.16. This may represent subendocardial ischemia or multivessel CAD. Clinical correlation is advised. 6. No coronary ischemia based on the study. -Cardiology recommended aspirin, statin, monitor for chest pain -Patient was diuresed as inpatient, diuresis was a bit lackluster, creatinine remained stable, +1 L -Discharged on Lasix 60 twice daily, potassium replacement, with close follow-up with cardiology as outpatient -Patient was fitted for a LifeVest before discharge Discharge plan, I had extensive discussion with patient given his protein calorie malnutrition, deconditioning, muscle wasting, lung malignancy, severe CHF I have strongly recommended for shelter placement. However patient refused, elected for home health care. Physical Exam Const: COMMON NORMALS: no acute distress and patient oriented x3 GENERAL APPEARANCE: cooperative and frail appearing NUTRITIONAL APPEARANCE: thin ORIENTATION/CONSCIOUSNESS: Yes awake, Yes oriented to person, Yes oriented to place and Yes oriented to time HENMT: COMMON NORMALS: normocephalic HEAD & SCALP: normocephalic Neck/C-Spine: COMMON NORMALS: no JVD Resp: COMMON NORMALS: normal respiratory effort, No retractions, No use of accessory muscles and clear to auscultation bilaterally AUSCULTATION: clear to auscultation bilaterally Cardio: COMMON NORMALS: no JVD, regular rate, regular rhythm, S1 normal heart sound present and S2 normal heart sound present RATE: regular rate RHYTHM: regular rhythm HEART SOUNDS: S1 normal heart sound present and S2 normal heart sound present GI: COMMON NORMALS: Normal to inspection, nondistended, normoactive bowel sounds present, Soft to palpation, non-tender, No hepatosplenomegaly present, no masses and no bruits PALPATION: Yes Soft to palpation and Yes No hepatosplenomegaly present Extremity: COMMON NORMALS: capillary refill normal, no clubbing, cyanosis or edema, no calf tenderness and no pedal edema Neuro: COMMON NORMALS: patient oriented x3 SENSORIUM/ORIENTATION: Yes oriented to person, Yes oriented to place and Yes oriented to time Psych: COMMON NORMALS: mental status grossly normal Urinary Catheter Management^: Laureano: Cath Placed During This Visit: yes, but has since been removed by the nurse Reason for Continuing Indwelling Catheter: Accurate Measurement of Urinary Output in Critically Ill Patients Urinary Catheter Date of Insertion: 08/29/20 Urinary Catheter Time of Insertion: 12:30 Date Urinary Catheter Removed: 09/01/20 Discharge Data Data Completed and Pending: Completed Studies During Hospitalization Category Date Time Status CT angio chest PE protcl [id number] Stat Cat Scan 08/25/20 12:12 Completed Sestamibi Stress Test Request Routi ne Exams 09/08/20 10:13 Completed XR chest 1V [id number] Stat Exams 08/28/20 16:06 Completed XR chest 1V dilip ble [id number] Routine Exams 08/29/20 07:00 Completed XR chest 1V dilip ble [id number] Routine Exams 08/31/20 07:00 Completed XR chest 1V dilip ble [id number] Routine Exams 09/01/20 11:17 Completed XR chest 1V dilip ble [id number] Routine Exams 09/02/20 13:53 Completed XR chest 1V dilip ble [id number] Routine Exams 09/08/20 06:00 Completed XR chest 1V dilip ble 04165 Stat Exams 08/25/20 09:58 Completed NM kelly perf SPECT r/s* [id number] Routin e Nuc Med 09/09/20 10:13 Completed Cytology [PTH] Ro utine Pth 08/28/20 13:52 Completed CV echo complete* [id number] Routine Ultrasound 09/02/20 22:54 Completed US thoracentesis [id number] Routine Ultrasound 08/28/20 13:38 Completed Pending at discharge Category Date Time Status Complete Blood Co unt w/Auto AM LABS Lab 09/11/20 04:00 Ordered Complete Blood Co unt w/Auto AM LABS Lab 09/12/20 04:00 Ordered Comprehensive Met abolic Panel AM LA BS Lab 09/11/20 04:00 Ordered Comprehensive Met abolic Panel AM LA BS Lab 09/12/20 04:00 Ordered Magnesium AM LABS Lab 09/11/20 04:00 Ordered Magnesium AM LABS Lab 09/12/20 04:00 Ordered Mycobacteria, Cul ture w/Fluor Routi ne Lab 08/28/20 Results Phosphorus AM LAB S Lab 09/11/20 04:00 Ordered Phosphorus AM LAB S Lab 09/12/20 04:00 Ordered Labs from last 24 hours 09/10/20 09/10/20 03:49 03:49 WBC 13.5 H RBC 5.86 H Hgb 12.2 Hct 39.6 L MCV 67.6 L MCH 20.8 L MCHC 30.8 RDW 19.5 H Plt Count 290 MPV 10.3 Neut % (Auto) 68.7 Lymph % (Auto) 21.2 Haakon % (Auto) 7.3 Eos % (Auto) 2.2 Baso % (Auto) 0.1 Neut # (Auto) 9.24 H Lymph # (Auto) 2.9 Haakon # (Auto) 1.0 H Eos # (Auto) 0.3 Baso # (Auto) 0.0 Nucleated RBC % (a uto) 0 Nucleated RBCs # 0.0 Sodium 136 Potassium 3.5 Chloride 98 Carbon Dioxide 25 Anion Gap 16.5 BUN 36 H Creatinine 0.9 GFR Calculation Not Reportable Glucose 172 H Calculated Osmolal ity 294 Calcium 9.1 Phosphorus 4.7 H Magnesium 1.9 Total Bilirubin 0.3 AST 22 ALT 48 H Alkaline Phosphata se 97 Total Protein 7.1 Albumin 3.4 L Globulin 3.7 Vitals: Last Vital Signs Temp 98.2 F 09/10/20 08:07 Pulse 87 09/10/20 08:34 Resp 18 09/10/20 08:32 BP 108/62 09/10/20 08:53 Pulse Ox 92 09/10/20 08:32 Discharge Plan Discharge Patient Disposition: Home Condition: Stable Prescriptions: New spironolactone 25 mg Tablet 25 mg PO DAILY 30 Days Qty: 30 RF: 0 prednisone 20 mg Tablet 40 mg PO DAILY 2 Days Qty: 4 RF: 0 fluticasone propion-salmeterol [Advair Diskus] 500-50 mcg/dose blister with device 1 inh inhalation BID Qty: 60 RF: 0 pantoprazole 40 mg Tablet,Delayed Release (Dr/Ec) 40 mg PO DAILY 30 Days Qty: 30 RF: 0 losartan 50 mg Tablet 25 mg PO DAILY 30 Days Qty: 15 RF: 0 Spiriva with HandiHaler 18 mcg Capsule, W/Inhalation Device 18 mcg inhalation DAILY.RESPIRATORY Qty: 30 RF: 0 metoprolol succinate 25 mg Tablet Extended Release 24 Hr 25 mg PO 0900,2100 30 Days Qty: 60 RF: 0 furosemide 40 mg Tablet 60 mg PO BID@08,16 30 Days Qty: 60 RF: 0 potassium chloride [Klor-Con M20] 20 mEq Tablet,Er Particles/Crystals 20 meq PO BID 30 Days Qty: 60 RF: 0 Continued albuterol sulfate 2.5 mg /3 mL (0.083 %) solution for nebulization 2.5 mg INHALATION QID PRN (Reason: shortness of breath or wheezing) Qty: 180 RF: 1 albuterol sulfate 90 mcg/actuation HFA aerosol inhaler See Rx Instructions .ROUTE .COMPLEX Qty: 18 RF: 3 Aspir-81 81 mg Tablet,Delayed Release (Dr/Ec) 81 mg PO DAILY@0900 RF: 0 atorvastatin 20 mg tablet 20 mg PO DAILY@0900 RF: 0 Zyrtec 10 mg tablet 10 mg PO DAILY PRN (Reason: prn) RF: 0 sertraline 100 mg tablet 100 mg PO BID@0900,2100 RF: 0 omeprazole 40 mg capsule,delayed release(DR/EC) 40 mg PO DAILY@0900 RF: 0 Flonase Allergy Relief 50 mcg/actuation spray,suspension 1 spray INTRANASAL DAILY@0900 RF: 0 Discontinued fluticasone propion-salmeterol 250-50 mcg/dose blister with device See Rx Instructions .ROUTE .COMPLEX Qty: 60 RF: 11 metoprolol tartrate 25 mg tablet 25 mg PO BID@0900,2100 RF: 0 Discharge Orders: Discharge Order (Routine); Ordered 09/10/20 Ordered By: Martin Freeman Other Ambulatory Orders: DME: Wheelchair (Order) Location: None Selected Ordered By: Martin Freeman Referrals: Rome Murillo DO [Primary Care Provider] - Discharge Diet: Cardiac Discharge Activity: Resume usual activity Activity Restrictions/Additional Instructions: -Please use oxygen as prescribed -Please stop smoking -Please follow-up with pulmonary in 1 week -Please follow-up with cardiology in 1 to 2 weeks -Please measure your weight daily, if you gain more than 2 to 3 pounds take an extra 40 mg of Lasix -If you feel more short of breath, fevers, cough go to emergency room -Please wear facemask, handwashing, socially distance \ Discharge Attestations Time Spent in Discharge Care*: less than 30 min Quality Metrics Clinical Quality Measures During this hospital stay, did patient experience: None Coding Level of Care Code Acute 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
[2020-09-10] MEDS: ipratropium-albuterol 3 mL Neb INHALATION (13:50)
--- NOTE | 2020-09-10 13:50 | PC.OT ---
OT TREATMENT ATTEMPTED IN P.M. PATIENT STATES THAT HE DOES NOT FEEL LIKE PARTICIPATING IN OT AT THIS TIME HE IS WAITING TO BE DISCHARGED.
--- NOTE | 2020-09-10 16:21 | PC.NURSE ---
discharge instructions given to patient and . both verbalized an understanding. iv removed, tip intact, patient tolerated well. patient was taken via wheelchair and oxygen to private vehicle.
== END 2020-09-10 16:21 | disposition home or self-care (01) | DRG 193 ==
LOC: ER 13:57 → ICU 18:47 → CSU 09-04 22:15
PROVIDERS: Internal Medicine Pulmonary Disease; Admitting Provider Hospitalist; Emergency Provider Family Medicine; PCP Family Medicine; Visit Provider Family Medicine
DX: J18.9 Pneumonia, unspecified organism (principal); I50.23 Acute on chronic systolic (congestive) heart failure; J96.21 Acute and chronic respiratory failure with hypoxia; J44.1 Chronic obstructive pulmonary disease with (acute) exacerbation; J44.0 Chronic obstructive pulmonary disease with (acute) lower respiratory infection; F32.1 Major depressive disorder, single episode, moderate; E46 Unspecified protein-calorie malnutrition; Z68.1 Body mass index [BMI] 19.9 or less, adult; J90 Pleural effusion, not elsewhere classified; E87.1 Hypo-osmolality and hyponatremia; C34.90 Malignant neoplasm of unspecified part of unspecified bronchus or lung; K21.9 Gastro-esophageal reflux disease without esophagitis; F41.9 Anxiety disorder, unspecified; I73.9 Peripheral vascular disease, unspecified; Z99.81 Dependence on supplemental oxygen; Z79.82 Long term (current) use of aspirin; E87.6 Hypokalemia; D50.9 Iron deficiency anemia, unspecified; Y95 Nosocomial condition; Z95.820 Peripheral vascular angioplasty status with implants and grafts; Z87.891 Personal history of nicotine dependence
CPT/HCPCS: 12345; 32555; 36415; 36416; 36600; 51702; 71045; 71275; 78452; 80048; 80051; 80053; 80202; 80500; 81001; 82042; 82150; 82330; 82465; 82550; 82570; 82803; 82805; 82945; 82962; 83605; 83615; 83735; 83986; 84075; 84100; 84145; 84157; 84315; 84478; 84484; 84560; 85014; 85025; 85378; 86140; 87015; 87040; 87070; 87075; 87116; 87205; 87206; 87426; 87635; 87801; 88112; 88305; 89050; 93005; 93017; 93306; 94640; 94660; 94664; 96372; 97110; 97116; 97161; 97167; 97530; 97535; 99283; A9500; J0692; J1100; J1630; J1644; J1940; J1956; J2270; J2405; J2543; J2785; J2920; J3370; J3480; J3535; J7030; J7050; J7512; J7611; Q9967

== ENCOUNTER → 2020-09-16 10:36 | Outpatient (BNVA) | payer MEDICARE, SELFPAY | PROVIDERS: PCP Family Medicine; Visit Provider Family Medicine | DX: I50.9 Heart failure, unspecified (principal); Z09 Encounter for follow-up examination after completed treatment for conditions other than malignant neoplasm | CPT/HCPCS: 36415; 80053; 85025 ==

== ENCOUNTER 2020-10-21 13:06 | Outpatient (CLI) | payer MEDICARE, SELFPAY ==
--- NOTE | 2020-10-21 13:15 | CT_ITS ---
WS: [id number] CT CHEST WITHOUT INTRAVENOUS CONTRAST HISTORY: rule out pneumonia TECHNIQUE: Contiguous 5 mm axial imaging performed on the thorax. Coronal and sagittal reformats are submitted. All CT scans at [facility] use at least one of these dose optimization techniq ues: automated exposure control; mA and/or kV adjustment per patient size (includes targeted exams wh ere dose is matched to clinical indication); or iterative reconstruction. CONTRAST: None DLP: 586.49 mGycm COMPARISON: 08/25/2020 Lungs and central airway: Severe pulmonary expansion with fibrosis and bronchiectasis. There is some opacifications which have improved throughout both lungs. Other opacifications have progressed. Spicu lated solid nodule measuring 2.5 x 2.1 cm has increased in size in the LEFT upper lobe abutting the f issure. Mixed density opacification in the posterior RIGHT upper lobe has areas of consolidation and air with slight improvement overall no measuring 2.4 x 3.1 cm. There is associated bronchiectasis wit h this mass. Postobstructive areas of atelectasis in the RIGHT lower lobe. There is a soft tissue lob ulated mass in the posterior RIGHT lower lobe measuring 1.8 x 2.8 cm. This mass has increased in size actually appears to invade through the pleura. There is additional pleural thickening and nodularity laterally and adjacent fluid. Pleura: Small layering RIGHT pleural effusion. There is nodularity in the and along the surface of th e effusion suggesting metastatic disease. Heart and pericardium: Marked enlargement of heart. Mediastinum and fara: Without IV contrast extent of the progression is more difficult. There are enla rging mediastinal and hilar lymph nodes. There is dense confluent and conglomerate adenopathy at the RIGHT hilum resulting in partial atelectasis of the RIGHT lower lobe. There are additional satellite lesions and bronchial thickening. Additional extensive mediastinal and hilar adenopathy and subcarina l adenopathy. Additional large lymph nodes adjacent to the distal esophagus. Vessels: Extensive atherosclerosis aorta. Pulmonary artery is enlarged. Extensive coronary artery ath erosclerosis. Chest wall and lower neck: Small supraclavicular lymph nodes. Upper abdomen: New extensive masses throughout the liver. Consistent with diffuse metastatic disease. No adrenal mass. Osseous structures: L1 30% compression fracture is again identified. Mild anterior wedging of T6 and T11. Remote partially healed fracture in the mid lateral RIGHT rib cage. CT/CT chest wo con [id number] IMPRESSION: 1. Significant progression of bilateral pulmonary nodules and conglomerate mas ses and adenopathy within the chest since 08/25/2020. 2. New extensive pulmonary metastatic disease. 3. Small RIGHT pleural effusion with nodularity consistent with neoplastic inv olvement.
== END 2020-10-21 13:07 | disposition home or self-care (01) ==
LOC: RADWPI 13:09
PROVIDERS: PCP Family Medicine; Visit Provider Internal Medicine Pulmonary Disease
DX: J18.9 Pneumonia, unspecified organism (principal); J90 Pleural effusion, not elsewhere classified
CPT/HCPCS: 71250

== ENCOUNTER → 2020-10-27 16:07 | Outpatient (BNVA) | payer MEDICARE, SELFPAY | PROVIDERS: PCP Family Medicine; Visit Provider Internal Medicine Pulmonary Disease | DX: R91.8 Other nonspecific abnormal finding of lung field (principal); Z20.822 Contact with and (suspected) exposure to COVID-19 | CPT/HCPCS: 87635 ==

== ENCOUNTER 2020-10-30 06:05 | Day surgery (SDC) | payer MEDICARE, SELFPAY ==
[2020-10-28 15:25] VITALS: BMI 22.4
[2020-10-30] VITALS (7 sets, daily range): BP systolic 128–152; BP diastolic 82–93; PULSE 101–112; RESP 16–20; TEMP 36.3–36.9; O2SAT 93–98
[2020-10-30] MEDS: sodium chloride 0.9% 1,000 ML 30 ML IV (06:33)
--- NOTE | 2020-10-30 06:48 | P.HP_ITS ---
Same Day Surgery H&P Indication for Procedure/HPI DATE OF PROCEDURE: October 30, 2020 CHIEF COMPLAINT/INDICATIONFOR SURGICAL PROCEDURE: This is a 70-year-old gentleman coming in for bronchoscopic evaluation for suspected lung cancer PREOP DIAGNOSIS: suspected lung cancer PLANNED PROCEDRUE: Bronchoscopy inspection of the airway, possible endobronchial biopsies, endobronchial sound guided transbronchial aspiration of lymph node Operation Date: 10/30/20 07:10 Proposed Procedures p Ebus [id number] r91.8(Not Applicable) - Maral Lan MD Operation Date: 10/30/20 09:40 Proposed Procedures p Ebus(Not Applicable) - Maral Lan MD This is a 70 gentleman coming in for bronchoscopic evaluation for suspected lung cancer. The patient was recently hospitalized with pneumonia. At that time, CT scan of the chest was concerning for malignancy. The patient apparently had a bronchoscopy in [place] in [place] and the bronchoalveolar lavage cytology was positive for malignancy however he did not have enough malignant cells to characterize the type of cancer. The patient had a repeat CT scan in end of September. There is conglomerate masses in bilateral lungs and significant hilar mediastinal lymphadenopathy. Medications/Allergies* Home Medications Medication Instructions Recorded Confirmed Type aspirin 81 mg PO DAILY@0900 08/25/20 10/28/20 History atorvastatin 20 mg PO DAILY@0900 08/25/20 10/28/20 History cetirizine [Zyrtec] 10 mg PO DAILY PRN 08/25/20 10/28/20 History omeprazole 40 mg PO DAILY@0900 08/25/20 10/28/20 History sertraline 100 mg PO BID@0900,2100 08/25/20 10/28/20 History albuterol sulfate See Rx Instructions .ROUTE 10/28/20 10/28/20 History .COMPLEX PRN fluticasone propion-salmeterol 2 inh INHALATION BID 10/28/20 10/28/20 History [Advair Diskus] tiotropium bromide [Spiriva with See Rx Instructions .ROUTE .COMPLEX 10/28/20 10/28/20 History HandiHaler] Allergies/Adverse Reactions Allergy/AdvReac Type Severity Reaction Status Date / Time No Known Allergies Allergy Verified 10/30/20 06:21 Current Medications: Generic Name Dose Route Start Last Admin Trade Name Freq PRN Reason Stop Dose Admin Sodium Chloride 1,000 mls @ 30 mls/hr 10/30/20 06:15 10/30/20 06:33 Sodium Chloride 0.9% IV 10/31/20 06:14 30 mls/hr .Q24H KEZIA Administration Pertinent History/Comorbid Conditions* Medical History (Updated 10/22/20 @ 17:53 by Greg Durant MD) Acute on chronic respiratory failure with hypoxemia COPD, moderate GERD (gastroesophageal reflux disease) Moderate episode of recurrent major depressive disorder MRSA (methicillin resistant staphylococcus aureus) pneumonia Surgical History (Updated 11/06/19 @ 09:43 by Estefani Smith NP) History of coronary angioplasty COMMON ILIAC AND EXTERNAL ILIAC LEFT History of endarterectomy Social History Smoking and tobacco status: former smoker Quit status (tobacco): has quit using tobacco Year quit tobacco: 06/2020 [id number] Second hand smoke exposure: Yes Smoking risk assessment/counseling performed?: Yes Alcohol intake: former Caregiver/support person: Yes Lives independently: Yes Household members: spouse Housing: House Marital status: service: Yes branch: [employer] Current occupational status: retired Pets and animals: Yes History of recent travel: No Current gender identity: Male Pertinent Exam Findings alert, oriented x 3 and regular rate & rhythm Bilateral reduced breath sound, no crackles wheezing or rhonchi Recommendations Surgery/Procedure today Coding Level of Care Code Acute 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
--- NOTE | 2020-10-30 07:01 | P.ANESASSM_ITS ---
Pre-Anesthetic Assessment Pre-Anesthetic Assessment: Height/Weight: Height 1.52 m Weight 52.163 kg Temp Pulse Resp BP Pulse Ox 97.3 F L 112 H 20 H 152/92 98 10/30/20 06:27 10/30/20 06:27 10/30/20 06:27 10/30/20 06:27 10/30/20 06:27 Preop Diagnosis: suspected lung cancer Proposed Procedure: Operation Date: 10/30/20 07:10 Proposed Procedures p Ebus [id number] r91.8(Not Applicable) - Maral Lan MD Operation Date: 10/30/20 09:40 Proposed Procedures p Ebus(Not Applicable) - Maral Lan MD Familial anesthetic complications: None Was Beta Ming taken within 24 hours: Yes Last intake: Intake Last Liquid Date 10/29/20 Last Solid Date 10/29/20 Social: Social History: Tobacco and No alcohol Exam: Pre-Anes Outpt Exam: alert, oriented x 3, clear to auscultation bilaterally and regular rate & rhythm Airway: Cervical ROM: WNL MP: 3 Dentition: False Pulmonary: Pulmonary: COPD (5-6 L NC) CV/HEM: CV/HEM: CAD (s/p CABG) and HTN Comments: EF 25% Anesthetic Plan: ASA status: 4 Anesthesia: General Other: Patient informed of risk of prolonged intubation and elevated cardiac risk Risk of > 500 ml blood loss (7ml/kg in children): No Meds/Allergies Current Medications: Current Medications Generic Name Dose Route Start Last Admin Trade Name Freq PRN Reason Stop Dose Admin Sodium Chloride 1,000 mls @ 30 ml s/hr 10/30/20 06:15 10/30/20 06:33 Sodium Chloride 0.9% IV 10/31/20 06:14 30 mls/hr .Q24H KEZIA Administration PFSH Anesthesia PFSH: Medical History Acute on chronic respiratory failure with hypoxemia COPD, moderate GERD (gastroesophageal reflux disease) Moderate episode of recurrent major depressive disorder MRSA (methicillin resistant staphylococcus aureus) pneumonia Surgical History History of coronary angioplasty COMMON ILIAC AND EXTERNAL ILIAC LEFT History of endarterectomy Social History (Updated 10/22/20 @ 13:36 by Shilo Garcia LPN) Smoking and tobacco status: former smoker Quit status (tobacco): has quit using tobacco Year quit tobacco: 06/2020 [id number] Second hand smoke exposure: Yes Smoking risk assessment/counseling performed?: Yes Alcohol intake: former Caregiver/support person: Yes Lives independently: Yes Household members: spouse Housing: House Marital status: service: Yes branch: [employer] Current occupational status: retired Pets and animals: Yes History of recent travel: No Current gender identity: Male Data Anesthesia Cardiac Studies: No Data to Display
--- NOTE | 2020-10-30 07:38 | PM.OP ---
Operative Report Date of procedure: October 30, 2020 Pre-op Diagnosis: suspected lung cancer Post-op diagnosis: same Brief History: This is 70-year-old gentleman coming in for bronchoscopic evaluation for suspected lung cancer. Procedure: Name of the procedure: Bronchoscopy with inspection of the airway, endobronchial ultrasound-guided transbronchial needle aspiration of lymph nodes and control of bleeding. Indication: Suspected lung cancer Anesthesia: General anesthesia. Local anesthesia: The vocal cords, nasir in the right and left mainstem bronchi were anesthetized with 1% lidocaine, 6 mL. Description of the procedure: The procedure was explained to the patient and the consent was obtained. The patient was brought to the OR. The patient underwent laryngeal mask airway placement for general anesthesia. Following induction of general anesthesia, the bronchoscope was advanced through the LMA tube. The vocal cords appeared normal. Vocal cords was anesthetized with 1% lidocaine, 3 mL of lidocaine was used. The upper and lower trachea appeared to be erythematous, no endotracheal lesion was seen. External compression of the lower trachea from the right side was visualized. The nasir was splayed. The nasir, the right and left mainstem bronchi are anesthetized with 1% lidocaine. In a systematic manner bilateral bronchial tree was then examined. The bronchoscope was advanced into the left mainstem bronchus. The left upper lobe, lingula and left lower lobe bronchi were examined up to the third subsegmental level and no abnormalities were identified. There is no endobronchial lesion, active bleeding or mucous plug. The bronchoscope was then introduced into the right mainstem bronchus. The right upper lobe appeared normal. There was mucosal irregularity involving the right middle lobe nasir and entrance of the right lower lobe. The mucosal abnormality was very friable and bled easily to touch. Endobronchial biopsies were not performed due to concerns for bleeding and airway occlusion. The endobronchial ultrasound was introduced through the LMA. Mediastinal and hilar lymphadenopathy was identified with the ultrasound. Transbronchial needle aspiration was performed from station 7 lymph node. Samples: 1. The fine-needle aspiration of station 7 lymph node was sent for MISA. 2. The FNA was sent for histopathology. Complications: There was no immediate complications. The patient was extubated and brought to the PACU in stable condition.
--- NOTE | 2020-10-30 07:51 | SUR.PHASEI ---
PT TO PACU AWAKE ALERT WITH GOOD RESP PT NOW ON 6LNC , PT IS ON THIS AT HOME, SATS 94% NO DISTRESS NOTED PT NOT COUGHING, VSS . PT AWAKE ALERT VERBALIZING, PT REQUESTS SPRITE TO SIP ON .
[2020-10-30] MEDS: lidocaine 1% INJ 50 mL 20 ML XX (07:55)
--- NOTE | 2020-10-30 08:35 | PTH.EBUS ---
Endobronchial Ultrasound Specimen(s): Station 7 lymph node Gross: The specimen is received on 2 slides labeled with the patient's name and MRN number and additionally labeled, station 7 lymph node and consists of 2 mm blood tangled strings submitted for rapid EBUS evaluation. Preliminary Impression: Lymph node, station 7, EBUS, cytology, rapid onsite evaluation: ?Atypical clusters with necrotic debris and karyorrhexis. - Specimen Information Pathologist: Chapin Arreola Date: 10/30/20 Specimen reported at what time: 07:35 - Clinician Specimen collection time: 07:30 Clinician reported to: Maral Lan
--- NOTE | 2020-10-30 14:46 | ANE.PACU2 ---
Inpatient post-anesthesia follow up: Airway intact: Yes Vital signs: Temperature 98.1 F Pulse Rate 101 Respiratory Rate 20 Blood Pressure 141/89 Pulse Oximetry 95 Oxygen Delivery Me thod Nasal Cannula Oxygen Flow Rate 6 Fraction of Inspir ed Oxygen Hydration adequate: Yes Nausea and vomiting: No Pain level: 2 Mental status: Baseline
== END 2020-10-30 08:36 | disposition home or self-care (01) ==
PROVIDERS: PCP Family Medicine; Visit Provider Internal Medicine Critical Care Medicine
PROC: BB4BZZZ Ultrasonography of Pleura (ICD-10-PCS; principal; 2020-10-30 07:00)
PROC: 0BJ08ZZ Inspection of Tracheobronchial Tree, Via Natural or Artificial Opening Endoscopic (ICD-10-PCS; CPT 31622; 2020-10-30 07:00)
DX: C34.90 Malignant neoplasm of unspecified part of unspecified bronchus or lung (principal); J44.9 Chronic obstructive pulmonary disease, unspecified; I25.10 Atherosclerotic heart disease of native coronary artery without angina pectoris; Z95.1 Presence of aortocoronary bypass graft; I10 Essential (primary) hypertension; Z99.81 Dependence on supplemental oxygen; Z86.14 Personal history of Methicillin resistant Staphylococcus aureus infection; Z87.891 Personal history of nicotine dependence; Z79.82 Long term (current) use of aspirin
CPT/HCPCS: 31622; 31652; 80500; 88305; J3010; J7030

== ENCOUNTER 2020-11-03 13:08 | Outpatient (CLI) | payer MEDICARE, SELFPAY ==
--- NOTE | 2020-11-03 15:59 | ONC CON_ITS ---
Dr. Alegre New Patient Note Patient: Alexei Day Unit #: [id number]: 1950 Dicatated By: Leobardo Alegre M.D.Date of Visit: Nov 03, 2020 Onc MED New Patient/Consult Referring Physician: Dr. CHARLOTTE LAN M.D. History of Present Illness: Mr. Alexei Day, is a 70-year-old gentleman with history of COPD, peripheral arterial disease status post bilateral aortofemoral bypass, more than 50-year history of smoking quit smoking in June 2020, was admitted to [facility] with progressive shortness of breath on July 22, 2020, patient underwent CT scan of chest on July 23, 2020 which showed left upper lobe mass with spiculation measuring up to 1.5 cm worrisome in appearance. Dense masslike consolidation in the right upper lobe and right lower lobe with some nodular density fullness in the right pulmonary hilum. Adjacent to these areas there was some area of additional peripheral consolidation which may reflect postobstructive pneumonia. Patient was diagnosed with bacterial pneumonia and his sputum grew MRSA patient was treated with vancomycin as 1 out of 3 blood cultures showed gram-positive cocci. Follow-up CT scan of chest done on July 30, 2020 showed abnormalities of the right lung showed some improvement but there was soft tissue fullness involving the right hilar region and surrounding vessels with compression of bronchi. And there was very pronounced inflammatory process in the right lung base and there was a right basilar effusion. Left lung reveals honeycombing and spiculated irregular mass measuring 1.9 cm in diameter which is worrisome for tumor involvement. Patient underwent bronchoscopy on August 01, 2020 reveals thick tenacious yellowish secretion suctioned from the right lower lobe BAL from right middle lobe was performed followed by transbronchial lung forceps biopsy and brushing of right lower lobe, As per discussion with Dr. Lan, cytology showed nonspecific malignant cells. As per medical record, patient went to see Dr. Lan first time on August 25, 2020 and is saturation was in the 80s on 6 L nasal cannula but patient was complaining of worsening of shortness of breath so he was sent to [facility] [place] [place] ER patient was admitted with acute on chronic hypoxic respiratory failure, right pleural effusion, A. fib with RVR, newly diagnosed systolic heart failure, COPD, patient was discharged home on September 10, 2020 with a follow-up with pulmonology, as per pulmonology note patient canceled his appointments due to various reasons twice. Eventually underwent CT scan of chest on October 21, 2020 which showed significant progression of bilateral pulmonary nodules and conglomerate masses and adenopathy compared to October 26, 2019. New extensive pulmonary metastatic disease. Small right pleural effusion with nodularity consistent with neoplastic involvement and on October 30, 2020 patient underwent bronchoscopy with endobronchial ultrasound-guided transbronchial aspiration of lymph node, station 7, as per discussion with pathology on October 06, 2020, it shows high-grade, poorly differentiated carcinoma immunohistochemistry is pending. Patient denies any melena or hematochezia, denies any hemoptysis or hematemesis, denies any fever or chills, denies any nausea or vomiting, denies any headaches but chronic back pain and off and on anterior chest wall pain which is not being controlled with ibuprofen. Also complaining of poor appetite, patient on home oxygen. Past Medical History: Mr. Day's medical history consists of acute on chronic respiratory failure, chronic obstructive pulmonary disease, depression, gastroesophageal reflux disease, and history of MRSA pneumonia. Past Surgical History: Mr. Day's surgical/procedural history consists of bronchoscopy, coronary angioplasty, and endarterectomy. Medications: Advair Diskus (500-50 mcg/dose) Aerosol Powder, Breath Activated Inhalation b.i.d., Albuterol Sulfate 2 (108 (90 base) mcg/act) Aerosol Powder, Breath Activated Inhalation 8x/d, All Day Allergy (10 mg) Tablet Oral daily, Aspirin Low Dose (81 mg) Tablet, chewable Oral daily, Atorvastatin Calcium (20 mg) Tablet Oral daily, EQ Omeprazole (40 mg) Tablet, enteric coated Oral daily, Lasix (80 mg) Tablet Oral daily, Potassium Chloride (20 meq) Pack Oral daily, Sertraline HCl (100 mg) Tablet Oral b.i.d., Spironolactone (25 mg) Tablet Oral daily, Tiotropium [place] Monohydrate (18 mcg) Capsule Inhalation daily, Toprol XL (12.5 mg) Tablet SR 24 HR Oral b.i.d. Allergies: No Known Allergies. Social History: Mr. Day is . Mr. Day quit smoking less than one year ago but had smoked 1.5 packs/day for 50 years. He is a former drinker. Mr. Day reports the following support systems: lives with spouse, significant other, family, or friends. Family History: There is no documented family history. Review Of Symptoms: Review of Systems is not available for this patient. Vital Signs: Performed on Nov 03, 2020 14:05: 9, 8, 17.85 (LOW), 1.55 sq.m, 66 in, 94 % (LOW), 99 /min, 20 /min, 152/82 mm(hg) (HIGH), 98.2 F (LOW), and 110.6 lbs (HIGH). Performance Status: 3 - Capable of only limited self-care, confined to bed or chair more than 50% of waking hours. (ECOG) Physical Examination: ENMT - Poor oral hygiene, no mouth sores or thrush, no jaundice, Respiratory - Poor air entry,Decreased breath sound at the right base, mild wheezing bilaterally, Cardiovascular - Irregular rate and rhythm, Abdomen - Soft, bowel sounds present, Extremities - No visible edema. Lab/Imaging: Most recent lab results are not available for this patient. Impression: Metastatic,Poorly differentiated, high-grade carcinoma per station 7 lymph node biopsy via EBUS done on October 30, 2020 Immunohistochemistry pending to confirm the histology CT scan of chest done on October 21, 2020 showed significant progression of bilateral pulmonary nodules and conglomerate masses and adenopathy within the chest since October 26, 2019. New extensive pulmonary metastatic disease. Small right pleural effusion with nodularity consistent with neoplastic involvement. New extensive masses throughout the liver consistent with diffuse metastatic disease, no adrenal mass seen, L1 30% compression fracture is again identified. Mild anterior wedging of T6 and T11. Remote partially healed fracture of mid lateral right rib cage COPD, on home oxygen Longstanding history of smoking, 50+ year, quit in June 2020 History of peripheral vascular disease status post aortofemoral bypass Plan: Discussed with patient and regarding his disease status, patient was informed that his final pathology report is pending as per discussion with pathology today but it did show high-grade, poorly differentiated carcinoma but immunohistochemistry is pending to confirm the type e.g. small cell lung cancer non-small cell or other, as per pathology, hopefully by next week he reports should be ready. In the meantime, we will give him prescription for pain medication for better pain control, will give him Percocet 5/325 he will take 1 to 2 tablets every 4-6 hours on as needed basis and also give him low-dose Ativan for anxiety, he will take 2.5 mg Ativan every 4-6 hour on as-needed basis We will also give him Ensure sample and patient was advised to maintain good nutrition and hydration, patient has very poor performance status and now wheelchair-bound with home oxygen. Clinic return to clinic in 1 week regarding further discussion and planning.Patient was advised to call before return to clinic to ensure path report is available for discussion Overall patient has a very poor performance status, also discussed about hospice care, patient and will discuss with their son. Signed By: Leobardo Alegre M.D. <<Signature on File>>
== END 2020-11-03 13:09 | disposition home or self-care (01) ==
LOC: ONCMED 13:15
PROVIDERS: PCP Family Medicine; Visit Provider Internal Medicine Hematology & Oncology
DX: C34.12 Malignant neoplasm of upper lobe, left bronchus or lung (principal); C78.01 Secondary malignant neoplasm of right lung; J90 Pleural effusion, not elsewhere classified; C78.7 Secondary malignant neoplasm of liver and intrahepatic bile duct; J44.9 Chronic obstructive pulmonary disease, unspecified; I73.9 Peripheral vascular disease, unspecified; Z99.81 Dependence on supplemental oxygen; Z87.891 Personal history of nicotine dependence; Z95.5 Presence of coronary angioplasty implant and graft
CPT/HCPCS: 99204

== ENCOUNTER 2020-11-06 05:50 | Outpatient (CLI) | payer MEDICARE, SELFPAY ==
--- NOTE | 2020-11-06 16:46 | ONC FU_ITS ---
Dr. Alegre follow up note Patient: Alexei Day Unit #: [id number]: 1950 Dicatated By: Leobardo Alegre M.D.Date of Visit:Nov 06, 2020 Onc Med Follow-up/Prog Note History of Present Illness: Mr. Alexei Day, is a 70-year-old gentleman with history of COPD, peripheral arterial disease status post bilateral aortofemoral bypass, more than 50-year history of smoking quit smoking in June 2020, was admitted to [facility] with progressive shortness of breath on July 22, 2020, patient underwent CT scan of chest on July 23, 2020 which showed left upper lobe mass with spiculation measuring up to 1.5 cm worrisome in appearance. Dense masslike consolidation in the right upper lobe and right lower lobe with some nodular density fullness in the right pulmonary hilum. Adjacent to these areas there was some area of additional peripheral consolidation which may reflect postobstructive pneumonia. Patient was diagnosed with bacterial pneumonia and his sputum grew MRSA patient was treated with vancomycin as 1 out of 3 blood cultures showed gram-positive cocci. Follow-up CT scan of chest done on July 30, 2020 showed abnormalities of the right lung showed some improvement but there was soft tissue fullness involving the right hilar region and surrounding vessels with compression of bronchi. And there was very pronounced inflammatory process in the right lung base and there was a right basilar effusion. Left lung reveals honeycombing and spiculated irregular mass measuring 1.9 cm in diameter which is worrisome for tumor involvement. Patient underwent bronchoscopy on August 01, 2020 reveals thick tenacious yellowish secretion suctioned from the right lower lobe BAL from right middle lobe was performed followed by transbronchial lung forceps biopsy and brushing of right lower lobe, As per discussion with Dr. Lan, cytology showed nonspecific malignant cells. As per medical record, patient went to see Dr. Lan first time on August 25, 2020 and is saturation was in the 80s on 6 L nasal cannula but patient was complaining of worsening of shortness of breath so he was sent to [facility] patient was admitted with acute on chronic hypoxic respiratory failure, right pleural effusion, A. fib with RVR, newly diagnosed systolic heart failure, COPD, patient was discharged home on September 10, 2020 with a follow-up with pulmonology, as per pulmonology note patient canceled his appointments due to various reasons twice. Eventually underwent CT scan of chest on October 21, 2020 which showed significant progression of bilateral pulmonary nodules and conglomerate masses and adenopathy compared to October 26, 2019. New extensive pulmonary metastatic disease. Small right pleural effusion with nodularity consistent with neoplastic involvement and on October 30, 2020 patient underwent bronchoscopy with endobronchial ultrasound-guided transbronchial aspiration of lymph node, station 7, as per discussion with pathology on October 06, 2020, it shows high-grade, poorly differentiated carcinoma immunohistochemistry Positive for CD56, synaptophysin, TTF-1, CK 8/18, Ki-67 100%, as per pathology small cell lung carcinoma strongly favor lung primary Patient denies any melena or hematochezia, denies any hemoptysis or hematemesis, denies any fever or chills, denies any nausea or vomiting, denies any headaches but chronic back pain and off and on anterior chest wall pain which is not being controlled with ibuprofen. Also complaining of poor appetite, patient on home oxygen.Came for follow-up in fact patient was called in earlier than scheduled because of pathology confirmed, based on immunohistochemistry patient has small cell lung cancer and based on scan he has extensive disease with liver involvement. Patient denies any hemoptysis or hematemesis but complaining of persistent mid posterior back pain somewhat under control with oxycodone, requesting something stronger. No fever chills, no nausea or vomiting.No headaches or blurred vision Medications: Advair Diskus (500-50 mcg/dose) Aerosol Powder, Breath Activated Inhalation b.i.d., Albuterol Sulfate 2 (108 (90 base) mcg/act) Aerosol Powder, Breath Activated Inhalation 8x/d, All Day Allergy (10 mg) Tablet Oral daily, Aspirin Low Dose (81 mg) Tablet, chewable Oral daily, Ativan 1 (0.5 mg) Tablet Oral q 6 to 8 hours PRN, Atorvastatin Calcium (20 mg) Tablet Oral daily, EQ Omeprazole (40 mg) Tablet, enteric coated Oral daily, Lasix (80 mg) Tablet Oral daily, oxyCODONE-Acetaminophen 1 - 2 Tablet (of 5-325 mg) Oral q 4 to 6 hours PRN, Potassium Chloride (20 meq) Pack Oral daily, Sertraline HCl (100 mg) Tablet Oral b.i.d., Spironolactone (25 mg) Tablet Oral daily, Tiotropium [place] Monohydrate (18 mcg) Capsule Inhalation daily, Toprol XL (12.5 mg) Tablet SR 24 HR Oral b.i.d. Allergies: No Known Allergies. Review of Systems: Review of Systems is not available for this patient. Vital Signs: Performed on Nov 06, 2020 15:34 Height - 66.00 in Temperature - 98.0 F (LOW) Pulse - 120 /min (HIGH) Respiration - 21 /min BP - 127/78 mm(hg) O2 Sat - 96 % Pain - 6 Performance Status: 3 - Capable of only limited self-care, confined to bed or chair more than 50% of waking hours. (ECOG) Physical Examination: ENMT - , No thrush, no jaundice, no mouth sores, Respiratory - Poor air entry otherwise clear, Cardiovascular - Regular rate and rhythm of heart, Abdomen - Soft, bowel sounds present, Extremities - No visible edema. Lab/Imaging: Most recent lab results are not available for this patient. Impression: Metastatic small cell lung carcinoma per station 7 lymph node biopsy via EBUS done on October 30, 2020 Immunohistochemistry Positive for synaptophysin, TTF-1, CK 8/18, CD56, Ki-67 100% CT scan of chest done on October 21, 2020 showed significant progression of bilateral pulmonary nodules and conglomerate masses and adenopathy within the chest since October 26, 2019. New extensive pulmonary metastatic disease. Small right pleural effusion with nodularity consistent with neoplastic involvement. New extensive masses throughout the liver consistent with diffuse metastatic disease, no adrenal mass seen, L1 30% compression fracture is again identified. Mild anterior wedging of T6 and T11. Remote partially healed fracture of mid lateral right rib cage COPD, on home oxygen Longstanding history of smoking, 50+ year, quit in June 2020 History of peripheral vascular disease status post aortofemoral bypass Plan: Discussed with patient regarding his pathology and immunohistochemistry stains which confirmed small cell carcinoma, strongly favor lung primary, but patient has poor performance status so case was discussed with patient, his and his son all the pros and cons associated with systemic chemotherapy especially in his condition and poor performance status but small cell being chemosensitive, patient family wants to try systemic chemotherapy, all the side effect possible benefits associated with carboplatin/etoposide were discussed including but not limited to bone marrow suppression, nausea vomiting, hair loss, especially due to poor performance status, family understand the risks involved because of patient's overall condition, as per patient he has nothing to lose as otherwise his prognosis is very poor. Further teaching done by chemotherapy nurse, in that case, we will proceed with first cycle of chemotherapy with carboplatin AUC 5, day 1 etoposide 100 mg/m??? day 1-3 with Neulasta support to prevent chemotherapy-induced neutropenia and to maintain schedule. Patient was also given prescription for allopurinol 100 mg p.o. 3 times daily and was advised to maintain good hydration, will monitor his electrolytes. We will also consider Port-A-Cath placement but we will consider first cycle of chemotherapy as soon as possible, will obtain approval from his insurance prior to the treatment. And if patient tolerate chemo well, we will also consider adding immunotherapy with Tecentriq with second or third cycle to optimize the response. Patient return to clinic 1 week after chemotherapy is initiated with CBC CMP As far as posterior mid back pain/anterior chest wall pain, is concerned, will consider adding morphine extended release 15 mg every 12 hour and he will continue with oxycodone for breakthrough. Patient was advised to take milk of magnesia for constipation. Patient will return to clinic Signed By: Leobardo Alegre M.D. <<Signature on File>>
== END 2020-11-06 05:51 | disposition home or self-care (01) ==
LOC: ONCMED 05:54
PROVIDERS: PCP Family Medicine; Visit Provider Internal Medicine Hematology & Oncology
DX: C34.12 Malignant neoplasm of upper lobe, left bronchus or lung (principal); C77.1 Secondary and unspecified malignant neoplasm of intrathoracic lymph nodes; C78.7 Secondary malignant neoplasm of liver and intrahepatic bile duct; C78.00 Secondary malignant neoplasm of unspecified lung; J44.9 Chronic obstructive pulmonary disease, unspecified; M54.6 Pain in thoracic spine; R07.89 Other chest pain; I73.9 Peripheral vascular disease, unspecified; Z87.891 Personal history of nicotine dependence; Z99.81 Dependence on supplemental oxygen; Z79.899 Other long term (current) drug therapy; Z79.891 Long term (current) use of opiate analgesic
CPT/HCPCS: 99215

== ENCOUNTER 2020-11-14 10:30 | Inpatient (IN) | payer MEDICARE, SELFPAY ==
[2020-11-14] VITALS (21 sets, daily range): BP systolic 115–154; BP diastolic 73–106; PULSE 78–129; RESP 14–30; TEMP 36.6–37.4; O2SAT 91–96; BMI 18.6
--- NOTE | 2020-11-14 11:06 | XR_ITS ---
WS: [id number] XR chest 1V portable [id number] REASON FOR EXAM: lung cancer, worsened SOB FINDINGS: Compared to previous examination of 09/08/2020, a diffuse interstitial infiltrative pattern has develo ped in the right lower lung in association with an increased amount of pleural fluid. There is promin ent interstitial density in the left lower lung as well. Thoracic aorta is tortuous without aneurysmal dilatation. The heart is not significantly enlarged. No significant abnormality of the bony thorax. XR/XR chest 1V portable [id number] IMPRESSION: Changes in the right lower hemithorax of uncertain chronicity. Likely subacute. The findings could represent pneumonitis or congestive heart failure superimpo sed on abnormal lung, however the heart is not significantly enlarged.
--- NOTE | 2020-11-14 11:09 | CT_ITS ---
WS: [id number] CT angio chest PE protcl [id number] REASON FOR EXAM: lung cancer, acute on chronic hypoxia, tachycardia, TECHNIQUE: Coronal and sagittal 2-D and MIP reformations. IV CONTRAST ADMINISTERED: 95 mL of Omnipaque 300. TOTAL EXAM DLP: 462.[address] scans at [facility] use at least one of these dose optimization techniques: automat ed exposure control; mA and/or kV adjustment per patient size (includes targeted exams where dose is matched to clinical indication); or iterative reconstruction. FINDINGS: Comparison 09/2320, 08/1704/17/2020. No pulmonary emboli identified. Presumed lung cancer left lung left upper lobe adjacent to major fissure at the level of the main lef t pulmonary artery. Extensive central lobar emphysema with diffuse cystic change throughout both lungs. Bullous change in the apex of the right lung. Extensive infiltrative neoplasm in the mediastinum contiguous with diffuse neoplastic involvement of the right hilum with narrowing of the right mainstem bronchus and right pulmonary artery branches. Th is has become more extensive and masslike than on the previous examinations, most notably in the righ t hilum. More extensive right lower lobe lung consolidation than on the prior [address] CT scans. This may be due to i ncreasing obstructive pneumonitis and tumor infiltration. There are now moderate infiltrative changes and airspace consolidation in the left lower lung. The pleural effusion appears somewhat smaller than on the previous exams. CT/CT angio chest PE protcl [id number] IMPRESSION: Significant progression of mediastinal and right hilar infiltrative neoplasm wi th increasing right lower lung consolidation as above. New left lower lung cons olidation as well. No pulmonary emboli.
--- NOTE | 2020-11-14 11:09 | ECG_ITS ---
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 Measurements Intervals [place] Rate: 123 P: 68 [place]: 155 QRS: 75 QRSD: 113 T: 61 QT: 302 QTc: 434 Interpretive Statements SINUS TACHYCARDIA WITH OCCASIONAL VENTRICULAR PREMATURE COMPLEXES MODERATE INTRAVENTRICULAR CONDUCTION DELAY [110+ ms QRS DURATION] MODERATE VOLTAGE CRITERIA FOR LVH, CONSIDER NORMAL VARIANT [MEETS CRITERIA IN ONE OF: R(aVL), S(V1), R(V5), R(V5/V6)+S(V1)] MODERATE ST DEPRESSION [0.05+ mV ST DEPRESSION] Compared to ECG 09/02/2020 16:22:09 Ventricular premature complex(es) now present ST (T wave) deviation now present Sinus rhythm no longer present T-wave abnormality no longer present Electronically Signed On 11-14-2020 23:13:47 CDT by Yomaira Gale M.D. [id number]
--- NOTE | 2020-11-14 11:15 | ED_ITS ---
HPI - SOB/Dyspnea General: Chief Complaint: Shortness of Breath/Dyspnea Stated Complaint: AMS/ SOB Time Seen by Provider: 11/14/20 10:33 Source: family and old records reviewed Mode of arrival: EMS Limitations: altered mental status History of Present Illness: HPI Narrative: 70-year-old male with a history of metastatic lung cancer transported from home via EMS because of increased respiratory distress. His states that for the past 2 days he has had a lot of trouble breathing, has not wanted to eat or drink, and has had decreased level of alertness. She denies that he is had any fever, nausea, vomiting, or diarrhea. He typically wears oxygen at home, 4 to 5 L, when EMS got there he was in the 80s on 10 L nasal cannula. He was transitioned to 15 L nonrebreather, and by the time he got here to the ED's O2 sats were in the low 90s. He has been seen by Dr. Alegre, he is scheduled to undergo port placement by Dr. Lim on Tuesday. He was supposed to come to clinic today to have his preop Covid screening, but his stated he was too ill. MD elicited complaint: shortness of breath and cough Review of Systems General: Reports: 10 or more systems reviewed and unremarkable except in HPI and below and ROS unobtainable due to mental status PFSH ED PFSH: Medical History (Updated 11/16/20 @ 18:33 by Scott Granda MD) Acute on chronic respiratory failure with hypoxemia COPD, moderate GERD (gastroesophageal reflux disease) Moderate episode of recurrent major depressive disorder MRSA (methicillin resistant staphylococcus aureus) pneumonia Surgical History History of coronary angioplasty COMMON ILIAC AND EXTERNAL ILIAC LEFT History of endarterectomy Social History Smoking and tobacco status: former smoker Quit status (tobacco): has quit using tobacco Year quit tobacco: 06/2020 [id number] Second hand smoke exposure: Yes Smoking risk assessment/counseling performed?: Yes Alcohol intake: former Caregiver/support person: Yes Lives independently: Yes Household members: spouse Housing: House Marital status: service: Yes branch: [employer] Current occupational status: retired Pets and animals: Yes History of recent travel: No Current gender identity: Male Physical Exam Const: GENERAL APPEARANCE: in distress, disheveled, lethargic, ill appearing, frail appearing and Limp noted NUTRITIONAL APPEARANCE: cachectic ORIENTATION/CONSCIOUSNESS: Yes lethargic HENMT: COMMON NORMALS: normocephalic and atraumatic HEAD & SCALP: normocephalic and atraumatic FACE & SINUS: normal facial exam and face symmetric Chest: CHEST: Yes Symmetrical chest wall rise Resp: EFFORT & INSPECTION: Yes tachypneic, Yes respiratory distress, Yes labored, Yes retractions, Yes uses accessory muscles and Yes prolonged expiratory phase AUSCULTATION: rales and rhonchi Cardio: COMMON NORMALS: regular rhythm RATE: tachycardic RHYTHM: regular rhythm HEART SOUNDS: Murmur heart sound present GI: COMMON NORMALS: Soft to palpation INSPECTION: No Abdominal wall edema, No Anasarca and No abdominal distension PALPATION: Yes Soft to palpation Neuro: SENSORIUM/ORIENTATION: Yes Orientation impaired, Yes lethargic, Yes somnolent and Yes fluctuating sensorium Skin: COMMON NORMALS: no rashes or lesions noted and no wounds GENERAL SKIN EXAM: no rashes or lesions noted Course Vital Signs: Vital signs: Vital Signs Temperature 98.7 F 11/16/20 16:00 Pulse Rate 133 H 11/16/20 18:34 Respiratory Rate 20 H 11/16/20 16:15 Blood Pressure 147/89 11/16/20 16:00 Pulse Oximetry 91 11/16/20 18:34 MDM - SOB/Dyspnea MDM Narrative: Medical decision making narrative: 70-year-old with metastatic lung cancer, CAD, CHF, COPD with acute on chronic respiratory failure with hypoxia. Decreased mentation and in respiratory distress on arrival, O2 sats low 90s on 15 L nonrebreather, tachycardic in the 120s. Spoke to his on the phone soon after he arrived to discuss his critical condition and go over advanced directives. I said that if he were to decompensate to the point of cardiac arrest, there would be little to no chance of any meaningful recovery even if we were able to restart his heart. I asked her if she would want us to proceed with CPR and intubation should that happen, and she said no, not considering his serious health problems. I reassured her that we are doing everything else to try and optimize his respiratory situation including antibiotics, diuretics if needed, noninvasive dilatory support. pH 7.43, PaO2 61, PCO2 43, Chest x-ray shows interval worsening of right lower lobe process, pulmonary edema versus consolidation. Started on BiPAP because of increased work of breathing, and some signs of fluid overload. Mentation and work of breathing improved, patient soon was getting up and sitting on the edge of the bed. CT chest was done to rule out acute PE since he is at high risk and he had such an acute deterioration. CT does not show any acute PE, however there is worsening of bilateral consolidations, worse on the right. His white count is elevated at 20 which is above his baseline, also that there is bandemia. Broad-spectrum antibiotics initiated. Lactic acid 1.6. BNP elevated 3180, no baseline for comparison. He normally takes Lasix 80 mg a day, and did not take any this morning, so I will give him 40 mg IV UA clear. He also missed his metoprolol dose this morning, so we will give him IV metoprolol 2.5 mg. I am not sure he is ready to take p.o. meds yet. Discussed the case with Dr. Granda, the hospitalist, he accepts the admission. Medical Records: Attestation: I reviewed the patient's medical records. Lab Data: Attestation: I reviewed the patient's lab results. Labs: Lab Results 11/14/20 11/14/20 11/14/20 Range/Units 10:44 10:44 10:44 WBC 20.1 H (4.0-10.0) 10^3/ uL RBC 5.81 H (4.1-5.3) 10^6/u L Hgb 12.2 (11.7-16.6) g/dL Hct 39.4 L (42.0-52.0) % MCV 67.8 L (80-94) fL MCH 21.0 L (28.0-34.0) pg MCHC 31.0 (30.0-36.0) g/dL RDW 18.4 H (12.1-15.1) % Plt Count 408 H (130-400) 10^3/c mm MPV 11.0 H (7.4-10.4) fL Lymph % (Auto) Not Reportable Baxter % (Auto) Not Reportable Lymph # (Auto) Not Reportable Baxter # (Auto) Not Reportable Total Counted 100 (0-100) Atypical Lymphs % 0.0 (0-5) % Absolute Neutrophi ls 18.1 H (1.4-6.5) 10^3/c mm Segmented Neutroph ils 57 % Abs Segm Neuts (Ma n) 11.5 H (1.6-7.1) 10/cmm Band Neutrophils 33.0 % Abs Band Neuts (Ma n) 6.6 H (0.0-1.2) 10^3/c mm Lymphocytes (Manua l) 7 % Monocytes (Manual) 2.0 % Absolute Monocytes 0.4 (0.1-0.6) 10^3/c mm Eosinophils (Manua l) 0 % Absolute Eosinophi ls 0.0 (0.0-0.7) 10^3/c mm Basophils (Manual) 0.0 % Absolute Basophils 0.0 (0.0-0.2) 10^3/c mm Metamyelocytes 1.0 % Nucleated RBCs 1.0 (0-1) /100WBC Platelet Estimate Normal (Normal) Specimen Type Sample Site ABG pH (7.35-7.45) ABG pCO2 (35-45) mmHg ABG pO2 (80.0-100.0) mmH g ABG HCO3 (22-26) mmol/L ABG O2 Saturation ABG Base Excess (-2.0-2.0) mmol/ L Mohamud Test A-a O2 Gradient (5-10) mmHg Hematocrit (42-52) % Hgb O2 Saturation (95-100) % Carboxyhemoglobin (0.4-20.1) %THgb Methemoglobin (0.4-1.5) % Total Hemoglobin (14-18) g/dL Ionized Calcium (1.1-1.4) mmol/L O2 Delivery Device O2 Liters/Min % Cigar Head Pegger ID Sodium 138 (136-145) mmol/L Potassium 4.6 (3.5-5.1) mmol/L Chloride 97 L (98-107) mmol/L Carbon Dioxide 26 (22-29) mmol/L Anion Gap 19.6 H (5-19) BUN 53 H (8-23) mg/dL Creatinine 1.0 (0.7-1.2) mg/dL GFR Calculation Not Reportable Glucose 211 H (65-115) mg/dL Calculated Osmolal ity 307 H (285-295) mOsm/k g Lactate (0.5-2.2) mmol/L Calcium 9.7 (8.5-10.5) mg/dL Magnesium 2.7 H (1.7-2.3) mg/dL Total Bilirubin 0.5 (0.15-1.2) mg/dL AST 51 H (0-40) U/L ALT 63 H (0-41) U/L Alkaline Phosphata se 372 H (40-130) IU/L Troponin T Baselin e 17 H (0-15) ng/L Troponin T 120 Min [place] (0-15) ng/L Delta Troponin T (0-10) ABS# Troponin T Hi Sens 6Hr (0-15) ng/L Troponin T Hi Sens 6Hr Delta (0-12) ng/L NT-Pro-B Natriuret Pep 3180 H (0-125) pg/mL Total Protein 7.5 (6.6-8.7) g/dL Albumin 3.5 (3.5-5.2) g/dL Globulin 4.0 (1.3-4.6) g/dL Urine Color (Yellow) Urine Appearance (CLEAR) Urine pH (5-7) Ur Specific Gravit y (1.005-1.030) Urine Protein (Negative) Urine Glucose (UA) (Normal) Urine Ketones (Negative) Urine Blood (Negative) Urine Nitrate (Negative) Urine Bilirubin (Negative) Urine Urobilinogen (Negative) mg/dL Ur Leukocyte Herminia ase (Negative) SARS-CoV-2 RNA (RT -PCR) (NOT DETECTED) SARS-CoV-2 Ag (Rap id) (Negative) 11/14/20 11/14/20 11/14/20 Range/Units 10:44 11:13 12:10 WBC (4.0-10.0) 10^3/ uL RBC (4.1-5.3) 10^6/u L Hgb (11.7-16.6) g/dL Hct (42.0-52.0) % MCV (80-94) fL MCH (28.0-34.0) pg MCHC (30.0-36.0) g/dL RDW (12.1-15.1) % Plt Count (130-400) 10^3/c mm MPV (7.4-10.4) fL Lymph % (Auto) Baxter % (Auto) Lymph # (Auto) Baxter # (Auto) Total Counted (0-100) Atypical Lymphs % (0-5) % Absolute Neutrophi ls (1.4-6.5) 10^3/c mm Segmented Neutroph ils % Abs Segm Neuts (Ma n) (1.6-7.1) 10/cmm Band Neutrophils % Abs Band Neuts (Ma n) (0.0-1.2) 10^3/c mm Lymphocytes (Manua l) % Monocytes (Manual) % Absolute Monocytes (0.1-0.6) 10^3/c mm Eosinophils (Manua l) % Absolute Eosinophi ls (0.0-0.7) 10^3/c mm Basophils (Manual) % Absolute Basophils (0.0-0.2) 10^3/c mm Metamyelocytes % Nucleated RBCs (0-1) /100WBC Platelet Estimate (Normal) Specimen Type Arterial Sample Site Brachial, left ABG pH 7.43 (7.35-7.45) ABG pCO2 43.3 (35-45) mmHg ABG pO2 61.7 L (80.0-100.0) mmH g ABG HCO3 28.6 H (22-26) mmol/L ABG O2 Saturation 89.3 ABG Base Excess 3.8 H (-2.0-2.0) mmol/ L Mohamud Test Pos A-a O2 Gradient 4.7 L (5-10) mmHg Hematocrit 39.2 L (42-52) % Hgb O2 Saturation 87.8 L (95-100) % Carboxyhemoglobin 1.3 (0.4-20.1) %THgb Methemoglobin 0.3 L (0.4-1.5) % Total Hemoglobin 12.8 L (14-18) g/dL Ionized Calcium 1.3 (1.1-1.4) mmol/L O2 Delivery Device Nrb O2 Liters/Min 10.0 % Cigar Head Pegger ID Cak Sodium 143.0 (136-145) mmol/L Potassium 4.6 (3.5-5.1) mmol/L Chloride (98-107) mmol/L Carbon Dioxide (22-29) mmol/L Anion Gap (5-19) BUN (8-23) mg/dL Creatinine (0.7-1.2) mg/dL GFR Calculation Glucose 176.0 H (65-115) mg/dL Calculated Osmolal ity (285-295) mOsm/k g Lactate 1.6 (0.5-2.2) mmol/L Calcium (8.5-10.5) mg/dL Magnesium (1.7-2.3) mg/dL Total Bilirubin (0.15-1.2) mg/dL AST (0-40) U/L ALT (0-41) U/L Alkaline Phosphata se (40-130) IU/L Troponin T Baselin e (0-15) ng/L Troponin T 120 Min [place] (0-15) ng/L Delta Troponin T (0-10) ABS# Troponin T Hi Sens 6Hr (0-15) ng/L Troponin T Hi Sens 6Hr Delta (0-12) ng/L NT-Pro-B Natriuret Pep (0-125) pg/mL Total Protein (6.6-8.7) g/dL Albumin (3.5-5.2) g/dL Globulin (1.3-4.6) g/dL Urine Color (Yellow) Urine Appearance (CLEAR) Urine pH (5-7) Ur Specific Gravit y (1.005-1.030) Urine Protein (Negative) Urine Glucose (UA) (Normal) Urine Ketones (Negative) Urine Blood (Negative) Urine Nitrate (Negative) Urine Bilirubin (Negative) Urine Urobilinogen (Negative) mg/dL Ur Leukocyte Herminia ase (Negative) SARS-CoV-2 RNA (RT -PCR) (NOT DETECTED) SARS-CoV-2 Ag (Rap id) Negative (Negative) 11/14/20 11/14/20 11/14/20 Range/Units 12:46 13:18 13:32 WBC (4.0-10.0) 10^3/ uL RBC (4.1-5.3) 10^6/u L Hgb (11.7-16.6) g/dL Hct (42.0-52.0) % MCV (80-94) fL MCH (28.0-34.0) pg MCHC (30.0-36.0) g/dL RDW (12.1-15.1) % Plt Count (130-400) 10^3/c mm MPV (7.4-10.4) fL Lymph % (Auto) Baxter % (Auto) Lymph # (Auto) Baxter # (Auto) Total Counted (0-100) Atypical Lymphs % (0-5) % Absolute Neutrophi ls (1.4-6.5) 10^3/c mm Segmented Neutroph ils % Abs Segm Neuts (Ma n) (1.6-7.1) 10/cmm Band Neutrophils % Abs Band Neuts (Ma n) (0.0-1.2) 10^3/c mm Lymphocytes (Manua l) % Monocytes (Manual) % Absolute Monocytes (0.1-0.6) 10^3/c mm Eosinophils (Manua l) % Absolute Eosinophi ls (0.0-0.7) 10^3/c mm Basophils (Manual) % Absolute Basophils (0.0-0.2) 10^3/c mm Metamyelocytes % Nucleated RBCs (0-1) /100WBC Platelet Estimate (Normal) Specimen Type Sample Site ABG pH (7.35-7.45) ABG pCO2 (35-45) mmHg ABG pO2 (80.0-100.0) mmH g ABG HCO3 (22-26) mmol/L ABG O2 Saturation ABG Base Excess (-2.0-2.0) mmol/ L Mohamud Test A-a O2 Gradient (5-10) mmHg Hematocrit (42-52) % Hgb O2 Saturation (95-100) % Carboxyhemoglobin (0.4-20.1) %THgb Methemoglobin (0.4-1.5) % Total Hemoglobin (14-18) g/dL Ionized Calcium (1.1-1.4) mmol/L O2 Delivery Device O2 Liters/Min % Cigar Head Pegger ID Sodium (136-145) mmol/L Potassium (3.5-5.1) mmol/L Chloride (98-107) mmol/L Carbon Dioxide (22-29) mmol/L Anion Gap (5-19) BUN (8-23) mg/dL Creatinine (0.7-1.2) mg/dL GFR Calculation Glucose (65-115) mg/dL Calculated Osmolal ity (285-295) mOsm/k g Lactate (0.5-2.2) mmol/L Calcium (8.5-10.5) mg/dL Magnesium (1.7-2.3) mg/dL Total Bilirubin (0.15-1.2) mg/dL AST (0-40) U/L ALT (0-41) U/L Alkaline Phosphata se (40-130) IU/L Troponin T Baselin e (0-15) ng/L Troponin T 120 Min [place] 16.89 H (0-15) ng/L Delta Troponin T -0.11 L (0-10) ABS# Troponin T Hi Sens 6Hr (0-15) ng/L Troponin T Hi Sens 6Hr Delta (0-12) ng/L NT-Pro-B Natriuret Pep (0-125) pg/mL Total Protein (6.6-8.7) g/dL Albumin (3.5-5.2) g/dL Globulin (1.3-4.6) g/dL Urine Color Straw (Yellow) Urine Appearance Clear (CLEAR) Urine pH 5 (5-7) Ur Specific Gravit y 1.015 (1.005-1.030) Urine Protein Neg (Negative) Urine Glucose (UA) Norm (Normal) Urine Ketones Negative (Negative) Urine Blood Neg (Negative) Urine Nitrate Negative (Negative) Urine Bilirubin Neg (Negative) Urine Urobilinogen Norm (Negative) mg/dL Ur Leukocyte Herminia ase Negative (Negative) SARS-CoV-2 RNA (RT -PCR) Not detected (NOT DETECTED) SARS-CoV-2 Ag (Rap id) (Negative) 11/14/20 Range/Units 17:20 WBC (4.0-10.0) 10^3/ uL RBC (4.1-5.3) 10^6/u L Hgb (11.7-16.6) g/dL Hct (42.0-52.0) % MCV (80-94) fL MCH (28.0-34.0) pg MCHC (30.0-36.0) g/dL RDW (12.1-15.1) % Plt Count (130-400) 10^3/c mm MPV (7.4-10.4) fL Lymph % (Auto) Baxter % (Auto) Lymph # (Auto) Baxter # (Auto) Total Counted (0-100) Atypical Lymphs % (0-5) % Absolute Neutrophi ls (1.4-6.5) 10^3/c mm Segmented Neutroph ils % Abs Segm Neuts (Ma n) (1.6-7.1) 10/cmm Band Neutrophils % Abs Band Neuts (Ma n) (0.0-1.2) 10^3/c mm Lymphocytes (Manua l) % Monocytes (Manual) % Absolute Monocytes (0.1-0.6) 10^3/c mm Eosinophils (Manua l) % Absolute Eosinophi ls (0.0-0.7) 10^3/c mm Basophils (Manual) % Absolute Basophils (0.0-0.2) 10^3/c mm Metamyelocytes % Nucleated RBCs (0-1) /100WBC Platelet Estimate (Normal) Specimen Type Sample Site ABG pH (7.35-7.45) ABG pCO2 (35-45) mmHg ABG pO2 (80.0-100.0) mmH g ABG HCO3 (22-26) mmol/L ABG O2 Saturation ABG Base Excess (-2.0-2.0) mmol/ L Mohamud Test A-a O2 Gradient (5-10) mmHg Hematocrit (42-52) % Hgb O2 Saturation (95-100) % Carboxyhemoglobin (0.4-20.1) %THgb Methemoglobin (0.4-1.5) % Total Hemoglobin (14-18) g/dL Ionized Calcium (1.1-1.4) mmol/L O2 Delivery Device O2 Liters/Min % Cigar Head Pegger ID Sodium (136-145) mmol/L Potassium (3.5-5.1) mmol/L Chloride (98-107) mmol/L Carbon Dioxide (22-29) mmol/L Anion Gap (5-19) BUN (8-23) mg/dL Creatinine (0.7-1.2) mg/dL GFR Calculation Glucose (65-115) mg/dL Calculated Osmolal ity (285-295) mOsm/k g Lactate (0.5-2.2) mmol/L Calcium (8.5-10.5) mg/dL Magnesium (1.7-2.3) mg/dL Total Bilirubin (0.15-1.2) mg/dL AST (0-40) U/L ALT (0-41) U/L Alkaline Phosphata se (40-130) IU/L Troponin T Baselin e (0-15) ng/L Troponin T 120 Min [place] (0-15) ng/L Delta Troponin T (0-10) ABS# Troponin T Hi Sens 6Hr 18.08 H (0-15) ng/L Troponin T Hi Sens 6Hr Delta 1.08 (0-12) ng/L NT-Pro-B Natriuret Pep (0-125) pg/mL Total Protein (6.6-8.7) g/dL Albumin (3.5-5.2) g/dL Globulin (1.3-4.6) g/dL Urine Color (Yellow) Urine Appearance (CLEAR) Urine pH (5-7) Ur Specific Gravit y (1.005-1.030) Urine Protein (Negative) Urine Glucose (UA) (Normal) Urine Ketones (Negative) Urine Blood (Negative) Urine Nitrate (Negative) Urine Bilirubin (Negative) Urine Urobilinogen (Negative) mg/dL Ur Leukocyte Herminia ase (Negative) SARS-CoV-2 RNA (RT -PCR) (NOT DETECTED) SARS-CoV-2 Ag (Rap id) (Negative) Discharge Plan Discharge Admit Provider: Scott Granda Coding Level of Care Code ED Roll Coverer for Arle[place] Fwd Exam Comprehensive
[2020-11-14 11:24] LABS: ABG PCO2 43.3 mmHg (35-45); ABG PH Result 7.43 (7.35-7.45); Alveolar-Arterial Oxygen Gradi 4.7 mmHg (5-10); Arterial Blood Gas Hematocrit 39.2 % (42-52); Base Excess ABG 3.8 mmol/L (-2.0-2.0); Blood Gas Allen Test Pos; Blood Gas Operator Identificat CAK; Blood Gas Sample Site Brachial, left; Blood Gas Sample Type Arterial; Carboxyhemoglobin 1.3 %THgb (0.4-20.1); HCO3 ABG 28.6 mmol/L (22-26); HGB O2 Sat 87.8 % (95-100); Ionized Calcium Level - ABG 1.3 mmol/L (1.1-1.4); Methemoglobin 0.3 % (0.4-1.5); Oxygen Device NRB; Oxygen Saturation ABG 89.3; PO2 ABG 61.7 mmHg (80.0-100.0); Potassium Level - ABG 4.6 mmol/L (3.5-5.0); Total Hemoglobin 12.8 g/dL (14-18)
[2020-11-14 11:53] LABS: Hematocrit 39.4 % (42.0-52.0); Hemoglobin 12.2 g/dL (11.7-16.6); Mean Corpuscular Volume 67.8 fL (80-94); Platelet Count 408 10^3/cmm (130-400); Red Blood Count 5.81 10^6/uL (4.1-5.3); Red Cell Distribution Width 18.4 % (12.1-15.1); White Blood Count 20.1 10^3/uL (4.0-10.0)
[2020-11-14] MEDS: cefTRIAXone 1,000 MG in sodium chloride 0.9% (plus) 50 ML 100 MG IV (12:04)
[2020-11-14 12:07] LABS: Lactate (Lactic Acid level) 1.6 mmol/L (0.5-2.2)
[2020-11-14 12:11] LABS: Troponin(5th) Baseline 17 ng/L (0-15)
[2020-11-14 12:18] LABS: Alanine Aminotransferase 63 U/L (0-41); Albumin Level 3.5 g/dL (3.5-5.2); Alkaline Phosphatase 372 IU/L (40-130); Anion Gap 19.6 (5-19); Aspartate Amino Transferase 51 U/L (0-40); Blood Urea Nitrogen 53 mg/dL (8-23); Calcium 9.7 mg/dL (8.5-10.5); Carbon Dioxide 26 mmol/L (22-29); Chloride 97 mmol/L (98-107); Glucose 211 mg/dL (65-115); Magnesium 2.7 mg/dL (1.7-2.3); NT Pro B Type Natriuretic Pept 3180 pg/mL (0-125); Osmolality Calculated 307 mOsm/kg (285-295); Potassium 4.6 mmol/L (3.5-5.1); Sodium 138 mmol/L (136-145); Total Bilirubin 0.5 mg/dL (0.15-1.2); Total Protein 7.5 g/dL (6.6-8.7)
[2020-11-14 12:24] LABS: Slide Review Slide Review Perform
[2020-11-14 12:26] LABS: Absolute Neutrophil 18.1 10^3/cmm (1.4-6.5); Absolute Segmented Neutrophil 11.5 10/cmm (1.6-7.1); Band Neutrophils Absolute 6.6 10^3/cmm (0.0-1.2); Lymphocytes 7 %; Monocytes Absolute 0.4 10^3/cmm (0.1-0.6); Platelet Estimate Normal (Normal); Segmented Neutrophils 57 %; Total Cells Counted 100 (0-100)
[2020-11-14 12:27] LABS: Eosinophils 0 %
[2020-11-14 13:08] LABS: SARS Covid-2 Antigen Negative (Negative)
--- NOTE | 2020-11-14 13:09 | ECG_ITS ---
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 Measurements Intervals [place] Rate: 114 P: 71 OK: 150 QRS: 77 QRSD: 103 T: 78 QT: 313 QTc: 433 Interpretive Statements SINUS TACHYCARDIA WITH OCCASIONAL VENTRICULAR PREMATURE COMPLEXES VOLTAGE CRITERIA FOR LVH [MEETS CRITERIA IN ONE OF: R(aVL), S(V1), R(V5), R(V5/V6)+S(V1)] Compared to ECG 11/14/2020 11:17:58 Intraventricular conduction delay no longer present ST (T wave) deviation no longer present Electronically Signed On 11-14-2020 23:26:39 CDT by Yomaira Gale M.D. [id number]
[2020-11-14 13:16] LABS: Troponin 5 2HR 16.89 ng/L (0-15)
[2020-11-14 13:18] LABS: Troponin 5 2HR Delta -0.11 ABS# (0-10)
[2020-11-14] MEDS: iohexol 350 mg/mL 100 mL Btl IV (13:28)
[2020-11-14 14:12] LABS: Add Urine Microscopic? NO
[2020-11-14 14:15] LABS: Bilirubin Urine Neg (Negative); Blood Urine Neg (Negative); Glucose Urine UA Norm (Normal); Ketones Urine Negative (Negative); Leukocyte Esterase Urine Negative (Negative); Nitrate Urine Negative (Negative); Protein Urine Neg (Negative); Specific Gravity, Urine 1.015 (1.005-1.030); Urine Appearance Clear (CLEAR); Urine Color Straw (Yellow); Urobilinogen Urine Norm (Negative); pH Urine 5 (5-7)
--- NOTE | 2020-11-14 14:39 | PC.NURSE ---
EKG done at 1430 and shown to ER doctor
[2020-11-14] MEDS: azithromycin 500 MG in sodium chloride 0.9% 250 ML 250 MG IV (14:41)
[2020-11-14] MEDS: FUROsemide 10 mg/mL SDV 4mL 40 MG IVP ×2 (15:23→21:24)
[2020-11-14] MEDS: metoprolol tartrate 1 mg/1 mL SDV 5 mL 2.5 MG IV (15:39)
--- NOTE | 2020-11-14 17:09 | ECG_ITS ---
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 Measurements Intervals [place] Rate: 120 P: 72 WV: 144 QRS: 61 QRSD: 116 T: 63 QT: 325 QTc: 461 Interpretive Statements ELECTRONIC VENTRICULAR PACEMAKER ABNORMAL RHYTHM ECG WARNING: DATA QUALITY MAY AFFECT INTERPRETATION Compared to ECG 11/14/2020 14:32:30 Sinus tachycardia no longer present Ventricular premature complex(es) no longer present Left ventricular hypertrophy no longer present Electronically Signed On 11-14-2020 23:28:08 CDT by Yomaira Gale M.D. [id number]
--- NOTE | 2020-11-14 18:01 | PC.NURSE ---
EKG done at 1730 and shown to ER doctor
[2020-11-14 18:10] LABS: Troponin 5 6HR 18.08 ng/L (0-15); Troponin 5 6HR Delta 1.08 ng/L (0-12)
--- NOTE | 2020-11-14 18:45 | P.HP_ITS ---
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 states that for the past 2 days he has had a lot of trouble breathing, has not wanted to eat or drink, and has had decreased level of alertness. She denies that he is had any fever, nausea, vomiting, or diarrhea. He typically wears oxygen at home, 4 to 5 L, when EMS got there he was in the 80s on 10 L nasal cannula. He was transitioned to 15 L nonrebreather, on arrival, O2 sats low 90s on 15 L nonrebreather, tachycardic in the 120s. Pertinent ER Work up WBC : 20 , Lactic acid 1.6. , BNP elevated 3180, no baseline for comparison. pH 7.43, PaO2 61, PCO2 43. Chest x-ray shows interval worsening of right lower lobe process, pulmonary edema versus consolidation. CTA chest:No P.E , bilateral consolidations, worse on the right. Patient was started on BIPAP because of increased work of breathing, and some signs of fluid overload.He was also given lasix 40 mg I.V *1 Dose , as well as started on cef and azithromycin. ER Physician spoke with his over the phone.Patient is DNR/DNI. She is fine with other medical management. Patient is scheduled for port placement on Tuesday by . Review of Systems Card: Denies: palpitations or swelling of feet/ankles GI: Denies: abdominal pain Musc: Denies: back pain, extremity pain or extremity swelling Medications/Allergies Home Medications Medication Instructions Recorded Confirmed Last Taken Type aspirin 81 mg PO DAILY@0900 08/25/20 11/14/20 11/13/20 History atorvastatin 20 mg PO DAILY@0900 08/25/20 11/14/20 11/13/20 History cetirizine [Zyrtec] 10 mg PO DAILY PRN 08/25/20 11/14/2021 History omeprazole 40 mg PO DAILY@0900 08/25/20 11/14/20 11/13/20 History sertraline 100 mg PO BID@0900,2100 08/25/20 11/14/20 11/13/20 History albuterol sulfate 2.5 mg INHALATION QID PRN #180 ml 10/16/20 11/14/20 11/14/20 Rx fluticasone propion-salmeterol 2 inh INHALATION BID 10/28/20 11/14/20 11/13/20 History [Advair Diskus] albuterol sulfate 90 mcg/actuation See Rx Instructions .ROUTE 11/03/20 11/14/20 11/14/20 Rx aerosol inhaler .COMPLEX #8.5 g Lasix 80 mg PO DAILY@0900 11/14/20 11/14/20 11/13/20 History allopurinol 100 mg PO BID 11/14/20 11/14/20 Unknown History metoprolol succinate 12.5 mg PO BID@0900,2100 11/14/20 11/14/20 11/13/20 History morphine 15 mg PO BID PRN 11/14/20 11/14/20 11/13/20 History oxycodone-acetaminophen 1 tab PO QID PRN 11/14/20 11/14/20 11/13/20 History potassium chloride 20 meq PO DAILY@0900 11/14/20 11/14/20 11/13/20 History spironolactone 25 mg PO DAILY@0900 11/14/20 11/14/20 11/13/20 History tiotropium bromide [Spiriva with 1 cap INHALATION BID@0900,209911/14/20 11/14/20 11/13/20 History HandiHaler] Allergies Allergy/AdvReac Type Severity Reaction Status Date / Time No Known Allergies Allergy Verified 11/12/20 10:39 PFSH Acute PFSH: Medical History Acute on chronic respiratory failure with hypoxemia COPD, moderate GERD (gastroesophageal reflux disease) Moderate episode of recurrent major depressive disorder MRSA (methicillin resistant staphylococcus aureus) pneumonia Surgical History History of coronary angioplasty COMMON ILIAC AND EXTERNAL ILIAC LEFT History of endarterectomy Social History Smoking and tobacco status: former smoker Quit status (tobacco): has quit using tobacco Year quit tobacco: 06/2020 [id number] Second hand smoke exposure: Yes Smoking risk assessment/counseling performed?: Yes Alcohol intake: former Caregiver/support person: Yes Lives independently: Yes Household members: spouse Housing: House Marital status: service: Yes branch: [employer] Current occupational status: retired Pets and animals: Yes History of recent travel: No Current gender identity: Male Vitals/I&O/Wt Last Vital Signs Temp 98.0 F 11/14/20 10:35 Pulse 113 H 11/14/20 18:24 Resp 24 H 11/14/20 18:24 BP 126/86 11/14/20 18:24 Pulse Ox 95 11/14/20 18:24 11/14/20 11/14/20 11/14/20 06:59 14:59 22:59 Intake Total 50 / 50 Balance 50 / 50 Weight last 48 hrs Weight 52.163 kg Physical Exam Const: COMMON NORMALS: patient oriented x3 HENMT: COMMON NORMALS: normocephalic and atraumatic HEAD & SCALP: normocephalic and atraumatic Chest: CHEST: Yes Symmetrical chest wall rise Resp: EFFORT & INSPECTION: Yes symmetric chest movement OTHER: Minimal Basal Crackles Cardio: COMMON NORMALS: S1 normal heart sound present, S2 normal heart sound present, No gallops present (Cardio), No murmurs present (Cardio), No rub (Cardio) and Peripheral pulses 2+ throughout RATE: regular rate RHYTHM: regular rhythm HEART SOUNDS: S1 normal heart sound present and S2 normal heart sound present PERIPHERAL PULSES: Peripheral pulses 2+ throughout GI: COMMON NORMALS: Normal to inspection, nondistended, normoactive bowel sounds present, Soft to palpation, non-tender, No hepatosplenomegaly present and no masses AUSCULTATION: Yes normoactive bowel sounds PALPATION: Yes Soft to palpation and Yes No hepatosplenomegaly present RECTAL EXAM: Yes deferred Extremity: COMMON NORMALS: no clubbing, cyanosis or edema and no pedal edema Neuro: COMMON NORMALS: patient oriented x3 Data : 11/15/20 05:36 11/14/20 10:44 A&P Assessment and plan (1) Acute on chronic respiratory failure with hypoxemia: Ac On chronic hypoxic r/f 2/2 PNA with likely worsening post obstructive pneumonitis and tumor infiltration.As well as Decompensated HFRef Follow Sputum Culture Blood Culture Currently on levofloxacin 750 mg I.V Daily lasix 40 mg I.V Q12 H daily Monitor Daily Weight I/0 K>4 , Mg >2 Duo Nebs Monitor ABG Status: Acute (2) CHF (NYHA class III, ACC/AHA stage C): Status: Acute (3) COPD (chronic obstructive pulmonary disease): Status: Acute (4) Ex-smoker for less than 1 year: Status: Acute Additional A&P Information Code Status :AND Attestations Medical Necessity Statement*: Patient needs to be in hospital for the management of R/F.Anticipated LOS Greater then 2 Midnights. Coding Level of Care Code Acute Special Education Assistant for Chg Fwd Diagnoses Acute on chronic respiratory failure with hypoxemia J96.21 CHF (NYHA class III, ACC/AHA stage C) I50.9 COPD (chronic obstructive pulmonary disease) J44.9 Ex-smoker for less than 1 year Z78.9
[2020-11-14] MEDS: ipratropium-albuterol 3 mL Neb INHALATION (21:07)
[2020-11-14] MEDS: famotidine 20 mg/2 mL INJ IVP (21:23)
[2020-11-14] MEDS: enoxaparin 40 mg/0.4 mL Syringe SUBCUT (21:27)
[2020-11-15] VITALS (22 sets, daily range): BP systolic 132–144; BP diastolic 81–97; PULSE 119–132; RESP 16–28; TEMP 36.4–37.1; O2SAT 91–98
[2020-11-15] MEDS: morphine 4 mg/mL SDV 1 mL 2 MG IVP (00:26)
[2020-11-15] MEDS: ipratropium-albuterol 3 mL Neb INHALATION ×2 (03:17→16:49)
[2020-11-15] MEDS: HYDROmorphone 1 mg/mL INJ 1 mL 0.5 MG IVP (03:46)
[2020-11-15 06:18] LABS: Basophils # 0.1 10^3/uL (0.0-0.1); Basophils % 0.3 %; Hematocrit 40.1 % (42.0-52.0); Hemoglobin 12.4 g/dL (11.7-16.6); Lymphocytes # 1.1 10^3/uL (0.8-4.8); Lymphocytes % 5.5 %; Mean Corpuscular HGB Conc 30.9 g/dL (30.0-36.0); Mean Corpuscular Hemoglobin 20.5 pg (28.0-34.0); Mean Corpuscular Volume 66.3 fL (80-94); Mean Platelet Volume 10.7 fL (7.4-10.4); Monocytes # 0.6 10^3/uL (0.2-0.9); Neutrophils # 18.34 10^3/uL (1.8-7.7); Neutrophils % 90.5 %; Nucleated Red Blood Cells # 0.1 /100WBC; Nucleated Red Blood Cells % 0.3 %; Platelet Count 416 10^3/cmm (130-400); Red Blood Count 6.05 10^6/uL (4.1-5.3); Red Cell Distribution Width 17.9 % (12.1-15.1); White Blood Count 20.3 10^3/uL (4.0-10.0)
[2020-11-15] MEDS: levofloxacin-dextrose 5 % 750 MG/150 ML PREMIX 100 MG IV (06:19)
[2020-11-15] MEDS: FUROsemide 10 mg/mL SDV 4mL 40 MG IVP (06:30)
[2020-11-15 06:49] LABS: Procalcitonin 2.86 ng/mL (0-0.5)
[2020-11-15 07:03] LABS: Anion Gap 24.2 (5-19); Blood Urea Nitrogen 62 mg/dL (8-23); Calcium 10.2 mg/dL (8.5-10.5); Carbon Dioxide 26 mmol/L (22-29); Chloride 102 mmol/L (98-107); Glucose 186 mg/dL (65-115); Osmolality Calculated 328 mOsm/kg (285-295); Potassium 4.2 mmol/L (3.5-5.1); Sodium 148 mmol/L (136-145)
--- NOTE | 2020-11-15 08:48 | PC.NURSE ---
when nurse entered room pt had bipap off and taken apart, iv was pulled out, pt was naked and uncovered, could not understand what pt was saying. this nurse had electronics engineering technician Katie get respiratory, this nurse applied non- Re breather and pulse oximeter, his oxygen saturation was at 68% and began to increase since oxygen was applied, RT came into room and began to put bipap back together. this nurse and TAKER DOWN cleaned up the pt and changed sheets. oxygen saturation is at 93% with non rebreather at 12L when this nurse left the room.
[2020-11-15] MEDS: famotidine 20 mg/2 mL INJ IVP ×2 (09:13→20:51)
[2020-11-15] MEDS: HYDROmorphone 1 mg/mL INJ 1 mL IVP ×2 (09:17→17:47)
[2020-11-15 10:33] LABS: Quest SARS-CoV-2 RNA NOT DETECTED (NOT DETECTED)
[2020-11-15] MEDS: metoprolol tartrate 1 mg/1 mL SDV 5 mL 5 MG IV (11:23)
[2020-11-15] MEDS: dextrose 5% 1,000 ML 50 ML IV (11:29)
[2020-11-15] MEDS: vancomycin 1,000 MG in sodium chloride 0.9% 250 ML 250 MG IV (11:38)
--- NOTE | 2020-11-15 12:39 | P.PN_ITS ---
Subjective Subjective: Interval history: Patient was seen and examined this morning. Continues to be on nonrebreather mask 12 Ls oxygen per minute, as well as intermittently on BiPAP. Patient was agitated last night as well as this morning, he pulled his IV line out, as well as remove the BiPAP mask. Currently is at bedside and wished to stay overnight. Vitals/I&O/Wt Last Vital Signs Temp 98.8 F 11/15/20 11:28 Pulse 131 H 11/15/20 11:28 Resp 18 11/15/20 11:28 BP 138/89 11/15/20 11:28 Pulse Ox 93 11/15/20 11:28 11/14/20 11/15/20 11/15/20 22:59 06:59 14:59 Intake Total 250 / 300 Output Total 100 / 100 0 / 100 Balance 150 / 200 0 / 200 Weight last 48 hrs Weight 52.163 kg Physical Exam Const: COMMON NORMALS: patient oriented x3 HENMT: COMMON NORMALS: normocephalic and atraumatic HEAD & SCALP: normocephalic and atraumatic Chest: CHEST: Yes Symmetrical chest wall rise Resp: EFFORT & INSPECTION: Yes symmetric chest movement OTHER: Minimal Basal Crackles Cardio: COMMON NORMALS: S1 normal heart sound present, S2 normal heart sound present, No gallops present (Cardio), No murmurs present (Cardio), No rub (Ca rdio) and Peripheral pulses 2+ throughout HEART SOUNDS: S1 normal heart sound present and S2 normal heart sound present PERIPHERAL PULSES: Peripheral pulses 2+ throughout GI: COMMON NORMALS: Normal to inspection, nondistended, normoactive bowel sounds present, Soft to palpation, non-tender, No hepatosplenomegaly present and no masses AUSCULTATION: Yes normoactive bowel sounds PALPATION: Yes Soft to palpation and Yes No hepatosplenomegaly present RECTAL EXAM: Yes deferred Extremity: COMMON NORMALS: no clubbing, cyanosis or edema and no pedal edema Neuro: COMMON NORMALS: patient oriented x3 Data : 11/15/20 05:36 11/15/20 05:36 Micro: Microbiology 11/14/20 19:29 Blood Culture - Preliminary Blood SPECIMEN COLLECTED 11/14/20 19:15 Blood Culture - Preliminary Blood SPECIMEN COLLECTED A&P Assessment and plan (1) Acute on chronic respiratory failure with hypoxemia: Ac On chronic hypoxic r/f 2/2 PNA with likely worsening post obstructive pneumonitis and tumor infiltration.As well as Decompensated HFReF Follow Sputum Culture Blood Culture Currently on levofloxacin 750 mg I.V Daily Vancomycin Zosyn lasix 40 mg I.V Q12 H daily has been changed to lasix 40 I.V Daily Monitor Daily Weight I/0 K>4 , Mg >2 Duo Nebs Monitor ABG Status: Acute (2) Hypernatremia: Currently on D5 @ 50 CC An hour Monitor BMP Status: Acute (3) CHF (NYHA class III, ACC/AHA stage C): Status: Acute (4) COPD (chronic obstructive pulmonary disease): Status: Acute (5) Ex-smoker for less than 1 year: Status: Acute Additional A&P Information Code Status :AND Attestations Medical Necessity Statement*: Patient Needs to be in hospital for management of respiratory failure. Coding Level of Care Code Acute Sintering Plant Supervisor for Chg Fwd Exam Detailed Diagnoses Acute on chronic respiratory failure with hypoxemia J96.21 Hypernatremia E87.0 CHF (NYHA class III, ACC/AHA stage C) I50.9 COPD (chronic obstructive pulmonary disease) J44.9 Ex-smoker for less than 1 year Z78.9
[2020-11-15] MEDS: piperacillin-tazobactam 3.375 GM in sodium chloride 0.9% (plus) 50 ML IV ×2 (12:50→20:52)
--- NOTE | 2020-11-15 19:17 | PC.NURSE ---
shift summary pt at beginning of shift knew where and who he was, but was unable to tell me how or why he was here. pt was then orientedas to why he was here and what his treatments were. pt stated he understood. he removed iv, telemetry, and bipap at appriximately 0830, nurse applied non re breather, restarted iv, and placed telemetry back on pt. pt was then informed of importace of iv, telemetry, and bipap along with the non re breather and why he needed to leave it on. pt stated he understood. at approximately 1630 this nurse noticed the pt was distended in abdomen even with multiple incontinence episodes and voids in the urinal , nurse bladder scanned pt and obtained an order for sanchez to be place by DR. Granda, at approximately 1630 at which time the pt had removed iv, and telemetry along with gown. after sanchez was placed and a new iv restarted 1400 ml of clear dark yellow urine was drained from bladder. pt stated he felt the pressure ease as his bladder drained. Dr Granda stated it was ok for the to come stay with the pt through the night to help comfort the pt.
[2020-11-15] MEDS: sertraline 100 mg Tablet PO (20:52)
[2020-11-15] MEDS: enoxaparin 40 mg/0.4 mL Syringe SUBCUT (20:54)
[2020-11-15] MEDS: metoprolol tartrate 25 mg Tablet PO (20:54)
[2020-11-16] VITALS (17 sets, daily range): BP systolic 127–147; BP diastolic 80–89; PULSE 91–133; RESP 16–28; TEMP 35.8–37.2; O2SAT 91–97
[2020-11-16] MEDS: HYDROmorphone 1 mg/mL INJ 1 mL IVP ×4 (02:09→16:15)
[2020-11-16] MEDS: piperacillin-tazobactam 3.375 GM in sodium chloride 0.9% (plus) 50 ML IV ×3 (04:12→20:28)
[2020-11-16] MEDS: dextrose 5% 1,000 ML 50 ML IV (05:08)
[2020-11-16 06:10] LABS: Basophils # 0.1 10^3/uL (0.0-0.1); Basophils % 0.3 %; Hematocrit 41.8 % (42.0-52.0); Hemoglobin 12.4 g/dL (11.7-16.6); Lymphocytes # 1.3 10^3/uL (0.8-4.8); Lymphocytes % 6.3 %; Mean Corpuscular HGB Conc 29.7 g/dL (30.0-36.0); Mean Corpuscular Hemoglobin 20.5 pg (28.0-34.0); Mean Corpuscular Volume 69.1 fL (80-94); Monocytes # 0.6 10^3/uL (0.2-0.9); Monocytes % 3.2 %; Neutrophils # 17.71 10^3/uL (1.8-7.7); Neutrophils % 88.6 %; Nucleated Red Blood Cells # 0.2 /100WBC; Nucleated Red Blood Cells % 0.8 %; Platelet Count 398 10^3/cmm (130-400); Red Blood Count 6.05 10^6/uL (4.1-5.3); Red Cell Distribution Width 19.3 % (12.1-15.1)
--- NOTE | 2020-11-16 06:12 | PC.NURSE ---
Sitting up Patient sitting up in bed. Oxygen on per mask. Laureano continues to drain without difficulty, patient has pulled at catheter at times thru the night, urine slightly bloody looking, as well as lots of sediment. at bedside.
--- NOTE | 2020-11-16 07:50 | PC.NURSE ---
is in room with patient.
[2020-11-16] MEDS: famotidine 20 mg/2 mL INJ IVP ×2 (08:10→20:28)
[2020-11-16] MEDS: FUROsemide 10 mg/mL SDV 4mL 40 MG IVP (08:13)
[2020-11-16 08:35] LABS: Blood Urea Nitrogen 77 mg/dL (8-23); Calcium 9.8 mg/dL (8.5-10.5); Carbon Dioxide 25 mmol/L (22-29); Chloride 104 mmol/L (98-107); Glucose 232 mg/dL (65-115); Osmolality Calculated 332 mOsm/kg (285-295); Sodium 146 mmol/L (136-145)
[2020-11-16 08:40] LABS: Anion Gap 21.5 (5-19); Potassium 4.5 mmol/L (3.5-5.1)
--- NOTE | 2020-11-16 09:08 | PM.PN ---
Subjective Subjective: Interval history: Patient was seen and examined this morning. Continues to be on nonrebreather mask 12 Ls oxygen per minute.Continues to be in severe respiratory distress. Will encourage to use BIPAP. Vitals/I&O/Wt Last Vital Signs Temp 98.2 F 11/16/20 07:51 Pulse 130 H 11/16/20 07:51 Resp 22 H 11/16/20 08:14 BP 129/87 11/16/20 07:51 Pulse Ox 91 11/16/20 07:51 11/15/20 11/16/20 11/16/20 22:59 06:59 14:59 Intake Total 170 / 420 932.5 / 1352.5 Output Total 1350 / 1350 375 / 1725 Balance -1180 / -930 557.5 / -372.5 Weight last 48 hrs Weight 52.163 kg Physical Exam Const: COMMON NORMALS: patient oriented x3 HENMT: COMMON NORMALS: normocephalic and atraumatic HEAD & SCALP: normocephalic and atraumatic Chest: CHEST: Yes Symmetrical chest wall rise Resp: EFFORT & INSPECTION: Yes symmetric chest movement Cardio: COMMON NORMALS: S1 normal heart sound present, S2 normal heart sound present, No gallops present (Cardio), No murmurs present (Cardio), No rub (Cardio) and Peripheral pulses 2+ throughout HEART SOUNDS: S1 normal heart sound present and S2 normal heart sound present PERIPHERAL PULSES: Peripheral pulses 2+ throughout GI: COMMON NORMALS: Normal to inspection, nondistended, normoactive bowel sounds present, Soft to palpation, non-tender, No hepatosplenomegaly present and no masses AUSCULTATION: Yes normoactive bowel sounds PALPATION: Yes Soft to palpation and Yes No hepatosplenomegaly present RECTAL EXAM: Yes deferred Extremity: COMMON NORMALS: no clubbing, cyanosis or edema and no pedal edema Neuro: COMMON NORMALS: patient oriented x3 Urinary Catheter Management^: Laureano: Cath Placed During This Visit: yes Reason for Continuing Indwelling Catheter: Acute Urinary Retention or Obstruction Urinary Catheter Date of Insertion: 11/15/20 Urinary Catheter Time of Insertion: 16:45 Data : 11/16/20 05:37 11/16/20 08:06 Micro: Microbiology 11/14/20 19:29 Blood Culture - Preliminary Blood NEGATIVE TO DATE 11/14/20 19:15 Blood Culture - Preliminary Blood NEGATIVE TO DATE A&P Assessment and plan (1) Acute on chronic respiratory failure with hypoxemia: Ac On chronic hypoxic Hypercapnic r/f 2/2 PNA with likely worsening post obstructive pneumonitis and tumor infiltration. Sputum Culture : Blood Culture: NTD, Currently on levofloxacin 750 mg I.V Daily Vancomycin Zosyn Monitor Daily Weight I/0 K>4 , Mg >2 Duo Nebs Monitor ABG BIPAP Status: Acute (2) Hypernatremia: Initially on D5 @ 50 CC An hour.Changed to D5 1/2 NS @ 125 CC/HR Monitor BMP Status: Acute (3) GISELA (acute kidney injury): Pre renal Likely 2/2 poor Oral Intake. Continue I.V Hydration Monitor BMP Status: Acute (4) Small cell lung carcinoma: Small cell lung cancer with extensive metastasis ( CT scan of chest on October 21, 2020 which showed significant progression of bilateral pulmonary nodules and conglomerate masses and adenopathy compared to October 26, 2019. New extensive pulmonary metastatic disease as well as extensive disease with liver involvement. Patient follows as outpatient as well as Dr. Lan. He was scheduled for Port Placement by Dr. Sands on Tuesday. Status: Acute (5) COPD (chronic obstructive pulmonary disease): Status: Acute (6) CHF (NYHA class III, ACC/AHA stage C): Initially on lasix 40 mg I.V Q12 H daily was changed to lasix 40 I.V Daily.Currently stopped due to worsening BUN/SCR Status: Acute (7) Ex-smoker for less than 1 year: Status: Acute Additional A&P Information Code Status :AND Attestations Medical Necessity Statement*: Patient needs to be in hospital for the management of respiratory distress. Coding Level of Care Code Acute Credit Professional for [facility] Fwd Exam Detailed Diagnoses Acute on chronic respiratory failure with hypoxemia J96.21 Hypernatremia E87.0 GISELA (acute kidney injury) N17.9 Small cell lung carcinoma C34.90 COPD (chronic obstructive pulmonary disease) J44.9 CHF (NYHA class III, ACC/AHA stage C) I50.9 Ex-smoker for less than 1 year Z78.9
[2020-11-16] MEDS: metoprolol tartrate 1 mg/1 mL SDV 5 mL 5 MG IV (09:09)
[2020-11-16] MEDS: ipratropium-albuterol 3 mL Neb INHALATION (09:23)
[2020-11-16] MEDS: vancomycin 1,000 MG in sodium chloride 0.9% 250 ML 250 MG IV (09:29)
[2020-11-16] MEDS: dextrose 5%-sod chloride 0.45% 1,000 ML 125 ML IV ×2 (11:00→17:44)
[2020-11-16] MEDS: HYDROcodone-acetaminophen 5-325 mg Tablet 1 TAB PO (11:10)
--- NOTE | 2020-11-16 11:16 | PC.NURSE ---
is in room with patient
--- NOTE | 2020-11-16 11:53 | ECG_ITS ---
[facility] ED Test Date: 2020-11-16 Pat Name: Alexei Day Department: Room: 264 Gender: Male Mass Spectroscopist: : 1950 Requested By: Scott Granda Order Number: [id number] Miri MD: Nora Blanco M.D. Measurements Intervals [place] Rate: 117 P: 68 NC: 141 QRS: 56 QRSD: 118 T: 32 QT: 334 QTc: 468 Interpretive Statements SINUS TACHYCARDIA WITH OCCASIONAL VENTRICULAR PREMATURE COMPLEXES MODERATE VOLTAGE CRITERIA FOR LVH, CONSIDER NORMAL VARIANT [MEETS CRITERIA IN ONE OF: R(aVL), S(V1), R(V5), R(V5/V6)+S(V1)] PROBABLE INFERIOR MYOCARDIAL INFARCTION [35 ms Q WAVE IN II/aVF], PROBABLY OLD Compared to ECG 11/14/2020 17:29:59 Ventricular premature complex(es) now present Myocardial infarct finding now present Ventricular-paced complex(es) or rhythm no longer present Electronically Signed On 11-16-2020 20:38:41 CDT by Nora Blanco M.D. [email or web address]
[2020-11-16] MEDS: LORazepam 2 mg/mL INJ 1 mL IVP (16:26)
[2020-11-16 18:08] LABS: ABG PH Result 7.25 (7.35-7.45); Alveolar-Arterial Oxygen Gradi 0.3 mmHg (5-10); Arterial Blood Gas Hematocrit 39.7 % (42-52); Base Excess ABG 0.2 mmol/L (-2.0-2.0); Blood Gas Sample Type Arterial; Carboxyhemoglobin 1.1 %THgb (0.4-20.1); HCO3 ABG 28.9 mmol/L (22-26); HGB O2 Sat 87.1 % (95-100); Ionized Calcium Level - ABG 1.2 mmol/L (1.1-1.4); Methemoglobin 0.1 % (0.4-1.5); Oxygen Saturation ABG 88.1; PO2 ABG 68.2 mmHg (80.0-100.0); Potassium Level - ABG 3.8 mmol/L (3.5-5.0)
[2020-11-16 18:09] LABS: Blood Gas Operator Identificat ED; Blood Gas Sample Site Brachial, left; Oxygen Device OXY MASK
--- NOTE | 2020-11-16 18:32 | PC.NURSE ---
shift summary pt was responsive this am when asked questions he would respond,but nurse has noticed decline since previous shift. at this time he is not responding to nurse or at bedside, Dr is aware notified multiple times of pt deconditioning. pt has mottling to bilateral lower extremities from knee down. pt shallow breathing and using accessory muscles to breath. he is on 10 liters oxymask at this time. Dr Granda has reassessed pt and ordered an ABG, BMP, and stated that if the bipap is needed to be reapplied that ativan can be q2 hours instead of q4 hours. he has required pain medication every 4 hours as ordered PRN. Dr. Granda and i have discussed with rapid decline that the pt is a AND is in understanding of this.
--- NOTE | 2020-11-16 18:42 | PC.NURSE ---
DR. SIMS ALLOWING PATIENT FAMILY MEMBERS TO VISIT.
[2020-11-16 19:57] LABS: Anion Gap 22.1 (5-19); Blood Urea Nitrogen 77 mg/dL (8-23); Calcium 9.3 mg/dL (8.5-10.5); Carbon Dioxide 25 mmol/L (22-29); Chloride 107 mmol/L (98-107); Glucose 216 mg/dL (65-115); Osmolality Calculated 340 mOsm/kg (285-295); Potassium 4.1 mmol/L (3.5-5.1); Sodium 150 mmol/L (136-145)
[2020-11-16] MEDS: enoxaparin 40 mg/0.4 mL Syringe SUBCUT (20:28)
[2020-11-17] VITALS (16 sets, daily range): BP systolic 111–139; BP diastolic 64–78; PULSE 51–122; RESP 6–24; TEMP 36.6–36.7; O2SAT 59–98
[2020-11-17] MEDS: LORazepam 2 mg/mL INJ 1 mL IVP ×4 (02:34→18:38)
[2020-11-17] MEDS: dextrose 5%-sod chloride 0.45% 1,000 ML 125 ML IV (02:38)
[2020-11-17] MEDS: piperacillin-tazobactam 3.375 GM in sodium chloride 0.9% (plus) 50 ML IV ×3 (04:38→20:31)
[2020-11-17] MEDS: levofloxacin-dextrose 5 % 750 MG/150 ML PREMIX 100 MG IV (06:31)
[2020-11-17 06:58] LABS: Basophils % 0.2 %; Hematocrit 37.7 % (42.0-52.0); Hemoglobin 11.2 g/dL (11.7-16.6); Lymphocytes # 1.2 10^3/uL (0.8-4.8); Lymphocytes % 6.8 %; Mean Corpuscular HGB Conc 29.7 g/dL (30.0-36.0); Mean Corpuscular Hemoglobin 20.5 pg (28.0-34.0); Mean Platelet Volume 10.8 fL (7.4-10.4); Monocytes # 0.5 10^3/uL (0.2-0.9); Monocytes % 3.1 %; Neutrophils # 15.04 10^3/uL (1.8-7.7); Neutrophils % 88.4 %; Nucleated Red Blood Cells # 0.1 /100WBC; Nucleated Red Blood Cells % 0.7 %; Platelet Count 359 10^3/cmm (130-400); Red Blood Count 5.46 10^6/uL (4.1-5.3); Red Cell Distribution Width 18.3 % (12.1-15.1)
[2020-11-17 07:19] LABS: Anion Gap 16.3 (5-19); Blood Urea Nitrogen 58 mg/dL (8-23); Carbon Dioxide 26 mmol/L (22-29); Chloride 112 mmol/L (98-107); Glucose 269 mg/dL (65-115); Osmolality Calculated 338 mOsm/kg (285-295); Potassium 3.3 mmol/L (3.5-5.1); Sodium 151 mmol/L (136-145)
[2020-11-17] MEDS: famotidine 20 mg/2 mL INJ IVP ×2 (09:22→20:39)
[2020-11-17] MEDS: HYDROmorphone 1 mg/mL INJ 1 mL IVP ×3 (09:29→20:22)
[2020-11-17 09:42] LABS: Vancomycin Trough 10.9 ug/mL (10-15)
[2020-11-17] MEDS: vancomycin 1,000 MG in sodium chloride 0.9% 250 ML 250 MG IV (10:45)
--- NOTE | 2020-11-17 11:36 | PC.NURSE ---
Physician speaking with at bedside about patient's condition.
[2020-11-17] MEDS: dextrose 5%-sod chloride 0.45% 1,000 ML 150 ML IV (11:38)
--- NOTE | 2020-11-17 13:26 | DCPLANNER ---
Pt's health is declining, we will not present him or family with an IM however will follow.
--- NOTE | 2020-11-17 13:49 | PC.RESP ---
Pulmonary Rehab information sent to patient.
--- NOTE | 2020-11-17 16:36 | P.PN_ITS ---
Subjective Subjective: Interval history: Patient is unresponsive. On BiPAP. Struggling. Moderate distress is present. Medications: Reviewed: Yes Medication Review Details: Generic Name Dose Route Start Last Admin Trade Name Freq PRN Reason Stop Dose Admin Hydrocodone Bitart /Acetaminophen 1 tab 11/14/20 18:23 11/16/20 11:10 Hydrocodone-Acet aminophen 5-325 Mg Tablet PO 1 tab Q4H PRN Administration MODERATE TO SEVER E PAIN Albuterol/Ipratrop ium 3 ml 11/14/20 18:29 11/16/20 09:23 Ipratropium-Albu terol 3 Ml Neb INHALATION 3 ml Q6H.RESPIRATORY P RN Administration SHORTNESS OF ZOFIA TH Allopurinol 100 mg 11/15/20 09:00 11/17/20 09:24 Allopurinol 100 Mg Tablet PO Not Given BID [facility] Aspirin 81 mg 11/15/20 09:00 11/17/20 09:24 Aspirin 81 Mg Ec Tablet PO Not Given DAILY@0900 [facility] Atorvastatin Calci um 20 mg 11/15/20 09:00 11/17/20 09:24 Atorvastatin 40 Mg Tablet PO Not Given DAILY@0900 [facility] Enoxaparin Sodium 40 mg 11/14/20 21:00 11/16/20 20:28 Enoxaparin 40 Mg /0.4 Ml Syringe SUBCUT 40 mg Q24H KEZIA Administration Famotidine 20 mg 11/14/20 20:00 11/17/20 09:22 Famotidine 20 Mg /2 Ml Inj IVP 20 mg Q12H KEZIA Administration Hydromorphone HCl 1 mg 11/14/20 18:33 11/17/20 15:58 Hydromorphone 1 Mg/Ml Inj 1 Ml IVP 1 mg Q4H PRN Administration SEVERE PAIN Vancomycin HCl 1,0 00 mg/ 250 mls @ 250 mls /hr 11/15/20 10:00 11/17/20 11:45 Sodium Chloride IV Infused Q24H KEZIA Infusion Protocol As Directed Levofloxacin/Dextr ose 750 mg in 150 mls @ 100 mls/hr 11/17/20 06:15 11/17/20 08:01 Levaquin-D5w IV Infused Q48H KEZIA Infusion Protocol Piperacillin Sod/T azobactam 50 mls @ 12.5 mls /hr 11/15/20 12:30 11/17/20 11:37 Sod 3.375 gm/ So dium Chloride IV 12.5 mls/hr Q8H KEZIA Administration Protocol Dextrose/Sodium Ch loride 1,000 mls @ 150 m ls/hr 11/16/20 09:15 11/17/20 11:38 Dextrose 5%-Sod Chloride 0.45% IV 150 mls/hr .Q6H40M KEZIA Administration Lorazepam 2 mg 11/15/20 16:35 11/17/20 15:58 Lorazepam 2 Mg/M l Inj 1 Ml IVP 2 mg Q4H PRN Administration ANXIETY Metoprolol Tartrat e 25 mg 11/14/20 21:00 11/17/20 09:24 Metoprolol Tartr ate 25 Mg Tablet PO Not Given BID@0900,2100 [facility] Metoprolol Tartrat e 5 mg 11/15/20 10:40 11/16/20 09:09 Metoprolol Tartr ate 1 Mg/1 Ml Sdv 5 Ml IV 5 mg Q4H PRN Administration HEART RATE-HIGH Pantoprazole Sodiu m 40 mg 11/15/20 09:00 11/17/20 09:[address] 40 Mg Tablet PO Not Given DAILY [facility] Potassium Chloride 20 meq 11/15/20 09:00 11/17/20 09:25 Potassium Chlori de Er 20 Meq Table t PO Not Given DAILY [facility] Sertraline HCl 100 mg 11/14/20 21:00 11/17/20 09:25 Sertraline 100 M g Tablet PO Not Given BID@0900,2100 [facility] Spironolactone 25 mg 11/15/20 09:00 11/17/20 09:25 Spironolactone 2 5 Mg Tablet PO Not Given DAILY@0900 [facility] Vitals/I&O/Wt Last Vital Signs Temp 97.8 F 11/17/20 15:14 Pulse 51 L 11/17/20 15:14 Resp 17 11/17/20 15:58 BP 139/64 11/17/20 15:14 Pulse Ox 97 11/17/20 15:14 11/17/20 11/17/20 11/17/20 06:59 14:59 22:59 Intake Total 1100 / 2586.667 1400 / 1400 Output Total 1650 / 1650 Balance -550 / 871.438 3829 / 1400 Physical Exam Narrative: EXAM NARRATIVE: Unresponsive, comatose. Moderate distress. On BiPAP. Skin is warm and dry. Pale. Neck supple. No JVD Lungs decreased breath sounds in bilateral crackles. S1, S2, regular Abdomen soft, nontender, bowel sounds are present Extremities no cyanosis or calf tenderness bilaterally Urinary Catheter Management^: Laureano: Cath Placed During This Visit: yes Reason for Continuing Indwelling Catheter: Accurate Measurement of Urinary Output in Critically Ill Patients Urinary Catheter Date of Insertion: 11/15/20 Urinary Catheter Time of Insertion: 16:45 Data : 11/17/20 05:37 11/17/20 05:37 A&P Assessment and plan (1) Acute on chronic respiratory failure with hypoxemia: Ac On chronic hypoxic Hypercapnic r/f 2/2 PNA with likely worsening post obstructive pneumonitis and tumor infiltration. Sputum Culture : Blood Culture: NTD, Currently on levofloxacin 750 mg I.V Daily Vancomycin Zosyn Monitor Daily Weight I/0 K>4 , Mg >2 Duo Nebs Monitor ABG BIPAP Status: Acute (2) Hypernatremia: Initially on D5 @ 50 CC An hour.Changed to D5 1/2 NS @ 125 CC/HR Monitor BMP Status: Acute (3) GISELA (acute kidney injury): Pre renal Likely 2/2 poor Oral Intake. Continue I.V Hydration Monitor BMP Status: Acute (4) Small cell lung carcinoma: Small cell lung cancer with extensive metastasis ( CT scan of chest on October 21, 2020 which showed significant progression of bilateral pulmonary nodules and conglomerate masses and adenopathy compared to October 26, 2019. New extensive pulmonary metastatic disease as well as extensive disease with liver involvement. Patient follows as outpatient as well as Dr. Lan. He was scheduled for Port Placement by Dr. Sands on Tuesday. Status: Acute (5) COPD (chronic obstructive pulmonary disease): Status: Acute (6) CHF (NYHA class III, ACC/AHA stage C): Initially on lasix 40 mg I.V Q12 H daily was changed to lasix 40 I.V Daily.Currently stopped due to worsening BUN/SCR Status: Acute (7) Ex-smoker for less than 1 year: Status: Acute Additional A&P Information Code Status :[place] Acute hypoxic respiratory failure secondary to pneumonia and advancing lung c ancer with distant metastatic spread think on top of chronic emphysema. I discussed the case with Dr. Alegre, primary oncologist. He is aware about patient's hospitalization and critical condition. He agrees that the prognosis is poor and hospice and comfort care are appropriate. I discussed the case with the patient's . She would want the patient to be on comfort care. She asks us to minimize suffering and discomfort. We will start discussions with the case management regarding discharge plans and GIP. Hypokalemia Anemia Time spent on today's case is 35 minutes. Attestations Medical Necessity Statement*: Discharge planning possible discharge soon Coding Level of Care Code Acute Traffic Control Signaler for Chg Fwd Diagnoses Acute on chronic respiratory failure with hypoxemia J96.21 Hypernatremia E87.0 GISELA (acute kidney injury) N17.9 Small cell lung carcinoma C34.90 COPD (chronic obstructive pulmonary disease) J44.9 CHF (NYHA class III, ACC/AHA stage C) I50.9 Ex-smoker for less than 1 year Z78.9
--- NOTE | 2020-11-17 18:02 | PM.DCS ---
Discharge Providers Date of Admission: 11/14/20 18:23 Date of Discharge: November 17, 2020 Attending Provider at Admission: Scott Granda MD Attending Provider at Discharge: Nadir Kinney Primary Care Provider: Rome Murillo DO Diagnoses at Discharge Discharge Diagnosis (1) Acute on chronic respiratory failure with hypoxemia: Status: Acute (2) Hypernatremia: Status: Acute (3) GISELA (acute kidney injury): Status: Acute (4) Small cell lung carcinoma: Status: Acute (5) COPD (chronic obstructive pulmonary disease): Status: Acute (6) CHF (NYHA class III, ACC/AHA stage C): Status: Acute (7) Ex-smoker for less than 1 year: Status: Acute Reason for Visit Reason for Visit: AMS/ SOB Hospital Course Hospital Course See patient's H&P, consult notes and progress notes for more details. Please see my progress note for details regarding physical exam and events during the day. Acute hypoxic respiratory failure secondary to pneumonia and advancing lung cancer with distant metastatic spread think on top of chronic emphysema. I discussed the case with Dr. Alegre, primary oncologist. He is aware about patient's hospitalization and critical condition. He agrees that the prognosis is poor and hospice and comfort care are appropriate. I discussed the case with the patient's . She would want the patient to be on comfort care. She asks us to minimize suffering and discomfort. We will start discussions with the case management regarding discharge plans and GIP. The patient was seen and evaluated by by hospice and accepted to GIP. Comfort care measures are ordered per family request after my discussions with patient's . Extended family currently is at the bedside voicing no concerns or questions. Physical Exam Urinary Catheter Management^: Laureano: Cath Placed During This Visit: yes Reason for Continuing Indwelling Catheter: Accurate Measurement of Urinary Output in Critically Ill Patients Urinary Catheter Date of Insertion: 11/15/20 Urinary Catheter Time of Insertion: 16:45 Discharge Data Data Completed and Pending: Completed Studies During Hospitalization Category Date Time Status CT angio chest PE protcl [id number] Urge nt Cat Scan 11/14/20 11:09 Completed XR chest 1V dilip ble [id number] Stat Exams 11/14/20 11:06 Completed Pending at discharge Category Date Time Status Blood Culture Rou jonh Lab 11/14/20 19:29 Results Complete Blood Co unt w/Auto AM LABS Lab 11/18/20 04:00 Ordered Magnesium AM LABS Lab 11/18/20 04:00 Ordered Procalcitonin AM LABS Lab 11/18/20 04:00 Ordered Renal Function Pa clarissa AM LABS Lab 11/18/20 04:00 Ordered Sputum Culture Ro utine Lab 11/14/20 18:43 Uncollected Labs from last 24 hours 11/17/20 11/17/20 11/17/20 09:05 05:37 05:37 WBC 17.0 H RBC 5.46 H Hgb 11.2 L Hct 37.7 L MCV 69.0 L MCH 20.5 L MCHC 29.7 L RDW 18.3 H Plt Count 359 MPV 10.8 H Neut % (Auto) 88.4 Lymph % (Auto) 6.8 [place] % (Auto) 3.1 Eos % (Auto) 0.0 Baso % (Auto) 0.2 Neut # (Auto) 15.04 H Lymph # (Auto) 1.2 [place] # (Auto) 0.5 Eos # (Auto) 0.0 Baso # (Auto) 0.0 Nucleated RBC % (a uto) 0.7 Nucleated RBCs # 0.1 Specimen Type Sample Site ABG pH ABG pCO2 ABG pO2 ABG HCO3 ABG O2 Saturation ABG Base Excess Mohamud Test A-a O2 Gradient Hematocrit Hgb O2 Saturation Carboxyhemoglobin Methemoglobin Total Hemoglobin Sodium 151 H Potassium 3.3 L Glucose 269 H Ionized Calcium O2 Delivery Device O2 Liters/Min Community Service Officer Coordinator ID Chloride 112 H Carbon Dioxide 26 Anion Gap 16.3 BUN 58 H Creatinine 1.1 GFR Calculation Not Reportable Calculated Osmolal ity 338 H Calcium 9.0 Vancomycin Trough 10.9 11/16/20 11/16/20 18:52 17:18 WBC RBC Hgb Hct MCV MCH MCHC RDW Plt Count MPV Neut % (Auto) Lymph % (Auto) [place] % (Auto) Eos % (Auto) Baso % (Auto) Neut # (Auto) Lymph # (Auto) [place] # (Auto) Eos # (Auto) Baso # (Auto) Nucleated RBC % (a uto) Nucleated RBCs # Specimen Type Arterial Sample Site Brachial, left ABG pH 7.25 L ABG pCO2 66.0 H* ABG pO2 68.2 L ABG HCO3 28.9 H ABG O2 Saturation 88.1 ABG Base Excess 0.2 Mohamud Test N/a A-a O2 Gradient 0.3 L Hematocrit 39.7 L Hgb O2 Saturation 87.1 L Carboxyhemoglobin 1.1 Methemoglobin 0.1 L Total Hemoglobin 13.0 L Sodium 150 H 156.0 H Potassium 4.1 3.8 Glucose 216 H 213.0 H Ionized Calcium 1.2 O2 Delivery Device Oxy mask O2 Liters/Min 10.0 Community Service Officer Coordinator ID Ed Chloride 107 Carbon Dioxide 25 Anion Gap 22.1 H BUN 77 H Creatinine 1.5 H GFR Calculation Not Reportable Calculated Osmolal ity 340 H Calcium 9.3 Vancomycin Trough Vitals: Last Vital Signs Temp 97.8 F 11/17/20 15:14 Pulse 51 L 11/17/20 15:14 Resp 17 11/17/20 15:58 BP 139/64 11/17/20 15:14 Pulse Ox 97 11/17/20 15:14 Discharge Plan Discharge Patient Disposition: Home Condition: Stable Prescriptions: New ipratropium-albuterol 0.5 mg-3 mg(2.5 mg base)/3 mL Solution For Nebulization 3 ml inhalation Q6H.RESPIRATORY PRN (Reason: Shortness Of Breath) Qty: 0 RF: 0 morphine concentrate 100 mg/5 mL (20 mg/mL) Solution 2 - 10 mg sublingual Q2H PRN (Reason: Moderate To Severe Pain or SOB) Qty: 0 RF: 0 lorazepam 2 mg/mL Solution 2 mg IVP Q30M PRN (Reason: Seizures) Qty: 0 RF: 0 diphenhydramine HCl 25 mg Capsule 25 mg PO Q4H PRN (Reason: Itching) Qty: 0 RF: 0 S2 Racepinephrine 2.25 % Solution For Nebulization 0.5 ml inhalation Q4H.RESPIRATORY PRN (Reason: Stridor) Qty: 0 RF: 0 Blistex Medicated 0.6-0.5-1.1-0.5 % Ointment 1 applic topical Q2H PRN (Reason: Dry Lips) Qty: 0 RF: 0 ondansetron HCl (PF) 4 mg/2 mL Solution 4 mg IVP Q8H PRN (Reason: Nausea And Vomiting) Qty: 0 RF: 0 famotidine (PF) 20 mg/2 mL Solution 20 mg IVP Q12H Qty: 0 RF: 0 morphine 4 mg/mL Solution 2 - 10 mg IVP Q15M PRN (Reason: Moderate To Severe Pain or SOB) Qty: 0 RF: 0 Saliva Stimulant [Biotene] 1 spray mucous membrane Q2H PRNQty: 0 RF: 0 Isopto Atropine 1 % Drops 3 drp sublingual Q4H PRN (Reason: Excessive Secretions, Rattling) Qty: 0 RF: 0 Isopto Tears 0.5 % Drops 2 drp eye-both Q2H PRN (Reason: Dry Eye(S)) Qty: 0 RF: 0 Discontinued albuterol sulfate 2.5 mg /3 mL (0.083 %) solution for nebulization 2.5 mg INHALATION QID PRN (Reason: shortness of breath or wheezing) Qty: 180 RF: 11 albuterol sulfate 90 mcg/actuation HFA aerosol inhaler See Rx Instructions .ROUTE .COMPLEX Qty: 8.5 RF: 2 Incruse Ellipta 62.5 mcg/actuation blister with device 1 inh inhalation DAILY Qty: 30 RF: 3 aspirin 81 mg Tablet,Delayed Release (Dr/Ec) 81 mg PO DAILY@0900 RF: 0 atorvastatin 20 mg tablet 20 mg PO DAILY@0900 RF: 0 cetirizine [Zyrtec] 10 mg tablet 10 mg PO DAILY PRN (Reason: prn) RF: 0 sertraline 100 mg tablet 100 mg PO BID@0900,2100 RF: 0 omeprazole 40 mg capsule,delayed release(DR/EC) 40 mg PO DAILY@0900 RF: 0 oxycodone-acetaminophen 5-325 mg tablet 1 tab PO QID PRN (Reason: Pain) RF: 0 morphine 15 mg Capsule 15 mg PO BID PRN (Reason: Pain) RF: 0 fluticasone propion-salmeterol [Advair Diskus] 500-50 mcg/dose blister with device 2 inh inhalation BID RF: 0 spironolactone 25 mg tablet 25 mg PO DAILY@0900 RF: 0 furosemide [Lasix] 80 mg tablet 80 mg PO DAILY@0900 RF: 0 metoprolol succinate 25 mg tablet extended release 24 hr 12.5 mg PO BID@0900,2100 RF: 0 potassium chloride 20 mEq tablet extended release 20 meq PO DAILY@0900 RF: 0 allopurinol 100 mg Tablet 100 mg PO BID RF: 0 Discharge Orders: Discharge Order (Routine); Ordered 11/17/20 Ordered By: Nadir Kinney Discharge Diet: Advance as tolerated Discharge Activity: Increase activity as tolerated Discharge Attestations Time Spent in Discharge Care*: greater than 30 min Quality Metrics Clinical Quality Measures During this hospital stay, did patient experience: None Coding Level of Care Code Acute Chg FW DC note Diagnoses Acute on chronic respiratory failure with hypoxemia J96.21 Hypernatremia E87.0 GISELA (acute kidney injury) N17.9 Small cell lung carcinoma C34.90 COPD (chronic obstructive pulmonary disease) J44.9 CHF (NYHA class III, ACC/AHA stage C) I50.9 Ex-smoker for less than 1 year Z78.9
[2020-11-17] MEDS: morphine 4 mg/mL SDV 1 mL IVP (18:37)
--- NOTE | 2020-11-17 22:23 | PC.NURSE ---
: Pt TOD 221, family was at the bedside. Physician concrete pipe plant supervisor and Automotive Glass Mechanic notified. MTS notified.
--- NOTE | 2020-11-17 23:03 | PC.NURSE ---
0 Noted telemetry pulse rate dropping. Went to patients room, family at bedside. Auscultated for heart sounds at 2211, none heard Santa Brady LPN also auscultated for heart rate. No heart sounds heard. Family in room notified of patients demise. Told they had as much time as needed to say good bye. Patients notified and is on her way back to the hospital.
--- NOTE | 2020-11-17 23:34 | PC.NURSE ---
[facility] - pt is a candidate for transplant.
--- NOTE | 2020-11-18 00:11 | PC.NURSE ---
Pt taken to the [facility] [place].
--- NOTE | 2020-11-18 00:24 | PC.NURSE ---
Attila time: 9
== END 2020-11-18 00:13 | disposition expired | DRG 189 ==
LOC: ER 10:58 → MEDSURG 17:59
PROVIDERS: Admitting Provider Internal Medicine; Emergency Provider Family Medicine; PCP Family Medicine; Visit Provider Internal Medicine
DX: J96.21 Acute and chronic respiratory failure with hypoxia (principal); J18.9 Pneumonia, unspecified organism; I50.23 Acute on chronic systolic (congestive) heart failure; C34.90 Malignant neoplasm of unspecified part of unspecified bronchus or lung; C78.7 Secondary malignant neoplasm of liver and intrahepatic bile duct; F33.1 Major depressive disorder, recurrent, moderate; E87.0 Hyperosmolality and hypernatremia; N17.9 Acute kidney failure, unspecified; F41.9 Anxiety disorder, unspecified; I73.9 Peripheral vascular disease, unspecified; K21.9 Gastro-esophageal reflux disease without esophagitis; F17.210 Nicotine dependence, cigarettes, uncomplicated; Z99.81 Dependence on supplemental oxygen; J43.9 Emphysema, unspecified; I48.91 Unspecified atrial fibrillation; Z66 Do not resuscitate; Z86.14 Personal history of Methicillin resistant Staphylococcus aureus infection; Z87.01 Personal history of pneumonia (recurrent); Z98.62 Peripheral vascular angioplasty status; Z51.5 Encounter for palliative care
CPT/HCPCS: 36415; 36600; 51702; 71045; 71275; 80048; 80051; 80053; 80202; 81003; 82330; 82805; 83605; 83735; 83880; 84145; 84484; 85007; 85025; 87040; 87426; 87635; 92526; 92610; 93005; 94640; 94660; 96365; 96367; 96372; 96375; 99285; J0456; J0696; J1170; J1650; J1940; J1956; J2060; J2270; J2543; J3370; J3490; J7050; J7799; Q9967